=== PATIENT | female | born 1970 | race Caucasian/White ===

== ENCOUNTER 2016-09-14 13:38 | Inpatient (IN) | payer OTHER ==
[~2016-09-14] VITALS: Ht 162.6 cm; Wt 170.5 kg
[~2016-09-14 13:38] MED LIST: ALBUAER19 INH; BUPR-79 PO; FLUT220A INH; FURO-85 PO; HYDR-389 PO; LORA-741 PO; PRED10TA PO; PRLSR20 PO; PROP10TA7 PO
[2016-09-14] MEDS ORDERED: RANITIDINE HCL 50 MG/100 ML D5W IV STA (13:49)
[2016-09-14] MEDS ORDERED: DiphenhydrAMINE HCL 50 MG/ML VIAL IV STA ×2 (13:49→17:00)
[2016-09-14] MEDS ORDERED: SODIUM CHLORIDE 0.9% 1000ML 1,000 ML IV STA (13:49)
[2016-09-14] MEDS ORDERED: DEXAMETHASONE SOD INJ 10 MG/ML VIAL IV ONE (14:00)
--- NOTE | 2016-09-14 14:06 | EMERGENCY ROOM VISIT NOTE ---
History Report prepared by Indira: Gilda Caballero Under the Supervision of: Dr. Derik Coronel M.D. First contact with patient: 13:47 Chief Complaint: ALLERGIC REACTION Stated Complaint: WHOLE FACE IS SWOLLEN Nursing Triage Summary: Pt presents with swelling to face. Pt states she woke up at 1100 with swelling that has progressively worsened. Reports she is having a hard time swallowing. Pt unsure what she is having a rxn to. History of Present Illness The patient is a 45 year old female who presents to the Emergency Room with complaints of an allergic reaction beginning yesterday. The patient states that she noticed yesterday that her eyes were swelling. She notes that she has a history of this and is not sure why it happens. Today when she woke up she notes that the swelling worsened and 3 hours ago her lip began to swell. She complains of lip swelling, a rash on her arms beginning yesterday, leg swelling , and difficulty swallowing. She denies any difficulty breathing. The patient states that she is not sure what she is having a reaction to. She reports no known family history of angioedema. The patient notes that she is being treated for Lupus and thinks that she may be taking Plaquenil. Source of History: patient Onset: yesterday Position: other (global) Quality: other (allergic reaction) Timing: constant, worsening Associated Symptoms: + rash Note: She complains of lip swelling, leg swelling, and difficulty swallowing. She denies any difficulty breathing. Review of Systems See HPI for pertinent positives & negatives. A total of 10 systems reviewed and were otherwise negative. Past Medical & Surgical Medical Problems: (1) Anxiety (2) Asthma, mild persistent (3) Bipolar disorder (4) Depression (5) GERD (gastroesophageal reflux disease) (6) Obesity (7) Sleep apnea Surgical Problems: (1) History of appendectomy (2) History of section (3) History of tubal ligation Family History Cancer Diabetes mellitus Hypertension Social History Smoking Status: Never Smoker Alcohol Use: occasionally Drug Use: none Marital Status: in relationship Housing Status: lives with family Current/Historical Medications Scheduled Albuterol Hfa (Ventolin Hfa), 2 PUFFS INH Q4H Bupropion Hcl (Bupropion Hcl Xl), 150 MG PO QAM Fluticasone Propionate (Flovent Hfa), 2 PUFFS INH BID Furosemide (Lasix), 20 MG PO QAM Hydroxychloroquine Sulfate (Plaquenil), 200 MG PO QPM Omeprazole (Prilosec), 20 MG PO BID Prednisone (Prednisone), 10 MG PO QAM Propranolol (Inderal), 10 MG PO QAM Scheduled PRN Acetaminophen (Tylenol), 500 MG PO UD PRN for Pain Hydroxyzine Hcl (Atarax), 10 MG PO DIRECTED PRN for ITCHING Lorazepam (Ativan), 0.5 MG PO DAILY PRN for Anxiety Allergies Coded Allergies: No Known Allergies (Unverified , 03/15/16) Physical Exam Vital Signs Date Time Temp Pulse Resp B/P Pulse Ox O2 Delivery O2 Flow Rate FiO2 09/14/16 17:36 81 22 107/69 94 Room Air 09/14/16 17:24 82 09/14/16 16:15 83 20 129/83 96 Room Air 09/14/16 13:54 88 09/14/16 13:47 36.5 93 20 144/83 95 Room Air Physical Exam GENERAL: Patient is a healthy-appearing well-nourished HEAD: Swelling present to the upper lip. EYES: Ocular movements intact pupils equal and react to light OROPHARYNX mucous membranes are moist no exudate. There is no evidence of swelling to the throat or tongue. NECK: Supple no nuchal rigidity CHEST: Good equal expansion LUNGS: Clear and equal to auscultation CARDIAC: Normal S1 and S2 ABDOMEN: Soft nontender no guarding BACK: No CVA tenderness EXTREMITIES: No pain upon palpation normal muscle strength in all groups no clubbing cyanosis or edema NEURO: Patient is following commands is answering questions appropriately. Alert and oriented x3 Cranial Nerves 2-12 grossly intact Medical Decision & Procedures Laboratory Results 09/14/16 13:53 Red Blood Count 4.45, Mean Corpuscular Volume 85.8, Mean Corpuscular Hemoglobin 29.0, Mean Corpuscular Hemoglobin Concent 33.8, Mean Platelet Volume 9.1, Neutrophils (%) (Auto) 46.2, Lymphocytes (%) (Auto) 17.4, Monocytes (%) (Auto) 2.0, Eosinophils (%) (Auto) 31.3, Basophils (%) (Auto) 0.3, Neutrophils # (Auto ) 3.61, Lymphocytes # (Auto) 1.36, Monocytes # (Auto) 0.16, Eosinophils # (Auto ) 2.45, Basophils # (Auto) 0.02 09/14/16 13:53 Test 09/14/16 13:53 White Blood Count 7.82 K/uL (4.8-10.8) Red Blood Count 4.45 M/uL (4.2-5.4) Hemoglobin 12.9 g/dL (12.0-16.0) Hematocrit 38.2 % (37-47) Mean Corpuscular Volume 85.8 fL (80-100) Mean Corpuscular Hemoglobin 29.0 pg (25-34) Mean Corpuscular Hemoglobin Concent 33.8 g/dl (32-36) Platelet Count 205 K/uL (130-400) Mean Platelet Volume 9.1 fL (7.4-10.4) Neutrophils (%) (Auto) 46.2 % Lymphocytes (%) (Auto) 17.4 % Monocytes (%) (Auto) 2.0 % Eosinophils (%) (Auto) 31.3 % Basophils (%) (Auto) 0.3 % Neutrophils # (Auto) 3.61 K/uL (1.4-6.5) Lymphocytes # (Auto) 1.36 K/uL (1.2-3.4) Monocytes # (Auto) 0.16 K/uL (0.11-0.59) Eosinophils # (Auto) 2.45 K/uL (0-0.5) Basophils # (Auto) 0.02 K/uL (0-0.2) RDW Standard Deviation 44.5 fL (36.4-46.3) RDW Coefficient of Variation 14.3 % (11.5-14.5) Immature Granulocyte % (Auto) 2.8 % Immature Granulocyte # (Auto) 0.22 K/uL (0.00-0.02) Anion Gap 7.0 mmol/L (3-11) Est Creatinine Clear Calc Drug Dose 112.0 ml/min Estimated GFR () 80.9 Estimated GFR (Non- 69.8 BUN/Creatinine Ratio 11.1 (10-20) Calcium Level 8.3 mg/dl (8.5-10.1) Total Bilirubin 0.6 mg/dl (0.2-1) Direct Bilirubin 0.3 mg/dl (0-0.2) Aspartate Amino Transf (AST/SGOT) 35 U/L (15-37) Alanine Aminotransferase (ALT/SGPT) 21 U/L (12-78) Alkaline Phosphatase 92 U/L (45-117) Total Protein 6.5 gm/dl (6.4-8.2) Albumin 2.5 gm/dl (3.4-5.0) Lipase 44 U/L (73-393) Labs reviewed by ED physician. Medications Administered Medications (Trade) Dose Ordered Sig/Erika Route Start Time Stop Time Status Last Admin Dose Admin Sodium Chloride (Nss 1000ml) 1,000 ml @ 999 mls/hr Q1H1M STAT IV 09/14/16 13:49 09/14/16 14:49 DC 09/14/16 14:03 999 MLS/HR Dexamethasone Sodium Phosphate (Decadron Inj) 10 mg NOW ONCE IV 09/14/16 14:00 09/14/16 14:01 DC 09/14/16 14:03 10 MG Diphenhydramine HCl (Benadryl Inj) 50 mg NOW STAT IV 09/14/16 13:49 09/14/16 13:51 DC 09/14/16 14:03 50 MG Ranitidine HCl (zANTac IV) 50 mg NOW STAT IV 09/14/16 13:49 09/14/16 13:51 DC 09/14/16 14:10 50 MG Methylprednisolone Sodium Succinate (Solu-Medrol IV) 60 mg NOW STAT IV 09/14/16 17:00 09/14/16 17:01 DC 09/14/16 17:32 60 MG Diphenhydramine HCl (Benadryl Inj) 25 mg NOW STAT IV 09/14/16 17:00 09/14/16 17:01 DC 09/14/16 17:32 25 MG ED Course 1347: Past medical records reviewed. The patient was evaluated in room B1. A complete history and physical examination was performed. 1349: Zantac IV 50mg IV, Benadryl Inj 50mg IV, Sodium Chloride 1000 ml @ 999 mls /hr IV. 1400: Decadron Inj 10mg IV. 1514: I spoke to Dr. Waller. He would like the patient to stop taking Plaquenil and start taking 10mg of Prednisone. He notes that she is not compliant with her medications. 1700: Benadryl Inj 25mg IV, Solu-Medrol IV 60mg IV. 1703: I discussed the patient's case with Dr. Rosa, he has agreed to evaluate the patient for further management and care. 1709: Upon reexamination the patient is doing well. I discussed results and treatment plan with the patient. She verbalizes agreement and understanding. [facility] The patient will be evaluated for further management. Medical Decision Differential diagnosis: Etiologies such as allergic reaction, anaphylaxis, urticaria, Perales-Zan syndrome, toxic epidermal necrolysis, erythema multiforme, cellulitis, as well as others were entertained. This is a 45 old female who presents emergency department complaining of swelling to her upper lip. The patient reports this started after he she took Plaquenil last night. The patient is a poor historian due to her own medications and I do not believe is very compliant. I also discussed the patient's case with her assistant manager/embalmer who also made this point. Her exam is consistent with angioedema however a no stridor or wheezing on examination and there is no evidence of tongue or uvula swelling. An IV was established, the patient was given Decadron, Benadryl, Zantac. Repeat examination revealed revealed no improvement in the patient's swelling however it is not getting worse. I discussed this case with the patient who was not comfortable in going home. For this reason I did discuss with both case management as well as the hospitalist. The patient was typed and screened in case FFP is needed Consults Time Called: 1510 Consulting Physician: Dr. Waller Returned Call: [phone] Waller. He would like the patient to stop taking Plaquenil and start taking 10mg of Prednisone. He notes that she is not compliant with her medications. Additional Consults: Time Called: 1650 Consulted Physician: Dr. Rosa - [facility] Returned Call: [phone] Additional Comments: I discussed the patient's case with Dr. Rosa, he has agreed to evaluate the patient for further management and care. Impression Primary Impression: Angioedema Scribe Attestation The scribe's documentation has been prepared under my direction and personally reviewed by me in its entirety. I confirm that the note above accurately reflects all work, treatment, procedures, and medical decision making performed by me. Departure Information Dispostion Being Evaluated By Hospitalist Referrals Ary Bravo DO (PCP) Patient Instructions My [facility] Problem Qualifiers Primary Impression: Angioedema Encounter type: initial encounter Qualified Codes: T78.3XXA - Angioneurotic edema, initial encounter
[2016-09-14 14:09] LABS: BASO % 0.3 %; BASO ABS # 0.02 K/uL (0-0.2); COMPLETE YES; EOS % 31.3 %; HEMATOCRIT 38.2 % (37-47); IG% 2.8 %; LYMPH % 17.4 %; LYMPH ABS # 1.36 K/uL (1.2-3.4); MEAN CELL VOLUME 85.8 fL (80-100); MEAN CORPUSCULAR HGB CONC 33.8 g/dl (32-36); MEAN PLATELET VOLUME 9.1 fL (7.4-10.4); NEUT % 46.2 %; PLATELET COUNT 205 K/uL (130-400); RED BLOOD COUNT 4.45 M/uL (4.2-5.4); WHITE BLOOD COUNT 7.82 K/uL (4.8-10.8)
[2016-09-14] MEDS ORDERED: BUPR150T5 PO (14:45)
[2016-09-14] MEDS ORDERED: VNTHFA/IN INH (14:45)
[2016-09-14] MEDS ORDERED: HYDR200T5 PO (14:45)
[2016-09-14] MEDS ORDERED: FLVHFA44 INH (14:45)
[2016-09-14] MEDS ORDERED: ACET-1256 PO (14:46)
[2016-09-14 14:50] LABS: BUN/CREATININE RATIO 11.1 (10-20); CALCIUM 8.3 mg/dl (8.5-10.1); CREATININE 0.99 mg/dl (0.60-1.20); POTASSIUM 3.9 mmol/L (3.5-5.1)
[2016-09-14] MEDS ORDERED: METHYLPREDNISOLONE 125 MG VIAL IV STA (17:00)
[2016-09-14] MEDS ORDERED: ACETAMINOPHEN 325 MG TAB PO PRN (18:45)
[2016-09-14] MEDS ORDERED: ONDANSETRON INJ 2 MG/ML 2 ML VIAL IV PRN (18:45)
[2016-09-14] MEDS ORDERED: DiphenhydrAMINE INJ 25 MG in SYRINGE 0 ML IV SCH (19:00)
[2016-09-14] MEDS ORDERED: MELO15TA4 PO (19:01)
[2016-09-14] MEDS ORDERED: HYDR25CA PO (19:01)
[2016-09-14 19:15] VITALS: BP 134/84; PULSE 83; TEMP 36.5; O2SAT 93; Ht 162.6 cm; Wt 170.5 kg
[2016-09-14] MEDS ORDERED: DiphenhydrAMINE INJ 50 MG in SYRINGE 0 ML IV SCH (19:15)
[2016-09-14 20:00] VITALS: O2SAT 93
--- NOTE | 2016-09-14 20:28 | History and Physical ---
History & Physical Date & Time of Service: September 14, 2016 at 19:53 Chief Complaint: Face Swelling Primary Care Physician: Ary Bravo DO History of Present Illness 45 year old female who presents to the ER with facial swelling. Patient reports last night she developed some swelling around her eyes. She reports she gets this from time to time and uses eye drops. She used the eye drops last night and then went to bed. She reports that when she woke up the swelling was much worse around her eyes and also her top lip was swollen which progressively got worse. She reports some mild difficulty swallowing and feeling like the back of her throat was swollen. She denies associated shortness of breath. She reports she will occasionally break out in hives on both her arms. Reports that hasn't happened in a couple of weeks. She denies the use of any new medications. She has been on Plaquenil since April for SLE and has been taking it regularly. No NSAID use in the past 24 hours. She denies any new medications or new foods. She has seen allergy in the past and was told she did not have any allergies. She denies chest pain. She has chronic exertional shortness of breath which is unchanged. No fever or chills. She denies lightheadedness, dizziness, diaphoresis, or syncopal events. No abdominal pain, nausea, vomiting, or diarrhea. She has chronic lower extremity edema which she reports comes and goes. No urinary symptoms. In the ER, patient was found to have significant swelling of the eyes, cheeks, and upper lip. She was given IV solumedrol, IV decadron, IV Zantac, and IV Benadryl. Vitals are stable. Past Medical/Surgical History Medical Problems: (1) Anxiety Status: Chronic (2) Asthma, mild persistent Status: Chronic (3) Bipolar disorder Status: Chronic (4) Depression Status: Chronic (5) GERD (gastroesophageal reflux disease) Status: Chronic (6) Lupus Status: Chronic (7) Obesity Status: Chronic (8) Sleep apnea Status: Chronic Surgical Problems: (1) History of appendectomy Status: Resolved (2) History of section Status: Resolved (3) History of tubal ligation Status: Resolved Family History Diabetes mellitus FATHER Hypertension MOTHER Stroke BROTHER Social History Smoking Status: Never Smoker Alcohol Use: none Immunizations History of Tetanus Vaccine?: Yes Tetanus Immunization Date: Oct 16, 2014 History of Pneumococcal: Yes Pneumococcal Date: Feb 29, 2016 Multi-Drug Resistant Organisms History of MDRO: No Allergies Coded Allergies: No Known Allergies (Unverified , 03/15/16) Home Medications Scheduled Bupropion Hcl (Bupropion Hcl Xl), 150 MG PO QAM Fluticasone Propionate (Flovent Hfa), 2 PUFFS INH BID Furosemide (Lasix), 20 MG PO QAM Hydroxychloroquine Sulfate (Plaquenil), 400 MG PO QPM Propranolol (Inderal), 10 MG PO QAM Scheduled PRN Acetaminophen (Tylenol), 500 MG PO UD PRN for Pain Albuterol Hfa (Ventolin Hfa), 2 PUFFS INH Q4H PRN for SOB/Wheezing Hydroxyzine Pamoate (Vistaril), 1 CAP PO TID PRN for Itching Lorazepam (Ativan), 0.5 MG PO DAILY PRN for Anxiety Meloxicam (Mobic), 1 TAB PO DAILY PRN for Pain Review of Systems ROS per HPI, all other systems reviewed and negative Physical Exam Vital Signs Date Time Temp Pulse Resp B/P Pulse Ox O2 Delivery O2 Flow Rate FiO2 09/14/16 19:10 87 20 129/82 94 09/14/16 17:36 81 22 107/69 94 Room Air 09/14/16 17:24 82 09/14/16 16:15 83 20 129/83 96 Room Air 09/14/16 13:54 88 09/14/16 13:47 36.5 93 20 144/83 95 Room Air General Appearance: no apparent distress Head: + pertinent finding (angioedema - edema noted to eyes, cheeks, and upper lip) Eyes: + pertinent finding (periorbital edema noted to both eyes, L > R ) ENT: hearing grossly normal, + pertinent finding (mild uvula edema, airway patent ) Neck: supple, no JVD Respiratory/Chest: lungs clear, normal breath sounds, no respiratory distress Cardiovascular: regular rate, rhythm, + pertinent finding (+1-2 edema BLLE) Abdomen/GI: normal bowel sounds, non tender, soft Extremities/Musculoskelatal: normal inspection, no calf tenderness Neurologic/Psych: no motor/sensory deficits, alert, normal mood/affect, oriented x 3 Skin: normal color, warm/dry Diagnostics Laboratory Results Results Past 24 Hours Test 09/14/16 13:53 Range/Units White Blood Count 7.82 4.8-10.8 K/uL Red Blood Count 4.45 4.2-5.4 M/uL Hemoglobin 12.9 12.0-16.0 g/dL Hematocrit 38.2 37-47 % Mean Corpuscular Volume 85.8 80-100 fL Mean Corpuscular Hemoglobin 29.0 25-34 pg Mean Corpuscular Hemoglobin Concent 33.8 32-36 g/dl Platelet Count 205 130-400 K/uL Mean Platelet Volume 9.1 7.4-10.4 fL Neutrophils (%) (Auto) 46.2 % Lymphocytes (%) (Auto) 17.4 % Monocytes (%) (Auto) 2.0 % Eosinophils (%) (Auto) 31.3 % Basophils (%) (Auto) 0.3 % Neutrophils # (Auto) 3.61 1.4-6.5 K/uL Lymphocytes # (Auto) 1.36 1.2-3.4 K/uL Monocytes # (Auto) 0.16 0.11-0.59 K/uL Eosinophils # (Auto) 2.45 0-0.5 K/uL Basophils # (Auto) 0.02 0-0.2 K/uL RDW Standard Deviation 44.5 36.4-46.3 fL RDW Coefficient of Variation 14.3 11.5-14.5 % Immature Granulocyte % (Auto) 2.8 % Immature Granulocyte # (Auto) 0.22 0.00-0.02 K/uL Sodium Level 141 136-145 mmol/L Potassium Level 3.9 3.5-5.1 mmol/L Chloride Level 106 98-107 mmol/L Carbon Dioxide Level 28 21-32 mmol/L Anion Gap 7.0 3-11 mmol/L Blood Urea Nitrogen 11 7-18 mg/dl Creatinine 0.99 0.60-1.20 mg/dl Est Creatinine Clear Calc Drug Dose 112.0 ml/min Estimated GFR () 80.9 Estimated GFR (Non- 69.8 BUN/Creatinine Ratio 11.1 10-20 Random Glucose 88 70-99 mg/dl Calcium Level 8.3 8.5-10.1 mg/dl Total Bilirubin 0.6 0.2-1 mg/dl Direct Bilirubin 0.3 0-0.2 mg/dl Aspartate Amino Transf (AST/SGOT) 35 15-37 U/L Alanine Aminotransferase (ALT/SGPT) 21 12-78 U/L Alkaline Phosphatase 92 45-117 U/L Total Protein 6.5 6.4-8.2 gm/dl Albumin 2.5 3.4-5.0 gm/dl Lipase 44 73-393 U/L Impression Assessment and Plan ANGIOEDEMA - admit to tele - patient presenting with swelling of the eyes, cheeks, and upper lip; airway patent, vitals and oxygen saturations stable - precipitating factor unclear - on Plaquenil for SLE however has been on it for the past few months; no NSAID use in the past 24 hours; no other new medications or exposures - s/p IV solumedrol, Decadron, Benadryl, and Zantac in ED - will continue with Zantac 50mg IV q12h, Solumedrol 40mg IV q8h, Benadryl 50mg IV q6h - case discussed with Dr. Waller - will discontinue Plaquenil and taper steroids down to 10mg daily - noted patient has an appointment on 09/20 with rheumatology - also will check patient for c1 esterase deficiency SLE - as above ASTHMA - no signs of acute exacerbation - continue home inhalers DVT PROPHYLAXIS - SCDs DISPO - The patient will be placed as observation status for now until further work up is complete. VTE Prophylaxis VTE Risk Assessment Done? Y/N: Yes Risk Level: Moderate Note ATTENDING ADDENDUM Record reviewed. Patient interviewed and examined. Care coordinated with SHARYN Arnett. Please refer to her documentation for patient's history. Briefly, 45 YO female with SLE and other problems as noted. Takes hydroxychloroquine and intermittent NSAID's (meloxicam and ibuprofen). Presented to ED with swelling of her lips and face. Last use of ibuprofen was a few days ago. No new meds. No stridor, SOB, difficulty swallowing. EXAM: General- no acute distress VS- as noted HEENT- edema of face and lips; no swelling of tongue; no stridor Neck- supple, no adenopathy Lungs- clear Heart- RRR Abdomen- + BS, soft, nontender Extremities- chronic lymphedema Neuro- alert DATA: Lab studies as noted. ASSESSMENT AND PLAN: Angioedema, possibly due to Plaquenil. Hold hydroxychloroquine and NSAID's. Rx with IV methylprednisolone and diphenhydramine. Monitor for upper airway concerns. Please refer to MEL Peace's documentation for discussion of other issues. Tim Rosa MD .
[2016-09-14] MEDS ORDERED: PNEUMOCOCCAL ADMINISTRATION CHARGE ONE (20:30)
[2016-09-14] MEDS ORDERED: IV FLUIDS COMPLETED PRN (20:30)
[2016-09-14] MEDS ORDERED: PNEUMOCOCCAL POLYSACCHARIDES 25 MCG/0.5 ML VIAL/SYR IM. ONE (20:30)
[2016-09-14 20:57] LABS: URINE APPEARANCE CLOUDY (CLEAR); URINE BILIRUBIN NEG (NEG); URINE COLOR YELLOW; URINE NITRITE NEG (NEG); URINE SPECIFIC GRAVITY 1.015 (1.000-1.030); UROBILINOGEN NEG (NEG)
[2016-09-14 20:59] LABS: MANUAL MICROSCOPIC REQUIRED? NO; REVIEW REQ? NO
[2016-09-14] MEDS: FLUTICASONE PROP HFA INH 44 MCG INHALER INH SCH (21:00)
[2016-09-14] MEDS: DiphenhydrAMINE HCL 50 MG/ML VIAL IV. SCH (21:01)
[2016-09-14] MEDS: RANITIDINE IV 50 MG in DEXTROSE 5% 100ML 100 ML IV SCH (21:01)
[2016-09-14 23:10] VITALS: BP 119/70; PULSE 80; TEMP 36.6; O2SAT 92
[2016-09-14] MEDS: METHYLPREDNISOLONE IV 40 MG in SYRINGE 0 ML IV SCH (23:31)
[2016-09-15] VITALS (8 sets, daily range): BP systolic 108–147; BP diastolic 74–89; PULSE 56–68; TEMP 36.4–36.8; O2SAT 92–98
[2016-09-15] MEDS: DiphenhydrAMINE HCL 50 MG/ML VIAL IV. SCH ×4 (03:22→22:03)
[2016-09-15] MEDS: METHYLPREDNISOLONE IV 40 MG in SYRINGE 0 ML IV SCH ×4 (06:01→23:25)
[2016-09-15 07:11] LABS: BASO % 0.3 %; BASO ABS # 0.02 K/uL (0-0.2); COMPLETE YES; EOS % 25.6 %; HEMATOCRIT 34.5 % (37-47); IG% 1.5 %; LYMPH % 16.8 %; LYMPH ABS # 1.33 K/uL (1.2-3.4); MEAN CELL VOLUME 86.7 fL (80-100); MEAN CORPUSCULAR HEMOGLOBIN 28.6 pg (25-34); MEAN PLATELET VOLUME 9.3 fL (7.4-10.4); MONO % 0.9 %; NEUT % 54.9 %; PLATELET COUNT 186 K/uL (130-400); RED BLOOD COUNT 3.98 M/uL (4.2-5.4); WHITE BLOOD COUNT 7.94 K/uL (4.8-10.8)
[2016-09-15 07:43] LABS: CALCIUM 8.9 mg/dl (8.5-10.1); CREATININE 0.97 mg/dl (0.60-1.20)
[2016-09-15] MEDS: FLUTICASONE PROP HFA INH 44 MCG INHALER INH SCH ×2 (08:21→20:27)
[2016-09-15] MEDS: RANITIDINE IV 50 MG in DEXTROSE 5% 100ML 100 ML IV SCH ×2 (08:22→20:43)
[2016-09-15] MEDS ORDERED: ROPINIROLE HCL 0.25 MG TAB PO ONE (10:30)
--- NOTE | 2016-09-15 10:38 | Progress Note ---
Subjective Date of Service: September 15, 2016. Subjective Pt evaluation today including: conversation w/ patient, physical exam, lab review, review of studies, review of inpatient medication list Saw/examined the patient in room 241-2 She came in due to significant swelling of the face, lips, eyes Today, she feels fine; swelling seems to have subsided, persists around L eye She tolerated her breakfast, no throat issues No fevers/chills Problem List Medical Problems: (1) Cellulitis of both lower extremities Status: Acute (2) Cellulitis of left lower leg Status: Acute (3) Splenomegaly Status: Acute Review of Systems Constitutional: No chills, No fever Eyes: + problem reported (swelling around eyes) ENT: + problem reported (swelling of the lips, face), + see HPI Respiratory: No cough, No dyspnea at rest, No dyspnea on exertion, No shortness of breath, No sputum, No wheezing Cardiac: No chest pain Abdomen: No diarrhea, No nausea, No pain, No vomiting Medications Current Inpatient Medications Medications (Trade) Dose Ordered Sig/Erika Route Start Time Stop Time Status Last Admin Dose Admin Acetaminophen (Tylenol Tab) 650 mg Q4H PRN PO 09/14/16 18:45 10/14/16 18:44 09/15/16 06:34 650 MG Ondansetron HCl 4 mg 4 mg Q6H PRN IV 09/14/16 18:45 10/14/16 18:44 Ranitidine HCl/ Dextrose (zANTac IV/D5 100ml) 102 ml @ 200 mls/hr Q12 IV 09/14/16 21:00 10/14/16 20:59 09/15/16 08:22 200 MLS/HR Fluticasone Propionate (Flovent Hfa 44MCG Inhaler) 2 puffs BID INH 09/14/16 21:00 10/14/16 20:59 09/15/16 08:21 2 PUFFS Lorazepam 0.5 mg 0.5 mg DAILY PRN PO 09/14/16 19:15 10/14/16 19:14 Methylprednisolone Sodium Succinate/ Syringe (Solu-Medrol IV/ Syringe) 0.64 ml @ 1.5 mls/min Q6H IV 09/15/16 00:00 10/15/16 00:00 09/15/16 06:01 1.5 MLS/MIN Diphenhydramine HCl (Benadryl Inj) 50 mg Q6H IV. 09/14/16 22:00 10/14/16 21:59 09/15/16 09:09 50 MG Miscellaneous (Iv Fluids Completed) 1 ea PRN PRN N/A 09/14/16 20:30 09/14/17 20:29 Objective Vital Signs Date Time Temp Pulse Resp B/P Pulse Ox O2 Delivery O2 Flow Rate FiO2 09/15/16 08:10 36.4 20 117/74 92 Room Air 09/15/16 08:00 Room Air 09/15/16 04:00 98 BiPAP 09/15/16 03:21 36.7 56 19 147/89 98 BiPAP 09/15/16 00:00 93 Room Air 09/14/16 23:10 36.6 80 19 119/70 92 Room Air 09/14/16 20:00 93 Room Air 09/14/16 19:15 36.5 83 17 134/84 93 Room Air 09/14/16 19:10 87 20 129/82 94 09/14/16 17:36 81 22 107/69 94 Room Air 09/14/16 17:24 82 09/14/16 16:15 83 20 129/83 96 Room Air 09/14/16 13:54 88 09/14/16 13:47 36.5 93 20 144/83 95 Room Air Physical Exam General Appearance: no apparent distress, + obese Eyes: + pertinent finding (periorbital swelling, L>R) ENT: + pertinent finding (upper lip swelling) Respiratory/Chest: lungs clear, normal breath sounds, no respiratory distress, no accessory muscle use Cardiovascular: regular rate, rhythm, no edema, no murmur Extremities: + swelling (+1 pitting edema; lymphedema; WYATT hose on b/l LE), + pertinent finding Neurologic/Psychiatric: no motor/sensory deficits, alert, normal mood/affect Laboratory Results Last 24 Hours Test 09/14/16 13:53 09/14/16 19:05 09/15/16 06:55 White Blood Count 7.82 K/uL 7.94 K/uL Red Blood Count 4.45 M/uL 3.98 M/uL Hemoglobin 12.9 g/dL 11.4 g/dL Hematocrit 38.2 % 34.5 % Mean Corpuscular Volume 85.8 fL 86.7 fL Mean Corpuscular Hemoglobin 29.0 pg 28.6 pg Mean Corpuscular Hemoglobin Concent 33.8 g/dl 33.0 g/dl Platelet Count 205 K/uL 186 K/uL Mean Platelet Volume 9.1 fL 9.3 fL Neutrophils (%) (Auto) 46.2 % 54.9 % Lymphocytes (%) (Auto) 17.4 % 16.8 % Monocytes (%) (Auto) 2.0 % 0.9 % Eosinophils (%) (Auto) 31.3 % 25.6 % Basophils (%) (Auto) 0.3 % 0.3 % Neutrophils # (Auto) 3.61 K/uL 4.37 K/uL Lymphocytes # (Auto) 1.36 K/uL 1.33 K/uL Monocytes # (Auto) 0.16 K/uL 0.07 K/uL Eosinophils # (Auto) 2.45 K/uL 2.03 K/uL Basophils # (Auto) 0.02 K/uL 0.02 K/uL RDW Standard Deviation 44.5 fL 45.1 fL RDW Coefficient of Variation 14.3 % 14.3 % Immature Granulocyte % (Auto) 2.8 % 1.5 % Immature Granulocyte # (Auto) 0.22 K/uL 0.12 K/uL Sodium Level 141 mmol/L 141 mmol/L Potassium Level 3.9 mmol/L 4.0 mmol/L Chloride Level 106 mmol/L 106 mmol/L Carbon Dioxide Level 28 mmol/L 30 mmol/L Anion Gap 7.0 mmol/L 5.0 mmol/L Blood Urea Nitrogen 11 mg/dl 14 mg/dl Creatinine 0.99 mg/dl 0.97 mg/dl Est Creatinine Clear Calc Drug Dose 112.0 ml/min 118.6 ml/min Estimated GFR () 80.9 82.9 Estimated GFR (Non- 69.8 71.5 BUN/Creatinine Ratio 11.1 14.0 Random Glucose 88 mg/dl 151 mg/dl Calcium Level 8.3 mg/dl 8.9 mg/dl Total Bilirubin 0.6 mg/dl Direct Bilirubin 0.3 mg/dl Aspartate Amino Transf (AST/SGOT) 35 U/L Alanine Aminotransferase (ALT/SGPT) 21 U/L Alkaline Phosphatase 92 U/L Total Protein 6.5 gm/dl Albumin 2.5 gm/dl Lipase 44 U/L Urine Color YELLOW Urine Appearance CLOUDY Urine pH 5.0 Urine Specific [place] 1.015 Urine Protein NEG Urine Glucose (UA) NEG Urine Ketones NEG Urine Occult Blood NEG Urine Nitrite NEG Urine Bilirubin NEG Urine Urobilinogen NEG Urine Leukocyte Esterase NEG Urine WBC (Auto) 1-5 /hpf Urine RBC (Auto) 0-4 /hpf Urine Hyaline Casts (Auto) 1-5 /lpf Urine Epithelial Cells (Auto) 10-20 /lpf Urine Bacteria (Auto) NEG Assessment and Plan This is a 45 year old female with a PMH of morbid obesity, OBI on bipap nocturnally, SLE on Plaquenil, depression/anxiety, asthma, presents with swelling of the face, eyes, lips Angioedema periorbital and labial edema patient was also c/o of some throat closure yesterday was given IV steroids, Benadryl, ranitidine with some improvement Plaquenil held appreciate rheumatology input will observe one more night, continue IV steroids, IV H1-H2 blockers prednisone taper on discharge, f/u with rheumatology on 09/20 Asthma continue home inhalers Depression/Anxiety meds held for now, restart on discharge Restless Leg possibly restless leg syndrome, may be a side effect to the steroids will give one dose of Requip tonight DVT ppx TEDs + SCDs FULL CODE
[2016-09-15] MEDS: ROPINIROLE HCL 0.25 MG TAB PO SCH (20:27)
[2016-09-15] MEDS: LORAZEPAM 0.5 MG TAB PO PRN (23:29)
[2016-09-16 03:02] VITALS: BP 120/68; PULSE 56; TEMP 36.6; O2SAT 96
[2016-09-16] MEDS: DiphenhydrAMINE HCL 50 MG/ML VIAL IV. SCH ×4 (03:07→21:47)
[2016-09-16] MEDS: METHYLPREDNISOLONE IV 40 MG in SYRINGE 0 ML IV SCH ×4 (06:47→23:47)
[2016-09-16 07:40] VITALS: BP 157/68; PULSE 50; TEMP 36.4; O2SAT 95
[2016-09-16] MEDS: LORAZEPAM 0.5 MG TAB PO PRN (07:55)
[2016-09-16] MEDS: FLUTICASONE PROP HFA INH 44 MCG INHALER INH SCH ×2 (07:55→21:07)
[2016-09-16] MEDS: RANITIDINE IV 50 MG in DEXTROSE 5% 100ML 100 ML IV SCH ×2 (07:57→21:07)
--- NOTE | 2016-09-16 10:39 | Progress Note ---
Subjective Date of Service: September 16, 2016. Subjective Pt evaluation today including: conversation w/ patient, physical exam, lab review, review of studies, review of inpatient medication list Saw/examined the patient in room 241 Her edema has gone down considerably, she is tolerating PO intake, lip swelling decreased She had some chest discomfort, which she thought was anxiety related; EKG obtained, showing bradycardia with dropped beats. Patient's chest discomfort decreased with Ativan Problem List Medical Problems: (1) Cellulitis of both lower extremities Status: Acute (2) Cellulitis of left lower leg Status: Acute (3) Splenomegaly Status: Acute Review of Systems Constitutional: No chills, No fever Eyes: No eye pain, No problem reported, No worsening of vision Respiratory: No dyspnea at rest, No dyspnea on exertion, No shortness of breath Cardiac: + chest pain, + see HPI, No edema, No palpitations Abdomen: No diarrhea, No nausea, No pain, No vomiting Medications Current Inpatient Medications Medications (Trade) Dose Ordered Sig/Erika Route Start Time Stop Time Status Last Admin Dose Admin Acetaminophen (Tylenol Tab) 650 mg Q4H PRN PO 09/14/16 18:45 10/14/16 18:44 09/15/16 06:34 650 MG Ondansetron HCl 4 mg 4 mg Q6H PRN IV 09/14/16 18:45 10/14/16 18:44 Ranitidine HCl/ Dextrose (zANTac IV/D5 100ml) 102 ml @ 200 mls/hr Q12 IV 09/14/16 21:00 10/14/16 20:59 09/16/16 07:57 200 MLS/HR Fluticasone Propionate (Flovent Hfa 44MCG Inhaler) 2 puffs BID INH 09/14/16 21:00 10/14/16 20:59 09/16/16 07:55 2 PUFFS Lorazepam 0.5 mg 0.5 mg DAILY PRN PO 09/14/16 19:15 10/14/16 19:14 09/16/16 07:55 0.5 MG Methylprednisolone Sodium Succinate/ Syringe (Solu-Medrol IV/ Syringe) 0.64 ml @ 1.5 mls/min Q6H IV 09/15/16 00:00 10/15/16 00:00 09/16/16 06:47 1.5 MLS/MIN Diphenhydramine HCl (Benadryl Inj) 50 mg Q6H IV. 09/14/16 22:00 10/14/16 21:59 09/16/16 03:07 50 MG Miscellaneous (Iv Fluids Completed) 1 ea PRN PRN N/A 09/14/16 20:30 09/14/17 20:29 Ropinirole HCl (Requip Tab) 0.25 mg HS PO 09/15/16 21:00 10/15/16 20:59 09/15/16 20:27 0.25 MG Objective Vital Signs Date Time Temp Pulse Resp B/P Pulse Ox O2 Delivery O2 Flow Rate FiO2 09/16/16 07:40 36.4 50 16 157/68 95 Room Air 09/16/16 04:00 Room Air 09/16/16 03:02 36.6 56 22 120/68 96 Room Air 09/15/16 23:59 Room Air 09/15/16 23:08 36.8 57 19 146/84 94 Room Air 09/15/16 20:00 Room Air 09/15/16 19:18 36.7 68 20 108/74 93 Room Air 09/15/16 16:00 Room Air 09/15/16 15:23 36.6 60 19 120/75 92 Room Air 09/15/16 12:00 Room Air 09/15/16 11:50 36.7 63 20 121/78 92 Room Air Physical Exam General Appearance: no apparent distress, + obese ENT: + pertinent finding (decreased swelling of the L eye, swelling of upper lip decreased as well) Respiratory/Chest: lungs clear, normal breath sounds, no respiratory distress, no accessory muscle use Cardiovascular: no edema, no murmur, + bradycardia Extremities: + swelling (+1 pitting edema b/l LE), + pertinent finding Laboratory Results Last 24 Hours Test 09/16/16 08:05 Total Creatine Kinase 325 U/L Creatine Kinase MB 6.4 ng/ml Creatine Kinase MB Ratio 2.0 Troponin I 0.016 ng/ml Assessment and Plan This is a 45 year old female with a PMH of morbid obesity, OBI on bipap nocturnally, SLE on Plaquenil, depression/anxiety, asthma, presents with swelling of the face, eyes, lips Bradycardia patient had some chest discomfort earlier this morning EKG shows bradycardia with possibly blocked PACs with her hx. of SLE, there is concern for incomplete vs. complete heart blocks consulted cardiology for further input echo pending Angioedema 09/16 edema has gone down can d/c with prednisone taper currently holding Plaquenil outpatient rheumatology follow-up on 09/20 09/15 periorbital and labial edema patient was also c/o of some throat closure yesterday was given IV steroids, Benadryl, ranitidine with some improvement Plaquenil held appreciate rheumatology input will observe one more night, continue IV steroids, IV H1-H2 blockers prednisone taper on discharge, f/u with rheumatology on 09/20 Asthma continue home inhalers Depression/Anxiety meds held for now, restart on discharge Restless Leg possibly restless leg syndrome, may be a side effect to the steroids will give one dose of Requip tonight DVT ppx TEDs + SCDs FULL CODE
[2016-09-16 11:47] VITALS: BP 172/76; PULSE 55; TEMP 36.4; O2SAT 93
[2016-09-16 15:37] VITALS: BP 165/95; PULSE 81; TEMP 37; O2SAT 93
--- NOTE | 2016-09-16 15:58 | CARDIOLOGY CONSULTATION ---
DATE OF CONSULTATION: 09/16/2016 CONSULTATION REQUESTED BY: Dr. Beckwtih. REASON FOR CONSULTATION: Irregular heartbeat. HISTORY OF PRESENT ILLNESS: Ms. Valentine is a very pleasant 45-year-old woman who presented to [facility] Emergency Department on 09/14/2016 with a complaint of facial swelling and difficulty breathing secondary to throat closure. At that time, she was treated with IV Solu-Medrol, Decadron, Zantac and Benadryl. It was believed that she was having a reaction to her Plaquenil and it was discontinued. She was admitted to telemetry for monitoring. However, EKG was performed which did show an irregular heartbeat and there was a concern for possible AV block and cardiology was consulted. Currently, the patient states that she is feeling better. She has had absolutely no complaints from a cardiac standpoint whatsoever. She denies any chest pain, shortness of breath, palpitations, lightheadedness, dizziness, or syncope. She states the swelling in her face is going down. She is feeling almost back to normal now. PAST SURGICAL HISTORY: 1. . 2. Colonoscopy. 3. Upper endoscopy. 4. Tubal ligation. 5. Appendectomy. MEDICAL ILLNESSES: 1. Bipolar disorder. 2. SLE. 3. Psoriasis. 4. Obesity. 5. Obstructive sleep apnea. 6. Asthma. FAMILY HISTORY: Denies any premature coronary artery disease or sudden cardiac . SOCIAL HISTORY: Denies any alcohol, tobacco or recreational drug use. REVIEW OF SYSTEMS: As per HPI, all other systems reviewed and negative at this time. ALLERGIES: No known drug allergies. MEDICATIONS AN OUTPATIENT: 1. Bupropion XL daily. 2. Flovent b.i.d. 3. Lasix 20 mg daily. 4. Inderal 10 mg daily. 5. Plaquenil daily. PHYSICAL EXAMINATION: VITALS: Temperature 36.4, pulse 50, respiratory rate 12, blood pressure 157/68. GENERAL: Awake, alert, oriented x3 in no acute distress. HEENT: Normocephalic, atraumatic. Slight periorbital edema. Extraocular muscles intact. Anicteric sclerae. Moist mucous membranes. NECK: No JVD, no bruit. CARDIOVASCULAR: Regular. Positive S4. Normal S1 and S2. No S3. 3/6 holosystolic ejection murmur greatest at the left sternal border midclavicular line, fifth intercostal space without radiation, no rubs. PULMONARY: Clear to auscultation bilaterally. No rales, rhonchi, or wheezing. ABDOMEN: Bowel sounds x4, soft. No rebound, guarding, tenderness. No organomegaly. EXTREMITIES: No clubbing, cyanosis or edema. +2 pedal pulses bilaterally. SKIN: Warm and dry. TEST RESULTS: 2-D echocardiogram performed 06/20/2016 at [facility] was read as normal LV chamber size with mild concentric LVH, normal LV systolic function, EF 60%-64% without wall motion abnormality. Right ventricular free wall thickness is increased mild mitral regurgitation, moderate tricuspid regurgitation. Mild pulmonary hypertension is present. A 12-lead EKG independently reviewed at this time shows normal sinus rhythm with frequent premature supraventricular complexes. Review of telemetry monitoring shows occasional premature supraventricular complexes. IMPRESSION: 1. Premature supraventricular complexes in the setting of angioedema and significant steroid use. 2. Morbid obesity. 3. Pulmonary hypertension. RECOMMENDATIONS: It was my pleasure to see Ms. Valentine in consultation today. Given the clinical setting, I believe it is perfectly reasonable for her to be having significant supraventricular ectopy. So at this time given the fact we already have an echocardiogram from only a few months ago I do not believe one needs to be repeated at this time. She is to be monitored overnight and we can consider outpatient 24-hour Holter monitor; however, suspect no other cardiac testing will be necessary. Of note, I am not quite sure why the patient was on Inderal, but holding it most likely exacerbated this ectopy.
[2016-09-16] MEDS: ALBUTEROL HFA 8 GM INHALER INH PRN (19:10)
[2016-09-16 19:31] VITALS: BP 135/76; PULSE 56; TEMP 36.6; O2SAT 95
[2016-09-16] MEDS: ROPINIROLE HCL 0.25 MG TAB PO SCH (21:07)
[2016-09-16 23:18] VITALS: BP 167/82; PULSE 55; TEMP 36.9; O2SAT 94
[2016-09-17] MEDS: LORAZEPAM 0.5 MG TAB PO PRN
[2016-09-17 03:18] VITALS: BP 163/101; PULSE 52; TEMP 36.9; O2SAT 96
[2016-09-17 04:53] VITALS: BP 158/94
[2016-09-17] MEDS: METHYLPREDNISOLONE IV 40 MG in SYRINGE 0 ML IV SCH ×2 (04:55→12:08)
[2016-09-17] MEDS: ALBUTEROL HFA 8 GM INHALER INH PRN (04:56)
[2016-09-17] MEDS: DiphenhydrAMINE HCL 50 MG/ML VIAL IV. SCH ×2 (04:57→10:26)
[2016-09-17 07:10] VITALS: BP 152/104; PULSE 56; TEMP 36.5; O2SAT 90
[2016-09-17] MEDS: RANITIDINE IV 50 MG in DEXTROSE 5% 100ML 100 ML IV SCH (08:04)
[2016-09-17] MEDS: FLUTICASONE PROP HFA INH 44 MCG INHALER INH SCH (08:04)
[2016-09-17 12:00] VITALS: BP 139/84; PULSE 58; TEMP 36.5; O2SAT 92
--- NOTE | 2016-09-17 14:14 | Progress Note ---
Subjective Date of Service: September 17, 2016. Subjective Pt evaluation today including: conversation w/ patient, physical exam, lab review, review of studies, review of inpatient medication list Saw/examined the patient in room 241-2 She's doing well, no problems/issues to note today Denies chest pain some dyspnea with exertion, which is chronic Problem List Medical Problems: (1) Cellulitis of both lower extremities Status: Acute (2) Cellulitis of left lower leg Status: Acute (3) Splenomegaly Status: Acute Review of Systems Constitutional: No chills, No fever Respiratory: No shortness of breath Cardiac: No chest pain Abdomen: No diarrhea, No nausea, No pain, No vomiting Medications Current Inpatient Medications Medications (Trade) Dose Ordered Sig/Erika Route Start Time Stop Time Status Last Admin Dose Admin Acetaminophen (Tylenol Tab) 650 mg Q4H PRN PO 09/14/16 18:45 10/14/16 18:44 09/15/16 06:34 650 MG Ondansetron HCl 4 mg 4 mg Q6H PRN IV 09/14/16 18:45 10/14/16 18:44 Ranitidine HCl/ Dextrose (zANTac IV/D5 100ml) 102 ml @ 200 mls/hr Q12 IV 09/14/16 21:00 10/14/16 20:59 09/17/16 08:04 200 MLS/HR Fluticasone Propionate (Flovent Hfa 44MCG Inhaler) 2 puffs BID INH 09/14/16 21:00 10/14/16 20:59 09/17/16 08:04 2 PUFFS Lorazepam 0.5 mg 0.5 mg DAILY PRN PO 09/14/16 19:15 10/14/16 19:14 09/17/16 00:00 0.5 MG Methylprednisolone Sodium Succinate/ Syringe (Solu-Medrol IV/ Syringe) 0.64 ml @ 1.5 mls/min Q6H IV 09/15/16 00:00 10/15/16 00:00 09/17/16 12:08 1.5 MLS/MIN Diphenhydramine HCl (Benadryl Inj) 50 mg Q6H IV. 09/14/16 22:00 10/14/16 21:59 09/17/16 10:26 50 MG Miscellaneous (Iv Fluids Completed) 1 ea PRN PRN N/A 09/14/16 20:30 09/14/17 20:29 Ropinirole HCl (Requip Tab) 0.25 mg HS PO 09/15/16 21:00 10/15/16 20:59 09/16/16 21:07 0.25 MG Albuterol (Ventolin Hfa Inhaler) 2 puffs Q4 PRN INH 09/16/16 12:30 10/16/16 12:29 09/17/16 04:56 2 PUFFS Objective Vital Signs Date Time Temp Pulse Resp B/P Pulse Ox O2 Delivery O2 Flow Rate FiO2 09/17/16 12:00 Room Air 09/17/16 12:00 36.5 58 19 139/84 92 Room Air 09/17/16 08:05 Room Air 09/17/16 07:10 36.5 56 19 152/104 90 Room Air 09/17/16 04:53 158/94 09/17/16 04:00 Room Air 09/17/16 03:18 36.9 52 20 163/101 96 CPAP 3.0 09/16/16 23:59 Room Air 09/16/16 23:18 36.9 55 167/82 94 Room Air 09/16/16 20:00 Room Air 09/16/16 19:31 36.6 56 21 135/76 95 Room Air 09/16/16 16:00 Room Air 09/16/16 15:37 37.0 81 20 165/95 93 Room Air Physical Exam General Appearance: no apparent distress, + obese Respiratory/Chest: lungs clear, normal breath sounds, no respiratory distress, no accessory muscle use Cardiovascular: + bradycardia, + systolic murmur Extremities: + swelling (+2 pitting edema b/l LE) Neurologic/Psychiatric: no motor/sensory deficits, alert, normal mood/affect Assessment and Plan This is a 45 year old female with a PMH of morbid obesity, OBI on bipap nocturnally, SLE on Plaquenil, depression/anxiety, asthma, presents with swelling of the face, eyes, lips Bradycardia 09/17 appreciate cardio input no further inpatient cardiac testing needed outpatient Holter monitoring 09/16 patient had some chest discomfort earlier this morning EKG shows bradycardia with possibly blocked PACs with her hx. of SLE, there is concern for incomplete vs. complete heart blocks consulted cardiology for further input echo pending Angioedema 09/17 d/c with prednisone taper 09/16 edema has gone down can d/c with prednisone taper currently holding Plaquenil outpatient rheumatology follow-up on 09/20 09/15 periorbital and labial edema patient was also c/o of some throat closure yesterday was given IV steroids, Benadryl, ranitidine with some improvement Plaquenil held appreciate rheumatology input will observe one more night, continue IV steroids, IV H1-H2 blockers prednisone taper on discharge, f/u with rheumatology on 09/20 Asthma continue home inhalers Depression/Anxiety meds held for now, restart on discharge Restless Leg possibly restless leg syndrome, may be a side effect to the steroids will give one dose of Requip tonight DVT ppx TEDs + SCDs FULL CODE
[2016-09-17] MEDS ORDERED: PRED10TA PO (14:23)
[2016-09-17] MEDS ORDERED: FURO-85 PO (14:23)
[2016-09-17] MEDS ORDERED: RQP25 PO (14:23)
--- NOTE | 2016-09-17 14:28 | Discharge Instructions ---
Discharge Instructions Date of Service September 17, 2016. Admission Reason for Admission: Angioedema Discharge Discharge Diagnosis / Problem: Angioedema, Bradycardia Discharge Goals Goal(s): Decrease discomfort, Improve function, Diagnostic testing, Therapeutic intervention Activity Recommendations Activity Limitations: resume your previous activity . Instructions / Follow-Up Instructions / Follow-Up Please follow-up with Dr. Bravo on September 23 at 12:45PM You will be discharged with a prednisone taper - take 4 tablets for the next two days (09/18 and 09/19); take 3 tablets on 09/20 and 09/21; take 2 tablets on 09/22 and 09/23; and 1 tablet continuously Follow-up with rheumatology, Dr. Waller, on 09/20 and follow instructions as he may adjust steroid dosing Current Hospital Diet Patient's current hospital diet: Low Sodium Diet (2gm Na) Discharge Diet Recommended Diet: Low Sodium Diet (2gm Na) Pending Studies Studies pending at discharge: no Medical Emergencies . Who to Call and When: Medical Emergencies: If at any time you feel your situation is an emergency, please call 911 immediately. . Non-Emergent Contact Non-Emergency issues call your: Primary Care Provider, Specialist (rheumatology ) . . "Provider Documentation" section prepared by Cristopher Beckwith. . VTE Core Measure Inpt VTE Proph given/why not?: Aldo Virgen, SCD's
--- NOTE | 2016-09-17 14:30 | Discharge Summary ---
Discharge Summary Date of Service September 17, 2016. Discharge Summary Admission Date: September 16, 2016 at 17:15 Discharge Date: September 17, 2016 Discharge Disposition: Home Principal Diagnosis: Angioedema SLE Bradycardia Medication Reconciliation New Medications: Prednisone Tab (Prednisone) 10 Mg Tab 10 MG PO DAILY for 30 Days, #30 TAB Ropinirole HCl (Ropinirole HCl) 0.25 Mg Tab 0.25 MG PO HS for 15 Days, #15 TAB Changed Medications: Furosemide (Lasix) 20 Mg Tab 20 MG PO QAM for 30 Days, #30 TAB (Changed from: Removed Instructions) Continued Medications: Acetaminophen (Tylenol) 500 Mg Tab 500 MG PO UD PRN for Pain, TAB Albuterol Hfa (Ventolin Hfa) 200 Puffs/15000 Mcg Aers 2 PUFFS INH Q4H PRN for SOB/Wheezing, #1 INHALER Bupropion Hcl (Bupropion Hcl Xl) 150 Mg Tab 150 MG PO QAM, #30 has not taken for 2 weeks Fluticasone Propionate (Flovent Hfa) 120 Puffs/5280 Mcg Aero 2 PUFFS INH BID for 30 Days, #10.6 GM 2 Refills Hydroxyzine Pamoate (Vistaril) 25 Mg Cap 1 CAP PO TID PRN for Itching for 30 Days, #90 CAP 1 Refill Lorazepam (Ativan) 0.5 Mg Tab 0.5 MG PO DAILY PRN for Anxiety, TAB Meloxicam (Mobic) 15 Mg Tab 1 TAB PO DAILY PRN for Pain for 30 Days, #30 TAB 2 Refills Discontinued Medications: Hydroxychloroquine Sulfate (Plaquenil) 200 Mg Tab 400 MG PO QPM Propranolol (Inderal) 10 Mg Tab 10 MG PO QAM, TAB has not taken for one month Admission Information HPI (per Admitting provider): 45 year old female who presents to the ER with facial swelling. Patient reports last night she developed some swelling around her eyes. She reports she gets this from time to time and uses eye drops. She used the eye drops last night and then went to bed. She reports that when she woke up the swelling was much worse around her eyes and also her top lip was swollen which progressively got worse. She reports some mild difficulty swallowing and feeling like the back of her throat was swollen. She denies associated shortness of breath. She reports she will occasionally break out in hives on both her arms. Reports that hasn't happened in a couple of weeks. She denies the use of any new medications. She has been on Plaquenil since April for SLE and has been taking it regularly. No NSAID use in the past 24 hours. She denies any new medications or new foods. She has seen allergy in the past and was told she did not have any allergies. She denies chest pain. She has chronic exertional shortness of breath which is unchanged. No fever or chills. She denies lightheadedness, dizziness, diaphoresis, or syncopal events. No abdominal pain, nausea, vomiting, or diarrhea. She has chronic lower extremity edema which she reports comes and goes. No urinary symptoms. In the ER, patient was found to have significant swelling of the eyes, cheeks, and upper lip. She was given IV solumedrol, IV decadron, IV Zantac, and IV Benadryl. Vitals are stable. Physical Exam (per Admitting): General Appearance: no apparent distress Head: + pertinent finding (angioedema - edema noted to eyes, cheeks, and upper lip) Eyes: + pertinent finding (periorbital edema noted to both eyes, L > R ) ENT: hearing grossly normal, + pertinent finding (mild uvula edema, airway patent ) Neck: supple, no JVD Respiratory/Chest: lungs clear, normal breath sounds, no respiratory distress Cardiovascular: regular rate, rhythm, + pertinent finding (+1-2 edema BLLE) Abdomen/GI: normal bowel sounds, non tender, soft Extremities/Musculoskelatal: normal inspection, no calf tenderness Neurologic/Psych: no motor/sensory deficits, alert, normal mood/affect, oriented x 3 Skin: normal color, warm/dry Hospital Course This is a 45 year old female with a PMH of morbid obesity, OBI on bipap nocturnally, SLE on Plaquenil, depression/anxiety, asthma, presents with swelling of the face, eyes, lips Bradycardia 09/17 appreciate cardio input no further inpatient cardiac testing needed outpatient Holter monitoring 09/16 patient had some chest discomfort earlier this morning EKG shows bradycardia with possibly blocked PACs with her hx. of SLE, there is concern for incomplete vs. complete heart blocks consulted cardiology for further input echo pending Angioedema 09/17 d/c with prednisone taper 09/16 edema has gone down can d/c with prednisone taper currently holding Plaquenil outpatient rheumatology follow-up on 09/20 09/15 periorbital and labial edema patient was also c/o of some throat closure yesterday was given IV steroids, Benadryl, ranitidine with some improvement Plaquenil held appreciate rheumatology input will observe one more night, continue IV steroids, IV H1-H2 blockers prednisone taper on discharge, f/u with rheumatology on 09/20 Asthma continue home inhalers Depression/Anxiety meds held for now, restart on discharge Restless Leg possibly restless leg syndrome, may be a side effect to the steroids will give one dose of Requip tonight DVT ppx TEDs + SCDs FULL CODE Total time spent on discharge = 35 minutes This includes examination of the patient, discharge planning, medication reconciliation, and communication with other providers. Discharge Instructions Please follow-up with Dr. Bravo on September 23 at 12:45PM You will be discharged with a prednisone taper - take 4 tablets for the next two days (09/18 and 09/19); take 3 tablets on 09/20 and 09/21; take 2 tablets on 09/22 and 09/23; and 1 tablet continuously Follow-up with rheumatology, Dr. Waller, on 09/20 and follow instructions as he may adjust steroid dosing
[2016-09-17 22:32] LABS: C1 ESTERASE INHIB FUNC 94 % (>=68); C1 ESTERASE INHIB TC298 39 mg/dL (21-39)
[2017-03-31] MEDS ORDERED: OMEP20CA9 (14:19)
[2017-03-31] MEDS ORDERED: HYDR200T5 PO (14:19)
== END 2016-09-17 15:50 | disposition home or self-care (01) | DRG 916 ==
LOC: ENRESERVTM → ENRESERVDT → C.EDB 13:40 → C.2T 18:44 → OBSVTOIN 09-16 17:15
PROVIDERS: ADMIT Hospitalist; ATTEND Family Medicine
DX: T78.3XXA Angioneurotic edema, initial encounter (principal); K21.9 Gastro-esophageal reflux disease without esophagitis; G25.81 Restless legs syndrome; R00.1 Bradycardia, unspecified; E66.01 Morbid (severe) obesity due to excess calories; I27.2 Other secondary pulmonary hypertension; G47.33 Obstructive sleep apnea (adult) (pediatric); J45.30 Mild persistent asthma, uncomplicated; Z79.52 Long term (current) use of systemic steroids; Z79.899 Other long term (current) drug therapy; X58.XXXA Exposure to other specified factors, initial encounter

== ENCOUNTER 2017-05-15 12:24 | Emergency (ER) | payer OTHER ==
[~2017-05-15] VITALS: Ht 162.6 cm; Wt 145.5 kg
[~2017-05-15 12:24] MED LIST changes: +ACET-1256 PO; -ALBUAER19 INH; -BUPR-79 PO; +BUPR150T5 PO; +CEPH500C PO; -FLUT220A INH; +FLVHFA44 INH; -HYDR-389 PO; +HYDR25CA PO; +MELO15TA4 PO; +OMEP20CA9; -PRED10TA PO; -PRLSR20 PO; -PROP10TA7 PO; +RQP25 PO; +VNTHFA/IN INH
[2017-05-15 12:28] VITALS: Ht 162.6 cm; Wt 145.5 kg
[2017-05-15] MEDS ORDERED: VANCOMYCIN 1GM/270ML NSS IV STA (12:40)
[2017-05-15] MEDS ORDERED: CEFTRIAXONE SOD INJ 1 GM ADDVIAL IV STA (12:40)
--- NOTE | 2017-05-15 12:46 | EMERGENCY ROOM VISIT NOTE ---
History Report prepared by Indira: Eugenio Cook Under the Supervision of: Dr. Derik Coronel M.D. First contact with patient: 12:36 Chief Complaint: ANKLE PAIN Stated Complaint: RED AND HOT ANKLE History of Present Illness The patient is a 46 year old female who presents to the Emergency Room with complaints of worsening pain and swelling in the right lower extremity that she began to experience one day prior to arrival. The patient has a history of cellulitis and follows with the wound clinic commonly. She is currently on Keflex. She denies being on any anticoagulation therapy. Source of History: patient Onset: One day [employer] Position: leg (right) Quality: other (Swelling "cellulitis") Timing: worsening Review of Systems See HPI for pertinent positives & negatives. A total of 10 systems reviewed and were otherwise negative. Past Medical & Surgical Medical Problems: (1) Angioedema (2) Anxiety (3) Asthma, mild persistent (4) Bipolar disorder (5) Depression (6) GERD (gastroesophageal reflux disease) (7) Lupus (8) Obesity (9) Sleep apnea Surgical Problems: (1) History of appendectomy (2) History of section (3) History of tubal ligation Family History Diabetes mellitus FATHER Hypertension MOTHER Stroke BROTHER Social History Smoking Status: Never Smoker Alcohol Use: occasionally Drug Use: none Marital Status: in relationship Housing Status: lives with family Occupation Status: disabled Current/Historical Medications Scheduled Bupropion Hcl (Bupropion Hcl Xl), 150 MG PO QAM Cephalexin Monohydrate (Keflex), 1 CAP PO TID Fluticasone Propionate (Flovent Hfa), 2 PUFFS INH BID Furosemide (Lasix), 20 MG PO QAM Levothyroxine Sodium (Levothyroxine Sodium), 1 TAB PO QAM Ropinirole HCl (Ropinirole HCl), 0.25 MG PO HS Sulfa/Trimethoprim (Bactrim Ds 800MG/160MG), 1 TAB PO BID Scheduled PRN Acetaminophen (Tylenol), 500 MG PO UD PRN for Pain Albuterol Hfa (Ventolin Hfa), 2 PUFFS INH Q4H PRN for SOB/Wheezing Hydroxyzine Pamoate (Vistaril), 1 CAP PO TID PRN for Itching Lorazepam (Ativan), 0.5 MG PO DAILY PRN for Anxiety Meloxicam (Mobic), 1 TAB PO DAILY PRN for Pain Polyethylene (Polyethylene Glycol 3350), 1 DOSE PO DAILY PRN for Constipation Miscellaneous Medications Omeprazole (Prilosec) Allergies Coded Allergies: No Known Allergies (Unverified , 05/15/17) Physical Exam Vital Signs Date Time Temp Pulse Resp B/P (MAP) Pulse Ox O2 Delivery O2 Flow Rate FiO2 05/15/17 17:23 36.9 83 18 121/81 98 05/15/17 16:03 83 18 121/81 98 Room Air 05/15/17 14:25 83 18 128/58 95 Room Air 05/15/17 13:19 83 05/15/17 13:13 97 Room Air 05/15/17 12:28 36.9 84 20 142/82 97 Room Air Physical Exam GENERAL: Patient is a morbidly obese female. HEAD: Normocephalic atraumatic EYES: Ocular movements intact pupils equal and react to light OROPHARYNX mucous membranes are moist no exudates present no erythema or edema present NECK: Supple no nuchal rigidity CHEST: Good equal expansion LUNGS: Clear and equal to auscultation CARDIAC: There is a 2/6 systolic murmur. Normal S1 and S2 ABDOMEN: Soft nontender no guarding BACK: No CVA tenderness EXTREMITIES: No pain upon palpation normal muscle strength in all groups no clubbing cyanosis. There is 2+ pitting edema all the way up to the level of the knee. NEURO: Patient is following commands and answering questions appropriately. Alert and oriented x3 Cranial Nerves 2-12 grossly intact Medical Decision & Procedures ER Provider Diagnostic Interpretation: Radiology results as stated below per my review and radiologist interpretation: SINGLE VIEW CHEST CLINICAL HISTORY: Atypical chest pain. FINDINGS: An AP, portable, upright chest radiograph is compared to chest x-ray and chest CT dated 07/31/2015. The examination is degraded by portable technique and patient rotation. The heart is enlarged. The pulmonary vasculature is noncongested. The lungs and pleural spaces are clear. No pneumothorax is seen. The skeletal structures are osteopenic. The bony thorax is grossly intact. Calcific tendinopathy is seen in the right shoulder. IMPRESSION: Cardiomegaly with no acute cardiopulmonary abnormality. Electronically signed by: Heber Kumar M.D. 05/15/2017 1:02 PM Dictated Date/Time: 05/15/2017 12:57 PM RIGHT LOWER EXTREMITY VENOUS DOPPLER CLINICAL HISTORY: Right lower extremity swelling. COMPARISON STUDY: Bilateral lower extremity venous Doppler August 10, 2015. TECHNIQUE: Sonography of the deep venous system of the right lower extremity was performed. Compression and augmentation were evaluated. FINDINGS: The common femoral, superficial femoral and popliteal veins were compressible. Augmentation was normal. Flow was shown within the deep calf vessels. Note is made of a mildly enlarged 2.8 x 1.2 x 1.9 cm right inguinal lymph node. The cortex is thickened. A possible fatty hilum is present. IMPRESSION: 1. No evidence of deep venous thrombus within the right lower extremity. 2. Mildly enlarged right inguinal lymph node. This lymph node is indeterminate and may be reactive. A neoplastic process is considered less likely although a follow-up right groin ultrasound in 3 months is recommended. Electronically signed by: Michel Siu M.D. 05/15/2017 2:25 PM Dictated Date/Time: 05/15/2017 2:19 PM Laboratory Results 05/15/17 13:15 Red Blood Count 3.63, Mean Corpuscular Volume 89.5, Mean Corpuscular Hemoglobin 28.9, Mean Corpuscular Hemoglobin Concent 32.3, Mean Platelet Volume 8.6, Neutrophils (%) (Auto) 77.6, Lymphocytes (%) (Auto) 8.4, Monocytes (%) (Auto) 3.7, Eosinophils (%) (Auto) 9.9, Basophils (%) (Auto) 0.3, Neutrophils # (Auto) 5.64, Lymphocytes # (Auto) 0.61, Monocytes # (Auto) 0.27, Eosinophils # (Auto) 0.72, Basophils # (Auto) 0.02 05/15/17 13:15 Test 05/15/17 13:15 White Blood Count 7.27 K/uL (4.8-10.8) Red Blood Count 3.63 M/uL (4.2-5.4) Hemoglobin 10.5 g/dL (12.0-16.0) Hematocrit 32.5 % (37-47) Mean Corpuscular Volume 89.5 fL (80-100) Mean Corpuscular Hemoglobin 28.9 pg (25-34) Mean Corpuscular Hemoglobin Concent 32.3 g/dl (32-36) Platelet Count 261 K/uL (130-400) Mean Platelet Volume 8.6 fL (7.4-10.4) Neutrophils (%) (Auto) 77.6 % Lymphocytes (%) (Auto) 8.4 % Monocytes (%) (Auto) 3.7 % Eosinophils (%) (Auto) 9.9 % Basophils (%) (Auto) 0.3 % Neutrophils # (Auto) 5.64 K/uL (1.4-6.5) Lymphocytes # (Auto) 0.61 K/uL (1.2-3.4) Monocytes # (Auto) 0.27 K/uL (0.11-0.59) Eosinophils # (Auto) 0.72 K/uL (0-0.5) Basophils # (Auto) 0.02 K/uL (0-0.2) RDW Standard Deviation 47.7 fL (36.4-46.3) RDW Coefficient of Variation 14.5 % (11.5-14.5) Immature Granulocyte % (Auto) 0.1 % Immature Granulocyte # (Auto) 0.01 K/uL (0.00-0.02) Anion Gap 6.0 mmol/L (3-11) Est Creatinine Clear Calc Drug Dose 147.4 ml/min Estimated GFR () 122.1 Estimated GFR (Non- 105.4 BUN/Creatinine Ratio 24.0 (10-20) Calcium Level 8.8 mg/dl (8.5-10.1) Total Bilirubin 0.9 mg/dl (0.2-1) Direct Bilirubin 0.4 mg/dl (0-0.2) Aspartate Amino Transf (AST/SGOT) 21 U/L (15-37) Alanine Aminotransferase (ALT/SGPT) 14 U/L (12-78) Alkaline Phosphatase 81 U/L (45-117) Total Creatine Kinase 59 U/L (26-192) Creatine Kinase MB 1.0 ng/ml (0.5-3.6) Creatine Kinase MB Ratio 1.7 (0-3.0) Troponin I < 0.015 ng/ml (0-0.045) Pro-B-Type Natriuretic Peptide 42 pg/ml (0-450) Total Protein 8.0 gm/dl (6.4-8.2) Albumin 2.6 gm/dl (3.4-5.0) Lipase 50 U/L (73-393) Labs reviewed by ED physician. Medications Administered Medications (Trade) Dose Ordered Sig/Erika Route Start Time Stop Time Status Last Admin Dose Admin Ceftriaxone Sodium (Rocephin Inj) 1 gm NOW STAT IV 05/15/17 12:40 05/15/17 12:46 DC 05/15/17 13:24 1 GM Vancomycin HCl (Vancomycin 1gm/ 270ml Nss) 1 gm NOW STAT IV 05/15/17 12:40 05/15/17 12:46 DC 05/15/17 13:43 1 GM Trimethoprim/ Sulfamethoxazole (Septra Ds 800/ 160MG Tab) 1 tab NOW STAT PO 05/15/17 14:44 05/15/17 14:45 DC 05/15/17 14:58 1 TAB ECG Indication: other (Edema) Rate (beats per minute): 78 Rhythm: normal sinus Findings: no acute ischemic change, no ectopy ED Course 1238: Past medical records reviewed. The patient was evaluated in room C12. A complete history and physical examination was performed. 1240: Ordered Vancomycin 1 gm IV, Rocephin 1 gm IV. 1444: Ordered Trimethoprim/Sulfamethoxazole 1 tablet PO. 1450:: Upon reexamination the patient is resting in bed and ready to go home. I discussed results and treatment plan with the patient. She verbalizes agreement and understanding. The patient is ready for discharge. Medical Decision Differential diagnosis: Etiologies such as cellulitis, abscess, MRSA infection, DVT, necrotizing fasciitis, dermatitis, drug eruption, as well as others were entertained. This is a 46-year-old female who presents emergency department complaining of right ankle pain. The patient has a history of cellulitis and is already on Keflex. Laboratory work was obtained, the patient does not have an elevation in her white blood count cell count. She was given Rocephin as well as Bactrim here in the emergency department. Patient and fact the patient is early on antibiotics and this has worsened were offered her admission however she wishes to go home. As the area cellulitis is very small I do believe we can try antibiotics at home. Patient will follow-up with wound care and was in agreement with treatment plan. Blood Pressure Screening Patient's blood pressure: Normal blood pressure Impression Primary Impression: Cellulitis Additional Impression: Right ankle pain Scribe Attestation The scribe's documentation has been prepared under my direction and personally reviewed by me in its entirety. I confirm that the note above accurately reflects all work, treatment, procedures, and medical decision making performed by me. Departure Information Dispostion Home / Self-Care Prescriptions Sulfa/Trimethoprim (Bactrim Ds 800MG/160MG) Tab 1 TAB PO BID for 10 Days, #20 TAB Prov: Derik Coronel MD 05/15/17 Referrals No Doctor, Assigned (PCP) Forms HOME CARE DOCUMENTATION FORM, IMPORTANT VISIT INFORMATION Patient Instructions My [facility] Additional Instructions Follow up with wound clinic You have been examined and treated today on an emergency basis only. This is not a substitute for, or an effort to provide, complete comprehensive medical care. It is impossible to recognize and treat all injuries or illnesses in a single emergency department visit. It is therefore important that you follow up closely with Dr Bravo. Call as soon as possible for an appointment. Thank you for your time and consideration. I look forward to speaking with you again soon. Please don't hesitate to call us if you have any questions. Problem Qualifiers Primary Impression: Cellulitis Site of cellulitis: extremity Site of cellulitis of extremity: lower extremity Laterality: right Qualified Codes: L03.115 - Cellulitis of right lower limb Additional Impression: Right ankle pain Chronicity: acute Qualified Codes: M25.571 - Pain in right ankle and joints of right foot
--- NOTE | 2017-05-15 13:03 | DIAGNOSTIC IMAGING REPORT ---
SINGLE VIEW CHEST CLINICAL HISTORY: Atypical chest pain. FINDINGS: An AP, portable, upright chest radiograph is compared to chest x-ray and chest CT dated 07/31/2015. The examination is degraded by portable technique and patient rotation. The heart is enlarged. The pulmonary vasculature is noncongested. The lungs and pleural spaces are clear. No pneumothorax is seen. The skeletal structures are osteopenic. The bony thorax is grossly intact. Calcific tendinopathy is seen in the right shoulder. IMPRESSION: Cardiomegaly with no acute cardiopulmonary abnormality. Electronically signed by: Heber Kumar M.D. 05/15/2017 1:02 PM Dictated Date/Time: 05/15/2017 12:57 PM
[2017-05-15] MEDS ORDERED: MRLP527 PO (13:08)
[2017-05-15] MEDS ORDERED: LEVO25TA5 PO (13:08)
[2017-05-15 13:13] VITALS: O2SAT 97
[2017-05-15 13:42] LABS: BASO % 0.3 %; BASO ABS # 0.02 K/uL (0-0.2); EOS % 9.9 %; EOS ABS # 0.72 K/uL (0-0.5); HEMATOCRIT 32.5 % (37-47); HEMOGLOBIN 10.5 g/dL (12.0-16.0); IG# 0.01 K/uL (0.00-0.02); LYMPH % 8.4 %; LYMPH ABS # 0.61 K/uL (1.2-3.4); MEAN CELL VOLUME 89.5 fL (80-100); MEAN CORPUSCULAR HEMOGLOBIN 28.9 pg (25-34); MEAN CORPUSCULAR HGB CONC 32.3 g/dl (32-36); MEAN PLATELET VOLUME 8.6 fL (7.4-10.4); MONO % 3.7 %; MONO ABS # 0.27 K/uL (0.11-0.59); NEUT % 77.6 %; NEUT ABS # 5.64 K/uL (1.4-6.5); PLATELET COUNT 261 K/uL (130-400); RED CELL DISTRIBUTION WIDTH CV 14.5 % (11.5-14.5); RED CELL DISTRIBUTION WIDTH SD 47.7 fL (36.4-46.3); WHITE BLOOD COUNT 7.27 K/uL (4.8-10.8)
[2017-05-15 14:01] LABS: ALBUMIN 2.6 gm/dl (3.4-5.0); ALT/SGPT 14 U/L (12-78); BLOOD UREA NITROGEN 17 mg/dl (7-18); CALCIUM 8.8 mg/dl (8.5-10.1); CARBON DIOXIDE 30 mmol/L (21-32); GLUCOSE 90 mg/dl (70-99); LIPASE 50 U/L (73-393); POTASSIUM 4.5 mmol/L (3.5-5.1); SODIUM 135 mmol/L (136-145)
[2017-05-15 14:07] LABS: ALKALINE PHOSPHATASE 81 U/L (45-117); AST/SGOT 21 U/L (15-37)
--- NOTE | 2017-05-15 14:26 | DIAGNOSTIC IMAGING REPORT ---
RIGHT LOWER EXTREMITY VENOUS DOPPLER CLINICAL HISTORY: Right lower extremity swelling. COMPARISON STUDY: Bilateral lower extremity venous Doppler August 10, 2015. TECHNIQUE: Sonography of the deep venous system of the right lower extremity was performed. Compression and augmentation were evaluated. FINDINGS: The common femoral, superficial femoral and popliteal veins were compressible. Augmentation was normal. Flow was shown within the deep calf vessels. Note is made of a mildly enlarged 2.8 x 1.2 x 1.9 cm right inguinal lymph node. The cortex is thickened. A possible fatty hilum is present. IMPRESSION: 1. No evidence of deep venous thrombus within the right lower extremity. 2. Mildly enlarged right inguinal lymph node. This lymph node is indeterminate and may be reactive. A neoplastic process is considered less likely although a follow-up right groin ultrasound in 3 months is recommended. Electronically signed by: Michel Siu M.D. 05/15/2017 2:25 PM Dictated Date/Time: 05/15/2017 2:19 PM
[2017-05-15] MEDS ORDERED: SULFAMETHOXAZOLE/TRIMETHOPRIM DS 800/160MG TAB PO STA (14:44)
[2017-05-15] MEDS ORDERED: SULF800T23 PO (14:46)
[2017-05-15 17:23] VITALS: BP 121/81; PULSE 83; TEMP 36.9; O2SAT 98
== END 2017-05-15 17:24 | disposition home or self-care (01) ==
LOC: C.EDB 12:27 → C.EDC 17:24
DX: L03.115 Cellulitis of right lower limb (principal); M25.571 Pain in right ankle and joints of right foot; F41.9 Anxiety disorder, unspecified; F32.9 Major depressive disorder, single episode, unspecified; F31.9 Bipolar disorder, unspecified; J45.909 Unspecified asthma, uncomplicated; K21.9 Gastro-esophageal reflux disease without esophagitis; E66.01 Morbid (severe) obesity due to excess calories; M32.9 Systemic lupus erythematosus, unspecified; G47.30 Sleep apnea, unspecified; Z98.51 Tubal ligation status; Z83.3 Family history of diabetes mellitus; Z82.49 Family history of ischemic heart disease and other diseases of the circulatory system; Z82.3 Family history of stroke

== ENCOUNTER 2018-04-27 16:05 | Inpatient (IN) ==
[2018-04-27 17:02] LABS: Basophils # (auto) 0.02 K/uL (0-0.2); Basophils % (auto) 0.5 %; Eosinophils # (auto) 0.48 K/uL (0-0.5); Eosinophils % (auto) 12.6 %; Hematocrit (blood only) 33.7 % (37-47); Hemoglobin 11.1 g/dL (12.0-16.0); Immature Granulocytes # (auto) 0.02 K/uL (0.00-0.02); Immature Granulocytes % (auto) 0.5 %; Lymphocytes # (auto) 0.53 K/uL (1.2-3.4); Lymphocytes % (auto) 13.9 %; Mean Corpuscular Hgb Conc 32.9 g/dL (32-36); Monocytes # (auto) 0.27 K/uL (0.11-0.59); Monocytes % (auto) 7.1 %; Neutrophils % (auto) 65.4 %; Platelet Count 143 K/uL (130-400); RDW Coefficient of Variation 14.2 % (11.5-14.5); RDW Standard Deviation 44.2 fL (36.4-46.3); Red Blood Count 3.92 M/uL (4.2-5.4); White Blood Count 3.82 K/uL (4.8-10.8)
--- NOTE | 2018-04-27 17:04 | XRay Report ---
XR chest 1V portable CLINICAL HISTORY: shortness of breath dyspnea COMPARISON STUDY: 05/15/2017 FINDINGS: The bones soft tissues and hemidiaphragms are normal. The cardiomediastinal silhouette is n ormal. The lungs are clear. The pulmonary vasculature is normal. IMPRESSION: Negative chest. The above report was generated using voice recognition software. It may contain grammatical, syntax or spelling errors. Electronically signed by: Bubba Montez M.D. 04/27/2018 5:03 PM
[2018-04-27] MEDS ORDERED: methylPREDNISolone 125 MG/2 ML VIAL IV STA (17:16)
[2018-04-27 17:19] LABS: Alanine Aminotransferase 27 U/L (12-78); Albumin Level 3.1 gm/dl (3.4-5.0); Aspartate Aminotransferase 37 U/L (15-37); BUN Creatinine Ratio 11.5 (10-20); Blood Urea Nitrogen 9 mg/dl (7-18); Calcium 8.5 mg/dl (8.5-10.1); Carbon Dioxide 27 mmol/L (21-32); Chloride 105 mmol/L (98-107); Creatinine Clr Calc Pharmacy 131.4 ml/min; Est GFR (African American) 108.1; Est GFR (Non-African American) 93.2; Glucose 89 mg/dl (70-99); Potassium 3.3 mmol/L (3.5-5.1); Sodium 137 mmol/L (136-145)
[2018-04-27 17:20] LABS: INR 1.1 (0.9-1.1); Partial Thromboplastin Ratio 0.9; Partial Thromboplastin Time 22.9 Seconds (21.0-31.0); Prothrombin Time 10.7 Seconds (9.0-12.0)
[2018-04-27 17:24] LABS: Albumin Globulin Ratio 0.5 (0.9-2); Alkaline Phosphatase 106 U/L (45-117); Bilirubin,Total 0.7 mg/dl (0.2-1); Globulin 5.7 gm/dl (2.5-4.0); Total Protein 8.8 gm/dl (6.4-8.2); Troponin I < 0.015 ng/ml (0-0.045)
[2018-04-27] MEDS ORDERED: IOVERSOL 100ml IV PRN (17:45)
--- NOTE | 2018-04-27 18:17 | CT Scan Report ---
CT ANGIOGRAM OF THE CHEST CLINICAL HISTORY: Dyspnea. COMPARISON STUDY: Chest x-ray dated 04/27/2018. Chest CT dated 07/31/2015. TECHNIQUE: Following the IV administration of 93 cc of Optiray 320, CT angiogram of the chest was per formed from the upper abdomen to the thoracic inlet utilizing the pulmonary embolus protocol. Images are reviewed in the axial, sagittal, and coronal planes. 3-D MIPS images are created and assessed. IV contrast was administered without complication. A dose lowering technique was utilized adhering to the principles of ALARA. CT DOSE: 779.96 mGy.cm FINDINGS: Thyroid: Imaged portions of the thyroid gland are normal in size and attenuation. Thoracic aorta: The thoracic aorta is normal in caliber and demonstrates bovine variant arch anatomy. No dissection is seen. Pulmonary vasculature: The pulmonary trunk is markedly dilated, measuring 4.8 cm in diameter. This in dicates pulmonary artery hypertension. There are no filling defects identified in main, lobar, or seg mental pulmonary branches to suggest pulmonary embolus. Heart: The heart is mildly enlarged and without pericardial effusion. Lungs and pleural spaces: Evaluation of lung parenchyma is modestly degraded by motion artifact. Patc hy nodular airspace consolidation is seen throughout both lungs, most confluent in the left lower lob e. Foci of atelectasis versus scarring are seen in the right middle lobe and lingula. Trace pleural e ffusions are identified. The trachea and central airways are clear. Mediastinum: Mildly enlarged prevascular nodes measure up to 13 mm in short axis. A subcarinal node m easures 19 mm in short axis. Anabel: Prominent hilar nodes measure up to 10 mm short axis. Axillae: There is no axillary lymphadenopathy. Upper abdomen: The liver and spleen are enlarged. Prominent lymph nodes at and below the esophageal h iatus measure up to 15 mm short axis. Skeletal structures: The skeletal structures are osteopenic. No lytic or blastic bony lesions are see n. IMPRESSION: 1. There is no evidence of pulmonary embolus in the main, lobar, or segmental pulmonary arteries. 2. Cardiomegaly with evidence of pulmonary artery hypertension. 3. Patchy nodular airspace consolidation is seen throughout both lungs. The appearance is typical for multifocal pneumonia. A follow-up chest CT in 3-6 months time is recommended to document complete re solution. 4. There are trace pleural effusions. 5. Hepatosplenomegaly. 6. Mildly enlarged mediastinal and hilar nodes are likely on a reactive basis. 7. Additional findings as above. Electronically signed by: Heber Kumar M.D. 04/27/2018 6:14 PM
[2018-04-27 18:19] LABS: Base Excess VBG 0.7 mEq/L; Oxygen Saturation VBG 75.5 %; pH VBG 7.38 (7.36-7.41)
[2018-04-27] MEDS ORDERED: VANCOMYCIN HCL 1,000 MG/270 ML BAG IV STA (18:24)
[2018-04-27] MEDS ORDERED: VANCOMYCIN CONSULT ACTIVE PRN ×2 (18:24→22:09)
[2018-04-27] MEDS ORDERED: CEFEPIME 1,000 MG in SYRINGE 0 ML IV STA (18:24)
[2018-04-27 18:54] LABS: Influenza A virus by PCR Neg for Influ A (Neg); Influenza B virus by PCR Neg for Influ B (Neg)
--- NOTE | 2018-04-27 19:21 | History & Physical Report ---
Date of Service April 27, 2018 Assessment & Plan (1) Acute respiratory failure with hypoxia: (2) Multifocal pneumonia: (3) Asthma exacerbation: -Admit to [facility] with telemetry -Patient sent by referral PCP for evaluation of shortness of breath, cough, exertional hypoxia -In the ED, patient was found to be 89% on room air, this improved with oxygen 4 L a minute via nasal cannula -CTA chest negative for pulmonary embolism however demonstrates multifocal pneumonia -Mild leukopenia noted with WBC 3.8K, other labs unremarkable; afebrile, BP stable -Noted negative influenza swab -S/P Vanco and cefepime in the ED -Given patient's immunocompromised state while on CellCept, will continue with cefepime and check MRSA nasal swab and if positive will add vancomycin -Wean O2 as able -S/P Solu-Medrol 125 mg IV in the ED; given history of asthma and wheezing on exam, will continue with prednisone 40 mg daily times 5 days -[id number] nebs, flutter valve, chest PT by respiratory (4) Lupus: -Managed on CellCept -Case was 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 Waller who recommends holding CellCept until off antibiotics and a follow-up in the office within 1 week of hospital discharge (5) GERD (gastroesophageal reflux disease): -Continue H2 imani (6) Bipolar disorder: (7) Anxiety: (8) Depression: -Continue bupropion and as needed lorazepam (9) Sleep apnea: -CPAP as per home settings (10) Anemia, chronic disease: -Baseline hemoglobin ~11.0 -Hgb noted to be 11.1 today -Continue to monitor (11) DVT prophylaxis: -SQ Lovenox History of Present Illness Chief Complaint: Shortness of breath Primary Care Provider: Ary Bravo 47-year-old female who presents the ED with shortness of breath. Patient reports her symptoms began about 5 days ago. She reports she initially developed rhinorrhea and nasal congestion. She then developed a productive cough for yellow sputum. She has had progressive worsening shortness of breath. She reports shortness of breath with minimal exertion, no shortness of breath at rest. She reports some chest pain with coughing however no other chest pain or pressure. She denies fevers, chills, body aches. She does report some episodes of diaphoresis. No lightheadedness, dizziness, diaphoresis , syncopal events. She denies abdominal pain, nausea, vomiting, diarrhea. She denies any urinary symptoms. Patient was evaluated in her PCPs office today where she was found to be hypoxic on exertion, she was then sent to the ED for further evaluation. In the ED, patient was found to be 89% on room air. This improved with oxygen 4 L via nasal cannula. Other vital signs were stable. CT chest was negative for pulmonary embolism but demonstrate multifocal pneumonia. Patient has history of lupus and is on CellCept. She was also given IV Solu- Medrol 125 mg, IV cefepime, IV vancomycin. Allergies Allergy/AdvReac Type Severity Reaction Status Date / Time nickel Allergy Mild Rash Verified 04/27/18 18:13 Home Medications Home Medications Medication Instructions Recorded Confirmed Type lorazepam 0.5 mg PO BID PRN #0 03/11/16 04/27/18 History meloxicam 15 mg PO DAILY PRN #0 09/14/16 04/27/18 History polyethylene glycol 3350 17 g PO DAILY PRN #0 05/15/17 04/27/18 History mycophenolate mofetil [CellCept] 1,000 mg PO BID 90 Days #360 tab 07/07/1704/27 History epinephrine [EpiPen 2-David] 0.3 mg IM DIRECTED PRN #0 09/22/17 04/27/18 History fluticasone [Flonase Allergy 2 spray INTRANASAL DAILY #0 09/22/17 04/27/18 History Relief] levothyroxine 50 mcg PO QAM #0 09/22/17 04/27/18 History loratadine 10 mg PO DAILY PRN #0 tab 09/22/17 04/27/18 History ranitidine HCl 150 mg PO BID #0 tab 09/22/17 04/27/18 History bupropion HCl 150 mg PO QAM 12/11/17 04/27/18 History albuterol sulfate [Ventolin HFA] 2 puff INHALATION Q4H PRN 04/27/18 04/27/18 History furosemide 40 mg PO DAILY PRN 04/27/18 04/27/18 History hydroxyzine HCl 50 mg PO Q6H PRN 04/27/18 04/27/18 History mometasone-formoterol [Dulera] 2 puff INHALATION BID 04/27/18 04/27/18 History valacyclovir 1,000 mg PO Q12H PRN 04/27/18 04/27/18 History Past Med/Surg History Medical History Urticarial vasculitis (Chronic) Anemia, chronic disease (Chronic) Sleep apnea (Chronic) Anxiety (Chronic) Depression (Chronic) Asthma, mild persistent (Chronic) Obesity (Chronic) Lupus (Chronic) GERD (gastroesophageal reflux disease) (Chronic) Lymphedema (Chronic) Bipolar disorder (Chronic) Venous insufficiency of both lower extremities (Chronic) Anxiety (Inactive) Asthma (Inactive) Depression (Inactive) GERD (gastroesophageal reflux disease) (Inactive) Hypothyroidism (Inactive) Sleep apnea (Inactive) Surgical History History of cataract surgery (Chronic) History of appendectomy (Chronic) History of appendectomy (Inactive) History of bilateral tubal ligation (Inactive) History of section (Inactive) Family History Father Diabetes Social History Current Living Situation: Family and Significant Other Feels Safe at Home: Yes Smoking Status: Never smoker Second Hand Exposure: No Hx Alcohol Use: No Hx Substance Use: No Beliefs That Will Affect Care: None Preferred Language: Niuean Communication Ability: Effective Review of Systems ROS per HPI, all other systems reviewed and negative Physical Exam 2 Vital Signs (Past 24 Hours): Last Vital Signs Temp 36.9 C 04/27/18 16:21 Pulse 78 04/27/18 17:53 Resp 15 04/27/18 17:53 BP 153/74 H 04/27/18 17:53 Pulse Ox 99 04/27/18 17:53 Constitutional: WD/WN, vitals as above + obese Eyes: PERRL, conjunctivae normal, anicteric sclerae ENMT: external ear and nose normal, oropharynx normal Respiratory: normal respiratory effort; no respiratory distress Auscultation: + wheezes (Scattered, expiratory) Cardiovascular: Rate/Rhythm: regular rate and regular rhythm Vessels: normal peripheral pulses Extremities: + edema Gastrointestinal (Abdomen): normal bowel sounds, soft, nontender, no hepatosplenomegaly Musculoskeletal: no cyanosis or clubbing, extremities motor strength 5/5 Skin: no rashes, warm and dry Neurologic: PERRL, EOMI, accommodation nl, no face palsy, no dysarthria Psychiatric: A+Ox3, euthymic affect Results & Data Laboratory Results Laboratory Last Values WBC 3.82 K/uL (4.8-10.8) L 04/27/18 16:38 RBC 3.92 M/uL (4.2-5.4) L 04/27/18 16:38 Hgb 11.1 g/dL (12.0-16.0) L 04/27/18 16:38 Hct 33.7 % (37-47) L 04/27/18 16:38 MCV 86.0 fL (80-100) 04/27/18 16:38 MCH 28.3 pg (25-34) 04/27/18 16:38 MCHC 32.9 g/dL (32-36) 04/27/18 16:38 RDW Std Deviation 44.2 fL (36.4-46.3) 04/27/18 16:38 RDW Coeff of Anastacia 14.2 % (11.5-14.5) 04/27/18 16:38 Plt Count 143 K/uL (130-400) 04/27/18 16:38 MPV 9.0 fL (7.4-10.4) 04/27/18 16:38 Immature Gran % (Auto) 0.5 % 04/27/18 16:38 Neut % (Auto) 65.4 % 04/27/18 16:38 Lymph % (Auto) 13.9 % 04/27/18 16:38 Mcdonald % (Auto) 7.1 % 04/27/18 16:38 Eos % (Auto) 12.6 % 04/27/18 16:38 Baso % (Auto) 0.5 % 04/27/18 16:38 Immature Gran # (Auto) 0.02 K/uL (0.00-0.02) 04/27/18 16:38 Neut # (Auto) 2.50 K/uL (1.4-6.5) 04/27/18 16:38 Lymph # (Auto) 0.53 K/uL (1.2-3.4) L 04/27/18 16:38 Mcdonald # (Auto) 0.27 K/uL (0.11-0.59) 04/27/18 16:38 Eos # (Auto) 0.48 K/uL (0-0.5) 04/27/18 16:38 Baso # (Auto) 0.02 K/uL (0-0.2) 04/27/18 16:38 PT 10.7 Seconds (9.0-12.0) 04/27/18 16:38 INR 1.1 (0.9-1.1) 04/27/18 16:38 APTT 22.9 Seconds (21.0-31.0) 04/27/18 16:38 PTT Ratio 0.9 04/27/18 16:38 VBG pH 7.38 (7.36-7.41) 04/27/18 18:03 VBG pCO2 46 mmHg (38-50) 04/27/18 18:03 VBG pO2 42 mmHg 04/27/18 18:03 VBG HCO3 26 mmol/L 04/27/18 18:03 VBG O2 Saturation 75.5 % 04/27/18 18:03 VBG Base Excess 0.7 mEq/L 04/27/18 18:03 Barometric Pressure 725.9 mm/Hg 04/27/18 18:03 Sodium 137 mmol/L (136-145) 04/27/18 16:38 Potassium 3.3 mmol/L (3.5-5.1) L 04/27/18 16:38 Chloride 105 mmol/L (98-107) 04/27/18 16:38 Carbon Dioxide 27 mmol/L (21-32) 04/27/18 16:38 Anion Gap 5.0 (3-11) 04/27/18 16:38 BUN 9 mg/dl (7-18) 04/27/18 16:38 Creatinine 0.77 mg/dl (0.6-1.2) 04/27/18 16:38 Est Cr Clr Drug Dosing 131.4 ml/min 04/27/18 16:38 Est GFR ( Amer) 108.1 04/27/18 16:38 Est GFR (Non-Af Amer) 93.2 04/27/18 16:38 BUN/Creatinine Ratio 11.5 (10-20) 04/27/18 16:38 Glucose 89 mg/dl (70-99) 04/27/18 16:38 Calcium 8.5 mg/dl (8.5-10.1) 04/27/18 16:38 Total Bilirubin 0.7 mg/dl (0.2-1) 04/27/18 16:38 AST 37 U/L (15-37) 04/27/18 16:38 ALT 27 U/L (12-78) 04/27/18 16:38 Alkaline Phosphatase 106 U/L (45-117) 04/27/18 16:38 Troponin I < 0.015 ng/ml (0-0.045) 04/27/18 16:38 NT-Pro-B Natriuret Pep 927 pg/ml (0-450) H 04/27/18 16:38 Total Protein 8.8 gm/dl (6.4-8.2) H 04/27/18 16:38 Albumin 3.1 gm/dl (3.4-5.0) L 04/27/18 16:38 Globulin 5.7 gm/dl (2.5-4.0) H 04/27/18 16:38 Albumin/Globulin Ratio 0.5 (0.9-2) L 04/27/18 16:38 Influenza Type A (PCR) Neg for Influ A (Neg) 04/27/18 17:59 Influenza Type B (PCR) Neg for Influ B (Neg) 04/27/18 17:59 Diagnostic Findings CXR IMPRESSION: Negative chest. CHEST CTA IMPRESSION: 1. There is no evidence of pulmonary embolus in the main, lobar, or segmental pulmonary arteries. 2. Cardiomegaly with evidence of pulmonary artery hypertension. 3. Patchy nodular airspace consolidation is seen throughout both lungs. The appearance is typical for multifocal pneumonia. A follow-up chest CT in 3-6 months time is recommended to document complete resolution. 4. There are trace pleural effusions. 5. Hepatosplenomegaly. 6. Mildly enlarged mediastinal and hilar nodes are likely on a reactive basis. 7. Additional findings as above. Code Status & VTE Plan VTE Prophylaxis Plan VTE Prophylaxis will be ordered: Yes Supervising Physician Co-Signing Physician Notes I saw this patient with the HEAT TREAT FURNACE OPERATOR, I participated in the history, physical, review of systems, and physical exam. I reviewed the medications with the patient and the HEAT TREAT FURNACE OPERATOR and helped reconcile the medications. I helped take a detailed family and social history as well. I formulated the assessment and plan personally with the HEAT TREAT FURNACE OPERATOR went over it with the patient.
[2018-04-27] MEDS ORDERED: CEFEPIME CONSULT ACTIVE ONE (20:33)
[2018-04-27] MEDS ORDERED: POTASSIUM CHLORIDE 20 MEQ TABCR PO STA (20:33)
[2018-04-27] MEDS ORDERED: POLYETHYLENE (MIRALAX) 17 GM PACK PO PRN (20:33)
[2018-04-27] MEDS ORDERED: ACETAMINOPHEN 325 MG TAB PO PRN (20:33)
[2018-04-27] MEDS ORDERED: CEFEPIME CONSULT ACTIVE PRN (20:50)
[2018-04-27] MEDS: ENOXAPARIN INJ 40 MG/0.4 ML SYR SQ SCH (22:06)
--- NOTE | 2018-04-27 22:07 | Emergency Department Note ---
Entered by Haleigh Magdaleno acting as a scribe for Hussain Martin History of Present Illness General Chief complaint: Respiratory Problems Stated complaint: CAN'T BREATHE RIGHT Time Seen by Provider: 04/27/18 17:06 Source: patient History of Present Illness Onset (ago): day(s) 5 Location: left (Lung) and right (Lung) Severity: similar to prior episodes Pain Consistency: + other (Persistent) Maximum Pain Intensity: 2 Quality: + other (Shortness of breath) Relieved By: + rest Exacerbated By: + movement Associated symptoms: + chest pain, + cough and + fever/chills The patient is a 47 year old female who presents to the Emergency Room with complaints of persistent shortness of breath starting 5 days ago. The patient reports that she has had a cough and fever. She states that she has been coughing up mucous. She adds that her chest hurts from coughing so much. She reports that resting improves her symptoms and movement worsens her symptoms. She notes that she was sent to the ED from Dr. Shelly Hagan PCP because her oxygen saturation was lower than normal. She notes that she has not received any breathing treatments [employer]. Home Medications Home Medications Medication Instructions Recorded Confirmed Type lorazepam 0.5 mg PO BID PRN #0 03/11/16 04/27/18 History meloxicam 15 mg PO DAILY PRN #0 09/14/16 04/27/18 History polyethylene glycol 3350 17 g PO DAILY PRN #0 05/15/17 04/27/18 History mycophenolate mofetil [CellCept] 1,000 mg PO BID 90 Days #360 tab 07/07/1704/27 History epinephrine [EpiPen 2-David] 0.3 mg IM DIRECTED PRN #0 09/22/17 04/27/18 History fluticasone [Flonase Allergy 2 spray INTRANASAL DAILY #0 09/22/17 04/27/18 History Relief] levothyroxine 50 mcg PO QAM #0 09/22/17 04/27/18 History loratadine 10 mg PO DAILY PRN #0 tab 09/22/17 04/27/18 History ranitidine HCl 150 mg PO BID #0 tab 09/22/17 04/27/18 History bupropion HCl 150 mg PO QAM 12/11/17 04/27/18 History albuterol sulfate [Ventolin HFA] 2 puff INHALATION Q4H PRN 04/27/18 04/27/18 History furosemide 40 mg PO DAILY PRN 04/27/18 04/27/18 History hydroxyzine HCl 50 mg PO Q6H PRN 04/27/18 04/27/18 History mometasone-formoterol [Dulera] 2 puff INHALATION BID 04/27/18 04/27/18 History valacyclovir 1,000 mg PO Q12H PRN 04/27/18 04/27/18 History Allergies Allergy/AdvReac Type Severity Reaction Status Date / Time nickel Allergy Mild Rash Verified 04/27/18 18:13 Past Med/Surg History Medical History Urticarial vasculitis (Chronic) Anemia, chronic disease (Chronic) Sleep apnea (Chronic) Anxiety (Chronic) Depression (Chronic) Asthma, mild persistent (Chronic) Obesity (Chronic) Lupus (Chronic) GERD (gastroesophageal reflux disease) (Chronic) Lymphedema (Chronic) Bipolar disorder (Chronic) Venous insufficiency of both lower extremities (Chronic) Anxiety (Inactive) Asthma (Inactive) Depression (Inactive) GERD (gastroesophageal reflux disease) (Inactive) Hypothyroidism (Inactive) Sleep apnea (Inactive) Surgical History History of cataract surgery (Chronic) History of appendectomy (Chronic) History of appendectomy (Inactive) History of bilateral tubal ligation (Inactive) History of section (Inactive) Family History Father Diabetes Social History Current Living Situation: Family and Significant Other Feels Safe at Home: Yes Smoking Status: Never smoker Second Hand Exposure: No Hx Alcohol Use: No Hx Substance Use: No Beliefs That Will Affect Care: None Preferred Language: Syriac Communication Ability: Effective Review of Systems See HPI for pertinent positives & negatives. and A total of 10 systems reviewed and were otherwise negative Physical Exam Vital Signs Vital Signs - 24 hr 04/27/18 16:21 04/27/18 16:33 04/27/18 17:53 Temperature 36.9 C Temperature Source Oral Sepsis Recent Fever Within 48 Hours No Sepsis New/Unexplained Change in Mental Status No Sepsis Action Taken by Nursing No Action Required Pulse Rate 85 Pulse Rate [Apical] 79 78 Pulse Rhythm [Apical] Respiratory Rate 20 12 15 Respiratory Effort / Characteristics Respiratory Depth Normal Blood Pressure 159/97 H Blood Pressure [Right Arm] 152/93 H 153/74 H Blood Pressure Mean 117 Blood Pressure Mean [Right Arm] 112 100 Pulse Oximetry 89 L 95 99 Oxygen Delivery Method Room Air Nasal Cannula Nasal Cannula Oxygen Flow Rate 4 4 04/27/18 19:33 04/27/18 20:20 04/27/18 21:02 Temperature Temperature Source Sepsis Recent Fever Within 48 Hours Sepsis New/Unexplained Change in Mental Status Sepsis Action Taken by Nursing Pulse Rate 88 Pulse Rate [Apical] 73 74 Pulse Rhythm [Apical] Regular Respiratory Rate 13 18 Respiratory Effort / Characteristics Non-Labored Spontaneous Respiratory Depth Blood Pressure 139/80 Blood Pressure [Right Arm] 142/86 H Blood Pressure Mean Blood Pressure Mean [Right Arm] 104 Pulse Oximetry 95 94 96 Oxygen Delivery Method Nasal Cannula Nasal Cannula Nasal Cannula Oxygen Flow Rate 2 3 2 GENERAL: She is oriented to person, place, and time. She appears well- developed and well-nourished. She does not appear distressed. HENT: Exam performed. Head: Normocephalic and atraumatic. Right Ear: External ear normal. No mastoid tenderness. Left Ear: External ear normal. No mastoid tenderness. Mouth/Throat: The oropharynx is clear and moist. No trismus in the jaw. No dental abscesses or uvula swelling. No oropharyngeal exudate or tonsillar abscesses. EYES: Conjunctivae and EOM are normal. Pupils are equal, round, and reactive to light. Right eye exhibits no discharge. Left eye exhibits no discharge. No scleral icterus. NECK: Normal range of motion. Neck supple. No JVD present. No spinous process tenderness present. No carotid bruit present. No rigidity. No tracheal deviation and normal range of motion present. No Brudzinski's sign and no Kernig 's sign noted. CV: Normal rate, regular rhythm, normal heart sounds and intact distal pulses. There is lymphedema bilaterally. Palpable radial pulses bue. PULM/CHEST: Effort normal and breath sounds normal. No respiratory distress. No stridor. She has expiratory wheeze bilaterally. She has no rales. Chest Wall: She exhibits no tenderness. ABD: The abdomen is soft. Bowel sounds are normal. She has no distension. No mass is present. There is no tenderness. There is no rebound, no guarding, no Reardon's sign and no tenderness at McBurney's point. Rovsig negative. Morbidly obese. [facility] [place]: Normal range of motion. There is no peripheral tenderness or deformity. Lymphedema bilaterally. LYMPH: No cervical adenopathy. NEURO: She is alert and oriented to person, place, and time. She has normal strength. No cranial nerve deficit or sensory deficit. Coordination and gait normal. GCS eye subscore is 4. GCS verbal subscore is 5. GCS motor subscore is 6. cerbellar tests wnl. SKIN: Skin is warm and dry. She is not diaphoretic. PSYCH: She has a normal mood and affect. Her behavior is normal. Judgment and thought content normal. Course 171: Past medical records reviewed. The patient was evaluated in room A2, and a complete history and physical examination were performed. 1824: Vital signs stable on nasal cannula. Labs within normal limits with BNP elevated. CTA of chest found negative, but does shown multifocal pneumonia. Given patient history of being on Cellcept she will treated with broad spectrum antibiotics and admitted to [facility]. I spoke with Amelia Peace [facility] SHARYN who said to admit to Dr. Hill [facility]. Administered Medications Discontinued Medications Vancomycin HCl (Vancomycin Hcl) 1,000 mg in 270 mls @ 125 mls/hr IV NOW STA Stop: 04/27/18 20:33 Last Admin: 04/27/18 19:04 Dose: 125 mls/hr Cefepime HCl 1,000 mg/ Syringe 11.3 mls @ 5.5 mls/min IV NOW STA Stop: 04/27/18 18:26 Last Admin: 04/27/18 18:58 Dose: 5.5 mls/min Ioversol (Optiray 320 100ml) 93 ml IV ONCE PRN PRN Reason: Interaction Checking Stop: 05/01/18 17:44 Last Admin: 04/27/18 17:46 Dose: 93 ml Methylprednisolone (Solumedrol) 125 mg IV NOW STA Stop: 04/27/18 17:17 Last Admin: 04/27/18 18:08 Dose: 125 mg Medical Decision Making Medical Records Attestation: I reviewed the patient's medical records. Home Medications Current Medication List: was personally reviewed by me Laboratory Data Attestation: I reviewed the patient's lab results. Result diagrams: 04/27/18 16:38 04/27/18 16:38 Lab Results 04/27/18 04/27/18 04/27/18 Range/Units 16:38 16:38 16:38 WBC 3.82 L (4.8-10.8) K/uL RBC 3.92 L (4.2-5.4) M/uL Hgb 11.1 L (12.0-16.0) g/dL Hct 33.7 L (37-47) % MCV 86.0 (80-100) fL MCH 28.3 (25-34) pg MCHC 32.9 (32-36) g/dL RDW Std Deviation 44.2 (36.4-46.3) fL RDW Coeff of Anastacia 14.2 (11.5-14.5) % Plt Count 143 (130-400) K/uL MPV 9.0 (7.4-10.4) fL Immature Gran % (Auto) 0.5 % Neut % (Auto) 65.4 % Lymph % (Auto) 13.9 % [place] % (Auto) 7.1 % Eos % (Auto) 12.6 % Baso % (Auto) 0.5 % Immature Gran # (Auto) 0.02 (0.00-0.02) K/uL Neut # (Auto) 2.50 (1.4-6.5) K/uL Lymph # (Auto) 0.53 L (1.2-3.4) K/uL [place] # (Auto) 0.27 (0.11-0.59) K/uL Eos # (Auto) 0.48 (0-0.5) K/uL Baso # (Auto) 0.02 (0-0.2) K/uL PT 10.7 (9.0-12.0) Seconds INR 1.1 (0.9-1.1) APTT 22.9 (21.0-31.0) Seconds PTT Ratio 0.9 VBG pH (7.36-7.41) VBG pCO2 (38-50) mmHg VBG pO2 mmHg VBG HCO3 mmol/L VBG O2 Saturation % VBG Base Excess mEq/L Barometric Pressure mm/Hg Sodium 137 (136-145) mmol/L Potassium 3.3 L (3.5-5.1) mmol/L Chloride 105 (98-107) mmol/L Carbon Dioxide 27 (21-32) mmol/L Anion Gap 5.0 (3-11) BUN 9 (7-18) mg/dl Creatinine 0.77 (0.6-1.2) mg/dl Est Cr Clr Drug Dosing 131.4 ml/min Est GFR ( Amer) 108.1 Est GFR (Non-Af Amer) 93.2 BUN/Creatinine Ratio 11.5 (10-20) Glucose 89 (70-99) mg/dl Calcium 8.5 (8.5-10.1) mg/dl Magnesium (1.8-2.4) mg/dl Total Bilirubin 0.7 (0.2-1) mg/dl AST 37 (15-37) U/L ALT 27 (12-78) U/L Alkaline Phosphatase 106 (45-117) U/L Troponin I < 0.015 (0-0.045) ng/ml NT-Pro-B Natriuret Pep (0-450) pg/ml Total Protein 8.8 H (6.4-8.2) gm/dl Albumin 3.1 L (3.4-5.0) gm/dl Globulin 5.7 H (2.5-4.0) gm/dl Albumin/Globulin Ratio 0.5 L (0.9-2) Influenza Type A (PCR) (Neg) Influenza Type B (PCR) (Neg) 04/27/18 04/27/18 04/27/18 Range/Units 16:38 17:59 18:03 WBC (4.8-10.8) K/uL RBC (4.2-5.4) M/uL Hgb (12.0-16.0) g/dL Hct (37-47) % MCV (80-100) fL MCH (25-34) pg MCHC (32-36) g/dL RDW Std Deviation (36.4-46.3) fL RDW Coeff of Anastacia (11.5-14.5) % Plt Count (130-400) K/uL MPV (7.4-10.4) fL Immature Gran % (Auto) % Neut % (Auto) % Lymph % (Auto) % [place] % (Auto) % Eos % (Auto) % Baso % (Auto) % Immature Gran # (Auto) (0.00-0.02) K/uL Neut # (Auto) (1.4-6.5) K/uL Lymph # (Auto) (1.2-3.4) K/uL [place] # (Auto) (0.11-0.59) K/uL Eos # (Auto) (0-0.5) K/uL Baso # (Auto) (0-0.2) K/uL PT (9.0-12.0) Seconds INR (0.9-1.1) APTT (21.0-31.0) Seconds PTT Ratio VBG pH 7.38 (7.36-7.41) VBG pCO2 46 (38-50) mmHg VBG pO2 42 mmHg VBG HCO3 26 mmol/L VBG O2 Saturation 75.5 % VBG Base Excess 0.7 mEq/L Barometric Pressure 725.9 mm/Hg Sodium (136-145) mmol/L Potassium (3.5-5.1) mmol/L Chloride (98-107) mmol/L Carbon Dioxide (21-32) mmol/L Anion Gap (3-11) BUN (7-18) mg/dl Creatinine (0.6-1.2) mg/dl Est Cr Clr Drug Dosing ml/min Est GFR ( Amer) Est GFR (Non-Af Amer) BUN/Creatinine Ratio (10-20) Glucose (70-99) mg/dl Calcium (8.5-10.1) mg/dl Magnesium (1.8-2.4) mg/dl Total Bilirubin (0.2-1) mg/dl AST (15-37) U/L ALT (12-78) U/L Alkaline Phosphatase (45-117) U/L Troponin I (0-0.045) ng/ml NT-Pro-B Natriuret Pep 927 H (0-450) pg/ml Total Protein (6.4-8.2) gm/dl Albumin (3.4-5.0) gm/dl Globulin (2.5-4.0) gm/dl Albumin/Globulin Ratio (0.9-2) Influenza Type A (PCR) Neg for Influ A (Neg) Influenza Type B (PCR) Neg for Influ B (Neg) 04/27/18 Range/Units 20:49 WBC (4.8-10.8) K/uL RBC (4.2-5.4) M/uL Hgb (12.0-16.0) g/dL Hct (37-47) % MCV (80-100) fL MCH (25-34) pg MCHC (32-36) g/dL RDW Std Deviation (36.4-46.3) fL RDW Coeff of Anastacia (11.5-14.5) % Plt Count (130-400) K/uL MPV (7.4-10.4) fL Immature Gran % (Auto) % Neut % (Auto) % Lymph % (Auto) % [place] % (Auto) % Eos % (Auto) % Baso % (Auto) % Immature Gran # (Auto) (0.00-0.02) K/uL Neut # (Auto) (1.4-6.5) K/uL Lymph # (Auto) (1.2-3.4) K/uL [place] # (Auto) (0.11-0.59) K/uL Eos # (Auto) (0-0.5) K/uL Baso # (Auto) (0-0.2) K/uL PT (9.0-12.0) Seconds INR (0.9-1.1) APTT (21.0-31.0) Seconds PTT Ratio VBG pH (7.36-7.41) VBG pCO2 (38-50) mmHg VBG pO2 mmHg VBG HCO3 mmol/L VBG O2 Saturation % VBG Base Excess mEq/L Barometric Pressure mm/Hg Sodium (136-145) mmol/L Potassium (3.5-5.1) mmol/L Chloride (98-107) mmol/L Carbon Dioxide (21-32) mmol/L Anion Gap (3-11) BUN (7-18) mg/dl Creatinine (0.6-1.2) mg/dl Est Cr Clr Drug Dosing ml/min Est GFR ( Amer) Est GFR (Non-Af Amer) BUN/Creatinine Ratio (10-20) Glucose (70-99) mg/dl Calcium (8.5-10.1) mg/dl Magnesium 2.1 (1.8-2.4) mg/dl Total Bilirubin (0.2-1) mg/dl AST (15-37) U/L ALT (12-78) U/L Alkaline Phosphatase (45-117) U/L Troponin I (0-0.045) ng/ml NT-Pro-B Natriuret Pep (0-450) pg/ml Total Protein (6.4-8.2) gm/dl Albumin (3.4-5.0) gm/dl Globulin (2.5-4.0) gm/dl Albumin/Globulin Ratio (0.9-2) Influenza Type A (PCR) (Neg) Influenza Type B (PCR) (Neg) Imaging Data Radiologist's Impression: Radiology results as stated below per my review and the radiologist's interpretation: CT ANGIOGRAM OF THE CHEST CLINICAL HISTORY: Dyspnea. COMPARISON STUDY: Chest x-ray dated 04/27/2018. Chest CT dated 07/31/2015. TECHNIQUE: Following the IV administration of 93 cc of Optiray 320, CT angiogram of the chest was performed from the upper abdomen to the thoracic inlet utilizing the pulmonary embolus protocol. Images are reviewed in the axial , sagittal, and coronal planes. 3-D MIPS images are created and assessed. IV contrast was administered without complication. A dose lowering technique was utilized adhering to the principles of ALARA. CT DOSE: 779.96 mGy.cm FINDINGS: Thyroid: Imaged portions of the thyroid gland are normal in size and attenuation. Thoracic aorta: The thoracic aorta is normal in caliber and demonstrates bovine variant arch anatomy. No dissection is seen. Pulmonary vasculature: The pulmonary trunk is markedly dilated, measuring 4.8 cm in diameter. This indicates pulmonary artery hypertension. There are no filling defects identified in main, lobar, or segmental pulmonary branches to suggest pulmonary embolus. Heart: The heart is mildly enlarged and without pericardial effusion. Lungs and pleural spaces: Evaluation of lung parenchyma is modestly degraded by motion artifact. Patchy nodular airspace consolidation is seen throughout both lungs, most confluent in the left lower lobe. Foci of atelectasis versus scarring are seen in the right middle lobe and lingula. Trace pleural effusions are identified. The trachea and central airways are clear. Mediastinum: Mildly enlarged prevascular nodes measure up to 13 mm in short axis. A subcarinal node measures 19 mm in short axis. Anabel: Prominent hilar nodes measure up to 10 mm short axis. Axillae: There is no axillary lymphadenopathy. Upper abdomen: The liver and spleen are enlarged. Prominent lymph nodes at and below the esophageal hiatus measure up to 15 mm short axis. Skeletal structures: The skeletal structures are osteopenic. No lytic or blastic bony lesions are seen. IMPRESSION: 1. There is no evidence of pulmonary embolus in the main, lobar, or segmental pulmonary arteries. 2. Cardiomegaly with evidence of pulmonary artery hypertension. 3. Patchy nodular airspace consolidation is seen throughout both lungs. The appearance is typical for multifocal pneumonia. A follow-up chest CT in 3-6 months time is recommended to document complete resolution. 4. There are trace pleural effusions. 5. Hepatosplenomegaly. 6. Mildly enlarged mediastinal and hilar nodes are likely on a reactive basis. 7. Additional findings as above. Electronically signed by: Heber Kumar M.D. 04/27/2018 6:14 PM XR chest 1V portable CLINICAL HISTORY: shortness of breath dyspnea COMPARISON STUDY: 05/15/2017 FINDINGS: The bones soft tissues and hemidiaphragms are normal. The cardiomediastinal silhouette is normal. The lungs are clear. The pulmonary vasculature is normal. IMPRESSION: Negative chest. The above report was generated using voice recognition software. It may contain grammatical, syntax or spelling errors. Electronically signed by: Bubba Montez M.D. 04/27/2018 5:03 PM ECG Data Attestation: I personally reviewed and interpreted this ECG as follows: Indication: SOB/dyspnea Rate (beats per minute): 84 Rhythm: sinus rhythm Findings: + other ([place] QRS QTC segments within normal limits ); no ST depression and no ST elevation Blood Pressure Blood Pressure Findings: Elevated blood pressure Blood Pressure Disposition: further management by hospitalist [facility] Narrative Vital signs stable on nasal cannula. Labs within normal limits with BNP elevated. CTA of chest found negative, but does shown multifocal pneumonia. Given patient history of being on Cellcept she will treated with broad spectrum antibiotics and admitted to [facility]. I spoke with Amelia Peace [facility] hospitalist SHARYN who said to admit to [facility]. Impression & Plan Hypoxia, Pneumonia Discharge Plan Visit Data *Final* Discharge Date/Time: 04/27/18 20:20 Chief Complaint: Respiratory Problems Stated Complaint: CAN'T BREATHE RIGHT ED Provider: Hussain Martin Discharge Problem: Hypoxia, Pneumonia Patient Disposition: Admitted As Inpatient Discharge Instructions Interventions: ED Discharge Assessment Last Done: 04/27/18 20:20 The scribe's documentation has been prepared under my direction and personally reviewed by me in its entirety. I confirm that the note above accurately reflects all work, treatment, procedures, and medical decision making performed by me.
--- NOTE | 2018-04-27 22:29 | Pharmacy Report ---
Pharmacy Abx Initial Consult - Date of Service April 27, 2018 - Pharmacy Dosing Scope Date of Consult: 04/27/18 Consultation requested by: Amelia COLES Pharmacy is consulted to initiate Vancomycin + Cefepime IV dosing therapy, order appropriate labs and adjust drug dose/frequency. - Subjective The patient is a 47 year old F admitted on 04/27/18 19:03. - Objective Height: 5 ft 4 in Weight: 143.5 kg Vital Signs (Past 12hrs): Vital Signs Temp Pulse Pulse Resp BP BP Pulse Ox 04/27/18 21:02 74 96 04/27/18 20:20 88 18 139/80 94 04/27/18 19:33 73 13 142/86 H 95 04/27/18 17:53 78 15 153/74 H 99 04/27/18 16:33 79 12 152/93 H 95 04/27/18 16:21 36.9 C 85 20 159/97 H 89 L Lab Results (24hrs): Laboratory Tests (24 Hours) 04/27/18 04/27/18 16:38 16:38 WBC 3.82 L Neut # (Auto) 2.50 Creatinine 0.77 Est Cr Clr Drug Dosing 131.4 Micro Results: 04/27/18 18:03 Blood Culture - Pending Blood 04/27/18 16:38 Blood Culture - Pending Blood - Risk Factors for Resistance * Immunocompromised (chronic steroid therapy, chemotherapy, immunomodulators) - Assessment & Plan Assessment 47 year old F initiated on IV Vancomycin + cefepime for pulmonary indication Plan Vancomycin IV * Estimated PK Parameters: Vd 0.22 L/kg, [place] 0.071 hr-1, t1/2 9.76 hr * Loading dose: 1,000mg given in ED + 2,500 mg given on admission (24 mg/kg) * Maintenance dose: 1,750 mg IV ( 12 mg/kg) every 10 hours * Goal trough level for pulmonary : 15 to 20 mcg/mL * Trough level ordered for 04/29/17 @ 1330 * A less than traditional dose and/or extended dosing interval has/have been selected due to likelihood of drug accumulation in obese patient Cefepime * 2gm IV Q12hr. No dose adjustment needed. Pharmacy will continue to follow and will adjust dose/frequency as necessary. Thank you.
[2018-04-27] MEDS ORDERED: VANCOMYCIN HCL 2,500 MG in SODIUM CHLORIDE 0.9% 500 ML IV ONE (22:30)
[2018-04-28] MEDS ORDERED: SODIUM CHLORIDE 0.65% NA SOLN 45 ML (OCEAN) PRN (01:35)
[2018-04-28] MEDS: LEVOTHYROXINE SODIUM 50 MCG TABLET PO SCH (05:44)
[2018-04-28] MEDS: CEFEPIME 2,000 MG in SYRINGE 7.5 ML IV SCH ×2 (05:44→17:50)
[2018-04-28] MEDS: ALBUT/IPRATROP 3MG/0.5MG NEB 3 ML VIAL NEB SCH ×4 (07:00→20:40)
[2018-04-28 07:32] LABS: Hematocrit (blood only) 34.7 % (37-47); Hemoglobin 11.1 g/dL (12.0-16.0); Mean Corpuscular Volume 86.5 fL (80-100); Mean Platelet Volume 9.5 fL (7.4-10.4); Platelet Count 151 K/uL (130-400); RDW Coefficient of Variation 14.1 % (11.5-14.5); RDW Standard Deviation 44.9 fL (36.4-46.3); Red Blood Count 4.01 M/uL (4.2-5.4); White Blood Count 3.47 K/uL (4.8-10.8)
[2018-04-28] MEDS: FLUTICASONE PROPIONATE NA SPR 16 GM BTL NAE SCH (07:32)
[2018-04-28] MEDS: BuPROPion SR 150 MG TABCR PO SCH (07:33)
[2018-04-28] MEDS: predniSONE 20 MG TAB PO SCH (07:33)
[2018-04-28 08:02] LABS: BUN Creatinine Ratio 18.9 (10-20); Calcium 8.5 mg/dl (8.5-10.1); Creatinine Clr Calc Pharmacy 132.6 ml/min; Est GFR (African American) 106.4; Est GFR (Non-African American) 91.8; Potassium 3.7 mmol/L (3.5-5.1)
[2018-04-28] MEDS: VANCOMYCIN HCL 1,750 MG in SODIUM CHLORIDE 0.9% 500 ML IV SCH ×2 (08:09→17:56)
[2018-04-28] MEDS: MICONAZOLE NITRATE POWDER 43 GM EXT PRN ×2 (17:58→20:55)
--- NOTE | 2018-04-28 19:42 | Hospitalist Progress Note ---
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 team who recommended to hold CellCept until off antibiotics Follow-up with Rheumatology in the office within 1 week of hospital discharge (5) GERD (gastroesophageal reflux disease): Continue H2 imani (6) Bipolar disorder: (7) Anxiety: (8) Depression: On bupropion and as needed lorazepam stable (9) Sleep apnea: CPAP as per home settings (10) Anemia, chronic disease: Hemoglobin stable Continue monitor CBC (11) DVT prophylaxis: SQ Lovenox CODE STATUS FULL CODE Subjective Pt was seen and examined Sitting in chair with no distress Pt said that her breathing slightly improves Denies any chest pain, palpitation and fever Physical Exam 2 Vital Signs (Past 24 Hours): Last Vital Signs Temp 36.5 C 04/28/18 19:08 Pulse 56 L 04/28/18 19:08 Resp 23 04/28/18 19:08 BP 145/86 H 04/28/18 19:21 Pulse Ox 97 04/28/18 19:08 Physical Exam: General- No acute distress Head- atraumatic Eyes- PERRL, EOMI, ENT- oropharynx clear Neck- supple, no JVD Lungs- +wheezing Heart- regular rhythm; no murmur Abdomen- normal bowel sounds, soft, nontender Extremities- no calf tenderness Neuro- alert, oriented x 3; PERRL, EOMI; no facial palsy; no dysarthria Skin- warm & dry
[2018-04-28] MEDS: ENOXAPARIN INJ 40 MG/0.4 ML SYR SQ SCH (20:54)
[2018-04-29] MEDS: ALBUT/IPRATROP 3MG/0.5MG NEB 3 ML VIAL NEB SCH ×5 (02:20→20:55)
[2018-04-29] MEDS: VANCOMYCIN HCL 1,750 MG in SODIUM CHLORIDE 0.9% 500 ML IV SCH (04:21)
[2018-04-29] MEDS: LORazepam 0.5 MG TAB PO PRN (04:59)
[2018-04-29] MEDS: CEFEPIME 2,000 MG in SYRINGE 7.5 ML IV SCH ×2 (06:09→18:02)
[2018-04-29] MEDS: LEVOTHYROXINE SODIUM 50 MCG TABLET PO SCH (06:09)
[2018-04-29] MEDS: predniSONE 20 MG TAB PO SCH (07:38)
[2018-04-29] MEDS: BuPROPion SR 150 MG TABCR PO SCH (07:38)
[2018-04-29] MEDS: FLUTICASONE PROPIONATE NA SPR 16 GM BTL NAE SCH (07:39)
--- NOTE | 2018-04-29 12:38 | Hospitalist Progress Note ---
Date of Service April 29, 2018 Assessment & Plan (1) Acute respiratory failure with hypoxia: (2) Multifocal pneumonia: (3) Asthma exacerbation: Present on admission with worsening SOB associated with cough Oxygen saturation in the ER was 89% on RA Received Solumedrol 125mg IV in the ER CTA chest negative for pulmonary embolism however demonstrates multifocal pneumonia Negative influenza swab Was starting on Vanco and cefepime in the ED MRSA screen negative, Vanco d/c today Continue cefepime for now Continue to hold CellCept Continue prednisone 40mg daily for now Continue nebs, flutter valve, chest PT by respiratory Sputum cx and blood cx pending Will add mucomyst (4) Lupus: Cellcept on hold 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 team who recommended to hold CellCept until off antibiotics Follow-up with Rheumatology in the office within 1 week of hospital discharge (5) GERD (gastroesophageal reflux disease): Continue H2 imani (6) Bipolar disorder: (7) Anxiety: (8) Depression: On bupropion and as needed lorazepam stable (9) Sleep apnea: CPAP as per home settings (10) Anemia, chronic disease: Hemoglobin stable Continue monitor CBC (11) DVT prophylaxis: SQ Lovenox CODE STATUS FULL CODE Subjective Pt was seen and examined Lying in bed with no distress Pt said that she continue to have SOB She said that she continues to have a dry cough Denies any chest pain, palpitation and SOB Physical Exam 2 Vital Signs (Past 24 Hours): Last Vital Signs Temp 36.9 C 04/29/18 11:29 Pulse 70 04/29/18 11:29 Resp 20 04/29/18 11:29 BP 125/84 04/29/18 11:29 Pulse Ox 99 04/29/18 11:29 Physical Exam: General- No acute distress Head- atraumatic Eyes- PERRL, EOMI, ENT- oropharynx clear Neck- supple, no JVD Lungs- +wheezing Heart- regular rhythm; no murmur Abdomen- normal bowel sounds, soft, nontender Extremities- no calf tenderness Neuro- alert, oriented x 3; PERRL, EOMI; no facial palsy; no dysarthria Skin- warm & dry
[2018-04-29] MEDS ORDERED: VANCOMYCIN TROUGH ONE (13:30)
[2018-04-29] MEDS: ACETYLCYSTEINE 10% INHAL SOLN **DISPENSED FROM RESP. INH SCH ×2 (15:40→20:55)
[2018-04-29] MEDS: ENOXAPARIN INJ 40 MG/0.4 ML SYR SQ SCH (21:04)
[2018-04-29] MEDS: MICONAZOLE NITRATE POWDER 43 GM EXT PRN (21:05)
[2018-04-30] MEDS: ALBUT/IPRATROP 3MG/0.5MG NEB 3 ML VIAL NEB SCH ×4 (02:25→15:35)
[2018-04-30] MEDS: LORazepam 0.5 MG TAB PO PRN (03:11)
[2018-04-30] MEDS: LEVOTHYROXINE SODIUM 50 MCG TABLET PO SCH (06:04)
[2018-04-30] MEDS: CEFEPIME 2,000 MG in SYRINGE 7.5 ML IV SCH ×2 (06:04→17:14)
[2018-04-30] MEDS: ACETYLCYSTEINE 10% INHAL SOLN **DISPENSED FROM RESP. INH SCH (07:24)
[2018-04-30] MEDS: BuPROPion SR 150 MG TABCR PO SCH (08:17)
[2018-04-30] MEDS: predniSONE 20 MG TAB PO SCH (08:17)
[2018-04-30] MEDS: FLUTICASONE PROPIONATE NA SPR 16 GM BTL NAE SCH (08:17)
--- NOTE | 2018-04-30 16:42 | Hospitalist Progress Note ---
Date of Service April 30, 2018 Assessment & Plan (1) Acute respiratory failure with hypoxia: (2) Multifocal pneumonia: (3) Asthma exacerbation: Present on admission with worsening SOB associated with cough Oxygen saturation in the ER was 89% on RA Received Solumedrol 125mg IV in the ER CTA chest negative for pulmonary embolism however demonstrates multifocal pneumonia Negative influenza swab Was starting on Vanco and cefepime in the ED MRSA screen negative, Vanco d/c today Continue cefepime for now Continue to hold CellCept Continue prednisone 40mg daily for now Continue nebs, flutter valve, chest PT by respiratory Sputum cx and blood cx pending Will add mucomyst 04/30/18 Clinically improves Oxygen Saturation above 92% on RA Will change cefepime to Augmentin BID Continue Neb treatment Continue prednisone oral Follow up with PCP Dr. 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 team who recommended to hold CellCept until off antibiotics Follow-up with Rheumatology in the office within 1 week of hospital discharge (5) GERD (gastroesophageal reflux disease): Continue H2 imani (6) Bipolar disorder: (7) Anxiety: (8) Depression: On bupropion and as needed lorazepam stable (9) Sleep apnea: CPAP as per home settings (10) Anemia, chronic disease: Hemoglobin stable Continue monitor CBC (11) DVT prophylaxis: SQ Lovenox CODE STATUS FULL CODE Disposition Discharge home today Subjective Pt was seen and examined Sitting in chair with no distress Pt said that his breathing is improved Pt walked in the hallway today without oxygen She is on RA now and tolerates well Cough improves Denies any chest pain, palpitation, dizziness and fever Physical Exam 2 Vital Signs (Past 24 Hours): Last Vital Signs Temp 36.9 C 04/30/18 16:27 Pulse 61 04/30/18 16:27 Resp 20 04/30/18 16:27 BP 159/121 H 04/30/18 16:27 Pulse Ox 95 04/30/18 16:27 Physical Exam: General- No acute distress Head- atraumatic Eyes- PERRL, EOMI, ENT- oropharynx clear Neck- supple, no JVD Lungs- No wheezing, decrease BS Heart- regular rhythm; no murmur Abdomen- normal bowel sounds, soft, nontender Extremities- no calf tenderness Neuro- alert, oriented x 3; PERRL, EOMI; no facial palsy; no dysarthria Skin- warm & dry
[2018-04-30] MEDS ORDERED: AMOXICILLIN/CLAVULANATE 875 MG TAB PO SCH (18:00)
--- NOTE | 2018-05-02 13:00 | Discharge Summary ---
Date of Service May 02, 2018 Admission HPI Per Admitting Provider 47-year-old female who presents the ED with shortness of breath. Patient reports her symptoms began about 5 days ago. She reports she initially developed rhinorrhea and nasal congestion. She then developed a productive cough for yellow sputum. She has had progressive worsening shortness of breath. She reports shortness of breath with minimal exertion, no shortness of breath at rest. She reports some chest pain with coughing however no other chest pain or pressure. She denies fevers, chills, body aches. She does report some episodes of diaphoresis. No lightheadedness, dizziness, diaphoresis , syncopal events. She denies abdominal pain, nausea, vomiting, diarrhea. She denies any urinary symptoms. Patient was evaluated in her PCPs office today where she was found to be hypoxic on exertion, she was then sent to the ED for further evaluation. In the ED, patient was found to be 89% on room air. This improved with oxygen 4 L via nasal cannula. Other vital signs were stable. CT chest was negative for pulmonary embolism but demonstrate multifocal pneumonia. Patient has history of lupus and is on CellCept. She was also given IV Solu- Medrol 125 mg, IV cefepime, IV vancomycin. Admission Exam Per Admitting Provider Constitutional: WD/WN, vitals as above + obese Eyes: PERRL, conjunctivae normal, anicteric sclerae ENMT: external ear and nose normal, oropharynx normal Respiratory: normal respiratory effort; no respiratory distress Auscultation: + wheezes (Scattered, expiratory) Cardiovascular: Rate/Rhythm: regular rate and regular rhythm Vessels: normal peripheral pulses Extremities: + edema Gastrointestinal normal bowel sounds, soft, nontender, no hepatosplenomegaly Musculoskeletal: no cyanosis or clubbing, extremities motor strength 5/5 Skin: no rashes, warm and dry Neurologic: PERRL, EOMI, accommodation nl, no face palsy, no dysarthria Psychiatric: A+Ox3, euthymic affect Principal Diagnosis Acute respiratory failure with hypoxia Multifocal pneumonia Asthma exacerbation Discharge Exam General- No acute distress Head- atraumatic Eyes- PERRL, EOMI, ENT- oropharynx clear Neck- supple, no JVD Lungs- No wheezing, decrease BS Heart- regular rhythm; no murmur Abdomen- normal bowel sounds, soft, nontender Extremities- no calf tenderness Neuro- alert, oriented x 3; PERRL, EOMI; no facial palsy; no dysarthria Skin- warm & dry Discharge Data Allergies Allergy/AdvReac Type Severity Reaction Status Date / Time nickel Allergy Mild Rash Verified 04/27/18 18:13 Consultations 04/27/18 18:34 ED Decision to Admit Stat Ordered Studies 04/27/18 17:17 CT angio chest PE protocol Stat CT ANGIOGRAM OF THE CHEST CLINICAL HISTORY: Dyspnea. COMPARISON STUDY: Chest x-ray dated 04/27/2018. Chest CT dated 07/31/2015. TECHNIQUE: Following the IV administration of 93 cc of Optiray 320, CT angiogram of the chest was performed from the upper abdomen to the thoracic inlet utilizing the pulmonary embolus protocol. Images are reviewed in the axial , sagittal, and coronal planes. 3-D MIPS images are created and assessed. IV contrast was administered without complication. A dose lowering technique was utilized adhering to the principles of ALARA. CT DOSE: 779.96 mGy.cm FINDINGS: Thyroid: Imaged portions of the thyroid gland are normal in size and attenuation. Thoracic aorta: The thoracic aorta is normal in caliber and demonstrates bovine variant arch anatomy. No dissection is seen. Pulmonary vasculature: The pulmonary trunk is markedly dilated, measuring 4.8 cm in diameter. This indicates pulmonary artery hypertension. There are no filling defects identified in main, lobar, or segmental pulmonary branches to suggest pulmonary embolus. Heart: The heart is mildly enlarged and without pericardial effusion. Lungs and pleural spaces: Evaluation of lung parenchyma is modestly degraded by motion artifact. Patchy nodular airspace consolidation is seen throughout both lungs, most confluent in the left lower lobe. Foci of atelectasis versus scarring are seen in the right middle lobe and lingula. Trace pleural effusions are identified. The trachea and central airways are clear. Mediastinum: Mildly enlarged prevascular nodes measure up to 13 mm in short axis. A subcarinal node measures 19 mm in short axis. Anabel: Prominent hilar nodes measure up to 10 mm short axis. Axillae: There is no axillary lymphadenopathy. Upper abdomen: The liver and spleen are enlarged. Prominent lymph nodes at and below the esophageal hiatus measure up to 15 mm short axis. Skeletal structures: The skeletal structures are osteopenic. No lytic or blastic bony lesions are seen. IMPRESSION: 1. There is no evidence of pulmonary embolus in the main, lobar, or segmental pulmonary arteries. 2. Cardiomegaly with evidence of pulmonary artery hypertension. 3. Patchy nodular airspace consolidation is seen throughout both lungs. The appearance is typical for multifocal pneumonia. A follow-up chest CT in 3-6 months time is recommended to document complete resolution. 4. There are trace pleural effusions. 5. Hepatosplenomegaly. 6. Mildly enlarged mediastinal and hilar nodes are likely on a reactive basis. 7. Additional findings as above. Electronically signed by: Heber Kumar M.D. 04/27/2018 6:14 PM Dictated: 04/27/18 180 Transcribed: 04/27/18 180 XR chest 1V portable CLINICAL HISTORY: shortness of breath dyspnea COMPARISON STUDY: 05/15/2017 FINDINGS: The bones soft tissues and hemidiaphragms are normal. The cardiomediastinal silhouette is normal. The lungs are clear. The pulmonary vasculature is normal. IMPRESSION: Negative chest. The above report was generated using voice recognition software. It may contain grammatical, syntax or spelling errors. Electronically signed by: Bubba Montez M.D. 04/27/2018 5:03 PM Dictated: 04/27/18 1703 Transcribed: 04/27/18 170 Hospital Course (1) Acute respiratory failure with hypoxia: (2) Multifocal pneumonia: (3) Asthma exacerbation: Present on admission with worsening SOB associated with cough Oxygen saturation in the ER was 89% on RA Received Solumedrol 125mg IV in the ER CTA chest negative for pulmonary embolism however demonstrates multifocal pneumonia Negative influenza swab Was starting on Vanco and cefepime in the ED MRSA screen negative, Vanco d/c today Continue cefepime for now Continue to hold CellCept Continue prednisone 40mg daily for now Continue nebs, flutter valve, chest PT by respiratory Sputum cx and blood cx pending Will add mucomyst 04/30/18 Clinically improves Oxygen Saturation above 92% on RA Will change cefepime to Augmentin BID Continue Neb treatment Continue prednisone oral Follow up with PCP Dr. 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 who recommended to hold CellCept until off antibiotics Follow-up with Rheumatology in the office within 1 week of hospital discharge (5) GERD (gastroesophageal reflux disease): Continue H2 imani (6) Bipolar disorder: (7) Anxiety: (8) Depression: On bupropion and as needed lorazepam stable (9) Sleep apnea: CPAP as per home settings (10) Anemia, chronic disease: Hemoglobin stable Continue monitor CBC (11) DVT prophylaxis: SQ Lovenox CODE STATUS FULL CODE Disposition Discharge home today Total Time Total Time Spent Total Time Spent (In Minutes): 35 minutes Total Time Includes: Examination of the Patient, Discharge Planning, Medication Reconciliation, Communication With Other Providers and Other Discharge Plan Discharge Items Patient Disposition: Home - Self-Care Reason For Visit: HYPOXIA, PNEUMONIA Discharge Diagnosis: Acute respiratory failure with hypoxia, Multifocal pneumonia, Asthma exacerbation Discharge Goals: Decrease discomfort, Improve disease control, Increase independence and Improve nutritional status Activity: Resume your previous activity Activity Comment: As tolerated Non-emergency contact: Primary Care Provider Call non-emergency contact if: you have any medication questions and your temperature is above 101 Diet: Regular Addtl Provider Instructions: Follow up with your primary care provider Dr. Bravo on 05/03 @ 12:45 PM Follow with with Rheumatology in 1 week ( Please call to schedule for the appointment ) Hold Cellcept for now while getting oral Augmentin Continue nebulizer breathing treatment( script given for nebulizer machine) Continue to use your CPAP at night Complete course of antibiotic Complete course of prednisone taper Prescriptions: New ipratropium-albuterol 0.5 mg-3 mg(2.5 mg base)/3 mL Solution For Nebulization 3 ml NEB QIDR PRN (Reason: SOB/ Wheezing) 30 Days Qty: 90 RF: 0 amoxicillin-pot clavulanate [Augmentin] 875-125 mg tablet 1 tab PO BID Qty: 7 RF: 0 prednisone 10 mg tablet 10 mg PO UD 7 Days Qty: 20 RF: 0 guaifenesin 200 mg tablet 200 mg PO Q8H PRN (Reason: cold symptoms/cough) 5 Days Qty: 15 RF: 0 Continue lorazepam 0.5 mg Tablet 0.5 mg PO BID PRN (Reason: Anxiety/Insomnia) Qty: 0 RF: 0 meloxicam 15 mg Tablet 15 mg PO DAILY PRN (Reason: Pain) Qty: 0 RF: 0 polyethylene glycol 3350 17 gram Powder In Packet 17 g PO DAILY PRN (Reason: Constipation) Qty: 0 RF: 0 mycophenolate mofetil [CellCept] 500 mg Tablet 1,000 mg PO BID 90 Days Qty: 360 RF: 3 levothyroxine 50 mcg Tablet 50 mcg PO QAM Qty: 0 RF: 0 ranitidine HCl 150 mg Capsule 150 mg PO BID Qty: 0 RF: 0 loratadine 10 mg Tablet 10 mg PO DAILY PRN (Reason: Allergy Symptoms) Qty: 0 RF: 0 epinephrine [EpiPen 2-David] 0.3 mg/0.3 mL Auto-Injector 0.3 mg IM DIRECTED PRN (Reason: Allergic Reaction) Qty: 0 RF: 0 fluticasone [Flonase Allergy Relief] 50 mcg/actuation Arnett,Suspension 2 spray INTRANASAL DAILY Qty: 0 RF: 0 bupropion HCl 150 mg Tablet Extended Release 12 Hr 150 mg PO QAM RF: 0 hydroxyzine HCl 50 mg tablet 50 mg PO Q6H PRN (Reason: Anxiety) RF: 0 albuterol sulfate 90 mcg/actuation HFA aerosol inhaler 2 puff Inhalation Q4H PRN (Reason: Cough/Wheezing) RF: 0 mometasone-formoterol 200-5 mcg/actuation HFA aerosol inhaler 2 puff Inhalation BID RF: 0 furosemide 40 mg Tablet 40 mg PO DAILY PRN (Reason: Edema) RF: 0 valacyclovir 1 gram Tablet 1,000 mg PO Q12H PRN (Reason: Cold Sores) RF: 0 Visit Report Forms: [facility] Portal Stand-Alone Forms: [facility] Discharge Orders: Discharge Order (Routine); Ordered 04/30/18 Ordered By: Sabina Ruth Admission Data Admit Date/Time: 04/27/18 19:03 Attending Provider: Sabina Ruth Admit Provider: Mello Robertson Primary Care Provider: Ary Bravo Other Providers: Mello Robertson Service: Telemetry Other Interventions: Discharge Summary Assessment (RN) Last Done: 04/30/18 17:22 DC Date/Time DO NOT enter until pt leaves facility: 04/30/18 18:30
== END 2018-04-30 18:30 | disposition home or self-care (01) | DRG 193 ==
LOC: ED 16:05 → 2W 19:03

== ENCOUNTER 2021-03-18 15:16 | Inpatient (IN) ==
[2021-03-18 15:43] LABS: Eosinophils # (auto) 0.15 K/uL (0-0.5); Eosinophils % (auto) 1.9 %; Hematocrit (blood only) 36.8 % (37-47); Hemoglobin 11.9 g/dL (12.0-16.0); Immature Granulocytes # (auto) 0.05 K/uL (0.00-0.02); Immature Granulocytes % (auto) 0.6 %; Lymphocytes # (auto) 0.55 K/uL (1.2-3.4); Lymphocytes % (auto) 7.1 %; Mean Corpuscular Hgb Conc 32.3 g/dL (32-36); Mean Corpuscular Volume 83.4 fL (80-100); Mean Platelet Volume 9.1 fL (7.4-10.4); Monocytes # (auto) 0.38 K/uL (0.11-0.59); Monocytes % (auto) 4.9 %; Neutrophils # (auto) 6.63 K/uL (1.4-6.5); Neutrophils % (auto) 85.5 %; Platelet Count 184 K/uL (130-400); RDW Coefficient of Variation 16.5 % (11.5-14.5); RDW Standard Deviation 50.7 fL (36.4-46.3); Red Blood Count 4.41 M/uL (4.2-5.4); White Blood Count 7.76 K/uL (4.8-10.8)
[2021-03-18 16:12] LABS: Alanine Aminotransferase 29 U/L (12-78); Albumin Globulin Ratio 0.5 (0.9-2); Albumin Level 2.7 gm/dl (3.4-5.0); Alkaline Phosphatase 90 U/L (45-117); BUN Creatinine Ratio 11.2 (10-20); Bilirubin,Total 2.1 mg/dl (0.2-1); Blood Urea Nitrogen 11 mg/dl (7-18); Calcium 8.4 mg/dl (8.5-10.1); Carbon Dioxide 23 mmol/L (21-32); Chloride 98 mmol/L (98-107); Est GFR (Non-African American) 69.1 ml/min; Globulin 5.7 gm/dl (2.5-4.0); Glucose 114 mg/dl (70-99); Total Protein 8.4 gm/dl (6.4-8.2)
[2021-03-18 16:14] LABS: Potassium 3.4 mmol/L (3.5-5.1); Sodium 131 mmol/L (136-145)
[2021-03-18 16:19] LABS: Aspartate Aminotransferase 43 U/L (15-37)
[2021-03-18] MEDS ORDERED: ACETAMINOPHEN 500 MG TAB PO STA (17:08)
[2021-03-18] MEDS ORDERED: DAPTOmycin 500 MG in SYRINGE 0 ML IV ONE (17:08)
[2021-03-18] MEDS ORDERED: AMPICILLIN/SULBACTAM SOD 3,000 MG in 0.9 % SODIUM CHLORIDE 100 ML IV STA (17:08)
[2021-03-18] MEDS ORDERED: KETOROLAC TROMETHAMINE 15 MG/ML VIAL IV STA (17:08)
[2021-03-18] MEDS ORDERED: SODIUM CHLORIDE 0.9% 1000ML 1,000 ML IV ONE (17:08)
--- NOTE | 2021-03-18 17:16 | Emergency Department Note ---
Impression & Plan Pain of right leg, Cellulitis, Tachycardia, Immunocompromised ED Provider Note NAME: FLEX CARR AGE: 50 SEX: F : 1970 ARRIVES VIA: Walk-In INFORMANT: [Patient] ED PROVIDER(S): [Heber Claudio MD] CHIEF COMPLAINT: Leg pain HISTORY OF PRESENT ILLNESS: The patient is a 50-year-old female who states that 3 days ago, she was scratched along the right lateral ankle by her own cat. The next day, the area was somewhat reddened and sore but, in the last 48 hours, her whole leg is red and the redness has spread to the thigh. She feels tired. She feels chilled a nd thinks she has been running a fever. There is some moderate pain in the leg. There has been no recent shortness of breath or abdominal pain. She has not had stuffy nose or congestion. She did recover from COVID-19 a few months ago. Of note, the patient has chronic lymphedema in both lower extremities. She also has lupus and is on immunocompromising medication. REVIEW OF SYSTEMS: See HPI for pertinent positives and negatives. A total of ten systems were rev iewed and were otherwise negative. PMHx/PSHx: See Below SOCIAL HISTORY: See Below. PHYSICAL EXAM: GENERAL: Patient is in no acute distress. HEENT: No acute trauma, normocephalic atraumatic, mucous membranes moist, no nasal congestion, no scleral icterus. NECK: No stridor, no adenopathy, no meningismus, trachea is midline. LUNGS: Clear to auscultation bilaterally when listening anterior no wheeze, no rhonchi, breath sounds equal. Increased respiratory rate. HEART: No murmur, mildly tachycardic, regular rhythm. ABDOMEN: Soft, nontender, bowel sounds positive, no hernias, no peritonitis. EXTREMITIES: No cyanosis. Marked bilateral pedal edema. The right lower extremity is erythematous from the ankle to the knee. There is erythema spreading up the thigh especially medially. The entire area is warm to the touch, no drainage. NEUROLOGIC: Oriented x 3, no acute motor or sensory deficits, no focal weakness. SKIN: No jaundice, no diaphoresis. DIFFERENTIAL DIAGNOSIS: Sepsis, UTI, pneumonia, metabolic abnormality, COVID-19, electrolyte abnormalities, cardiac sources, cellulitis, bacteremia, intracerebral event, toxicologic etiology, neurologic event, as well as other pathologies. EMERGENCY DEPARTMENT COURSE/PROCEDURES: ECG: Indication was tachycardia. The ECG shows sinus tachycardia with a rate of 103. There is no ST elevation, no PVCs. There is some nonspecific ST change. The QTc is 468. Continuous Cardiac Monitoring: An order was placed for continuous cardiac monitoring. The monitor shows a rate of 101 with sinus tachycardia. MEDICAL DECISION MAKING: There is no leukocytosis. A mild anemia was noted. There was a normal platelet count. Sodium and potassium both slightly low but not in need of emergent correction. No kidney failure. There was some elevation to the bilirubin and AST. The alk phos was normal. Procalcitonin level was normal. Lactic acid level was not elevated making severe sepsis less likely. testing was negative. Chest film showed some chronic change, no infiltrate. ECG showed a sinus tachycardia, no acute ischemia. Covid testing was negative. The patient presents with a red right leg. She was tachycardic. She complained of some right leg pain. The redness has been increasing over the last few days. She appeared to have an extensive right lower extremity cellulitis. With her immunocompromise, she was in need of a hospital stay. The patient received IV saline, IV Toradol, oral Tylenol and IV Unasyn. She was given IV daptomycin. I spoke to the patient about her findings, I did speak with the counter caser. The on-call hospitalist has been consulted. Past Med/Surg History Medical History Anemia, chronic disease Anxiety Asthma stable, using rescue inhaler with exertion Bronchiolitis JUNE 2019> RESOLVED Depression GERD (gastroesophageal reflux disease) controlled Hypothyroidism Lupus stable on Cellcept; follows w/[facility] Lymphedema Lower extremities Morbid obesity with BMI of 60.0-69.9, adult On home oxygen therapy ON O2 AT 2L WITH CPAP DEVICE AT HS Osteoarthritis Pneumonia ~ 2 weeks ago, seen by PCP, tx with ABX and prednisone Psoriasis Shingles RESOLVED Sleep apnea CPAP Urticarial vasculitis Venous insufficiency of both lower extremities Surgical History History of appendectomy History of bilateral tubal ligation History of cataract surgery R & L History of section History of colonoscopy History of D&C X2 History of esophagogastroduodenoscopy (EGD) History of wisdom tooth extraction Family History Father Diabetes Mother Asthma Hypertension Brother Stroke Grandfather (Paternal) Diabetes Sister Hay fever Denies family history of Ovarian cancer Breast cancer Colorectal cancer Social History Smoking Status: Never smoker Second Hand Exposure: No; Hx Alcohol Use: No Hx Substance Use: No Preferred Language: [place] Communication Ability: Effective Organ Fixer Required: No Beliefs That Will Affect Care: None Current Living Situation: Family and Significant Other Feels Safe at Home: Yes Assistive Devices: CPAP, Glasses and Oxygen - at Night Allergies Allergies Allergy/AdvReac Type Severity Reaction Status Date / Time hydroxychloroquine Allergy Severe Swelling Verified 03/18/21 18:07 [From Plaquenil] of Lip/Tongue/Throat nickel Allergy Mild Rash Verified 03/18/21 18:07 Home Meds Home Medications Medication Instructions Recorded Confirmed meloxicam 15 mg tablet 15 mg PO DAILY PRN #0 09/14/16 03/18/21 epinephrine 0.3 mg/0.3 mL 0.3 mg IM DIRECTED PRN #0 09/22/17 03/18/21 injection, auto-injector (EpiPen 2-David) fluticasone propionate 50 2 spray INTRANASAL DAILY PRN #0 09/22/17 03/18/21 mcg/actuation nasal spray,suspension (Flonase Allergy Relief) loratadine 10 mg tablet 10 mg PO DAILY PRN #0 tab 09/22/17 03/18/21 albuterol sulfate 90 mcg/actuation 2 puff INHALATION Q4H PRN 04/27/18 03/18/21 aerosol inhaler hydroxyzine HCl 50 mg tablet 50 mg PO Q6H PRN 04/27/18 03/18/21 mometasone-formoterol HFA 200 2 puff INHALATION BID 04/27/18 03/18/21 mcg-5 mcg/actuation aerosol inhaler valacyclovir 1 gram tablet 1,000 mg PO Q12H PRN 04/27/18 03/18/21 ipratropium 0.5 mg-albuterol 3 mg 3 ml INHALATION Q8H PRN 03/05/19 03/18/21 (2.5 mg base)/3 mL nebulization soln omeprazole 20 mg tablet,delayed 20 mg PO QAM 03/05/19 03/18/21 release CPAP Machine #1 ea 03/12/19 09/03/20 Oxygen Home #1 ea 03/12/19 09/03/20 gabapentin 300 mg capsule 300 mg PO TID 07/05/19 03/18/21 furosemide 40 mg tablet 40 mg PO DAILY PRN 08/29/19 03/18/21 mycophenolate mofetil 500 mg 1,500 mg PO BID 90 Days #540 tab 05/07/20 03/18/21 tablet (CellCept) duloxetine 30 mg capsule,delayed 30 mg PO DAILY 09/03/20 03/18/21 release (Cymbalta) cholecalciferol (vitamin D3) 1,250 1,250 mcg PO WE 01/25/21 03/18/21 mcg (50,000 unit) capsule levothyroxine 75 mcg tablet 75 mcg PO QAM 01/25/21 03/18/21 trazodone 50 mg tablet 50 - 100 mg PO HS 01/25/21 03/18/21 Previous Rx's Medication Instructions Recorded nystatin 100,000 unit/gram topical 1 applic TOPICAL BID #30 g 09/03/20 powder Results & Data (ED) Vital Signs Vital Signs - 24 hr 03/18/21 15:20 03/18/21 17:17 03/18/21 17:30 Temperature 36.4 C L Temperature Source Temporal Artery Scan Pulse Rate 113 H 106 H 103 H Pulse Rate from SpO2 Sensor 105 H Respiratory Rate 16 19 23 Blood Pressure 120/73 Blood Pressure Mean 88 Pulse Oximetry 94 96 Oxygen Delivery Method Room Air Sepsis Recent Fever Within 48 Hours No Sepsis New/Unexplained Change in Mental Status No Sepsis Action Taken by Nursing No Action Required 03/18/21 17:45 Temperature Temperature Source Pulse Rate 101 H Pulse Rate from SpO2 Sensor 101 H Respiratory Rate 30 H Blood Pressure 124/83 Blood Pressure Mean 96 Pulse Oximetry 93 Oxygen Delivery Method Sepsis Recent Fever Within 48 Hours Sepsis New/Unexplained Change in Mental Status Sepsis Action Taken by Detention Medications Current Medication List: was personally reviewed by me Laboratory Data Attestation: I reviewed the patient's lab results. Result diagrams: 03/18/21 15:30 03/18/21 15:30 Lab Results 03/18/21 03/18/21 03/18/21 Range/Units 15:30 15:30 15:30 WBC 7.76 (4.8-10.8) K/uL RBC 4.41 (4.2-5.4) M/uL Hgb 11.9 L (12.0-16.0) g/dL Hct 36.8 L (37-47) % MCV 83.4 (80-100) fL MCH 27.0 (25-34) pg MCHC 32.3 (32-36) g/dL RDW Std Deviation 50.7 H (36.4-46.3) fL RDW Coeff of Anastacia 16.5 H (11.5-14.5) % Plt Count 184 (130-400) K/uL MPV 9.1 (7.4-10.4) fL Immature Gran % (Auto) 0.6 % Neut % (Auto) 85.5 % Lymph % (Auto) 7.1 % Kleberg % (Auto) 4.9 % Eos % (Auto) 1.9 % Baso % (Auto) 0.0 % Neut # (Auto) 6.63 H (1.4-6.5) K/uL Lymph # (Auto) 0.55 L (1.2-3.4) K/uL [place] # (Auto) 0.38 (0.11-0.59) K/uL Eos # (Auto) 0.15 (0-0.5) K/uL Baso # (Auto) 0.00 (0-0.2) K/uL Immature Gran # (Auto) 0.05 H (0.00-0.02) K/uL Sodium 131 L (136-145) mmol/L Potassium 3.4 L (3.5-5.1) mmol/L Chloride 98 (98-107) mmol/L Carbon Dioxide 23 (21-32) mmol/L Anion Gap 10.0 (3-11) BUN 11 (7-18) mg/dl Creatinine 0.97 (0.6-1.2) mg/dl Est Cr Clr Drug Dosing Not Reportable Est GFR ( Amer) 80.0 ml/min Est GFR (Non-Af Amer) 69.1 ml/min BUN/Creatinine Ratio 11.2 (10-20) Glucose 114 H (70-99) mg/dl Lactate (0.4-2.0) mmol/L Calcium 8.4 L (8.5-10.1) mg/dl Total Bilirubin 2.1 H (0.2-1) mg/dl AST 43 H (15-37) U/L ALT 29 (12-78) U/L Alkaline Phosphatase 90 (45-117) U/L Total Protein 8.4 H (6.4-8.2) gm/dl Albumin 2.7 L (3.4-5.0) gm/dl Globulin 5.7 H (2.5-4.0) gm/dl Albumin/Globulin Ratio 0.5 L (0.9-2) Procalcitonin 0.47 (0-0.5) ng/ml HCG, Qual Negative (Negative) SARS-CoV-2, RNA, NAAT (NEGATIVE) 03/18/21 03/18/21 Range/Units 17:22 17:30 WBC (4.8-10.8) K/uL RBC (4.2-5.4) M/uL Hgb (12.0-16.0) g/dL Hct (37-47) % MCV (80-100) fL MCH (25-34) pg MCHC (32-36) g/dL RDW Std Deviation (36.4-46.3) fL RDW Coeff of Anastacia (11.5-14.5) % Plt Count (130-400) K/uL MPV (7.4-10.4) fL Immature Gran % (Auto) % Neut % (Auto) % Lymph % (Auto) % Kleberg % (Auto) % Eos % (Auto) % Baso % (Auto) % Neut # (Auto) (1.4-6.5) K/uL Lymph # (Auto) (1.2-3.4) K/uL [place] # (Auto) (0.11-0.59) K/uL Eos # (Auto) (0-0.5) K/uL Baso # (Auto) (0-0.2) K/uL Immature Gran # (Auto) (0.00-0.02) K/uL Sodium (136-145) mmol/L Potassium (3.5-5.1) mmol/L Chloride (98-107) mmol/L Carbon Dioxide (21-32) mmol/L Anion Gap (3-11) BUN (7-18) mg/dl Creatinine (0.6-1.2) mg/dl Est Cr Clr Drug Dosing Est GFR ( Amer) ml/min Est GFR (Non-Af Amer) ml/min BUN/Creatinine Ratio (10-20) Glucose (70-99) mg/dl Lactate 1.3 (0.4-2.0) mmol/L Calcium (8.5-10.1) mg/dl Total Bilirubin (0.2-1) mg/dl AST (15-37) U/L ALT (12-78) U/L Alkaline Phosphatase (45-117) U/L Total Protein (6.4-8.2) gm/dl Albumin (3.4-5.0) gm/dl Globulin (2.5-4.0) gm/dl Albumin/Globulin Ratio (0.9-2) Procalcitonin (0-0.5) ng/ml HCG, Qual (Negative) SARS-CoV-2, RNA, NAAT NEGATIVE (NEGATIVE) Administered Medications Discontinued Medications Acetaminophen (Acetaminophen 500 Mg Tab) 1,000 mg PO NOW STA Stop: 03/18/21 17:09 Last Admin: 03/18/21 17:26 Dose: 1,000 mg Documented by: [id number] Sodium Chloride (Nss 1000ml) 1,000 mls @ 999 mls/hr IV .Q1H1M ONE Stop: 03/18/21 18:08 Last Infusion: 03/18/21 18:19 Dose: 0 mls/hr Documented by: [id number] Admin: 03/18/21 17:17 Dose: 999 mls/hr Documented by: [id number] Ampicillin Sodium/Sulbactam Sodium 3,000 mg/ Sodium Chloride 108 mls @ 200 mls/hr IV NOW STA; Protocol Stop: 03/18/21 17:40 Last Admin: 03/18/21 18:18 Dose: 200 mls/hr Documented by: [id number] Daptomycin 500 mg/ Syringe 10 mls @ 5 mls/min IV NOW ONE; Protocol Stop: 03/18/21 17:09 Last Admin: 03/18/21 18:19 Dose: 5 mls/min Documented by: [id number] Ketorolac Tromethamine (Ketorolac Tromethamine 15 Mg/Ml Vial) 15 mg IV NOW STA Stop: 03/18/21 17:09 Last Admin: 03/18/21 17:26 Dose: 15 mg Documented by: [id number] Imaging Data Radiologist's Impression: Chest X-Ray 03/18/21 17:16 XR chest 1V portable CLINICAL HISTORY: Shortness of breath. COMPARISON STUDY: Chest CT June 30, 2019. Chest radiograph January 25, 2021. FINDINGS: Lung volumes are normal. Lungs are clear. There is no pneumothorax or pleural effusion. Cardiac size is normal. Mediastinal contours are normal. There is no evidence for pulmonary edema. There is subtle interstitial thickening. This is probably chronic. IMPRESSION: No acute cardiopulmonary findings. Subtle interstitial thickening, likely chronic. ACT 112: Negative or not required by law. Electronically signed by: Michel Siu M.D. 03/18/2021 5:51 PM Discharge Plan Visit Data Chief Complaint: Leg Injury/Pain Stated Complaint: PAIN AT 10 IN R LEG ED Provider: Heber Claudio Discharge Problem: Pain of right leg, Cellulitis, Tachycardia, Immunocompromised Patient Disposition: Admitted As Inpatient Condition: Fair Forms Stand Alone Forms: [facility] Prescriptions Prescriptions: No Action meloxicam 15 mg Tablet 15 mg PO DAILY PRN (Reason: Pain) Qty: 0 RF: 0 loratadine 10 mg Tablet 10 mg PO DAILY PRN (Reason: Allergy Symptoms) Qty: 0 RF: 0 epinephrine [EpiPen 2-David] 0.3 mg/0.3 mL Auto-Injector 0.3 mg IM DIRECTED PRN (Reason: Allergic Reaction) Qty: 0 RF: 0 fluticasone propionate [Flonase Allergy Relief] 50 mcg/actuation [place],Suspension 2 spray INTRANASAL DAILY PRN (Reason: Allergy Symptoms) Qty: 0 RF: 0 mycophenolate mofetil [CellCept] 500 mg tablet 1,500 mg PO BID 90 Days Qty: 540 RF: 3 (DME) CPAP Machine Misc See Rx Instructions .ROUTE .MEDSUPPLY Qty: 1 RF: 0 (DME) Oxygen Home Liters Per Minute See Rx Instructions .ROUTE .MEDSUPPLY Qty: 1 RF: 0 duloxetine [Cymbalta] 30 mg capsule,delayed release(DR/EC) 30 mg PO DAILY RF: 0 nystatin 100,000 unit/gram powder 1 applic topical BID Qty: 30 RF: 3 hydroxyzine HCl 50 mg tablet 50 mg PO Q6H PRN (Reason: Anxiety) RF: 0 albuterol sulfate 90 mcg/actuation HFA aerosol inhaler 2 puff Inhalation Q4H PRN (Reason: Cough/Wheezing) RF: 0 mometasone-formoterol 200-5 mcg/actuation HFA aerosol inhaler 2 puff Inhalation BID RF: 0 valacyclovir 1 gram Tablet 1,000 mg PO Q12H PRN (Reason: Cold Sores) RF: 0 furosemide 40 mg tablet 40 mg PO DAILY PRN (Reason: Edema) RF: 0 ipratropium-albuterol 0.5 mg-3 mg(2.5 mg base)/3 mL Solution For Nebulization 3 ml INHALATION Q8H PRN (Reason: SOB) RF: 0 omeprazole 20 mg Tablet,Delayed Release (Dr/Ec) 20 mg PO QAM RF: 0 gabapentin 300 mg Capsule 300 mg PO TID RF: 0 trazodone 50 mg tablet 50 - 100 mg PO HS RF: 0 levothyroxine 75 mcg tablet 75 mcg PO QAM RF: 0 cholecalciferol (vitamin D3) 1,250 mcg (50,000 unit) capsule 1,250 mcg PO WE RF: 0 Referrals Referrals: Ary Bravo DO [Primary Care Provider] - Discharge Problem: Cellulitis Qualifiers: Site of cellulitis: extremity Site of cellulitis of extremity: lower extremity Laterality: right Qualified Code(s): L03.115 - Cellulitis of right lower limb
[2021-03-18 17:29] LABS: Pregnancy Test, Serum Negative (Negative)
[2021-03-18 17:47] LABS: Procalcitonin 0.47 ng/ml (0-0.5)
--- NOTE | 2021-03-18 17:52 | XRay Report ---
XR chest 1V portable CLINICAL HISTORY: Shortness of breath. COMPARISON STUDY: Chest CT June 30, 2019. Chest radiograph January 25, 2021. FINDINGS: Lung volumes are normal. Lungs are clear. There is no pneumothorax or pleural effusion. Car diac size is normal. Mediastinal contours are normal. There is no evidence for pulmonary edema. There is subtle interstitial thickening. This is probably chronic. IMPRESSION: No acute cardiopulmonary findings. Subtle interstitial thickening, likely chronic. ACT 112: Negative or not required by law. Electronically signed by: Michel Siu M.D. 03/18/2021 5:51 PM
--- NOTE | 2021-03-18 18:22 | History & Physical Report ---
Date of Service March 18, 2021 Assessment & Plan (1) Cellulitis: Plan: Has had cat scratch on the right leg and following that has Spreading cellulitis involving the right lower extremity Noted to be tachycardic but no other signs of sepsis Blood cultures have been taken and she has been on Intravenous daptomycin and Unasyn We will continue those antibiotics for now (2) Pain of right leg: Plan: Secondary to spreading cellulitis (3) Immunocompromised: Plan: She has history of SLE and is on CellCept Immunocompromised and will continue CellCept for now (4) Asthma, mild persistent: Plan: Seems to be stable (5) Sleep apnea: Plan: Uses CPAP at night We will continue with that (6) GERD (gastroesophageal reflux disease): Plan: Continue PPI (7) Lymphedema: Plan: Has bilateral lymphedema Complicating the cellulitis (8) Venous insufficiency of both lower extremities: Plan: Complicating the infection History of Present Illness Chief Complaint: Spreading redness and tenderness involving the right lower extremity for the last 2 to 3 days Primary Care Provider: Ary Bravo DO She is a 50-year-old morbidly obese female with significant past medical history including SLE on immunosuppressant, chronic ulcer involving the left low er extremity, OBI on CPAP, mild persistent asthma, anemia of chronic disease, bilateral lymphedema with venous stasis, bipolar disorder, 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 Her right lower extremity has been red and tender which is going up to the right groin and she has been feeling generally weak and lethargic with it. Denies any fever and/or chills but feels feverish and complains to have more weakness with cough but no significant shortness of breath. Apparently she has had COVID-19 vaccination and Covid 19 infection in December and remained home for the last few days she has been having shortness of breath with exertion associated with cough. In the emergency room she was noted to be afebrile but was tachycardic without an increase in white cell count and a right lower extremity showed evidence of a spreading cellulitis without any break in the skin noted. Cultures were taken and she was a started with intravenous Unasyn and daptomycin and was admitted to medical floor for continuation of care. Allergies Allergy/AdvReac Type Severity Reaction Status Date / Time hydroxychloroquine Allergy Severe Swelling Verified 03/18/21 18:07 [From Plaquenil] of Lip/Tongue/Throat nickel Allergy Mild Rash Verified 03/18/21 18:07 Home Medications Medication Instructions Recorded Confirmed Type meloxicam 15 mg tablet 15 mg PO DAILY PRN #0 09/14/16 03/18/21 History epinephrine 0.3 mg/0.3 mL 0.3 mg IM DIRECTED PRN #0 09/22/17 03/18/21 History injection, auto-injector (EpiPen 2-David) fluticasone propionate 50 2 spray INTRANASAL DAILY PRN #0 09/22/17 03/18/21 History mcg/actuation nasal spray,suspension (Flonase Allergy Relief) loratadine 10 mg tablet 10 mg PO DAILY PRN #0 tab 09/22/17 03/18/21 History albuterol sulfate 90 mcg/actuation 2 puff INHALATION Q4H PRN 04/27/18 03/18/21 History aerosol inhaler hydroxyzine HCl 50 mg tablet 50 mg PO Q6H PRN 04/27/18 03/18/21 History mometasone-formoterol HFA 200 2 puff INHALATION BID 04/27/18 03/18/21 History mcg-5 mcg/actuation aerosol inhaler valacyclovir 1 gram tablet 1,000 mg PO Q12H PRN 04/27/18 03/18/21 History ipratropium 0.5 mg-albuterol 3 mg 3 ml INHALATION Q8H PRN 03/05/19 03/18/21 History (2.5 mg base)/3 mL nebulization soln omeprazole 20 mg tablet,delayed 20 mg PO QAM 03/05/19 03/18/21 History release CPAP Machine #1 ea 03/12/19 09/03/20 History Oxygen Home #1 ea 03/12/19 09/03/20 History gabapentin 300 mg capsule 300 mg PO TID 07/05/19 03/18/21 History furosemide 40 mg tablet 40 mg PO DAILY PRN 08/29/19 03/18/21 History mycophenolate mofetil 500 mg 1,500 mg PO BID 90 Days #540 tab 05/07/20 03/18/21 History tablet (CellCept) duloxetine 30 mg capsule,delayed 30 mg PO DAILY 09/03/20 03/18/21 History release (Cymbalta) nystatin 100,000 unit/gram topical 1 applic TOPICAL BID #30 g 09/03/20 03/18/21 Rx powder cholecalciferol (vitamin D3) 1,250 1,250 mcg PO WE 01/25/21 03/18/21 History mcg (50,000 unit) capsule levothyroxine 75 mcg tablet 75 mcg PO QAM 01/25/21 03/18/21 History trazodone 50 mg tablet 50 - 100 mg PO HS 01/25/21 03/18/21 History Past Med/Surg History Medical History Anemia, chronic disease Anxiety Asthma stable, using rescue inhaler with exertion Bronchiolitis JUNE 2019> RESOLVED Depression GERD (gastroesophageal reflux disease) controlled Hypothyroidism Lupus stable on Cellcept; follows w/[facility] Lymphedema Lower extremities Morbid obesity with BMI of 60.0-69.9, adult On home oxygen therapy ON O2 AT 2L WITH CPAP DEVICE AT HS Osteoarthritis Pneumonia ~ 2 weeks ago, seen by PCP, tx with ABX and prednisone Psoriasis Shingles RESOLVED Sleep apnea CPAP Urticarial vasculitis Venous insufficiency of both lower extremities Surgical History History of appendectomy History of bilateral tubal ligation History of cataract surgery R & L History of section History of colonoscopy History of D&C X2 History of esophagogastroduodenoscopy (EGD) History of wisdom tooth extraction Family History Father Diabetes Mother Asthma Hypertension Brother Stroke Grandfather (Paternal) Diabetes Sister Hay fever Denies family history of Ovarian cancer Breast cancer Colorectal cancer Social History Smoking Status: Never smoker Second Hand Exposure: No; Hx Alcohol Use: Yes Alcohol type: wine Hx Substance Use: No Preferred Language: Tam[place] Communication Ability: Effective Manager Shell Required: No Beliefs That Will Affect Care: None Current Living Situation: Family and Significant Other Other Information That Helps Us Care for You: No Feels Safe at Home: Yes Safety Concerns: Feels Safe At This Time Assistive Devices: CPAP Review of Systems Review of Systems: All systems reviewed & are unremarkable except as noted in HPI & below Physical Exam Physical Exam: Lying in bed comfortably Constitutional: well developed, well nourished, + ill appearing and + morbidly obese Eyes: PERRL, conjunctivae normal, anicteric sclerae ENMT: external ear and nose normal, oropharynx normal Neck: trachea midline, no thyromegaly Respiratory: + cough; no respiratory distress Auscultation: lungs clear to auscultation bilaterally Cardiovascular: Rate/Rhythm: regular rate, regular rhythm and + tachycardic Heart Sounds: normal S1 and normal S2; no murmur Extremities: + edema (Bilateral lymphedema worse on the right than the left with erythema of RLE) Gastrointestinal (Abdomen): Inspection/Auscultation: + abdomen distended and normal bowel sounds Percussion/Palpation: abdomen soft; abdomen nontender Musculoskeletal: No acute arthritis in any joint Neurologic: Alert, awake and oriented x3. Generally weak Results & Data Results & Data ([facility]) Vital Signs (Past 12 Hours) Vital Signs Temp Pulse Resp BP Pulse Ox 03/18/21 17:45 101 H 30 H 124/83 93 03/18/21 17:30 103 H 23 03/18/21 17:17 106 H 19 96 03/18/21 15:20 36.4 C L 113 H 16 120/73 94 Laboratory Results Short CBC 03/18/21 Range/Units 15:30 WBC 7.76 (4.8-10.8) K/uL Hgb 11.9 L (12.0-16.0) g/dL Hct 36.8 L (37-47) % Plt Count 184 (130-400) K/uL BMP 03/18/21 15:30 Sodium 131 L Potassium 3.4 L Chloride 98 Carbon Dioxide 23 BUN 11 Creatinine 0.97 Glucose 114 H Calcium 8.4 L Liver Function 03/18/21 Range/Units 15:30 Total Bilirubin 2.1 H (0.2-1) mg/dl AST 43 H (15-37) U/L ALT 29 (12-78) U/L Alkaline Phosphatase 90 (45-117) U/L Albumin 2.7 L (3.4-5.0) gm/dl Medications Administered Current Inpatient Medications Miscellaneous Information (Daptomycin Consult Active) 1 ea N/A UD PRN PRN Reason: Consult Stop: 04/17/21 17:07 (1) Cellulitis Laterality: right Site of cellulitis: extremity Site of cellulitis of extremity: lower extremity Qualified Code(s): L03.115 - Cellulitis of right lower limb
[2021-03-18] MEDS: ENOXAPARIN INJ 40 MG/0.4 ML SYR SQ SCH (19:27)
[2021-03-18] MEDS ORDERED: hydrOXYzine HCl 25 MG TAB PO PRN (21:46)
[2021-03-18] MEDS ORDERED: ALBUT/IPRATROP 3MG/0.5MG NEB 3 ML VIAL INH PRN (21:46)
[2021-03-18] MEDS ORDERED: NON-FORMULARY MEDICATION (Cpap Machine misc) SCH (21:46)
[2021-03-18] MEDS ORDERED: LORATADINE 10 MG TAB PO PRN (21:46)
[2021-03-18] MEDS ORDERED: ALBUTEROL HFA 8 GM INHALER INH PRN (21:46)
[2021-03-18] MEDS ORDERED: FLUTICASONE PROPIONATE NA SPR 16 GM BTL NAE PRN (21:46)
[2021-03-18] MEDS: NYSTATIN POWDER 15GM BTL EXT SCH (22:45)
[2021-03-18] MEDS: GABAPENTIN 300 MG CAP PO SCH (22:45)
[2021-03-18] MEDS: MYCOPHENOLATE MOFETIL 250 MG CAP PO SCH (22:45)
[2021-03-18] MEDS: traZODone HCL 50 MG TAB PO SCH (22:45)
[2021-03-18] MEDS: AMPICILLIN/SULBACTAM SOD 3,000 MG in 0.9 % SODIUM CHLORIDE 100 ML IV SCH (23:58)
[2021-03-19] MEDS: oxyCODONE HCL IR 5 MG TAB (IMMEDIATE RELEASE) PO PRN ×4 (00:22→21:32)
[2021-03-19] MEDS: BENZONATATE 100 MG CAPSULE PO PRN ×3 (00:54→21:32)
[2021-03-19] MEDS: AMPICILLIN/SULBACTAM SOD 3,000 MG in 0.9 % SODIUM CHLORIDE 100 ML IV SCH ×4 (05:30→23:53)
[2021-03-19] MEDS: LEVOTHYROXINE SODIUM 75 MCG TABLET PO SCH (06:11)
[2021-03-19] MEDS: ENOXAPARIN INJ 40 MG/0.4 ML SYR SQ SCH ×2 (06:16→16:54)
[2021-03-19 06:29] LABS: Basophils # (auto) 0.01 K/uL (0-0.2); Basophils % (auto) 0.1 %; Eosinophils # (auto) 0.26 K/uL (0-0.5); Eosinophils % (auto) 3.9 %; Hematocrit (blood only) 33.1 % (37-47); Hemoglobin 10.7 g/dL (12.0-16.0); Immature Granulocytes # (auto) 0.03 K/uL (0.00-0.02); Immature Granulocytes % (auto) 0.4 %; Lymphocytes # (auto) 0.66 K/uL (1.2-3.4); Lymphocytes % (auto) 9.9 %; Mean Corpuscular Hemoglobin 27.1 pg (25-34); Mean Corpuscular Hgb Conc 32.3 g/dL (32-36); Mean Corpuscular Volume 83.8 fL (80-100); Mean Platelet Volume 9.1 fL (7.4-10.4); Monocytes # (auto) 0.36 K/uL (0.11-0.59); Monocytes % (auto) 5.4 %; Neutrophils # (auto) 5.37 K/uL (1.4-6.5); Neutrophils % (auto) 80.3 %; Platelet Count 142 K/uL (130-400); RDW Coefficient of Variation 16.5 % (11.5-14.5); RDW Standard Deviation 51.2 fL (36.4-46.3); Red Blood Count 3.95 M/uL (4.2-5.4); White Blood Count 6.69 K/uL (4.8-10.8)
[2021-03-19 07:07] LABS: Albumin Globulin Ratio 0.4 (0.9-2); Albumin Level 2.2 gm/dl (3.4-5.0); BUN Creatinine Ratio 14.6 (10-20); Bilirubin,Total 1.5 mg/dl (0.2-1); Calcium 8.2 mg/dl (8.5-10.1); Creatinine Clr Calc Pharmacy 134.7 ml/min; Est GFR (African American) 95.3 ml/min; Est GFR (Non-African American) 82.2 ml/min; Globulin 4.9 gm/dl (2.5-4.0); Potassium 2.8 mmol/L (3.5-5.1); Total Protein 7.1 gm/dl (6.4-8.2)
[2021-03-19] MEDS: FLUTICASONE/VILANTEROL 200/25MCG 14 PUFFS/INHALER INH SCH (07:26)
[2021-03-19] MEDS: GABAPENTIN 300 MG CAP PO SCH ×3 (07:26→19:52)
[2021-03-19] MEDS: DULoxetine HCL 30 MG CAP PO SCH (07:26)
[2021-03-19] MEDS: MYCOPHENOLATE MOFETIL 250 MG CAP PO SCH ×2 (07:27→19:51)
[2021-03-19] MEDS: PANTOprazole 40 MG TAB PO SCH (07:28)
[2021-03-19] MEDS: NYSTATIN POWDER 15GM BTL EXT SCH ×2 (07:31→19:52)
--- NOTE | 2021-03-19 07:39 | Electrocardiogram Report ---
Test Reason : Blood Pressure : / mmHG Vent. Rate : 103 BPM Atrial Rate : 103 BPM P-R Int : 158 ms QRS Dur : 106 ms QT Int : 358 ms P-R-T Axes : 068 082 078 degrees QTc Int : 468 ms Sinus tachycardia Otherwise normal ECG When compared with ECG of 25-JAN-2021 07:32, No significant change was found Confirmed by Rogelio Alex ([id number]) on 03/19/2021 7:39:32 AM Referred By: REFERRED SELF Confirmed By:Ren Alex
[2021-03-19] MEDS ORDERED: POTASSIUM CHLORIDE CRTAB 20 MEQ TABCR PO STA (08:03)
[2021-03-19] MEDS: POTASSIUM CHLORIDE / WTR 10 MEQ/100 ML PLCT IV SCH ×3 (09:42→14:26)
--- NOTE | 2021-03-19 15:31 | Hospitalist Progress Note ---
Date of Service March 19, 2021 Assessment & Plan (1) Cellulitis: Plan: Has had cat scratch on the right leg and following that has Spreading cellulitis involving the right lower extremity Noted to be tachycardic but no other signs of sepsis Blood cultures have been taken and she has been on Intravenous daptomycin and Unasyn We will continue those antibiotics for now Blood cultures are pending Clinically better today and will continue current antibiotics (2) Pain of right leg: Plan: Secondary to spreading cellulitis Pain is a little better (3) Immunocompromised: Plan: She has history of SLE and is on CellCept Immunocompromised and will continue CellCept for now (4) Asthma, mild persistent: Plan: Seems to be stable No wheezing and no shortness of breath at rest (5) Sleep apnea: Plan: Uses CPAP at night We will continue with that (6) GERD (gastroesophageal reflux disease): Plan: Continue PPI (7) Lymphedema: Plan: Has bilateral lymphedema Complicating the cellulitis (8) Venous insufficiency of both lower extremities: Plan: Complicating the infection Plan: Likely discharge tomorrow Admission and Anticipated Discharge Date Admission Date: March 18, 2021 Subjective 03/19/2021 The patient was seen and examined in medical telemetry unit Her right lower extremity is minimally improved with decreasing the redness and tenderness Denies any fever and/or chills Review of Systems Review of Systems: All systems reviewed and are unremarkable except as noted below Musculoskeletal: Has lymphedema involving the lower extremities right worse than the left Physical Exam Physical Exam: Lying in bed comfortably Constitutional: well developed, well nourished and + morbidly obese Eyes: PERRL, conjunctivae normal, anicteric sclerae ENMT: external ear and nose normal, oropharynx normal Neck: trachea midline, no thyromegaly Respiratory: no respiratory distress and no cough Auscultation: lungs clear to auscultation bilaterally and + diminished lung sounds Cardiovascular: Rate/Rhythm: regular rate, regular rhythm and + tachycardic Heart Sounds: normal S1 and normal S2; no murmur Extremities: + edema (Severe bilateral lymphedema,right worse than left) Gastrointestinal (Abdomen): Inspection/Auscultation: + abdomen distended and normal bowel sounds Percussion/Palpation: abdomen soft; abdomen nontender Musculoskeletal: No acute arthritis in any of the joints Skin: Right lower extremity remains red and mildly tender to touch with increasing local temperature Neurologic: Alert, awake and oriented x3 Results & Data Results & Data ([facility]) Vital Signs (Past 12 Hours) Vital Signs Temp Pulse Pulse Resp BP Pulse Ox 03/19/21 15:17 102 H 03/19/21 12:00 36.7 C 97 H 18 96/52 L 90 03/19/21 07:10 101 H 03/19/21 06:53 37.2 C 102 H 20 141/74 H 96 03/19/21 03:53 37.6 C H 112 H 20 128/72 94 Laboratory Results Short CBC 03/18/21 03/19/21 Range/Units 15:30 06:07 WBC 7.76 6.69 (4.8-10.8) K/uL Hgb 11.9 L 10.7 L (12.0-16.0) g/dL Hct 36.8 L 33.1 L (37-47) % Plt Count 184 142 (130-400) K/uL BMP 03/18/21 03/19/21 15:30 06:07 Sodium 131 L 133 L Potassium 3.4 L 2.8 L D Chloride 98 99 Carbon Dioxide 23 28 BUN 11 12 Creatinine 0.97 0.84 Glucose 114 H 100 H Calcium 8.4 L 8.2 L Liver Function 03/18/21 03/19/21 Range/Units 15:30 06:07 Total Bilirubin 2.1 H 1.5 H (0.2-1) mg/dl AST 43 H 43 H (15-37) U/L ALT 29 27 (12-78) U/L Alkaline Phosphatase 90 80 (45-117) U/L Albumin 2.7 L 2.2 L (3.4-5.0) gm/dl Medications Administered Current Inpatient Medications Acetaminophen (Acetaminophen 500 Mg Tab) 1,000 mg PO Q6H PRN PRN Reason: Fever Stop: 04/17/21 18:44 Albuterol (Albuterol Hfa 8 Gm Inhaler) 2 puffs INH Q4H PRN PRN Reason: Cough/Wheezing Stop: 04/17/21 21:45 Albuterol (Albut/Ipratrop 3mg/0.5mg Neb 3 Ml Vial) 3 ml INH Q8H PRN PRN Reason: Shortness Of Breath Stop: 04/17/21 21:45 Benzonatate (Benzonatate 100 Mg Capsule) 100 mg PO TID PRN PRN Reason: Cough Stop: 04/18/21 00:19 Last Admin: 03/19/21 06:11 Dose: 100 mg Documented by: Duloxetine HCl (Duloxetine Hcl 30 Mg Cap) 30 mg PO DAILY [facility] Stop: 04/18/21 08:59 Last Admin: 03/19/21 07:26 Dose: 30 mg Documented by: Enoxaparin Sodium (Enoxaparin Inj 40 Mg/0.4 Ml Syr) 40 mg SQ Q12H [facility] Stop: 04/17/21 18:29 Last Admin: 03/19/21 06:16 Dose: 40 mg Documented by: Ergocalciferol (Ergocalciferol 50,000 Units 1250 Mcg Cap) 50,000 units PO We@0900 [facility] Stop: 04/23/21 08:59 Fluticasone Propionate (Fluticasone Propionate Na Spr 16 Gm Btl) 2 sprays MARK DAILY PRN PRN Reason: Allergy Symptoms Stop: 04/17/21 21:45 Fluticasone/Vilanterol (Fluticasone/Vilanterol 200/25mcg 14 Puffs/Inhaler) 1 puffs INH DAILY [facility] Stop: 04/18/21 08:59 Last Admin: 03/19/21 07:26 Dose: 1 puffs Documented by: Gabapentin (Gabapentin 300 Mg Cap) 300 mg PO TID [facility] Stop: 04/17/21 21:45 Last Admin: 03/19/21 11:15 Dose: 300 mg Documented by: Hydroxyzine HCl (Hydroxyzine Hcl 25 Mg Tab) 50 mg PO Q6H PRN PRN Reason: Anxiety Stop: 04/17/21 21:45 Ampicillin Sodium/Sulbactam Sodium 3,000 mg/ Sodium Chloride 108 mls @ 200 mls/hr IV Q6H [facility]; Protocol Stop: 03/26/21 00:00 Last Infusion: 03/19/21 11:45 Dose: Infused Documented by: Daptomycin 425 mg/ Syringe 8.5 mls @ 4.25 mls/min IV Q24H [facility]; Protocol Stop: 03/26/21 17:59 Levothyroxine Sodium (Levothyroxine Sodium 75 Mcg Tablet) 75 mcg PO DAILYBB [facility] Stop: 04/18/21 06:29 Last Admin: 03/19/21 06:11 Dose: 75 mcg Documented by: Loratadine (Loratadine 10 Mg Tab) 10 mg PO DAILY PRN PRN Reason: Allergy Symptoms Stop: 04/17/21 21:45 Miscellaneous Information (Daptomycin Consult Active) 1 ea N/A UD PRN PRN Reason: Consult Stop: 04/17/21 17:07 Mycophenolate Mofetil (Mycophenolate Mofetil 250 Mg Cap) 1,500 mg PO BID [facility] Stop: 04/17/21 21:45 Last Admin: 03/19/21 07:27 Dose: 1,500 mg Documented by: Nystatin (Nystatin Powder 15gm Btl) 1 appln EXT BID [facility] Stop: 04/17/21 21:45 Last Admin: 03/19/21 07:31 Dose: 1 appln Documented by: Oxycodone HCl (Oxycodone Hcl Ir 5 Mg Tab (Immediate Release)) 5 mg PO Q4H PRN PRN Reason: Pain Stop: 04/01/21 23:16 Last Admin: 03/19/21 06:10 Dose: 5 mg Documented by: Pantoprazole Sodium (Pantoprazole 40 Mg Tab) 40 mg PO QAM [facility] Stop: 04/18/21 08:59 Last Admin: 03/19/21 07:28 Dose: 40 mg Documented by: Trazodone HCl (Trazodone Hcl 50 Mg Tab) 50 mg PO HS [facility] Stop: 04/17/21 21:45 Last Admin: 03/18/21 22:45 Dose: 50 mg Documented by: (1) Cellulitis Laterality: right Site of cellulitis: extremity Site of cellulitis of extremity: lower extremity Qualified Code(s): L03.115 - Cellulitis of right lower limb
[2021-03-19] MEDS: DAPTOmycin 425 MG in SYRINGE 0 ML IV SCH (19:50)
[2021-03-19] MEDS: traZODone HCL 50 MG TAB PO SCH (21:32)
[2021-03-20] MEDS: AMPICILLIN/SULBACTAM SOD 3,000 MG in 0.9 % SODIUM CHLORIDE 100 ML IV SCH ×4 (06:22→23:26)
[2021-03-20] MEDS: ENOXAPARIN INJ 40 MG/0.4 ML SYR SQ SCH ×2 (06:22→16:19)
[2021-03-20] MEDS: LEVOTHYROXINE SODIUM 75 MCG TABLET PO SCH (06:22)
[2021-03-20] MEDS: oxyCODONE HCL IR 5 MG TAB (IMMEDIATE RELEASE) PO PRN ×2 (06:32→20:04)
[2021-03-20] MEDS: PANTOprazole 40 MG TAB PO SCH (07:27)
[2021-03-20] MEDS: MYCOPHENOLATE MOFETIL 250 MG CAP PO SCH ×2 (07:27→20:05)
[2021-03-20] MEDS: GABAPENTIN 300 MG CAP PO SCH ×3 (07:27→20:08)
[2021-03-20] MEDS: DULoxetine HCL 30 MG CAP PO SCH (07:28)
[2021-03-20] MEDS: FLUTICASONE/VILANTEROL 200/25MCG 14 PUFFS/INHALER INH SCH (07:29)
[2021-03-20] MEDS: NYSTATIN POWDER 15GM BTL EXT SCH ×2 (07:33→20:07)
[2021-03-20 08:44] LABS: Basophils # (auto) 0.01 K/uL (0-0.2); Basophils % (auto) 0.1 %; Eosinophils # (auto) 0.53 K/uL (0-0.5); Eosinophils % (auto) 6.9 %; Hematocrit (blood only) 36.8 % (37-47); Hemoglobin 11.9 g/dL (12.0-16.0); Immature Granulocytes # (auto) 0.03 K/uL (0.00-0.02); Immature Granulocytes % (auto) 0.4 %; Lymphocytes # (auto) 0.89 K/uL (1.2-3.4); Lymphocytes % (auto) 11.6 %; Mean Corpuscular Hemoglobin 27.2 pg (25-34); Mean Corpuscular Hgb Conc 32.3 g/dL (32-36); Mean Corpuscular Volume 84.2 fL (80-100); Mean Platelet Volume 9.3 fL (7.4-10.4); Monocytes # (auto) 0.66 K/uL (0.11-0.59); Monocytes % (auto) 8.6 %; Neutrophils # (auto) 5.53 K/uL (1.4-6.5); Neutrophils % (auto) 72.4 %; Platelet Count 179 K/uL (130-400); RDW Coefficient of Variation 16.6 % (11.5-14.5); RDW Standard Deviation 51.6 fL (36.4-46.3); Red Blood Count 4.37 M/uL (4.2-5.4); White Blood Count 7.65 K/uL (4.8-10.8)
[2021-03-20 09:02] LABS: BUN Creatinine Ratio 10.1 (10-20); Calcium 8.2 mg/dl (8.5-10.1); Creatinine Clr Calc Pharmacy 114.8 ml/min; Est GFR (African American) 78.1 ml/min; Est GFR (Non-African American) 67.4 ml/min; Potassium 3.1 mmol/L (3.5-5.1)
--- NOTE | 2021-03-20 14:40 | Hospitalist Progress Note ---
Date of Service March 20, 2021 Assessment & Plan (1) Cellulitis: Plan: Has had cat scratch on the right leg and following that has Spreading cellulitis involving the right lower extremity Noted to be tachycardic but no other signs of sepsis Blood cultures have been taken and she has been on Intravenous daptomycin and Unasyn We will continue those antibiotics for now Blood cultures are pending-remain negative so far Clinically better today and will continue current antibiotics Redness and swelling persisting as of today Continue current antibiotic for now and de-escalating from tomorrow We will try intravenous Lasix and the patient is catheterized (2) Pain of right leg: Plan: Secondary to spreading cellulitis Pain is not any better (3) Immunocompromised: Plan: She has history of SLE and is on CellCept Immunocompromised and will continue CellCept for now (4) Asthma, mild persistent: Plan: Seems to be stable No wheezing and no shortness of breath at rest (5) Sleep apnea: Plan: Uses CPAP at night We will continue with that (6) GERD (gastroesophageal reflux disease): Plan: Continue PPI (7) Lymphedema: Plan: Has bilateral lymphedema Complicating the cellulitis (8) Venous insufficiency of both lower extremities: Plan: Complicating the infection Plan: Likely discharge tomorrow Admission and Anticipated Discharge Date Admission Date: March 18, 2021 Subjective 03/19/2021 The patient was seen and examined in medical telemetry unit Her right lower extremity is minimally improved with decreasing the redness and tenderness Denies any fever and/or chills 03/20/2021 The patient was seen and examined in medical telemetry unit She complains to pain in the right hip and right lower extremity Denies any fever and/or chills Review of Systems Review of Systems: All systems reviewed and are unremarkable except as noted below Musculoskeletal: Has lymphedema involving the lower extremities right worse than the left Physical Exam Physical Exam: Sitting on a chair with some discomfort in the right lower extremity Constitutional: well developed, well nourished, + ill appearing and + morbidly obese Eyes: PERRL, conjunctivae normal, anicteric sclerae ENMT: external ear and nose normal, oropharynx normal Neck: trachea midline, no thyromegaly Respiratory: no respiratory distress and no cough Auscultation: lungs clear to auscultation bilaterally and + diminished lung sounds Cardiovascular: Rate/Rhythm: regular rate, regular rhythm and + tachycardic Heart Sounds: normal S1 and normal S2; no murmur Extremities: + edema (Severe bilateral lymphedema,right worse than left) Gastrointestinal (Abdomen): Inspection/Auscultation: + abdomen distended and normal bowel sounds Percussion/Palpation: abdomen soft; abdomen nontender Musculoskeletal: Very difficult to examine for any arthritis Neurologic: Alert, awake and oriented x3 Results & Data Results & Data ([facility]) Vital Signs (Past 12 Hours) Vital Signs Temp Pulse Pulse Pulse Resp BP BP 03/20/21 12:40 37.0 C 100 H 23 133/66 03/20/21 07:57 37.0 C 103 H 21 117/74 03/20/21 07:01 101 H 03/20/21 03:28 36.7 C 102 H 22 173/72 H Pulse Ox 03/20/21 12:40 91 03/20/21 07:57 91 03/20/21 07:01 03/20/21 03:28 93 Laboratory Results Short CBC 03/20/21 Range/Units 08:09 WBC 7.65 (4.8-10.8) K/uL Hgb 11.9 L (12.0-16.0) g/dL Hct 36.8 L (37-47) % Plt Count 179 (130-400) K/uL BMP 03/20/21 08:09 Sodium 134 L Potassium 3.1 L Chloride 98 Carbon Dioxide 25 BUN 10 Creatinine 0.99 Glucose 118 H Calcium 8.2 L Cardiac Enzymes 03/20/21 Range/Units 08:09 Total Creatine Kinase 453 H (26-192) U/L Medications Administered Current Inpatient Medications Acetaminophen (Acetaminophen 500 Mg Tab) 1,000 mg PO Q6H PRN PRN Reason: Fever Stop: 04/17/21 18:44 Albuterol (Albuterol Hfa 8 Gm Inhaler) 2 puffs INH Q4H PRN PRN Reason: Cough/Wheezing Stop: 04/17/21 21:45 Albuterol (Albut/Ipratrop 3mg/0.5mg Neb 3 Ml Vial) 3 ml INH Q8H PRN PRN Reason: Shortness Of Breath Stop: 04/17/21 21:45 Benzonatate (Benzonatate 100 Mg Capsule) 100 mg PO TID PRN PRN Reason: Cough Stop: 04/18/21 00:19 Last Admin: 03/19/21 21:32 Dose: 100 mg Documented by: Duloxetine HCl (Duloxetine Hcl 30 Mg Cap) 30 mg PO DAILY [facility] Stop: 04/18/21 08:59 Last Admin: 03/20/21 07:28 Dose: 30 mg Documented by: Enoxaparin Sodium (Enoxaparin Inj 40 Mg/0.4 Ml Syr) 40 mg SQ Q12H [facility] Stop: 04/17/21 18:29 Last Admin: 03/20/21 06:22 Dose: 40 mg Documented by: Ergocalciferol (Ergocalciferol 50,000 Units 1250 Mcg Cap) 50,000 units PO We@0900 [facility] Stop: 04/23/21 08:59 Fluticasone Propionate (Fluticasone Propionate Na Spr 16 Gm Btl) 2 sprays MARK DAILY PRN PRN Reason: Allergy Symptoms Stop: 04/17/21 21:45 Fluticasone/Vilanterol (Fluticasone/Vilanterol 200/25mcg 14 Puffs/Inhaler) 1 puffs INH DAILY [facility] Stop: 04/18/21 08:59 Last Admin: 03/20/21 07:29 Dose: 1 puffs Documented by: Furosemide (Furosemide 40 Mg/4 Ml Vial) 60 mg IV DAILY [facility] Stop: 04/19/21 14:44 Gabapentin (Gabapentin 300 Mg Cap) 300 mg PO TID [facility] Stop: 04/17/21 21:45 Last Admin: 03/20/21 11:28 Dose: 300 mg Documented by: Hydroxyzine HCl (Hydroxyzine Hcl 25 Mg Tab) 50 mg PO Q6H PRN PRN Reason: Anxiety Stop: 04/17/21 21:45 Ampicillin Sodium/Sulbactam Sodium 3,000 mg/ Sodium Chloride 108 mls @ 200 mls/hr IV Q6H [facility]; Protocol Stop: 03/26/21 00:00 Last Infusion: 03/20/21 12:05 Dose: Infused Documented by: Daptomycin 425 mg/ Syringe 8.5 mls @ 4.25 mls/min IV Q24H [facility]; Protocol Stop: 03/26/21 17:59 Last Admin: 03/19/21 19:50 Dose: 4.25 mls/min Documented by: Levothyroxine Sodium (Levothyroxine Sodium 75 Mcg Tablet) 75 mcg PO DAILYBB [facility] Stop: 04/18/21 06:29 Last Admin: 03/20/21 06:22 Dose: 75 mcg Documented by: Loratadine (Loratadine 10 Mg Tab) 10 mg PO DAILY PRN PRN Reason: Allergy Symptoms Stop: 04/17/21 21:45 Miscellaneous Information (Daptomycin Consult Active) 1 ea N/A UD PRN PRN Reason: Consult Stop: 04/17/21 17:07 Mycophenolate Mofetil (Mycophenolate Mofetil 250 Mg Cap) 1,500 mg PO BID [facility] Stop: 04/17/21 21:45 Last Admin: 03/20/21 07:27 Dose: 1,500 mg Documented by: Nystatin (Nystatin Powder 15gm Btl) 1 appln EXT BID [facility] Stop: 04/17/21 21:45 Last Admin: 03/20/21 07:33 Dose: 1 appln Documented by: Oxycodone HCl (Oxycodone Hcl Ir 5 Mg Tab (Immediate Release)) 5 mg PO Q4H PRN PRN Reason: Pain Stop: 04/01/21 23:16 Last Admin: 03/20/21 06:32 Dose: 5 mg Documented by: Pantoprazole Sodium (Pantoprazole 40 Mg Tab) 40 mg PO QAM [facility] Stop: 04/18/21 08:59 Last Admin: 03/20/21 07:27 Dose: 40 mg Documented by: Trazodone HCl (Trazodone Hcl 50 Mg Tab) 50 mg PO HS [facility] Stop: 04/17/21 21:45 Last Admin: 03/19/21 21:32 Dose: 50 mg Documented by: (1) Cellulitis Laterality: right Site of cellulitis: extremity Site of cellulitis of extremity: lower extremity Qualified Code(s): L03.115 - Cellulitis of right lower limb
[2021-03-20] MEDS: DAPTOmycin 425 MG in SYRINGE 0 ML IV SCH (16:19)
[2021-03-20] MEDS: FUROSEMIDE 40 MG/4 ML VIAL IV SCH (17:52)
[2021-03-20] MEDS: ACETAMINOPHEN 500 MG TAB PO PRN (20:04)
[2021-03-20] MEDS: traZODone HCL 50 MG TAB PO SCH (22:49)
[2021-03-20] MEDS: BENZONATATE 100 MG CAPSULE PO PRN (23:25)
[2021-03-21] MEDS: AMPICILLIN/SULBACTAM SOD 3,000 MG in 0.9 % SODIUM CHLORIDE 100 ML IV SCH ×3 (06:24→16:14)
[2021-03-21] MEDS: LEVOTHYROXINE SODIUM 75 MCG TABLET PO SCH (06:25)
[2021-03-21] MEDS: ENOXAPARIN INJ 40 MG/0.4 ML SYR SQ SCH ×2 (06:25→16:16)
[2021-03-21] MEDS: MYCOPHENOLATE MOFETIL 250 MG CAP PO SCH ×2 (07:43→20:31)
[2021-03-21] MEDS: FUROSEMIDE 40 MG/4 ML VIAL IV SCH (07:43)
[2021-03-21] MEDS: DULoxetine HCL 30 MG CAP PO SCH (07:44)
[2021-03-21] MEDS: GABAPENTIN 300 MG CAP PO SCH ×3 (07:44→20:32)
[2021-03-21] MEDS: PANTOprazole 40 MG TAB PO SCH (07:44)
[2021-03-21] MEDS: FLUTICASONE/VILANTEROL 200/25MCG 14 PUFFS/INHALER INH SCH (07:45)
[2021-03-21] MEDS: NYSTATIN POWDER 15GM BTL EXT SCH ×2 (07:50→20:30)
[2021-03-21 08:43] LABS: BUN Creatinine Ratio 9.6 (10-20); Calcium 7.9 mg/dl (8.5-10.1); Creatinine Clr Calc Pharmacy 131.7 ml/min; Est GFR (African American) 92.6 ml/min; Est GFR (Non-African American) 79.9 ml/min; Magnesium 1.9 mg/dl (1.8-2.4)
[2021-03-21] MEDS ORDERED: POTASSIUM CHLORIDE CRTAB 20 MEQ TABCR PO STA (08:54)
[2021-03-21] MEDS: DOXYCYCLINE HYCLATE 100 MG in DEXTROSE 5% 100 ML IV SCH ×2 (11:00→22:21)
--- NOTE | 2021-03-21 14:50 | Hospitalist Progress Note ---
Date of Service March 21, 2021 Assessment & Plan (1) Cellulitis: Plan: Has had cat scratch on the right leg and following that has Spreading cellulitis involving the right lower extremity Noted to be tachycardic but no other signs of sepsis Blood cultures have been taken and she has been on Intravenous daptomycin and Unasyn We will continue those antibiotics for now Blood cultures are pending-remain negative so far Clinically better today and will continue current antibiotics Redness and swelling persisting as of today Continue current antibiotic for now and de-escalating from tomorrow We will try intravenous Lasix and the patient is catheterized Her right lower extremity is less swelled and less red with decreasing tenderness We will continue intravenous Lasix and antibiotics have been changed to IV Unasyn and doxycycline with discontinuation of daptomycin We will get PT and OT evaluation and possible discharge tomorrow (2) Pain of right leg: Plan: Secondary to spreading cellulitis Pain is not any better (3) Immunocompromised: Plan: She has history of SLE and is on CellCept Immunocompromised and will continue CellCept for now (4) Asthma, mild persistent: Plan: Seems to be stable No wheezing and no shortness of breath at rest (5) Sleep apnea: Plan: Uses CPAP at night We will continue with that (6) GERD (gastroesophageal reflux disease): Plan: Continue PPI (7) Lymphedema: Plan: Has bilateral lymphedema Complicating the cellulitis (8) Venous insufficiency of both lower extremities: Plan: Complicating the infection Plan: Likely discharge tomorrow Admission and Anticipated Discharge Date Admission Date: March 18, 2021 Subjective 03/19/2021 The patient was seen and examined in medical telemetry unit Her right lower extremity is minimally improved with decreasing the redness and tenderness Denies any fever and/or chills 03/20/2021 The patient was seen and examined in medical telemetry unit She complains to pain in the right hip and right lower extremity Denies any fever and/or chills 03/21/2021 The patient was seen and examined in medical telemetry unit She has been feeling a little better and has less pain in the leg Swelling of the leg is diminished to Review of Systems Review of Systems: All systems reviewed and are unremarkable except as noted below Musculoskeletal: Has lymphedema involving the lower extremities right worse than the left Physical Exam Physical Exam: Sitting on a chair with some discomfort in the right lower extremity Constitutional: well developed, well nourished, + ill appearing and + morbidly obese Eyes: PERRL, conjunctivae normal, anicteric sclerae ENMT: external ear and nose normal, oropharynx normal Neck: trachea midline, no thyromegaly Respiratory: no respiratory distress and no cough Auscultation: lungs clear to auscultation bilaterally and + diminished lung sounds Cardiovascular: Rate/Rhythm: regular rate, regular rhythm and + tachycardic Heart Sounds: normal S1 and normal S2; no murmur Extremities: + edema (Severe bilateral lymphedema,right worse than left) Gastrointestinal (Abdomen): Inspection/Auscultation: + abdomen distended and normal bowel sounds Percussion/Palpation: abdomen soft; abdomen nontender Musculoskeletal: No acute arthritis and is very difficult to examine the joints due to heaviness Neurologic: Alert, awake and oriented x3 Results & Data Results & Data ([facility]) Vital Signs (Past 12 Hours) Vital Signs Temp Pulse Pulse Pulse Resp BP Pulse Ox 03/21/21 12:19 37.2 C 88 16 118/73 92 03/21/21 08:13 37 C 88 18 131/79 100 03/21/21 07:27 86 03/21/21 03:48 37 C 87 16 119/74 97 Laboratory Results [facility] 03/21/21 07:26 Sodium 136 Potassium 3.0 L Chloride 96 L Carbon Dioxide 31 BUN 8 Creatinine 0.86 Glucose 114 H Calcium 7.9 L Medications Administered Current Inpatient Medications Acetaminophen (Acetaminophen 500 Mg Tab) 1,000 mg PO Q6H PRN PRN Reason: Fever Stop: 04/17/21 18:44 Last Admin: 03/20/21 20:04 Dose: 1,000 mg Documented by: Albuterol (Albuterol Hfa 8 Gm Inhaler) 2 puffs INH Q4H PRN PRN Reason: Cough/Wheezing Stop: 04/17/21 21:45 Albuterol (Albut/Ipratrop 3mg/0.5mg Neb 3 Ml Vial) 3 ml INH Q8H PRN PRN Reason: Shortness Of Breath Stop: 04/17/21 21:45 Benzonatate (Benzonatate 100 Mg Capsule) 100 mg PO TID PRN PRN Reason: Cough Stop: 04/18/21 00:19 Last Admin: 03/20/21 23:25 Dose: 100 mg Documented by: Duloxetine HCl (Duloxetine Hcl 30 Mg Cap) 30 mg PO DAILY [facility] Stop: 04/18/21 08:59 Last Admin: 03/21/21 07:44 Dose: 30 mg Documented by: Enoxaparin Sodium (Enoxaparin Inj 40 Mg/0.4 Ml Syr) 40 mg SQ Q12H [facility] Stop: 04/17/21 18:29 Last Admin: 03/21/21 06:25 Dose: 40 mg Documented by: Ergocalciferol (Ergocalciferol 50,000 Units 1250 Mcg Cap) 50,000 units PO We@0900 [facility] Stop: 04/23/21 08:59 Fluticasone Propionate (Fluticasone Propionate Na Spr 16 Gm Btl) 2 sprays MARK DAILY PRN PRN Reason: Allergy Symptoms Stop: 04/17/21 21:45 Fluticasone/Vilanterol (Fluticasone/Vilanterol 200/25mcg 14 Puffs/Inhaler) 1 puffs INH DAILY [facility] Stop: 04/18/21 08:59 Last Admin: 03/21/21 07:45 Dose: 1 puffs Documented by: Furosemide (Furosemide 40 Mg/4 Ml Vial) 60 mg IV DAILY [facility] Stop: 04/19/21 14:59 Last Admin: 03/21/21 07:43 Dose: 60 mg Documented by: Gabapentin (Gabapentin 300 Mg Cap) 300 mg PO TID [facility] Stop: 04/17/21 21:45 Last Admin: 03/21/21 11:01 Dose: 300 mg Documented by: Hydroxyzine HCl (Hydroxyzine Hcl 25 Mg Tab) 50 mg PO Q6H PRN PRN Reason: Anxiety Stop: 04/17/21 21:45 Ampicillin Sodium/Sulbactam Sodium 3,000 mg/ Sodium Chloride 108 mls @ 200 mls/hr IV Q6H [facility]; Protocol Stop: 03/26/21 00:00 Last Infusion: 03/21/21 11:20 Dose: Infused Documented by: Doxycycline Hyclate 100 mg/ (Dextrose) 110 mls @ 55 mls/hr IV Q12H [facility] Stop: 03/28/21 10:59 Last Admin: 03/21/21 11:00 Dose: 55 mls/hr Documented by: Levothyroxine Sodium (Levothyroxine Sodium 75 Mcg Tablet) 75 mcg PO DAILYBB [facility] Stop: 04/18/21 06:29 Last Admin: 03/21/21 06:25 Dose: 75 mcg Documented by: Loratadine (Loratadine 10 Mg Tab) 10 mg PO DAILY PRN PRN Reason: Allergy Symptoms Stop: 04/17/21 21:45 Mycophenolate Mofetil (Mycophenolate Mofetil 250 Mg Cap) 1,500 mg PO BID [facility] Stop: 04/17/21 21:45 Last Admin: 03/21/21 07:43 Dose: 1,500 mg Documented by: Nystatin (Nystatin Powder 15gm Btl) 1 appln EXT BID [facility] Stop: 04/17/21 21:45 Last Admin: 03/21/21 07:50 Dose: 1 appln Documented by: Oxycodone HCl (Oxycodone Hcl Ir 5 Mg Tab (Immediate Release)) 5 mg PO Q4H PRN PRN Reason: Pain Stop: 04/01/21 23:16 Last Admin: 03/20/21 20:04 Dose: 5 mg Documented by: Pantoprazole Sodium (Pantoprazole 40 Mg Tab) 40 mg PO QAM [facility] Stop: 04/18/21 08:59 Last Admin: 03/21/21 07:44 Dose: 40 mg Documented by: Trazodone HCl (Trazodone Hcl 50 Mg Tab) 50 mg PO HS [facility] Stop: 04/17/21 21:45 Last Admin: 03/20/21 22:49 Dose: 50 mg Documented by: (1) Cellulitis Laterality: right Site of cellulitis: extremity Site of cellulitis of extremity: lower extremity Qualified Code(s): L03.115 - Cellulitis of right lower limb
[2021-03-21] MEDS: oxyCODONE HCL IR 5 MG TAB (IMMEDIATE RELEASE) PO PRN (17:22)
[2021-03-21] MEDS: traZODone HCL 50 MG TAB PO SCH (20:55)
[2021-03-22] MEDS: AMPICILLIN/SULBACTAM SOD 3,000 MG in 0.9 % SODIUM CHLORIDE 100 ML IV SCH ×4 (00:33→17:56)
[2021-03-22] MEDS: BENZONATATE 100 MG CAPSULE PO PRN ×2 (03:48→22:25)
[2021-03-22] MEDS: LEVOTHYROXINE SODIUM 75 MCG TABLET PO SCH (06:07)
[2021-03-22] MEDS: ENOXAPARIN INJ 40 MG/0.4 ML SYR SQ SCH ×2 (06:08→17:57)
[2021-03-22] MEDS: FUROSEMIDE 40 MG/4 ML VIAL IV SCH (07:48)
[2021-03-22] MEDS: PANTOprazole 40 MG TAB PO SCH (07:49)
[2021-03-22] MEDS: FLUTICASONE/VILANTEROL 200/25MCG 14 PUFFS/INHALER INH SCH (07:49)
[2021-03-22] MEDS: GABAPENTIN 300 MG CAP PO SCH ×3 (07:49→22:26)
[2021-03-22] MEDS: DULoxetine HCL 30 MG CAP PO SCH (07:49)
[2021-03-22] MEDS: MYCOPHENOLATE MOFETIL 250 MG CAP PO SCH ×2 (07:49→22:28)
[2021-03-22] MEDS: NYSTATIN POWDER 15GM BTL EXT SCH ×2 (07:50→22:28)
[2021-03-22 11:04] LABS: BUN Creatinine Ratio 11.9 (10-20); Calcium 8.8 mg/dl (8.5-10.1); Creatinine Clr Calc Pharmacy 156.9 ml/min; Est GFR (African American) 114.8 ml/min; Magnesium 1.9 mg/dl (1.8-2.4); Potassium 2.7 mmol/L (3.5-5.1)
[2021-03-22] MEDS ORDERED: POTASSIUM CHLORIDE CRTAB 20 MEQ TABCR PO STA ×2 (11:05→15:57)
[2021-03-22] MEDS: DOXYCYCLINE HYCLATE 100 MG in DEXTROSE 5% 100 ML IV SCH ×2 (13:04→22:45)
[2021-03-22] MEDS: oxyCODONE HCL IR 5 MG TAB (IMMEDIATE RELEASE) PO PRN ×2 (14:00→22:25)
[2021-03-22] MEDS: POTASSIUM ACETATE/NSS 10 MEQ/105 ML BAG IV SCH ×2 (15:22→17:38)
--- NOTE | 2021-03-22 15:43 | Hospitalist Progress Note ---
Date of Service March 22, 2021 Assessment & Plan (1) Cellulitis: Plan: Has had cat scratch on the right leg and following that has Spreading cellulitis involving the right lower extremity Noted to be tachycardic but no other signs of sepsis Blood cultures have been taken and she has been on Intravenous daptomycin and Unasyn We will continue those antibiotics for now Blood cultures are pending-remain negative so far Clinically better today and will continue current antibiotics Redness and swelling persisting as of today Continue current antibiotic for now and de-escalating from tomorrow We will try intravenous Lasix and the patient is catheterized Her right lower extremity is less swelled and less red with decreasing tenderness We will continue intravenous Lasix and antibiotics have been changed to IV Unasyn and doxycycline with discontinuation of daptomycin Clinically better with decreasing swelling of the right leg and decreasing redness Still has the pain and awaiting PT evaluation Hypokalemia Likely secondary to use of diuretics We will supplement and monitor while in the hospital (2) Pain of right leg: Plan: Secondary to spreading cellulitis Pain is not any better Awaiting PT evaluation (3) Immunocompromised: Plan: She has history of SLE and is on CellCept Immunocompromised and will continue CellCept for now (4) Asthma, mild persistent: Plan: Seems to be stable No wheezing and no shortness of breath at rest Has some cough but no wheezing (5) Sleep apnea: Plan: Uses CPAP at night We will continue with that (6) GERD (gastroesophageal reflux disease): Plan: Continue PPI (7) Lymphedema: Plan: Has bilateral lymphedema Complicating the cellulitis (8) Venous insufficiency of both lower extremities: Plan: Complicating the infection Plan: Likely discharge tomorrow Admission and Anticipated Discharge Date Admission Date: March 18, 2021 Subjective 03/19/2021 The patient was seen and examined in medical telemetry unit Her right lower extremity is minimally improved with decreasing the redness and tenderness Denies any fever and/or chills 03/20/2021 The patient was seen and examined in medical telemetry unit She complains to pain in the right hip and right lower extremity Denies any fever and/or chills 03/21/2021 The patient was seen and examined in medical telemetry unit She has been feeling a little better and has less pain in the leg Swelling of the leg is diminished too 03/22/2021 The patient was seen and examined in medical telemetry unit She has been feeling a little better but has not moved out of bed yet and she cannot do that She still has the cough without any phlegm Review of Systems Review of Systems: All systems reviewed and are unremarkable except as noted below Musculoskeletal: Has lymphedema involving the lower extremities right worse than the left Physical Exam Physical Exam: Sitting on a chair with some discomfort in the right lower extremity Constitutional: well developed, well nourished, + ill appearing and + morbidly obese Eyes: PERRL, conjunctivae normal, anicteric sclerae ENMT: external ear and nose normal, oropharynx normal Neck: trachea midline, no thyromegaly Respiratory: no respiratory distress and no cough Auscultation: lungs clear to auscultation bilaterally and + diminished lung sounds Cardiovascular: Rate/Rhythm: regular rate, regular rhythm and + tachycardic Heart Sounds: normal S1 and normal S2; no murmur Extremities: + edema (Severe bilateral lymphedema,right worse than left) Gastrointestinal (Abdomen): Inspection/Auscultation: + abdomen distended and normal bowel sounds Percussion/Palpation: abdomen soft; abdomen nontender Musculoskeletal: No acute arthritis in any joint Skin: Right lower extremity swollen with increasing redness and tenderness Neurologic: Alert, awake and oriented x3 Results & Data Results & Data ([facility]) Vital Signs (Past 12 Hours) Vital Signs Temp Pulse Resp BP BP Pulse Ox 03/22/21 15:12 37.6 C H 91 H 20 156/68 H 90 03/22/21 11:18 37.0 C 84 20 124/70 92 03/22/21 07:16 36.9 C 87 20 100/64 92 03/22/21 03:50 36.9 C 93 H 18 114/73 93 Laboratory Results [facility] 03/22/21 10:17 Sodium 135 L Potassium 2.7 L Chloride 95 L Carbon Dioxide 37 H BUN 9 Creatinine 0.72 Glucose 121 H Calcium 8.8 Cardiac Enzymes 03/22/21 Range/Units 08:05 Total Creatine Kinase 251 H (26-192) U/L Medications Administered Current Inpatient Medications Acetaminophen (Acetaminophen 500 Mg Tab) 1,000 mg PO Q6H PRN PRN Reason: Fever Stop: 04/17/21 18:44 Last Admin: 03/20/21 20:04 Dose: 1,000 mg Documented by: Albuterol (Albuterol Hfa 8 Gm Inhaler) 2 puffs INH Q4H PRN PRN Reason: Cough/Wheezing Stop: 04/17/21 21:45 Albuterol (Albut/Ipratrop 3mg/0.5mg Neb 3 Ml Vial) 3 ml INH Q8H PRN PRN Reason: Shortness Of Breath Stop: 04/17/21 21:45 Benzonatate (Benzonatate 100 Mg Capsule) 100 mg PO TID PRN PRN Reason: Cough Stop: 04/18/21 00:19 Last Admin: 03/22/21 03:48 Dose: 100 mg Documented by: Duloxetine HCl (Duloxetine Hcl 30 Mg Cap) 30 mg PO DAILY SAVANNAH Stop: 04/18/21 08:59 Last Admin: 03/22/21 07:49 Dose: 30 mg Documented by: Enoxaparin Sodium (Enoxaparin Inj 40 Mg/0.4 Ml Syr) 40 mg SQ Q12H [facility]NA[facility] Stop: 04/17/21 18:29 Last Admin: 03/22/21 06:08 Dose: 40 mg Documented by: Ergocalciferol (Ergocalciferol 50,000 Units 1250 Mcg Cap) 50,000 units PO We@0900 [facility] Stop: 04/23/21 08:59 Fluticasone Propionate (Fluticasone Propionate Na Spr 16 Gm Btl) 2 sprays MARK DAILY PRN PRN Reason: Allergy Symptoms Stop: 04/17/21 21:45 Fluticasone/Vilanterol (Fluticasone/Vilanterol 200/25mcg 14 Puffs/Inhaler) 1 puffs INH DAILY SAVANNAH Stop: 04/18/21 08:59 Last Admin: 03/22/21 07:49 Dose: 1 puffs Documented by: Furosemide (Furosemide 40 Mg/4 Ml Vial) 60 mg IV DAILY SAVANNAH Stop: 04/19/21 14:59 Last Admin: 03/22/21 07:48 Dose: 60 mg Documented by: Gabapentin (Gabapentin 300 Mg Cap) 300 mg PO TID S[facility]ANNAH Stop: 04/17/21 21:45 Last Admin: 03/22/21 14:00 Dose: 300 mg Documented by: Hydroxyzine HCl (Hydroxyzine Hcl 25 Mg Tab) 50 mg PO Q6H PRN PRN Reason: Anxiety Stop: 04/17/21 21:45 Ampicillin Sodium/Sulbactam Sodium 3,000 mg/ Sodium Chloride 108 mls @ 200 mls/hr IV Q6H [facility]; Protocol Stop: 03/26/21 00:00 Last Admin: 03/22/21 15:22 Dose: 200 mls/hr Documented by: Doxycycline Hyclate 100 mg/ (Dextrose) 110 mls @ 55 mls/hr IV Q12H [facility] Stop: 03/28/21 10:59 Last Infusion: 03/22/21 15:25 Dose: Infused Documented by: Levothyroxine Sodium (Levothyroxine Sodium 75 Mcg Tablet) 75 mcg PO DAILYBB [facility] Stop: 04/18/21 06:29 Last Admin: 03/22/21 06:07 Dose: 75 mcg Documented by: Loratadine (Loratadine 10 Mg Tab) 10 mg PO DAILY PRN PRN Reason: Allergy Symptoms Stop: 04/17/21 21:45 Mycophenolate Mofetil (Mycophenolate Mofetil 250 Mg Cap) 1,500 mg PO BID [facility] Stop: 04/17/21 21:45 Last Admin: 03/22/21 07:49 Dose: 1,500 mg Documented by: Nystatin (Nystatin Powder 15gm Btl) 1 appln EXT BID [facility] Stop: 04/17/21 21:45 Last Admin: 03/22/21 07:50 Dose: 1 appln Documented by: Oxycodone HCl (Oxycodone Hcl Ir 5 Mg Tab (Immediate Release)) 5 mg PO Q4H PRN PRN Reason: Pain Stop: 04/01/21 23:16 Last Admin: 03/22/21 14:00 Dose: 5 mg Documented by: Pantoprazole Sodium (Pantoprazole 40 Mg Tab) 40 mg PO QAM [facility] Stop: 04/18/21 08:59 Last Admin: 03/22/21 07:49 Dose: 40 mg Documented by: Trazodone HCl (Trazodone Hcl 50 Mg Tab) 50 mg PO HS [facility] Stop: 04/17/21 21:45 Last Admin: 03/21/21 20:55 Dose: 50 mg Documented by: (1) Cellulitis Laterality: right Site of cellulitis: extremity Site of cellulitis of extremity: lower extremity Qualified Code(s): L03.115 - Cellulitis of right lower limb
[2021-03-22] MEDS: traZODone HCL 50 MG TAB PO SCH (22:28)
[2021-03-22] MEDS: ACETAMINOPHEN 500 MG TAB PO PRN (22:38)
[2021-03-23] MEDS: AMPICILLIN/SULBACTAM SOD 3,000 MG in 0.9 % SODIUM CHLORIDE 100 ML IV SCH ×4 (00:44→17:12)
[2021-03-23] MEDS: ENOXAPARIN INJ 40 MG/0.4 ML SYR SQ SCH ×2 (05:44→17:17)
[2021-03-23] MEDS: LEVOTHYROXINE SODIUM 75 MCG TABLET PO SCH (05:45)
[2021-03-23] MEDS: NYSTATIN POWDER 15GM BTL EXT SCH ×2 (07:47→20:02)
[2021-03-23] MEDS: FLUTICASONE/VILANTEROL 200/25MCG 14 PUFFS/INHALER INH SCH (07:48)
[2021-03-23] MEDS: GABAPENTIN 300 MG CAP PO SCH ×3 (07:48→20:00)
[2021-03-23] MEDS: FUROSEMIDE 40 MG/4 ML VIAL IV SCH ×2 (07:48→11:49)
[2021-03-23] MEDS: MYCOPHENOLATE MOFETIL 250 MG CAP PO SCH ×2 (07:48→20:01)
[2021-03-23] MEDS: DULoxetine HCL 30 MG CAP PO SCH (07:48)
[2021-03-23] MEDS: PANTOprazole 40 MG TAB PO SCH (07:48)
[2021-03-23] MEDS ORDERED: POTASSIUM CHLORIDE CRTAB 20 MEQ TABCR PO STA (09:54)
[2021-03-23] MEDS: ACETAMINOPHEN 500 MG TAB PO PRN (10:46)
[2021-03-23] MEDS: oxyCODONE HCL IR 5 MG TAB (IMMEDIATE RELEASE) PO PRN ×2 (10:47→20:00)
[2021-03-23 10:54] LABS: BUN Creatinine Ratio 13.4 (10-20); Calcium 8.6 mg/dl (8.5-10.1); Creatinine Clr Calc Pharmacy 155.3 ml/min; Est GFR (African American) 112.9 ml/min; Est GFR (Non-African American) 97.4 ml/min; Potassium 3.3 mmol/L (3.5-5.1)
[2021-03-23] MEDS: POTASSIUM CHLORIDE / WTR 10 MEQ/100 ML PLCT IV SCH (11:46)
[2021-03-23] MEDS: DOXYCYCLINE HYCLATE 100 MG in DEXTROSE 5% 100 ML IV SCH ×2 (11:54→22:04)
[2021-03-23] MEDS: CLOTRIMAZOLE 10 MG TROCHE BUCCAL SCH ×2 (18:29→22:04)
[2021-03-23] MEDS: traZODone HCL 50 MG TAB PO SCH (22:04)
--- NOTE | 2021-03-23 23:38 | Hospitalist Progress Note ---
Date of Service March 23, 2021 Assessment & Plan (1) Cellulitis: Plan: Has had cat scratch on the right leg and following that has Spreading cellulitis involving the right lower extremity Noted to be tachycardic but no other signs of sepsis Blood cultures have been taken and she has been on Intravenous daptomycin and Unasyn We will continue those antibiotics for now Blood cultures are pending-remain negative so far Clinically better today and will continue current antibiotics Redness and swelling persisting as of today Continue current antibiotic for now and de-escalating We will try intravenous Lasix and the patient is catheterized Her right lower extremity is less swelled and less red with decreasing tenderness We will continue intravenous Lasix and antibiotics have been changed to IV Unasyn and doxycycline with discontinuation of daptomycin Clinically better with decreasing swelling of the right leg and decreasing redness PT/OT eval Waiting for placement Hypokalemia Likely secondary to use of diuretics K replaced Continue monitor BMP (2) Pain of right leg: Plan: Secondary to spreading cellulitis Pain is not any better Continue antibiotic and IV Lasix continue pain control as needed (3) Immunocompromised: Plan: She has history of SLE and is on CellCept Immunocompromised and will continue CellCept for now (4) Asthma, mild persistent: Plan: Seems to be stable No wheezing and no shortness of breath at rest Has some cough but no wheezing (5) Sleep apnea: Plan: Uses CPAP at night (6) GERD (gastroesophageal reflux disease): Plan: Continue PPI (7) Lymphedema: Plan: Has bilateral lymphedema Complicating the cellulitis (8) Venous insufficiency of both lower extremities: Plan: Complicating the infection Plan: We will need outpatient follow-up Admission and Anticipated Discharge Date Admission Date: March 18, 2021 Subjective Patient was seen and evaluated for follow-up of right lower extremity pain and swelling Lying in bed with no acute distress Patient said that right lower extremity tenderness and swelling She said the pain When putting pressure in all right lower extremity and walking Denies any chest pain, palpitation, dizziness, shortness of breath. Review of Systems Review of Systems: All systems reviewed & are unremarkable except as noted in Subjective Physical Exam Physical Exam: General- No acute distress Head- atraumatic Eyes- PERRL, EOMI, ENT- oropharynx clear Neck- supple, no JVD Lungs-diminished breath sounds Heart- regular rhythm; no murmur Abdomen- normal bowel sounds, soft, nontender Extremities- no calf tenderness, right lower extremity edema and swelling Neuro- alert, oriented x 3; PERRL, EOMI; no facial palsy; no dysarthria Skin- warm & dry Results & Data Results & Data ([facility]) Vital Signs (Past 12 Hours) Vital Signs Temp Pulse Pulse Resp BP Pulse Ox 03/23/21 23:30 100 H 03/23/21 19:57 37.2 C 87 20 114/71 92 03/23/21 15:34 85 03/23/21 15:07 36.9 C 85 18 102/60 95 (1) Cellulitis Laterality: right Site of cellulitis: extremity Site of cellulitis of extremity: lower extremity Qualified Code(s): L03.115 - Cellulitis of right lower limb
[2021-03-24] MEDS: AMPICILLIN/SULBACTAM SOD 3,000 MG in 0.9 % SODIUM CHLORIDE 100 ML IV SCH ×5 (00:16→23:07)
[2021-03-24] MEDS: oxyCODONE HCL IR 5 MG TAB (IMMEDIATE RELEASE) PO PRN ×2 (03:20→20:52)
[2021-03-24] MEDS: ENOXAPARIN INJ 40 MG/0.4 ML SYR SQ SCH ×2 (05:25→16:48)
[2021-03-24] MEDS: LEVOTHYROXINE SODIUM 75 MCG TABLET PO SCH (05:25)
[2021-03-24] MEDS: CLOTRIMAZOLE 10 MG TROCHE BUCCAL SCH ×5 (06:26→23:05)
[2021-03-24] MEDS: GABAPENTIN 300 MG CAP PO SCH ×3 (07:29→20:42)
[2021-03-24] MEDS: PANTOprazole 40 MG TAB PO SCH (07:29)
[2021-03-24] MEDS: MYCOPHENOLATE MOFETIL 250 MG CAP PO SCH ×2 (07:29→20:42)
[2021-03-24] MEDS: FUROSEMIDE 40 MG/4 ML VIAL IV SCH (07:30)
[2021-03-24] MEDS: ERGOCALCIFEROL 50,000 UNITS 1250 MCG CAP PO SCH (07:30)
[2021-03-24] MEDS: FLUTICASONE/VILANTEROL 200/25MCG 14 PUFFS/INHALER INH SCH (07:30)
[2021-03-24] MEDS: DULoxetine HCL 30 MG CAP PO SCH (07:32)
[2021-03-24] MEDS: NYSTATIN POWDER 15GM BTL EXT SCH ×2 (07:38→20:45)
[2021-03-24] MEDS ORDERED: POTASSIUM CHLORIDE CRTAB 20 MEQ TABCR PO STA (09:49)
[2021-03-24] MEDS: DOXYCYCLINE HYCLATE 100 MG in DEXTROSE 5% 100 ML IV SCH ×2 (11:59→23:04)
[2021-03-24] MEDS: traZODone HCL 50 MG TAB PO SCH (20:42)
--- NOTE | 2021-03-24 23:48 | Hospitalist Progress Note ---
Date of Service March 24, 2021 Assessment & Plan (1) Cellulitis: Plan: Has had cat scratch on the right leg and following that has Spreading cellulitis involving the right lower extremity Noted to be tachycardic but no other signs of sepsis Blood cultures have been taken and she has been on Intravenous daptomycin and Unasyn We will continue those antibiotics for now Blood cultures are pending-remain negative so far Clinically better today and will continue current antibiotics Redness and swelling persisting as of today Continue current antibiotic for now and de-escalating We will try intravenous Lasix and the patient is catheterized Her right lower extremity is less swelled and less red with decreasing tenderness We will continue intravenous Lasix and antibiotics have been changed to IV Unasyn and doxycycline with discontinuation of daptomycin Clinically better with decreasing swelling of the right leg and decreasing redness We will change Lasix to 40 mg twice daily Plan to transition to p.o. antibiotic with doxy and Augmentin on discharge but will continue with IV for now Waiting for placement Continue PT OT Hypokalemia Likely secondary to use of diuretics K replaced Continue monitor BMP (2) Pain of right leg: Plan: Secondary to spreading cellulitis Pain is not any better Continue antibiotic and IV Lasix continue pain control as needed (3) Immunocompromised: Plan: She has history of SLE and is on CellCept Immunocompromised and will continue CellCept for now (4) Asthma, mild persistent: Plan: Seems to be stable No wheezing and no shortness of breath at rest Has some cough but no wheezing (5) Sleep apnea: Plan: Uses CPAP at night (6) GERD (gastroesophageal reflux disease): Plan: Continue PPI (7) Lymphedema: Plan: Has bilateral lymphedema Complicating the cellulitis (8) Venous insufficiency of both lower extremities: Plan: Complicating the infection Plan: We will need outpatient follow-up Admission and Anticipated Discharge Date Admission Date: March 18, 2021 Subjective Patient was seen and evaluated for follow-up of right lower extremity pain and swelling Lying in bed with no acute distress Continue to have pain and swelling right lower extremity Denies any chest pain, palpitation, dizziness, shortness of breath. Review of Systems Review of Systems: All systems reviewed & are unremarkable except as noted in Subjective Physical Exam Physical Exam: General- No acute distress Head- atraumatic Eyes- PERRL, EOMI, ENT- oropharynx clear Neck- supple, no JVD Lungs-diminished breath sounds Heart- regular rhythm; no murmur Abdomen- normal bowel sounds, soft, nontender Extremities- no calf tenderness, right lower extremity edema and swelling Neuro- alert, oriented x 3; PERRL, EOMI; no facial palsy; no dysarthria Skin- warm & dry Results & Data Results & Data ([facility]) Vital Signs (Past 12 Hours) Vital Signs Temp Pulse Pulse Pulse Resp BP Pulse Ox 03/24/21 19:00 38.1 C H 91 H 20 161/65 H 95 03/24/21 15:21 91 H 03/24/21 15:15 37.4 C 90 17 121/61 91 (1) Cellulitis Laterality: right Site of cellulitis: extremity Site of cellulitis of extremity: lower extremity Qualified Code(s): L03.115 - Cellulitis of right lower limb
[2021-03-24] MEDS ORDERED: FUROSEMIDE 40 MG/4 ML VIAL IV ONE (23:50)
[2021-03-25] MEDS: LEVOTHYROXINE SODIUM 75 MCG TABLET PO SCH (05:53)
[2021-03-25] MEDS: ENOXAPARIN INJ 40 MG/0.4 ML SYR SQ SCH ×2 (05:54→16:30)
[2021-03-25] MEDS: CLOTRIMAZOLE 10 MG TROCHE BUCCAL SCH ×5 (05:54→22:36)
[2021-03-25] MEDS: AMPICILLIN/SULBACTAM SOD 3,000 MG in 0.9 % SODIUM CHLORIDE 100 ML IV SCH ×3 (05:57→17:59)
[2021-03-25] MEDS: FLUTICASONE/VILANTEROL 200/25MCG 14 PUFFS/INHALER INH SCH (07:44)
[2021-03-25] MEDS: MYCOPHENOLATE MOFETIL 250 MG CAP PO SCH ×2 (07:46→20:33)
[2021-03-25] MEDS: FUROSEMIDE 40 MG/4 ML VIAL IV SCH ×2 (07:46→20:33)
[2021-03-25] MEDS: DULoxetine HCL 30 MG CAP PO SCH (07:47)
[2021-03-25] MEDS: GABAPENTIN 300 MG CAP PO SCH ×3 (07:47→20:36)
[2021-03-25] MEDS: PANTOprazole 40 MG TAB PO SCH (07:48)
[2021-03-25] MEDS: NYSTATIN POWDER 15GM BTL EXT SCH ×2 (07:48→20:33)
[2021-03-25 08:14] LABS: Hematocrit (blood only) 31.4 % (37-47); Mean Corpuscular Hemoglobin 27.1 pg (25-34); Mean Corpuscular Hgb Conc 31.8 g/dL (32-36); Mean Corpuscular Volume 85.1 fL (80-100); Mean Platelet Volume 9.5 fL (7.4-10.4); Platelet Count 337 K/uL (130-400); RDW Coefficient of Variation 16.5 % (11.5-14.5); RDW Standard Deviation 51.3 fL (36.4-46.3); Red Blood Count 3.69 M/uL (4.2-5.4); White Blood Count 8.16 K/uL (4.8-10.8)
[2021-03-25 08:42] LABS: Albumin Level 1.5 gm/dl (3.4-5.0); BUN Creatinine Ratio 15.4 (10-20); Calcium 8.5 mg/dl (8.5-10.1); Creatinine Clr Calc Pharmacy 174.8 ml/min; Est GFR (African American) 122.3 ml/min; Est GFR (Non-African American) 105.5 ml/min; Potassium 3.4 mmol/L (3.5-5.1)
[2021-03-25 08:45] LABS: Albumin Globulin Ratio 0.3 (0.9-2); Bilirubin,Total 0.9 mg/dl (0.2-1); Globulin 5.7 gm/dl (2.5-4.0); Total Protein 7.2 gm/dl (6.4-8.2)
[2021-03-25] MEDS ORDERED: POTASSIUM CHLORIDE CRTAB 20 MEQ TABCR PO STA (09:54)
[2021-03-25] MEDS: oxyCODONE HCL IR 5 MG TAB (IMMEDIATE RELEASE) PO PRN (10:12)
[2021-03-25] MEDS: ACETAMINOPHEN 500 MG TAB PO PRN ×2 (11:09→23:30)
[2021-03-25] MEDS: DOXYCYCLINE HYCLATE 100 MG in DEXTROSE 5% 100 ML IV SCH ×2 (15:21→22:36)
--- NOTE | 2021-03-25 17:01 | Hospitalist Progress Note ---
Date of Service March 25, 2021 Assessment & Plan (1) Cellulitis: Plan: Has had cat scratch on the right leg and following that has Spreading cellulitis involving the right lower extremity Noted to be tachycardic but no other signs of sepsis Blood cultures have been taken and she has been on Intravenous daptomycin and Unasyn We will continue those antibiotics for now Blood cultures are pending-remain negative so far Clinically better today and will continue current antibiotics Redness and swelling persisting as of today Continue current antibiotic for now and de-escalating We will try intravenous Lasix and the patient is catheterized Her right lower extremity is less swelled and less red with decreasing tenderness We will continue intravenous Lasix and antibiotics have been changed to IV Unasyn and doxycycline with discontinuation of daptomycin Clinically better with decreasing swelling of the right leg and decreasing redness Continue Lasix 40 mg twice daily Plan to transition to p.o. antibiotic with doxy and Augmentin on discharge but will continue with IV for now Waiting for placement to rehab Continue PT OT Hypokalemia Likely secondary to use of diuretics K 3.4 today K replaced Continue monitor BMP (2) Pain of right leg: Plan: Secondary to spreading cellulitis Pain is not any better Continue antibiotic and IV Lasix continue pain control as needed Waiting for placement to rehab (3) Immunocompromised: Plan: She has history of SLE and is on CellCept Immunocompromised and will continue CellCept for now (4) Asthma, mild persistent: Plan: Seems to be stable No wheezing and no shortness of breath at rest Has some cough but no wheezing (5) Sleep apnea: Plan: Uses CPAP at night (6) GERD (gastroesophageal reflux disease): Plan: Continue PPI (7) Lymphedema: Plan: Has bilateral lymphedema Complicating the cellulitis (8) Venous insufficiency of both lower extremities: Plan: Complicating the infection Plan: We will need outpatient follow-up Admission and Anticipated Discharge Date Admission Date: March 18, 2021 Subjective Patient was seen and evaluated for follow-up of right lower extremity pain and swelling Lying in bed with no acute distress She said that the pain and swelling slightly improve in RLE Denies any chest pain, palpitation, dizziness, shortness of breath. Review of Systems Review of Systems: All systems reviewed & are unremarkable except as noted in Subjective Physical Exam Physical Exam: General- No acute distress Head- atraumatic Eyes- PERRL, EOMI, ENT- oropharynx clear Neck- supple, no JVD Lungs-diminished breath sounds Heart- regular rhythm; no murmur Abdomen- normal bowel sounds, soft, nontender Extremities- no calf tenderness, right lower extremity edema and swelling Neuro- alert, oriented x 3; PERRL, EOMI; no facial palsy; no dysarthria Skin- warm & dry Results & Data Results & Data ([facility]) Vital Signs (Past 12 Hours) Vital Signs Temp Pulse Pulse Resp BP BP Pulse Ox 03/25/21 15:41 36.9 C 71 18 122/78 93 03/25/21 15:37 90 03/25/21 12:14 37.6 C H 89 17 96/64 L 87 L 03/25/21 07:56 37.4 C 86 18 114/70 90 03/25/21 07:30 83 (1) Cellulitis Laterality: right Site of cellulitis: extremity Site of cellulitis of extremity: lower extremity Qualified Code(s): L03.115 - Cellulitis of right lower limb
[2021-03-25] MEDS: traZODone HCL 50 MG TAB PO SCH (20:33)
[2021-03-25] MEDS: NYSTATIN SUSP 500,000 U/5 ML UDC PO SCH (23:43)
[2021-03-26] MEDS: AMPICILLIN/SULBACTAM SOD 3,000 MG in 0.9 % SODIUM CHLORIDE 100 ML IV SCH (00:27)
[2021-03-26] MEDS ORDERED: ALBUMIN 25% 12.5 GM/50 ML VIAL IV ONE (00:46)
[2021-03-26] MEDS ORDERED: CONSULT PHARMACY STA (00:48)
--- NOTE | 2021-03-26 00:49 | Communication Note ---
Date of Service: March 26, 2021 Notified by RN of intermittent fever spikes over the last 72 hours. Patient immunocompromised with CellCept Rx. Add Cefepime to current doxycycline Rx for cellulitis.
[2021-03-26] MEDS ORDERED: CEFEPIME 2,000 MG/20 ML VIAL IV ONE (01:00)
[2021-03-26 01:50] LABS: Appearance Urine Clear (Clear); Bilirubin Urine Negative (Negative); Blood Urine Negative (Negative); Color Urine Dark Yellow; Epithelial Cell Urine Auto 20-30 /lpf (0-5); Glucose Urine UA Negative (Negative); Ketones Urine Trace (Negative); Leukocyte Esterase Urine Trace (Negative); Nitrite Urine Negative (Negative); Protein Urine Trace (Negative); Specific Gravity Urine 1.019 (1.000-1.030); Urobilinogen Urine Negative (Negative)
[2021-03-26 02:08] LABS: Cast Urine Automated 0 /lpf (0-5); Mucus Urine Present (None Prsent); RBC Urine Automated 0-4 /hpf (0-4)
[2021-03-26 02:10] LABS: Bacteria Urine Automated 1+ (Negative)
[2021-03-26] MEDS: ENOXAPARIN INJ 40 MG/0.4 ML SYR SQ SCH ×2 (06:37→18:21)
[2021-03-26] MEDS: LEVOTHYROXINE SODIUM 75 MCG TABLET PO SCH (06:37)
[2021-03-26 09:03] LABS: Hematocrit (blood only) 31.2 % (37-47); Hemoglobin 9.8 g/dL (12.0-16.0); Mean Corpuscular Hemoglobin 26.8 pg (25-34); Mean Corpuscular Hgb Conc 31.4 g/dL (32-36); Mean Corpuscular Volume 85.2 fL (80-100); Mean Platelet Volume 9.3 fL (7.4-10.4); Platelet Count 368 K/uL (130-400); RDW Coefficient of Variation 16.4 % (11.5-14.5); Red Blood Count 3.66 M/uL (4.2-5.4); White Blood Count 11.25 K/uL (4.8-10.8)
[2021-03-26 09:45] LABS: BUN Creatinine Ratio 15.5 (10-20); Calcium 8.8 mg/dl (8.5-10.1); Creatinine Clr Calc Pharmacy 146.6 ml/min; Est GFR (African American) 107.5 ml/min; Est GFR (Non-African American) 92.8 ml/min; Magnesium 2.1 mg/dl (1.8-2.4); Potassium 3.5 mmol/L (3.5-5.1)
[2021-03-26] MEDS: NYSTATIN SUSP 500,000 U/5 ML UDC PO SCH ×4 (10:28→21:05)
[2021-03-26] MEDS: GABAPENTIN 300 MG CAP PO SCH ×3 (10:29→21:04)
[2021-03-26] MEDS: DULoxetine HCL 30 MG CAP PO SCH (10:29)
[2021-03-26] MEDS: MYCOPHENOLATE MOFETIL 250 MG CAP PO SCH (10:29)
[2021-03-26] MEDS: PANTOprazole 40 MG TAB PO SCH (10:29)
[2021-03-26] MEDS: FUROSEMIDE 40 MG/4 ML VIAL IV SCH ×3 (10:30→21:03)
[2021-03-26] MEDS: FLUTICASONE/VILANTEROL 200/25MCG 14 PUFFS/INHALER INH SCH (10:32)
[2021-03-26] MEDS: NYSTATIN POWDER 15GM BTL EXT SCH ×2 (10:32→21:04)
[2021-03-26] MEDS: CEFEPIME 2,000 MG in SYRINGE 0 ML IV SCH ×3 (10:32→17:10)
[2021-03-26] MEDS: oxyCODONE HCL IR 5 MG TAB (IMMEDIATE RELEASE) PO PRN ×2 (11:05→22:08)
[2021-03-26] MEDS: DOXYCYCLINE HYCLATE 100 MG in DEXTROSE 5% 100 ML IV SCH ×2 (11:34→22:07)
[2021-03-26] MEDS: POLYETHYLENE (MIRALAX) 17 GM PACK PO PRN (17:06)
[2021-03-26] MEDS: traZODone HCL 50 MG TAB PO SCH (21:03)
[2021-03-26] MEDS: buPROPion XL 150 MG TABCR PO SCH (21:03)
--- NOTE | 2021-03-26 21:43 | Hospitalist Progress Note ---
Date of Service March 26, 2021 Assessment & Plan (1) Cellulitis: Plan: Has had cat scratch on the right leg and following that has Spreading cellulitis involving the right lower extremity Noted to be tachycardic but no other signs of sepsis Blood cultures have been taken and she has been on Intravenous daptomycin and Unasyn We will continue those antibiotics for now Blood cultures are pending-remain negative so far Clinically better today and will continue current antibiotics Redness and swelling persisting as of today Continue current antibiotic for now and de-escalating We will try intravenous Lasix and the patient is catheterized Her right lower extremity is less swelled and less red with decreasing tenderness We will continue intravenous Lasix and antibiotics have been changed to IV Unasyn and doxycycline with discontinuation of daptomycin Clinically better with decreasing swelling of the right leg and decreasing redness On Lasix 40 mg twice daily, will consider to increase to 60mg BID Hermann a fever last night, IV Unasyn was changed to cefepime Plan to transition to p.o. antibiotic with doxy and Augmentin or Cefdinir on discharge but will continue with IV for now Waiting for placement to rehab Continue PT OT Hypokalemia Likely secondary to use of diuretics K 3.5 today K replaced Continue monitor BMP (2) Pain of right leg: Plan: Secondary to spreading cellulitis Pain is not any better Continue antibiotic and IV Lasix continue pain control as needed Waiting for placement to rehab (3) Immunocompromised: Plan: She has history of SLE and is on CellCept Immunocompromised and will continue CellCept for now (4) Asthma, mild persistent: Plan: Seems to be stable No wheezing and no shortness of breath at rest Has some cough but no wheezing (5) Sleep apnea: Plan: Uses CPAP at night (6) Lupus: Plan: Spoke to rheumatology Dr. Hilda garcia Agreed to hold the cellcept while on abx (7) GERD (gastroesophageal reflux disease): Plan: Continue PPI (8) Lymphedema: Plan: Has bilateral lymphedema Complicating the cellulitis (9) Venous insufficiency of both lower extremities: Plan: Complicating the infection Plan: We will need outpatient follow-up Admission and Anticipated Discharge Date Admission Date: March 18, 2021 Subjective Patient was seen and evaluated for follow-up of right lower extremity pain and swelling Lying in bed with no acute distress She said that pain improves, but redness seems to worsening today She spiked a fever last night. she said with her lupus she sometimes has fever Denies any chest pain, palpitation, dizziness, shortness of breath. Review of Systems Review of Systems: All systems reviewed & are unremarkable except as noted in Subjective Physical Exam Physical Exam: General- No acute distress Head- atraumatic Eyes- PERRL, EOMI, ENT- oropharynx clear Neck- supple, no JVD Lungs-diminished breath sounds Heart- regular rhythm; no murmur Abdomen- normal bowel sounds, soft, nontender Extremities- no calf tenderness, right lower extremity edema and swelling Neuro- alert, oriented x 3; PERRL, EOMI; no facial palsy; no dysarthria Skin- warm & dry Results & Data Results & Data ([facility]) Vital Signs (Past 12 Hours) Vital Signs Temp Pulse Pulse Resp BP BP Pulse Ox 03/26/21 18:50 37.3 C 89 18 126/57 L 91 03/26/21 16:00 92 H 03/26/21 15:25 38.0 C H 92 H 20 95/61 L 91 03/26/21 11:08 37.4 C 90 20 122/79 93 (1) Cellulitis Laterality: right Site of cellulitis: extremity Site of cellulitis of extremity: lower extremity Qualified Code(s): L03.115 - Cellulitis of right lower limb
[2021-03-27] MEDS: CEFEPIME 2,000 MG in SYRINGE 0 ML IV SCH ×3 (01:37→17:08)
[2021-03-27] MEDS: LEVOTHYROXINE SODIUM 75 MCG TABLET PO SCH (06:07)
[2021-03-27] MEDS: ENOXAPARIN INJ 40 MG/0.4 ML SYR SQ SCH ×2 (06:07→17:08)
[2021-03-27 07:31] LABS: Hematocrit (blood only) 28.8 % (37-47); Mean Corpuscular Hemoglobin 26.5 pg (25-34); Mean Corpuscular Hgb Conc 31.3 g/dL (32-36); Mean Corpuscular Volume 84.7 fL (80-100); Mean Platelet Volume 9.2 fL (7.4-10.4); Platelet Count 408 K/uL (130-400); RDW Coefficient of Variation 16.4 % (11.5-14.5); RDW Standard Deviation 50.5 fL (36.4-46.3); White Blood Count 11.39 K/uL (4.8-10.8)
[2021-03-27 08:05] LABS: BUN Creatinine Ratio 14.2 (10-20); Calcium 8.5 mg/dl (8.5-10.1); Creatinine Clr Calc Pharmacy 166.4 ml/min; Est GFR (African American) 120.5 ml/min; Est GFR (Non-African American) 103.9 ml/min; Potassium 3.1 mmol/L (3.5-5.1)
[2021-03-27] MEDS: FLUTICASONE/VILANTEROL 200/25MCG 14 PUFFS/INHALER INH SCH (08:18)
[2021-03-27] MEDS: DULoxetine HCL 30 MG CAP PO SCH (08:18)
[2021-03-27] MEDS: FUROSEMIDE 40 MG/4 ML VIAL IV SCH ×2 (08:19→17:08)
[2021-03-27] MEDS: GABAPENTIN 300 MG CAP PO SCH ×3 (08:23→21:17)
[2021-03-27] MEDS: PANTOprazole 40 MG TAB PO SCH (08:23)
[2021-03-27] MEDS: NYSTATIN SUSP 500,000 U/5 ML UDC PO SCH ×4 (08:24→21:17)
[2021-03-27] MEDS: NYSTATIN POWDER 15GM BTL EXT SCH ×2 (08:24→21:18)
[2021-03-27] MEDS ORDERED: POTASSIUM CHLORIDE CRTAB 20 MEQ TABCR PO STA ×2 (08:25)
[2021-03-27] MEDS: POLYETHYLENE (MIRALAX) 17 GM PACK PO PRN (09:43)
[2021-03-27] MEDS: oxyCODONE HCL IR 5 MG TAB (IMMEDIATE RELEASE) PO PRN (11:23)
[2021-03-27] MEDS: DOXYCYCLINE HYCLATE 100 MG in DEXTROSE 5% 100 ML IV SCH ×2 (11:23→22:38)
--- NOTE | 2021-03-27 19:19 | Hospitalist Progress Note ---
Date of Service March 27, 2021 Assessment & Plan (1) Cellulitis: Plan: Has had cat scratch on the right leg and following that has Spreading cellulitis involving the right lower extremity Noted to be tachycardic but no other signs of sepsis Blood cultures have been taken and she has been on Intravenous daptomycin and Unasyn We will continue those antibiotics for now Blood cultures are pending-remain negative so far Clinically better today and will continue current antibiotics Redness and swelling persisting as of today Continue current antibiotic for now and de-escalating We will try intravenous Lasix and the patient is catheterized Her right lower extremity is less swelled and less red with decreasing tenderness We will continue intravenous Lasix and antibiotics have been changed to IV Unasyn and doxycycline with discontinuation of daptomycin Clinically better with decreasing swelling of the right leg and decreasing redness On Lasix 40 mg twice daily, will consider to increase to 60mg BID Continue cefepime and doxy Plan to transition to p.o. antibiotic with doxy and Augmentin or Cefdinir on discharge but will continue with IV for now Not interested to go to rehab, she said she will go home Continue PT OT Hypokalemia Likely secondary to use of diuretics K 3.1 today K replaced Continue monitor BMP (2) Pain of right leg: Plan: Secondary to spreading cellulitis Pain is not any better Continue antibiotic and IV Lasix continue pain control as needed (3) Immunocompromised: Plan: She has history of SLE and is on CellCept Immunocompromised and will continue CellCept for now (4) Asthma, mild persistent: Plan: Seems to be stable No wheezing and no shortness of breath at rest Has some cough but no wheezing (5) Sleep apnea: Plan: Uses CPAP at night (6) Lupus: Plan: Spoke to rheumatology Dr. Hilda garcia Agreed to hold the cellcept while on abx (7) GERD (gastroesophageal reflux disease): Plan: Continue PPI (8) Lymphedema: Plan: Has bilateral lymphedema Complicating the cellulitis (9) Venous insufficiency of both lower extremities: Plan: Complicating the infection Plan: We will need outpatient follow-up Admission and Anticipated Discharge Date Admission Date: March 18, 2021 Subjective Patient was seen and evaluated for follow-up of right lower extremity pain and swelling Lying in bed with no acute distress She said that she she is feeling much better She said that she is able to move her leg, extend and flex the right leg with no tenderness She is not interested to go to rehab since her son is coming home Denies any chest pain, palpitation, dizziness, shortness of breath. Review of Systems Review of Systems: All systems reviewed & are unremarkable except as noted in Subjective Physical Exam Physical Exam: General- No acute distress Head- atraumatic Eyes- PERRL, EOMI, ENT- oropharynx clear Neck- supple, no JVD Lungs-diminished breath sounds Heart- regular rhythm; no murmur Abdomen- normal bowel sounds, soft, nontender Extremities- no calf tenderness, right lower extremity edema and swelling Neuro- alert, oriented x 3; PERRL, EOMI; no facial palsy; no dysarthria Skin- warm & dry Results & Data Results & Data ([facility]) Vital Signs (Past 12 Hours) Vital Signs Temp Pulse Pulse Resp BP BP Pulse Ox 03/27/21 15:40 36.5 C 89 18 125/71 95 03/27/21 15:39 37.9 C H 75 18 113/72 95 03/27/21 15:27 84 03/27/21 12:55 90 03/27/21 12:09 37.2 C 83 20 105/70 93 (1) Cellulitis Laterality: right Site of cellulitis: extremity Site of cellulitis of extremity: lower extremity Qualified Code(s): L03.115 - Cellulitis of right lo wer limb
[2021-03-27] MEDS: ACETAMINOPHEN 500 MG TAB PO PRN (19:39)
[2021-03-27] MEDS: traZODone HCL 50 MG TAB PO SCH (21:16)
[2021-03-27] MEDS: buPROPion XL 150 MG TABCR PO SCH (21:17)
[2021-03-28] MEDS: CEFEPIME 2,000 MG in SYRINGE 0 ML IV SCH ×3 (00:42→17:25)
[2021-03-28] MEDS: LEVOTHYROXINE SODIUM 75 MCG TABLET PO SCH (06:10)
[2021-03-28] MEDS: ENOXAPARIN INJ 40 MG/0.4 ML SYR SQ SCH ×2 (06:10→17:26)
[2021-03-28 06:14] LABS: Hematocrit (blood only) 29.7 % (37-47); Hemoglobin 9.4 g/dL (12.0-16.0); Mean Corpuscular Hgb Conc 31.6 g/dL (32-36); Mean Corpuscular Volume 85.3 fL (80-100); Platelet Count 402 K/uL (130-400); RDW Coefficient of Variation 16.2 % (11.5-14.5); Red Blood Count 3.48 M/uL (4.2-5.4)
[2021-03-28 06:51] LABS: BUN Creatinine Ratio 16.2 (10-20); Calcium 8.6 mg/dl (8.5-10.1); Creatinine Clr Calc Pharmacy 161.3 ml/min; Est GFR (African American) 119.3 ml/min; Est GFR (Non-African American) 102.9 ml/min; Potassium 3.5 mmol/L (3.5-5.1)
[2021-03-28] MEDS: FUROSEMIDE 40 MG/4 ML VIAL IV SCH ×2 (08:15→17:25)
[2021-03-28] MEDS: POLYETHYLENE (MIRALAX) 17 GM PACK PO PRN (08:15)
[2021-03-28] MEDS: FLUTICASONE/VILANTEROL 200/25MCG 14 PUFFS/INHALER INH SCH (08:16)
[2021-03-28] MEDS: NYSTATIN SUSP 500,000 U/5 ML UDC PO SCH ×4 (08:17→21:38)
[2021-03-28] MEDS: DULoxetine HCL 30 MG CAP PO SCH (08:17)
[2021-03-28] MEDS: GABAPENTIN 300 MG CAP PO SCH ×3 (08:17→21:38)
[2021-03-28] MEDS: NYSTATIN POWDER 15GM BTL EXT SCH ×2 (08:18→21:40)
[2021-03-28] MEDS: PANTOprazole 40 MG TAB PO SCH (08:18)
[2021-03-28] MEDS: oxyCODONE HCL IR 5 MG TAB (IMMEDIATE RELEASE) PO PRN ×2 (08:26→19:39)
[2021-03-28] MEDS ORDERED: POTASSIUM CHLORIDE CRTAB 20 MEQ TABCR PO STA ×2 (10:25→23:41)
[2021-03-28] MEDS ORDERED: POTASSIUM CHLORIDE CRTAB 20 MEQ TABCR PO ONE (21:00)
[2021-03-28] MEDS: buPROPion XL 150 MG TABCR PO SCH (21:38)
[2021-03-28] MEDS: traZODone HCL 50 MG TAB PO SCH (21:38)
--- NOTE | 2021-03-28 23:39 | Hospitalist Progress Note ---
Date of Service March 28, 2021 Assessment & Plan (1) Cellulitis: Plan: Has had cat scratch on the right leg and following that has Spreading cellulitis involving the right lower extremity Noted to be tachycardic but no other signs of sepsis Blood cultures have been taken and she has been on Intravenous daptomycin and Unasyn We will continue those antibiotics for now Blood cultures are pending-remain negative so far Clinically better today and will continue current antibiotics Redness and swelling persisting as of today Continue current antibiotic for now and de-escalating We will try intravenous Lasix and the patient is catheterized Her right lower extremity is less swelled and less red with decreasing tenderness We will continue intravenous Lasix and antibiotics have been changed to IV Unasyn and doxycycline with discontinuation of daptomycin Clinically better with decreasing swelling of the right leg and decreasing redness On Lasix 60 mg twice daily, will consider to increase to 80mg BID Continue cefepime and doxy Plan to transition to p.o. antibiotic with doxy and Augmentin or Cefdinir on discharge but will continue with IV for now Not interested to go to rehab, she said she will go home Continue PT OT Hypokalemia Likely secondary to use of diuretics K 3.5 today K replaced Continue monitor BMP (2) Pain of right leg: Plan: Secondary to spreading cellulitis Pain is not any better Continue antibiotic and IV Lasix continue pain control as needed (3) Immunocompromised: Plan: She has history of SLE and is on CellCept Immunocompromised and will continue CellCept for now (4) Asthma, mild persistent: Plan: Seems to be stable No wheezing and no shortness of breath at rest Has some cough but no wheezing (5) Sleep apnea: Plan: Uses CPAP at night (6) Lupus: Plan: Spoke to rheumatology Dr. Hilda garcia Agreed to hold the cellcept while on abx (7) GERD (gastroesophageal reflux disease): Plan: Continue PPI (8) Lymphedema: Plan: Has bilateral lymphedema Complicating the cellulitis (9) Venous insufficiency of both lower extremities: Plan: Complicating the infection Plan: We will need outpatient follow-up Admission and Anticipated Discharge Date Admission Date: March 18, 2021 Subjective Patient was seen and evaluated for follow-up of right lower extremity pain and swelling Lying in bed with no acute distress She said that she she is feeling much better She is not interested to go to rehab since her son is coming home Denies any chest pain, palpitation, dizziness, shortness of breath. Review of Systems Review of Systems: All systems reviewed & are unremarkable except as noted in Subjective Physical Exam Physical Exam: General- No acute distress Head- atraumatic Eyes- PERRL, EOMI, ENT- oropharynx clear Neck- supple, no JVD Lungs-diminished breath sounds Heart- regular rhythm; no murmur Abdomen- normal bowel sounds, soft, nontender Extremities- no calf tenderness, right lower extremity edema and swelling Neuro- alert, oriented x 3; PERRL, EOMI; no facial palsy; no dysarthria Skin- warm & dry Results & Data Results & Data ([facility]) Vital Signs (Past 12 Hours) Vital Signs Temp Pulse Pulse Resp BP Pulse Ox 03/28/21 19:16 37.1 C 80 20 149/75 H 92 03/28/21 15:40 81 03/28/21 15:20 36.9 C 80 18 114/70 98 (1) Cellulitis Laterality: right Site of cellulitis: extremity Site of cellulitis of extremity: lower extremity Qualified Code(s): L03.115 - Cellulitis of right lower limb
[2021-03-28] MEDS: ACETAMINOPHEN 500 MG TAB PO PRN (23:41)
[2021-03-29] MEDS: oxyCODONE HCL IR 5 MG TAB (IMMEDIATE RELEASE) PO PRN ×3 (01:36→16:54)
[2021-03-29] MEDS: CEFEPIME 2,000 MG in SYRINGE 0 ML IV SCH ×3 (01:38→16:54)
[2021-03-29] MEDS: LEVOTHYROXINE SODIUM 75 MCG TABLET PO SCH (05:55)
[2021-03-29] MEDS: ENOXAPARIN INJ 40 MG/0.4 ML SYR SQ SCH ×2 (05:56→17:42)
[2021-03-29] MEDS: FUROSEMIDE 40 MG/4 ML VIAL IV SCH ×2 (08:24→17:28)
[2021-03-29] MEDS: GABAPENTIN 300 MG CAP PO SCH ×3 (08:25→20:54)
[2021-03-29] MEDS: PANTOprazole 40 MG TAB PO SCH (08:25)
[2021-03-29] MEDS: DULoxetine HCL 30 MG CAP PO SCH (08:25)
[2021-03-29] MEDS: FLUTICASONE/VILANTEROL 200/25MCG 14 PUFFS/INHALER INH SCH (08:25)
[2021-03-29] MEDS: NYSTATIN SUSP 500,000 U/5 ML UDC PO SCH ×4 (08:26→20:54)
[2021-03-29] MEDS: NYSTATIN POWDER 15GM BTL EXT SCH ×2 (08:35→20:55)
[2021-03-29 12:38] LABS: Hematocrit (blood only) 34.9 % (37-47); Hemoglobin 10.9 g/dL (12.0-16.0); Mean Corpuscular Hgb Conc 31.2 g/dL (32-36); Mean Corpuscular Volume 86.4 fL (80-100); Mean Platelet Volume 9.4 fL (7.4-10.4); Platelet Count 520 K/uL (130-400); RDW Coefficient of Variation 16.3 % (11.5-14.5); RDW Standard Deviation 51.9 fL (36.4-46.3); Red Blood Count 4.04 M/uL (4.2-5.4); White Blood Count 14.91 K/uL (4.8-10.8)
[2021-03-29 13:05] LABS: BUN Creatinine Ratio 17.7 (10-20); Calcium 9.4 mg/dl (8.5-10.1); Est GFR (African American) 92.6 ml/min; Est GFR (Non-African American) 79.9 ml/min; Potassium 3.7 mmol/L (3.5-5.1)
--- NOTE | 2021-03-29 14:59 | Ultrasound Report ---
RIGHT THIGH ULTRASOUND CLINICAL HISTORY: Right thigh pain/swelling. COMPARISON STUDY: Right thigh ultrasound May 11, 2020. TECHNIQUE: Sonography of the medial right thigh at site of pain and erythema was performed. FINDINGS: There is extensive subcutaneous fluid of the medial right thigh. No fluid collection is rell ntified on this exam to suggest an abscess. No mass is identified. IMPRESSION: 1. Extensive subcutaneous fluid of the medial right thigh. This may reflect cellulitis or edema. 2. No fluid collection by sonography to suggest an abscess within the medial right thigh. ACT 112: Negative or not required by law. Electronically signed by: Michel Siu M.D. 03/29/2021 2:57 PM
[2021-03-29] MEDS ORDERED: ONDANSETRON INJ 2 MG/ML 2 ML VIAL IV ONE (16:28)
[2021-03-29] MEDS ORDERED: ONDANSETRON INJ 2 MG/ML 2 ML VIAL ONE (16:45)
[2021-03-29] MEDS ORDERED: CASPOFUNGIN 70 MG in SODIUM CHLORIDE 0.9% 250 ML IV ONE (17:15)
--- NOTE | 2021-03-29 20:29 | Hospitalist Progress Note ---
Date of Service March 29, 2021 Assessment & Plan (1) Cellulitis: Plan: Has had cat scratch on the right leg and following that has Spreading cellulitis involving the right lower extremity Noted to be tachycardic but no other signs of sepsis Blood cultures have been taken and she has been on Intravenous daptomycin and Unasyn We will continue those antibiotics for now Blood cultures are pending-remain negative so far Clinically better today and will continue current antibiotics Redness and swelling persisting as of today Continue current antibiotic for now and de-escalating We will try intravenous Lasix and the patient is catheterized Her right lower extremity is less swelled and less red with decreasing tenderness We will continue intravenous Lasix and antibiotics have been changed to IV Unasyn and doxycycline with discontinuation of daptomycin Clinically better with decreasing swelling of the right leg and decreasing redness U/S showed extensive subcutaneous fluid of the medial right thigh, it could be cellulitis or edema.No fluid collection by sonography to suggest an abscess within the medial right thigh. On Lasix 80 mg IV twice daily We will hold Lasix tonight dose due to sodium 130 Continue cefepime and doxy Plan to transition to p.o. antibiotic with doxy and Augmentin or Cefdinir on discharge but will continue with IV for now Not interested to go to rehab, she said she will go home Continue PT OT Abnormal UA Elevated WBC and febrile last night Urine culture grew Sabrina glabrata Denies any urinary symptoms but since patient was afebrile last night and white count elevated she was started on caspofungin Continue monitor WBC Hypokalemia Likely secondary to use of diuretics K 3.7 today Continue monitor BMP Hyponatremia Most likely due to diuretic Sodium 130 We will hold Lasix tonight dose for now Consider nephrology consult (2) Pain of right leg: Plan: Secondary to spreading cellulitis Pain is not any better Continue antibiotic Will hold Lasix for now continue pain control as needed Clinically improved (3) Immunocompromised: Plan: She has history of SLE and is on CellCept Immunocompromised and will continue CellCept for now (4) Asthma, mild persistent: Plan: Seems to be stable No wheezing and no shortness of breath at rest Has some cough but no wheezing (5) Sleep apnea: Plan: Uses CPAP at night (6) Lupus: Plan: Spoke to rheumatology Dr. Hilda garcai Agreed to hold the cellcept while on abx (7) GERD (gastroesophageal reflux disease): Plan: Continue PPI (8) Lymphedema: Plan: Has bilateral lymphedema Complicating the cellulitis (9) Venous insufficiency of both lower extremities: Plan: Complicating the infection Plan: We will need outpatient follow-up Admission and Anticipated Discharge Date Admission Date: March 18, 2021 Subjective Patient was seen and evaluated for follow-up of right lower extremity pain and swelling Sitting at the edge of the bed with no acute distress She said that she she is feeling much better She has been able to walk to the bathroom She said pain is improving the right lower extremity She is not interested to go to rehab since her son is coming home Denies any chest pain, palpitation, dizziness, shortness of breath. Review of Systems Review of Systems: All systems reviewed & are unremarkable except as noted in Subjective Physical Exam Physical Exam: General- No acute distress Head- atraumatic Eyes- PERRL, EOMI, ENT- oropharynx clear Neck- supple, no JVD Lungs-diminished breath sounds Heart- regular rhythm; no murmur Abdomen- normal bowel sounds, soft, nontender Extremities- no calf tenderness, right lower extremity edema and tenderness Neuro- alert, oriented x 3; PERRL, EOMI; no facial palsy; no dysarthria Skin- warm & dry Results & Data Results & Data ([facility]) Vital Signs (Past 12 Hours) Vital Signs Temp Pulse Resp BP Pulse Ox 03/29/21 17:45 37.1 C 03/29/21 16:44 37.1 C 03/29/21 15:07 37.7 C H 59 L 17 103/68 96 03/29/21 10:52 36.7 C 83 17 99/68 L 93 (1) Cellulitis Laterality: right Site of cellulitis: extremity Site of cellulitis of extremity: lower extremity Qualified Code(s): L03.115 - Cellulitis of right lower limb
[2021-03-29] MEDS: traZODone HCL 50 MG TAB PO SCH (20:55)
[2021-03-29] MEDS: buPROPion XL 150 MG TABCR PO SCH (20:55)
[2021-03-30] MEDS: CEFEPIME 2,000 MG in SYRINGE 0 ML IV SCH ×3 (01:50→17:23)
[2021-03-30] MEDS: ENOXAPARIN INJ 40 MG/0.4 ML SYR SQ SCH ×2 (05:10→17:23)
[2021-03-30] MEDS: LEVOTHYROXINE SODIUM 75 MCG TABLET PO SCH (05:10)
[2021-03-30] MEDS: oxyCODONE HCL IR 5 MG TAB (IMMEDIATE RELEASE) PO PRN ×3 (05:10→22:40)
[2021-03-30 06:01] LABS: Hematocrit (blood only) 30.4 % (37-47); Hemoglobin 9.7 g/dL (12.0-16.0); Mean Corpuscular Hemoglobin 27.6 pg (25-34); Mean Corpuscular Hgb Conc 31.9 g/dL (32-36); Mean Corpuscular Volume 86.4 fL (80-100); Platelet Count 507 K/uL (130-400); RDW Coefficient of Variation 16.4 % (11.5-14.5); RDW Standard Deviation 52.4 fL (36.4-46.3); Red Blood Count 3.52 M/uL (4.2-5.4); White Blood Count 13.33 K/uL (4.8-10.8)
[2021-03-30 06:39] LABS: Creatinine Clr Calc Pharmacy 127.9 ml/min; Est GFR (African American) 92.6 ml/min; Est GFR (Non-African American) 79.9 ml/min; Potassium 3.6 mmol/L (3.5-5.1)
[2021-03-30] MEDS: FLUTICASONE/VILANTEROL 200/25MCG 14 PUFFS/INHALER INH SCH (08:29)
[2021-03-30] MEDS: PANTOprazole 40 MG TAB PO SCH (08:30)
[2021-03-30] MEDS: NYSTATIN SUSP 500,000 U/5 ML UDC PO SCH ×4 (08:30→20:40)
[2021-03-30] MEDS: GABAPENTIN 300 MG CAP PO SCH ×3 (08:30→20:40)
[2021-03-30] MEDS: DULoxetine HCL 30 MG CAP PO SCH (08:30)
[2021-03-30] MEDS: NYSTATIN POWDER 15GM BTL EXT SCH ×2 (08:31→20:41)
--- NOTE | 2021-03-30 09:02 | Nephrology Consultation ---
Date of Consultation March 30, 2021 Assessment & Plan (1) Chronic hyponatremia: This patient has chronic hyponatremia, i.e. present greater than 48 hours, likely from hypovolemia. while I/o incomplete, she is 10L negative on the admission. She does not have any record prior to admission of consistent hyponatremia as an outpatient. Labs are pending and physical exam in a morbidly obese patient can be misleading; believe she is euvolemic or even slightly dry. Also with progressive hypoalbuminemia which may make lasix less effective -ordered serum osmolality, urine osmolality, rd urine sodium, TFTs, repeat bmp for 1300 >> repeat bmp is 130 w/ K 3.5; rd urine Na is 8; TFTs wnl; al labs pending >>>suspect mild hypovolemia; continue to hold lasix for now; would not give NS or albumin IV; would just observe -dietary steps as below -strict I/O and daily standing weights ordered -If Lasix is to be given, recommend giving with IV albumin and in lower doses (2) Lymphedema: This chronic issue has been worsened by worsening albumin in the setting of severe infection and inflammation; challenging to manage lymphedema conservatively with her chronic and acute wounds/cellulitis -Elevate legs as much as possible - may need special furniture other steps to do this in her room -> for now Low-sodium diet ordered as well as for now fluid limit less than 1.5 L > to lower overload from hypoalbuminemia -Dietitian consultation and aggressive protein intake ordered Recommend eval for/treatment of malnutrition History of Present Illness Reason for Consultation: hyponatremia Requesting Physician: Dr uRth Attending Physician: Sabina Ruth MD History of Present Illness 50 y/o F with systemic lupus whom I'm asked to see for hyponatremia was admitted March 18 for right lower extremity cellulitis after a cat scratch. Her presenting sodium was 131, peaked at 136 on March 21, plateau'd at 133-135 03/22-03/28; then the past 2 days more in the 130 range; 129 today. 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 Also with history of Covid infection December 2020. She is currently on cefepime and caspofungin after March 26 urine grew Sabrina glabrata. she had temp to 39 on 03/28, 03/25; has had other temp elevations to 38 or high 37s intermittently. bld cxs negative. had 1 dose Lasix 80 mg IV yesterday. has had daily lasix since 03/20 unitl yesterday progressively intesified to bid dosing from 40 mg bid up to 80 mg bid. As an outpatient she takes as needed Lasix 40 mg daily and as needed meloxicam daily. Her albumin on March 25 was 1.5. She feels her LLE edema is well controlled/ resolved. however her RLE remains a bit swollen she states. has sores in her mouth and so eats less b/c of pain from this. also endorses rigors, and intermitten tF. some N yesterday; else no n/v/d/abd pain. no sob, no confusion, no voiding concerns. no excessive thirst Allergies Allergy/AdvReac Type Severity Reaction Status Date / Time hydroxychloroquine Allergy Severe Swelling Verified 03/18/21 18:07 [From Plaquenil] of Lip/Tongue/Throat nickel Allergy Mild Rash Verified 03/18/21 18:07 Home Medications Medication Instructions Recorded Confirmed Type meloxicam 15 mg tablet 15 mg PO DAILY PRN #0 09/14/16 03/18/21 History epinephrine 0.3 mg/0.3 mL 0.3 mg IM DIRECTED PRN #0 09/22/17 03/18/21 History injection, auto-injector (EpiPen 2-David) fluticasone propionate 50 2 spray INTRANASAL DAILY PRN #0 09/22/17 03/18/21 History mcg/actuation nasal spray,suspension (Flonase Allergy Relief) loratadine 10 mg tablet 10 mg PO DAILY PRN #0 tab 09/22/17 03/18/21 History albuterol sulfate 90 mcg/actuation 2 puff INHALATION Q4H PRN 04/27/18 03/18/21 History aerosol inhaler hydroxyzine HCl 50 mg tablet 50 mg PO Q6H PRN 04/27/18 03/18/21 History mometasone-formoterol HFA 200 2 puff INHALATION BID 04/27/18 03/18/21 History mcg-5 mcg/actuation aerosol inhaler valacyclovir 1 gram tablet 1,000 mg PO Q12H PRN 04/27/18 03/18/21 History ipratropium 0.5 mg-albuterol 3 mg 3 ml INHALATION Q8H PRN 03/05/19 03/18/21 History (2.5 mg base)/3 mL nebulization soln omeprazole 20 mg tablet,delayed 20 mg PO QAM 03/05/19 03/18/21 History release CPAP Machine #1 ea 03/12/19 09/03/20 History Oxygen Home #1 ea 03/12/19 09/03/20 History gabapentin 300 mg capsule 300 mg PO TID 07/05/19 03/18/21 History furosemide 40 mg tablet 40 mg PO DAILY PRN 08/29/19 03/18/21 History mycophenolate mofetil 500 mg 1,500 mg PO BID 90 Days #540 tab 05/07/20 03/18/21 History tablet (CellCept) duloxetine 30 mg capsule,delayed 30 mg PO DAILY 09/03/20 03/18/21 History release (Cymbalta) nystatin 100,000 unit/gram topical 1 applic TOPICAL BID #30 g 09/03/20 03/18/21 Rx powder cholecalciferol (vitamin D3) 1,250 1,250 mcg PO WE 01/25/21 03/18/21 History mcg (50,000 unit) capsule levothyroxine 75 mcg tablet 75 mcg PO QAM 01/25/21 03/18/21 History trazodone 50 mg tablet 50 - 100 mg PO HS 01/25/21 03/18/21 History Patient History Medical History Anemia, chronic disease Anxiety Asthma stable, using rescue inhaler with exertion Bronchiolitis JUNE 2019> RESOLVED Depression GERD (gastroesophageal reflux disease) controlled Hypothyroidism Lupus stable on Cellcept; follows w/[facility] Lymphedema Lower extremities Morbid obesity with BMI of 60.0-69.9, adult On home oxygen therapy ON O2 AT 2L WITH CPAP DEVICE AT HS Osteoarthritis Pneumonia ~ 2 weeks ago, seen by PCP, tx with ABX and prednisone Psoriasis Shingles RESOLVED Sleep apnea CPAP Urticarial vasculitis Venous insufficiency of both lower extremities Surgical History History of appendectomy History of bilateral tubal ligation History of cataract surgery R & L History of section History of colonoscopy History of D&C X2 History of esophagogastroduodenoscopy (EGD) History of wisdom tooth extraction Family History Father Diabetes Mother Asthma Hypertension Brother Stroke Grandfather (Paternal) Diabetes Sister Hay fever Denies family history of Ovarian cancer Breast cancer Colorectal cancer Social History Smoking Status: Never smoker Second Hand Exposure: No; Hx Alcohol Use: Yes Alcohol type: wine Hx Substance Use: No Preferred Language: Cymraes Communication Ability: Effective [employer] Required: No Beliefs That Will Affect Care: None Current Living Situation: Family and Significant Other Other Information That Helps Us Care for You: No Feels Safe at Home: Yes Safety Concerns: Feels Safe At This Time Assistive Devices: Glasses and Walker Review of Systems Review of Systems: All systems reviewed & are unremarkable except as noted in HPI & below Physical Exam Constitutional: well developed, well nourished, + morbidly obese and + lethargic (have to redirect her a few times in exam); no acute distress Eyes: EOM intact bilaterally ENMT: Ears: no external ear abnormality Nose: no external nose abnormality Mouth: + dry oral mucous membranes Neck: no nuchal rigidity Respiratory: normal respiratory effort Auscultation: + diminished lung sounds Cardiovascular: Rate/Rhythm: regular rate and regular rhythm Heart Sounds: normal S1 and normal S2 Extremities: no edema (LLE; RLE with some swel ling/nonpitting) Gastrointestinal (Abdomen): Inspection/Auscultation: normal bowel sounds Percussion/Palpation: abdomen soft; abdomen nontender Musculoskeletal: Extremities: strength 5/5 throughout Skin: no rashes, warm and dry RLE medial thigh and medial calf red, indurated, poorly demarcated, warm to touch, NT; Thigh w/ open area/drainage Neurologic: key, fluent speech, no tremor Psychiatric: Orientation: oriented x 3 and cooperative; + not alert (sleepy, have to waken her x 2) Affect: + anxious affect (anxious for d/c home) Genitourinary: no perkins Results & Data ([place]) Vital Signs (Past 12 Hours) Vital Signs Temp Pulse Pulse Resp BP Pulse Ox 03/30/21 08:21 36.7 C 85 20 104/69 92 03/30/21 07:26 80 03/30/21 03:25 37.2 C 88 18 106/71 93 03/29/21 23:37 86 03/29/21 22:35 37 C 82 16 115/75 97 Laboratory Results 03/30/21 05:49 03/30/21 05:49 Diagnostic Findings cxr 03/18 IMPRESSION: No acute cardiopulmonary findings. Subtle interstitial thickening, likely chronic.
[2021-03-30 09:20] LABS: Estimated Average Glucose 126 mg/dl
[2021-03-30 13:47] LABS: BUN Creatinine Ratio 18.9 (10-20); Est GFR (African American) 95.3 ml/min; Est GFR (Non-African American) 82.2 ml/min; Potassium 3.4 mmol/L (3.5-5.1)
[2021-03-30 14:00] LABS: Thyroid Stimulating Hormone 1.22 uIu/ml (0.300-4.500)
[2021-03-30] MEDS ORDERED: POTASSIUM CHLORIDE CRTAB 20 MEQ TABCR PO STA (14:14)
[2021-03-30 16:50] LABS: Appearance Urine Clear (Clear); Bacteria Urine Automated Negative (Negative); Bilirubin Urine Negative (Negative); Blood Urine Trace (Negative); Color Urine Yellow; Epithelial Cell Urine Auto >30 /lpf (0-5); Glucose Urine UA Negative (Negative); Ketones Urine Trace (Negative); Leukocyte Esterase Urine Negative (Negative); Nitrite Urine Negative (Negative); Protein Urine 1+ (Negative); RBC Urine Automated 0-4 /hpf (0-4); Specific Gravity Urine 1.016 (1.000-1.030); Urobilinogen Urine Negative (Negative)
[2021-03-30] MEDS ORDERED: CASPOFUNGIN 50 MG in SODIUM CHLORIDE 0.9% 250 ML IV SCH (17:00)
--- NOTE | 2021-03-30 19:03 | Hospitalist Progress Note ---
Date of Service March 30, 2021 Assessment & Plan (1) Cellulitis: Plan: Has had cat scratch on the right leg and following that has Spreading cellulitis involving the right lower extremity Noted to be tachycardic but no other signs of sepsis Blood cultures have been taken and she has been on Intravenous daptomycin and Unasyn We will continue those antibiotics for now Blood cultures are pending-remain negative so far Clinically better today and will continue current antibiotics Redness and swelling persisting as of today Continue current antibiotic for now and de-escalating We will try intravenous Lasix and the patient is catheterized Her right lower extremity is less swelled and less red with decreasing tenderness We will continue intravenous Lasix and antibiotics have been changed to IV Unasyn and doxycycline with discontinuation of daptomycin Clinically better with decreasing swelling of the right leg and decreasing redness U/S showed extensive subcutaneous fluid of the medial right thigh, it could be cellulitis or edema.No fluid collection by sonography to suggest an abscess within the medial right thigh. On Lasix 80 mg IV twice daily- hold If Lasix is to be given, Nephro recommended giving with IV albumin and in lower doses Continue cefepime and doxy Plan to transition to p.o. antibiotic with doxy and Augmentin or Cefdinir on discharge but will continue with IV for now Not interested to go to rehab, she said she will go home Continue PT OT Abnormal UA Elevated WBC and febrile last night Urine culture grew Sabrina glabrata Denies any urinary symptoms but since patient was afebrile last night and white count elevated she was started on caspofungin Pt febrile resolved before getting Caspofungin Spoke to pharmacy that said caspofungin does not cover for Sabrina glabrata, will d/c it Will repeat urine cx since prior UA was collected while pt had perkins cath on Will repeat blood cx as well Continue monitor WBC Hypokalemia Likely secondary to use of diuretics K 3.4 today K replaced Continue monitor BMP Hyponatremia Most likely due to diuretic Sodium 129 this morning and repeat Na 130 Nephrology on board Will hold any additional lasix for now Continue monitor BMP (2) Pain of right leg: Plan: Secondary to spreading cellulitis Pain is not any better Continue antibiotic Will hold Lasix for now continue pain control as needed Clinically improved (3) Immunocompromised: Plan: She has history of SLE and is on CellCept Immunocompromised and will continue to hold CellCept while on abx Case discussed with Dr. Stevens (4) Asthma, mild persistent: Plan: Seems to be stable No wheezing and no shortness of breath at rest Has some cough but no wheezing (5) Sleep apnea: Plan: Uses CPAP at night (6) Lupus: Plan: Spoke to rheumatology Dr. Hilda garcia Agreed to hold the cellcept while on abx (7) GERD (gastroesophageal reflux disease): Plan: Continue PPI (8) Lymphedema: Plan: Has bilateral lymphedema Complicating the cellulitis (9) Venous insufficiency of both lower extremities: Plan: Complicating the infection Plan: We will need outpatient follow-up Admission and Anticipated Discharge Date Admission Date: March 18, 2021 Subjective Patient was seen and evaluated for follow-up of right lower extremity pain and swelling Lying in bed with no acute distress Patient said pain and swelling continue to improve She is very anxious to go home She is not interested to go to rehab 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 Review of Systems Review of Systems: All systems reviewed & are unremarkable except as noted in Subjective Physical Exam Physical Exam: General- No acute distress Head- atraumatic Eyes- PERRL, EOMI, ENT- oropharynx clear Neck- supple, no JVD Lungs-diminished breath sounds Heart- regular rhythm; no murmur Abdomen- normal bowel sounds, soft, nontender Extremities- no calf tenderness, right lower extremity edema and tenderness Neuro- alert, oriented x 3; PERRL, EOMI; no facial palsy; no dysarthria Skin- warm & dry Results & Data Results & Data ([facility]) Vital Signs (Past 12 Hours) Vital Signs Temp Pulse Pulse Resp BP BP Pulse Ox 03/30/21 15:50 36.9 C 87 20 102/60 90 03/30/21 15:25 89 03/30/21 11:41 36.9 C 82 20 109/74 91 03/30/21 08:21 36.7 C 85 20 104/69 92 03/30/21 07:26 80 (1) Cellulitis Laterality: right Site of cellulitis: extremity Site of cellulitis of extremity: lower extremity Qualified Code(s): L03.115 - Cellulitis of right lower limb
[2021-03-30] MEDS: traZODone HCL 50 MG TAB PO SCH (20:40)
[2021-03-30] MEDS: buPROPion XL 150 MG TABCR PO SCH (20:40)
[2021-03-31] MEDS: CEFEPIME 2,000 MG in SYRINGE 0 ML IV SCH ×3 (00:46→17:54)
[2021-03-31] MEDS: LEVOTHYROXINE SODIUM 75 MCG TABLET PO SCH (06:08)
[2021-03-31] MEDS: ENOXAPARIN INJ 40 MG/0.4 ML SYR SQ SCH ×2 (06:08→17:54)
[2021-03-31 06:26] LABS: Hematocrit (blood only) 27.9 % (37-47); Hemoglobin 8.4 g/dL (12.0-16.0); Mean Corpuscular Hemoglobin 26.5 pg (25-34); Mean Corpuscular Hgb Conc 30.1 g/dL (32-36); Mean Platelet Volume 8.9 fL (7.4-10.4); Platelet Count 480 K/uL (130-400); RDW Coefficient of Variation 16.2 % (11.5-14.5); RDW Standard Deviation 52.5 fL (36.4-46.3); Red Blood Count 3.17 M/uL (4.2-5.4); White Blood Count 11.29 K/uL (4.8-10.8)
[2021-03-31 06:55] LABS: Albumin Level 1.5 gm/dl (3.4-5.0); BUN Creatinine Ratio 22.2 (10-20); Calcium 8.5 mg/dl (8.5-10.1); Creatinine Clr Calc Pharmacy 159.5 ml/min; Est GFR (African American) 119.3 ml/min; Est GFR (Non-African American) 102.9 ml/min; Potassium 3.7 mmol/L (3.5-5.1)
[2021-03-31 06:58] LABS: Albumin Globulin Ratio 0.3 (0.9-2); Bilirubin,Total 0.8 mg/dl (0.2-1); Globulin 5.9 gm/dl (2.5-4.0); Total Protein 7.4 gm/dl (6.4-8.2)
[2021-03-31] MEDS: NYSTATIN SUSP 500,000 U/5 ML UDC PO SCH ×4 (08:30→21:15)
[2021-03-31] MEDS: FLUTICASONE/VILANTEROL 200/25MCG 14 PUFFS/INHALER INH SCH (08:30)
[2021-03-31] MEDS: NYSTATIN POWDER 15GM BTL EXT SCH ×2 (08:30→21:15)
[2021-03-31] MEDS: GABAPENTIN 300 MG CAP PO SCH ×3 (08:31→21:14)
[2021-03-31] MEDS: DULoxetine HCL 30 MG CAP PO SCH (08:31)
[2021-03-31] MEDS: ERGOCALCIFEROL 50,000 UNITS 1250 MCG CAP PO SCH (08:31)
[2021-03-31] MEDS: PANTOprazole 40 MG TAB PO SCH (08:31)
[2021-03-31] MEDS: oxyCODONE HCL IR 5 MG TAB (IMMEDIATE RELEASE) PO PRN ×3 (08:34→22:41)
[2021-03-31 09:25] LABS: Albumin Level 1.6 gm/dl (3.4-5.0); Bilirubin Direct 0.4 mg/dl (0-0.2); Bilirubin,Total 1.5 mg/dl (0.2-1); Total Protein 7.5 gm/dl (6.4-8.2)
--- NOTE | 2021-03-31 13:22 | Nephrology Progress Note ---
Date of Service March 31, 2021 Assessment & Plan (1) Chronic hyponatremia: Plan: This patient has chronic hyponatremia, i.e. present greater than 48 hours, likely from hypovolemia. while I/o incomplete, she is 10L negative on the admission as of 03/30. She does not have any record prior to admission of consistent hyponatremia as an outpatient. 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 Also with progressive hypoalbuminemia which may make lasix less effective -liberalized FR though this may worsen sNa again >> to 2.2 L -dietary steps as below -strict I/O and daily standing weights ordered -If Lasix is to be given, recommend giving with IV albumin and in lower doses (2) Lymphedema: Plan: This chronic issue has been worsened by worsening albumin in the setting of severe infection and inflammation; challenging to manage lymphedema conservatively with her chronic and acute wounds/cellulitis -Elevate legs as much as possible - may need special furniture other steps to do this in her room -> for now Low-sodium diet ordered as well as for now fluid limit less than 2.2 L > to lower overload from hypoalbuminemia ->>>>Dietitian consultation and aggressive protein intake ordered Recommend eval for/treatment of malnutrition Admission and Anticipated Discharge Date Admission Date: March 18, 2021 Subjective extremely distressed by fluid limit; c/o thirst, threatens ama if not loosened. RLE edematous; LLE not changed/ not. no sob, no n/v Review of Systems Review of Systems: All systems reviewed & are unremarkable except as noted in Subjective Physical Exam Constitutional: well developed, well nourished and + morbidly obese; no acute distress Eyes: EOM intact bilaterally ENMT: Ears: no external ear abnormality Nose: no external nose abnormality Mouth: + dry oral mucous membranes Neck: no nuchal rigidity Respiratory: normal respiratory effort Auscultation: + diminished lung sounds Cardiovascular: Rate/Rhythm: regular rate and regular rhythm Heart Sounds: normal S1 and normal S2 Extremities: no edema (LLE; RLE with some swelling/nonpitting) Gastrointestinal (Abdomen): Inspection/Auscultation: normal bowel sounds Percussion/Palpation: abdomen soft; abdomen nontender Musculoskeletal: Extremities: strength 5/5 throughout Skin: no rashes, warm and dry diffuse/poorly demarcated redness medial R thigh w/ bandage and medial calf Psychiatric: Orientation: alert (sleepy, have to waken her x 2), oriented x 3 and cooperative Affect: + anxious affect (anxious about FR) Results & Data ([facility]) Vital Signs (Past 12 Hours) Vital Signs Temp Pulse Pulse Resp BP Pulse Ox 03/31/21 11:27 36.6 C 89 20 113/68 91 03/31/21 07:06 84 03/31/21 07:00 36.9 C 79 18 112/70 94 03/31/21 03:50 36.3 C L 81 16 115/74 94 Laboratory Results 03/31/21 05:55 03/31/21 05:55 albu 1.6 serum osms 280 (wnl) TSH wnl urine osms 190, rd urine Na 8; serum osms UA w/ ketones, blood, protein
--- NOTE | 2021-03-31 20:16 | Hospitalist Progress Note ---
Date of Service March 31, 2021 delayed entry date of service noted above Assessment & Plan (1) Cellulitis: Plan: per Dr. Ruth's notes with addendum: Has had cat scratch on the right leg and following that has Spreading cellulitis involving the right lower extremity Noted to be tachycardic but no other signs of sepsis Blood cultures have been taken and she has been on Intravenous daptomycin and Unasyn We will continue those antibiotics for now Blood cultures are pending-remain negative so far Clinically better today and will continue current antibiotics Redness and swelling persisting as of today Continue current antibiotic for now and de-escalating We will try intravenous Lasix and the patient is catheterized Her right lower extremity is less swelled and less red with decreasing tenderness We will continue intravenous Lasix and antibiotics have been changed to IV Unasyn and doxycycline with discontinuation of daptomycin Clinically better with decreasing swelling of the right leg and decreasing redness U/S showed extensive subcutaneous fluid of the medial right thigh, it could be cellulitis or edema.No fluid collection by sonography to suggest an abscess within the medial right thigh. On Lasix 80 mg IV twice daily- hold If Lasix is to be given, Nephro recommended giving with IV albumin and in lower doses Continue cefepime and doxy Plan to transition to p.o. antibiotic with doxy and Augmentin or Cefdinir on discharge but will continue with IV for now Not interested to go to rehab, she said she will go home Continue PT OT 12/ continue Cefepime will consult ID Sabrina UTI Elevated WBC and febrile last night Urine culture grew Sabrina glabrata Denies any urinary symptoms but since patient was afebrile last night and white count elevated she was started on caspofungin Pt febrile resolved before getting Caspofungin Spoke to pharmacy that said caspofungin does not cover for Sabrina glabrata, will d/c it Will repeat urine cx since prior UA was collected while pt had perkins cath on Will repeat blood cx as well Continue monitor WBC 12/8 asymptomatic hold off antifungal Hypokalemia Likely secondary to use of diuretics resolved Hyponatremia Most likely due to diuretic Sodium 129 this morning and repeat Na 130 Nephro consulted likely Hypovolemic placed on fluid restriction 2 L /day Na 134 monitor (2) Pain of right leg: Plan: improving (3) Immunocompromised: Plan: She has history of SLE and is on CellCept Immunocompromised and will continue to hold CellCept while on abx Case discussed with Dr. Stevens (4) Asthma, mild persistent: Plan: Seems to be stable No wheezing and no shortness of breath at rest Has some cough but no wheezing (5) Sleep apnea: Plan: Uses CPAP at night (6) Lupus: Plan: Spoke to rheumatology Dr. Stevens, agree to hold the cellcept while on abx (7) GERD (gastroesophageal reflux disease): Plan: Continue PPI (8) Lymphedema: Plan: Has bilateral lymphedema Complicating the cellulitis (9) Venous insufficiency of both lower extremities: Plan: Complicating the infection Plan: per above Admission and Anticipated Discharge Date Admission Date: March 18, 2021 Subjective ff up for cellulitis, etc seen resting in bed, comfortable not in distress reports R leg pain, swelling about the same no fever/chills no chest pain, dyspnea, palpitations, dizziness no other symptoms Review of Systems Review of Systems: all noted and negative except for above Physical Exam Physical Exam: General- oriented x 3, not in distress, speaks in sentences with no effort or accessory muscle use Eyes- anicteric Neck- no JVD Lungs- clear breath sounds bilaterally, no rales/wheezes Heart- normal rate, regular rhythm; no murmurs Abdomen- normal bowel sounds, nondistended, soft, nontender Extremities- RLE: thigh- moderate erythema, tenderness on the medial aspect lower leg- mild erythema, warmth no pretibial edema, no calf tenderness Neuro- alert, oriented x 3; no gross focal neurologic deficits Skin- warm & dry Results & Data Results & Data ([facility]) Vital Signs (Past 12 Hours) Vital Signs Temp Pulse Pulse Resp BP Pulse Ox 03/31/21 19:51 36.8 C 86 18 104/69 96 03/31/21 15:07 94 H 03/31/21 14:39 36.9 C 59 L 20 115/72 94 03/31/21 11:27 36.6 C 89 20 113/68 91 all noted and reviewed including below (1) Cellulitis Laterality: right Site of cellulitis: extremity Site of cellulitis of extremity: lower extremity Qualified Code(s): L03.115 - Cellulitis of right lower limb
[2021-03-31] MEDS: buPROPion XL 150 MG TABCR PO SCH (21:13)
[2021-03-31] MEDS: traZODone HCL 50 MG TAB PO SCH (21:16)
[2021-04-01] MEDS: ENOXAPARIN INJ 40 MG/0.4 ML SYR SQ SCH (05:30)
[2021-04-01] MEDS: LEVOTHYROXINE SODIUM 75 MCG TABLET PO SCH (05:30)
[2021-04-01] MEDS: GABAPENTIN 300 MG CAP PO SCH ×2 (07:58→13:57)
[2021-04-01] MEDS: DULoxetine HCL 30 MG CAP PO SCH (07:58)
[2021-04-01] MEDS: NYSTATIN SUSP 500,000 U/5 ML UDC PO SCH ×2 (07:58→12:19)
[2021-04-01] MEDS: PANTOprazole 40 MG TAB PO SCH (07:58)
[2021-04-01] MEDS: CEFEPIME 2,000 MG in SYRINGE 0 ML IV SCH ×2 (07:59)
[2021-04-01] MEDS: FLUTICASONE/VILANTEROL 200/25MCG 14 PUFFS/INHALER INH SCH (07:59)
[2021-04-01] MEDS: NYSTATIN POWDER 15GM BTL EXT SCH (07:59)
[2021-04-01] MEDS: oxyCODONE HCL IR 5 MG TAB (IMMEDIATE RELEASE) PO PRN ×2 (08:02→12:22)
--- NOTE | 2021-04-01 10:11 | Nephrology Progress Note ---
Date of Service April 01, 2021 Assessment & Plan (1) Chronic hyponatremia: Plan: This patient has chronic hyponatremia, i.e. present greater than 48 hours, likely from hypovolemia. while I/o incomplete, she is 10L negative on the admission as of 03/30. She does not have any record prior to admission of consistent hyponatremia as an outpatient. 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 Also with progressive hypoalbuminemia which may make lasix less effective -liberalized FR 03/31 though this may worsen sNa again >> to 2.2 L -dietary steps as below -strict I/O and daily standing weights ordered -If Lasix is to be given, recommend giving with IV albumin and in lower doses but would hold for now >>f/u pending labs (2) Lymphedema: Plan: This chronic issue is currently well controlled; mgt complicated by worsening albumin in the setting of severe infection and inflammation; challenging to manage lymphedema conservatively with her chronic and acute wounds/cellulitis -Elevate legs as much as possible - may need special furniture other steps to do this in her room -> for now Low-sodium diet ordered as well as for now fluid limit less than 2.2 L > to lower overload from hypoalbuminemia ->contine aggressive protein intake in whatever form most pallatable Recommend eval for/treatment of malnutrition Admission and Anticipated Discharge Date Admission Date: March 18, 2021 Subjective feels leg edema on LLE controlled; no sob, no N; tolerates protein shakes but not protein/jello supplements; satisfied w/ 2LFR; labs pending; no n/v Review of Systems Review of Systems: All systems reviewed & are unremarkable except as noted in Subjective Physical Exam Constitutional: well developed, well nourished and + morbidly obese; no acute distress Eyes: EOM intact bilaterally ENMT: Ears: no external ear abnormality Nose: no external nose abnormality Mouth: + dry oral mucous membranes Neck: no nuchal rigidity Respiratory: normal respiratory effort Auscultation: + diminished lung sounds Cardiovascular: Rate/Rhythm: regular rate and regular rhythm Heart Sounds: normal S1 and normal S2 Extremities: no edema (LLE; RLE with some swelling/nonpitting) Gastrointestinal (Abdomen): Inspection/Auscultation: normal bowel sounds Percussion/Palpation: abdomen soft; abdomen nontender Musculoskeletal: Extremities: strength 5/5 throughout Skin: no rashes, warm and dry draining R prox medial thigh wound; ? if RLE wounds a bit less red Psychiatric: Orientation: alert, oriented x 3 and cooperative Affect: euthymic affect Results & Data ([facility]) Vital Signs (Past 12 Hours) Vital Signs Temp Pulse Pulse Resp BP BP Pulse Ox 04/01/21 07:25 36.8 C 84 17 117/75 90 04/01/21 03:00 36.6 C 81 18 121/75 94 03/31/21 23:00 37.3 C 88 18 100/59 L 94 03/31/21 22:43 93 H Laboratory Results pending
[2021-04-01 11:39] LABS: Basophils # (auto) 0.02 K/uL (0-0.2); Basophils % (auto) 0.2 %; Eosinophils # (auto) 0.27 K/uL (0-0.5); Hematocrit (blood only) 27.8 % (37-47); Hemoglobin 8.7 g/dL (12.0-16.0); Immature Granulocytes # (auto) 0.23 K/uL (0.00-0.02); Immature Granulocytes % (auto) 2.6 %; Lymphocytes # (auto) 0.83 K/uL (1.2-3.4); Lymphocytes % (auto) 9.2 %; Mean Corpuscular Hemoglobin 27.8 pg (25-34); Mean Corpuscular Hgb Conc 31.3 g/dL (32-36); Mean Corpuscular Volume 88.8 fL (80-100); Mean Platelet Volume 8.8 fL (7.4-10.4); Monocytes # (auto) 1.05 K/uL (0.11-0.59); Monocytes % (auto) 11.7 %; Neutrophils # (auto) 6.58 K/uL (1.4-6.5); Neutrophils % (auto) 73.3 %; Platelet Count 460 K/uL (130-400); RDW Coefficient of Variation 16.5 % (11.5-14.5); RDW Standard Deviation 53.5 fL (36.4-46.3); Red Blood Count 3.13 M/uL (4.2-5.4); White Blood Count 8.98 K/uL (4.8-10.8)
[2021-04-01 11:58] LABS: BUN Creatinine Ratio 21.4 (10-20); Creatinine Clr Calc Pharmacy 146.1 ml/min; Est GFR (African American) 109.2 ml/min; Est GFR (Non-African American) 94.3 ml/min; Potassium 3.9 mmol/L (3.5-5.1)
[2021-04-01] MEDS ORDERED: bisacodyL 5 MG TABEC PO ONE (13:41)
[2021-04-01] MEDS ORDERED: DOCUSATE SODIUM/SENNA 50/8.6MG TAB PO SCH (13:45)
--- NOTE | 2021-04-01 16:02 | Hospitalist Progress Note ---
Date of Service April 01, 2021 Assessment & Plan (1) Cellulitis: Plan: per Dr. Ruth's notes with addendum: Right lower extremity cellulitis Has had cat scratch on the right leg and following that has Spreading cellulitis involving the right lower extremity blood cultures negative given daptomycin and Unasyn, then Cefepime, Doxy (during 2 week stay in the hospital) given IV lasix for persistent leg edema with improvement U/S showed extensive subcutaneous fluid of the medial right thigh, it could be cellulitis or edema.No fluid collection by sonography to suggest an abscess within the medial right thigh. 04/01 ID consulted recommend Doxcycline 100mg BID x 2 weeks close outpatient ff up Patient also requested for as needed analgesics-has been receiving oxycodone as needed as an inpatient, prescribed oxycodone Sabrina in the urine Asymptomatic denies any urinary complaints Discussed with ID service Does not recommend treatment as patient is asymptomatic Monitor closely Hypokalemia Likely secondary to use of diuretics resolved Hyponatremia Most likely due to diuretic Sodium 129 this morning and repeat Na 130 Nephro consulted likely Hypovolemic placed on fluid restriction 2 L /day Na 134 Continue fluid restriction Repeat sodium 1 follow-up with PCP within 1 week monitor (2) Pain of right leg: Plan: improving (3) Immunocompromised: Plan: She has history of SLE and is on CellCept Immunocompromised and will continue to hold CellCept while on abx Case discussed with Dr. Stevens (4) Asthma, mild persistent: Plan: Seems to be stable No wheezing and no shortness of breath at rest Has some cough but no wheezing (5) Sleep apnea: Plan: Uses CPAP at night (6) Lupus: Plan: Spoke to rheumatology Dr. Stevens, agree to hold the cellcept while on abx (7) GERD (gastroesophageal reflux disease): Plan: Continue PPI (8) Lymphedema: Plan: Has bilateral lymphedema Complicating the cellulitis (9) Venous insufficiency of both lower extremities: Plan: Complicating the infection Plan: plan of care discussed with patient in detail and at length all questions answered she is understanding, agreeable, comfortable with the plan of care Admission and Anticipated Discharge Date Admission Date: March 18, 2021 Subjective ff up for RLE cellulitis, etc seen resting in bed, comfortable states she feels fine overall somewhat tired RLE pain is better no fever/chlls No urinary symptoms, abdominal pain, nausea vomiting, fevers or chills States that she is ready and very adamant to leave today no other symptoms Review of Systems Review of Systems: all noted and negative except for above Physical Exam Physical Exam: General- oriented x 3, not in distress, speaks in sentences with no effort or accessory muscle use Eyes- anicteric Neck- no JVD Lungs- clear breath sounds bilaterally, no rales/wheezes Heart- normal rate, regular rhythm; no murmurs Abdomen- normal bowel sounds, nondistended, soft, nontender Extremities- RLE: thigh- mild erythema, tenderness on the medial aspect lower leg-very mild erythema, warmth Neuro- alert, oriented x 3; no gross focal neurologic deficits Skin- warm & dry Results & Data Results & Data ([facility]) Vital Signs (Past 12 Hours) Vital Signs Temp Pulse Pulse Pulse Pulse Resp Resp 04/01/21 15:12 37 C 87 18 04/01/21 15:04 37 C 87 18 04/01/21 14:26 113 H 89 79 16 04/01/21 10:58 36.8 C 79 18 04/01/21 07:25 36.8 C 84 17 Resp Resp BP BP Pulse Ox Pulse Ox Pulse Ox 04/01/21 15:12 117/75 110/65 97 04/01/21 15:04 110/65 97 04/01/21 14:26 18 20 92 90 04/01/21 10:58 118/66 90 04/01/21 07:25 117/75 90 Pulse Ox 04/01/21 15:12 04/01/21 15:04 04/01/21 14:26 93 04/01/21 10:58 04/01/21 07:25 all noted and reviewed including below (1) Cellulitis Laterality: right Site of cellulitis: extremity Site of cellulitis of extremity: lower extremity Qualified Code(s): L03.115 - Cellulitis of right lower limb
--- NOTE | 2021-04-18 18:17 | Discharge Summary ---
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 Her right lower extremity has been red and tender which is going up to the right groin and she has been feeling generally weak and lethargic with it. Denies any fever and/or chills but feels feverish and complains to have more weakness with cough but no significant shortness of breath. Apparently she has had COVID-19 vaccination and Covid 19 infection in December and remained home for the last few days she has been having shortness of breath with exertion associated with cough. In the emergency room she was noted to be afebrile but was tachycardic without an increase in white cell count and a right lower extremity showed evidence of a spreading cellulitis without any break in the skin noted. Cultures were taken and she was a started with intravenous Unasyn and daptomycin and was admitted to medical floor for continuation of care Admission Exam (Per Admitting) Constitutional Physical Exam: Lying in bed comfortably Constitutional: well developed, well nourished, + ill appearing and + morbidly obese Eyes: PERRL, conjunctivae normal, anicteric sclerae ENMT: external ear and nose normal, oropharynx normal Neck: trachea midline, no thyromegaly Respiratory: + cough; no respiratory distress Auscul tation: lungs clear to auscultation bilaterally Cardiovascular: Rate/Rhythm: regular rate, regular rhythm and + tachycardic Heart Sounds: normal S1 and normal S2; no murmur Extremities: + edema (Bilateral lymphedema worse on the right than the left with erythema of RLE) Gastrointestinal (Abdomen): Inspection/Auscultation: + abdomen distended and normal bowel sounds Percussion/Palpation: abdomen soft; abdomen nontender Musculoskeletal: No acute arthritis in any joint Neurologic: Alert, awake and oriented x3. Generally weak Discharge Data Consultations 03/18/21 17:20 ED Decision to Admit Stat 03/30/21 07:49 Consult Nephrology Routine 03/31/21 08:23 Consult Infectious Diseases Routine Procedures Performed RIGHT THIGH ULTRASOUND CLINICAL HISTORY: Right thigh pain/swelling. COMPARISON STUDY: Right thigh ultrasound May 11, 2020. TECHNIQUE: Sonography of the medial right thigh at site of pain and erythema was performed. FINDINGS: There is extensive subcutaneous fluid of the medial right thigh. No fluid collection is identified on this exam to suggest an abscess. No mass is identified. IMPRESSION: 1. Extensive subcutaneous fluid of the medial right thigh. This may reflect cellulitis or edema. 2. No fluid collection by sonography to suggest an abscess within the medial right thigh. ACT 112: Negative or not required by law. Electronically signed by: Michel Siu M.D. 03/29/2021 2:57 PM Hospital Course (1) Cellulitis: per Dr. Ruth's notes with addendum: Right lower extremity cellulitis Has had cat scratch on the right leg and following that has Spreading cellulitis involving the right lower extremity blood cultures negative given daptomycin and Unasyn, then Cefepime, Doxy (during 2 week stay in the hospital) given IV lasix for persistent leg edema with improvement U/S showed extensive subcutaneous fluid of the medial right thigh, it could be cellulitis or edema.No fluid collection by sonography to suggest an abscess within the medial right thigh. 04/01 ID consulted recommend Doxcycline 100mg BID x 2 weeks close outpatient ff up Patient also requested for as needed analgesics-has been receiving oxycodone as needed as an inpatient, prescribed oxycodone Sabrina in the urine Asymptomatic denies any urinary complaints Discussed with ID service Does not recommend treatment as patient is asymptomatic Monitor closely Hypokalemia Likely secondary to use of diuretics resolved Hyponatremia Most likely due to diuretic Sodium 129 this morning and repeat Na 130 Nephro consulted likely Hypovolemic placed on fluid restriction 2 L /day Na 134 Continue fluid restriction Repeat sodium 1 follow-up with PCP within 1 week monitor (2) Pain of right leg: improving (3) Immunocompromised: She has history of SLE and is on CellCept Immunocompromised and will continue to hold CellCept while on abx Case discussed with Dr. Stevens (4) Asthma, mild persistent: Seems to be stable No wheezing and no shortness of breath at rest Has some cough but no wheezing (5) Sleep apnea: Uses CPAP at night (6) Lupus: Spoke to rheumatology Dr. Stevens, agree to hold the cellcept while on abx (7) GERD (gastroesophageal reflux disease): Continue PPI (8) Lymphedema: Has bilateral lymphedema Complicating the cellulitis (9) Venous insufficiency of both lower extremities: Complicating the infection plan of care discussed with patient in detail and at length all questions answered she is understanding, agreeable, comfortable with the plan of care
== END 2021-04-01 16:52 | disposition home health service (06) | DRG 603 ==
LOC: ED 15:16 → EDINP 18:30 → SUATTDRO 18:30 → 2N 22:27
DX: T50.2X5A Adverse effect of carbonic-anhydrase inhibitors, benzothiadiazides and other diuretics, initial encounter; J45.30 Mild persistent asthma, uncomplicated; M32.9 Systemic lupus erythematosus, unspecified; E87.1 Hypo-osmolality and hyponatremia; I89.0 Lymphedema, not elsewhere classified; B37.49 Other urogenital candidiasis; E66.01 Morbid (severe) obesity due to excess calories; G47.33 Obstructive sleep apnea (adult) (pediatric); E87.6 Hypokalemia; L03.115 Cellulitis of right lower limb; Z68.44 Body mass index [BMI] 60.0-69.9, adult; D84.9 Immunodeficiency, unspecified; Z83.3 Family history of diabetes mellitus; R00.0 Tachycardia, unspecified; Z88.8 Allergy status to other drugs, medicaments and biological substances; D63.8 Anemia in other chronic diseases classified elsewhere; K21.9 Gastro-esophageal reflux disease without esophagitis; W55.03XA Scratched by cat, initial encounter; I87.2 Venous insufficiency (chronic) (peripheral); Y92.009 Unspecified place in unspecified non-institutional (private) residence as the place of occurrence of the external cause

== ENCOUNTER 2021-06-20 00:38 | Inpatient (IN) ==
[2021-06-20] MEDS ORDERED: ALBUT/IPRATROP 3MG/0.5MG NEB 3 ML VIAL INH STA (00:56)
[2021-06-20 01:14] LABS: Basophils # (auto) 0.01 K/uL (0-0.2); Basophils % (auto) 0.1 %; Eosinophils # (auto) 0.13 K/uL (0-0.5); Eosinophils % (auto) 1.9 %; Hematocrit (blood only) 30.3 % (37-47); Hemoglobin 9.3 g/dL (12.0-16.0); Immature Granulocytes # (auto) 0.13 K/uL (0.00-0.02); Immature Granulocytes % (auto) 1.9 %; Lymphocytes # (auto) 0.56 K/uL (1.2-3.4); Lymphocytes % (auto) 8.3 %; Mean Corpuscular Hemoglobin 26.5 pg (25-34); Mean Corpuscular Hgb Conc 30.7 g/dL (32-36); Mean Corpuscular Volume 86.3 fL (80-100); Mean Platelet Volume 8.3 fL (7.4-10.4); Monocytes # (auto) 0.13 K/uL (0.11-0.59); Monocytes % (auto) 1.9 %; Neutrophils # (auto) 5.77 K/uL (1.4-6.5); Neutrophils % (auto) 85.9 %; Platelet Count 320 K/uL (130-400); RDW Coefficient of Variation 16.7 % (11.5-14.5); RDW Standard Deviation 52.7 fL (36.4-46.3); Red Blood Count 3.51 M/uL (4.2-5.4); White Blood Count 6.73 K/uL (4.8-10.8)
[2021-06-20 01:30] LABS: Appearance Urine Clear (Clear); Bilirubin Urine Negative (Negative); Blood Urine Negative (Negative); Color Urine Yellow; Glucose Urine UA Negative (Negative); Ketones Urine Negative (Negative); Leukocyte Esterase Urine Negative (Negative); Nitrite Urine Negative (Negative); Protein Urine Negative (Negative); Specific Gravity Urine 1.009 (1.000-1.030); Urobilinogen Urine Negative (Negative); pH Urine 6.5 (4.5-7.5)
[2021-06-20 01:40] LABS: Alanine Aminotransferase 10 U/L (7-52); Albumin Globulin Ratio 0.5 (0.9-2); Alkaline Phosphatase 64 U/L (34-104); Anion Gap 9 (3-11); Aspartate Aminotransferase 29 U/L (13-39); BUN Creatinine Ratio 19.4 (10-20); Bilirubin,Total 0.7 mg/dl (0.2-1.0); Blood Urea Nitrogen 12 mg/dl (6-23); Calcium 8.2 mg/dl (8.5-10.1); Carbon Dioxide 26 mmol/L (21-32); Chloride 102 mmol/L (98-107); Creatinine Clr Calc Pharmacy 184.5 ml/min; Est GFR (African American) 123.6 ml/min; Est GFR (Non-African American) 106.6 ml/min; Globulin 6.4 gm/dl (2.5-4.0); Glucose 129 mg/dl (70-99(Fasting)); Magnesium 1.9 mg/dl (1.7-2.4); Potassium 4.1 mmol/L (3.5-5.1); Sodium 137 mmol/L (136-145); Total Protein 9.4 gm/dl (6.0-8.3)
--- NOTE | 2021-06-20 01:52 | Emergency Department Note ---
History of Present Illness General Chief complaint: Shortness of Breath/Dyspnea Stated complaint: SOB PAST WK Time Seen by Provider: 06/20/21 00:43 History of Present Illness Maximum Pain Intensity: 5 This 50 yo w/ SLE presents to the ER complaining of worsening shortness of breath for the past week who has asthma Location: Chest Quality: Hard to breathe Severity: Moderate Duration: 1 week Timing: Started a week ago Context: Symptoms got worse and patient came in Modifying factors: better with rest; worse with activity Patient denies chest pain, abdominal pain, vomiting, diarrhea, flulike illness. She states this feels different than her asthma. No history of blood clots. She does not smoke. Doppler ultrasound this week was negative per patient. She follows with the wound clinic for her chronic wound ulcer. Home Medications Medication Instructions Recorded Confirmed Type epinephrine 0.3 mg/0.3 mL 0.3 mg IM DIRECTED PRN #0 09/22/17 06/20/21 History injection, auto-injector (EpiPen 2-David) loratadine 10 mg tablet 10 mg PO DAILY PRN #0 tab 09/22/17 06/20/21 History albuterol sulfate 90 mcg/actuation 2 puff INHALATION Q4H PRN 04/27/18 06/20/21 History aerosol inhaler mometasone-formoterol HFA 200 2 puff INHALATION BID 04/27/18 06/20/21 History mcg-5 mcg/actuation aerosol inhaler valacyclovir 1 gram tablet 1,000 mg PO Q12H PRN 04/27/18 06/20/21 History omeprazole 20 mg tablet,delayed 20 mg PO QAM 03/05/19 06/20/21 History release CPAP Machine #1 ea 03/12/19 06/14/21 History gabapentin 300 mg capsule 300 mg PO TID 07/05/19 06/20/21 History levothyroxine 75 mcg tablet 75 mcg PO QAM 01/25/21 06/20/21 History trazodone 50 mg tablet 50 - 100 mg PO HS 01/25/21 06/20/21 History Oxygen Home #1 ea 06/01/21 06/14/21 History mycophenolate mofetil 500 mg 1,500 mg PO BID tab 06/01/21 06/14/21 History tablet (CellCept) bupropion HCl 150 mg 24 hr tablet, 150 mg PO QAM 06/20/21 06/20/21 History extended release duloxetine 60 mg capsule,delayed 120 mg PO DAILY 06/20/21 06/20/21 History release fluticasone propionate 50 2 spray INTRANASAL BID 06/20/21 06/20/21 History mcg/actuation nasal spray,suspension hydroxyzine HCl 10 mg tablet 10 mg PO TID PRN 06/20/21 06/20/21 History prednisone 20 mg tablet 40 mg PO DAILY 06/20/21 06/20/21 History Allergies Allergy/AdvReac Type Severity Reaction Status Date / Time hydroxychloroquine Allergy Severe Swelling Verified 06/14/21 10:11 [From Plaquenil] of Lip/Tongue/Throat nickel Allergy Mild Rash Verified 06/14/21 10:11 Past Med/Surg History Medical History Anemia, chronic disease Anxiety Asthma stable, using rescue inhaler with exertion Bronchiolitis JUNE 2019> RESOLVED Depression GERD (gastroesophageal reflux disease) controlled Hypothyroidism Lupus stable on Cellcept; follows w/[facility] Lymphedema Lower extremities Morbid obesity with BMI of 60.0-69.9, adult On home oxygen therapy ON O2 AT 2L WITH CPAP DEVICE AT HS Osteoarthritis Pneumonia ~ 2 weeks ago, seen by PCP, tx with ABX and prednisone Psoriasis Shingles RESOLVED Sleep apnea CPAP Urticarial vasculitis Venous insufficiency of both lower extremities Surgical History History of appendectomy History of bilateral tubal ligation History of cataract surgery R & L History of section History of colonoscopy History of D&C X2 History of esophagogastroduodenoscopy (EGD) History of wisdom tooth extraction Family History Father Diabetes Mother Asthma Hypertension Brother Stroke Grandfather (Paternal) Diabetes Sister Hay fever Denies family history of Ovarian cancer Breast cancer Colorectal cancer Social History Smoking Status: Never smoker Second Hand Exposure: No; Hx Alcohol Use: Yes Alcohol type: wine Alcohol Intake Frequency: Monthly or Less Hx Substance Use: No Preferred Language: Tamazight Communication Ability: Effective Visual Impairment: Limited Hearing Ability: Normal Transformer Builder Required: No Beliefs That Will Affect Care: None Current Living Situation: Family and Significant Other Current Living Situation Comment: Grandson and SO current occupational status: disabled Feels Safe at Home: Yes caffeine: Yes Physical Activity Frequency: Does not Exercise Do you think of yourself as: straight/heterosexual Gender Identity: Female Assistive Devices: CPAP, Glasses, Oxygen - at Night and Walker Review of Systems A total of 10 systems reviewed and were otherwise negative Physical Exam Vital Signs Vital Signs - 24 hr 06/20/21 00:42 06/20/21 01:06 06/20/21 03:00 Temperature 36.6 C Temperature Source Oral Pulse Rate 78 105 H Pulse Rate [Left Radial] 105 H 63 Pulse Rhythm Regular Pulse Rhythm [Left Radial] Regular Pulse Strength [Left Radial] Normal Respiratory Rate 22 28 H 22 Respiratory Effort / Characteristics Accessory Muscle Use Grunting Labored Respiratory Depth Normal Normal Normal Respiratory Pattern Regular Blood Pressure 138/67 Blood Pressure [Right Arm] 112/76 Blood Pressure Mean 90 Blood Pressure Mean [Right Arm] 88 Pulse Oximetry 95 92 91 Oxygen Delivery Method Room Air Room Air Room Air Oxygen Flow Rate Sepsis Recent Fever Within 48 Hours No Sepsis New/Unexplained Change in Mental Status N/A Sepsis Action Taken by Nursing No Action Required Oxygen Flow Rate - Titration Pulse Oximetry Post Tiitration 06/20/21 03:43 Temperature Temperature Source Pulse Rate Pulse Rate [Left Radial] Pulse Rhythm Pulse Rhythm [Left Radial] Pulse Strength [Left Radial] Respiratory Rate Respiratory Effort / Characteristics Respiratory Depth Respiratory Pattern Blood Pressure Blood Pressure [Right Arm] Blood Pressure Mean Blood Pressure Mean [Right Arm] Pulse Oximetry 88 L Oxygen Delivery Method Nasal Cannula Oxygen Flow Rate 0 Sepsis Recent Fever Within 48 Hours Sepsis New/Unexplained Change in Mental Status Sepsis Action Taken by Nursing Oxygen Flow Rate - Titration 2 Pulse Oximetry Post Tiitration 97 VITALS: Vitals are noted on the nurse's note and reviewed by myself. Vital signs stable. GENERAL: Pleasant female with an elevated BMI, in no acute distress, nondiaphoretic, well-developed well-nourished. SKIN: The skin was without rashes or bruising. There is no tenting of the skin. Capillary reflex less than 2 seconds. HEAD: Normocephalic atraumatic. EARS: External auditory canals clear, EYES: Pupils equal round and reactive to light and accommodation. Conjunctivae without injection, sclerae without icterus. Extraocular movements intact. NOSE: Patent, turbinates without inflammation or discharge. MOUTH: Mucous membranes moist. Pharynx without erythema or exudate. Uvula midline. Airway patent. Tongue does not deviate. NECK: Supple without nuchal rigidity. No lymphadenopathy. No thyromegaly. Cervical spine is nontender. No JVD. HEART: Regular rate and rhythm LUNGS: Mild diffuse end expiratory wheezes, without rales or rhonchi. No retractions or accessory muscle use. ABDOMEN: Positive bowel sounds x 4. Normal tympanic percussion. Soft, nontender, without masses or organomegaly. Reardon sign negative. No guarding or rebound tenderness. No CVA tenderness MUSCULOSKELETAL: No muscle atrophy noted. NEURO: Patient was alert and oriented to person place and time. Normal sensation to light and sharp touch. No focal neurological deficits. Course Administered Medications Magnesium Sulfate/Dextrose (Magnesium Sulfate / D5w) 1 gm in 100 mls @ 50 mls/hr IV ONE ONE Stop: 06/20/21 05:20 Last Admin: 06/20/21 03:32 Dose: 50 mls/hr Documented by: [id number] Discontinued Medications Albuterol (Albut/Ipratrop 3mg/0.5mg Neb 3 Ml Vial) 3 ml INH NOW STA Stop: 06/20/21 00:57 Last Admin: 06/20/21 01:18 Dose: 3 ml Documented by: [id number] Ioversol (Optiray 320 125ml) 120 ml IV ONCE ONE Stop: 06/20/21 02:02 Last Admin: 06/20/21 02:03 Dose: 120 ml Documented by: [id number] Methylprednisolone (Methylprednisolone 125 Mg/2 Ml Vial) 125 mg IV NOW STA Stop: 06/20/21 03:23 Last Admin: 06/20/21 03:32 Dose: 125 mg Documented by: [id number] Medical Decision Making Medical Records Attestation: I reviewed the patient's medical records. Home Medications Current Medication List: was personally reviewed by me Laboratory Data Attestation: I reviewed the patient's lab results. Result diagrams: 06/20/21 01:05 06/20/21 01:05 Lab Results 06/20/21 06/20/21 06/20/21 Range/Units 01:05 01:05 01:05 WBC 6.73 (4.8-10.8) K/uL RBC 3.51 L (4.2-5.4) M/uL Hgb 9.3 L (12.0-16.0) g/dL Hct 30.3 L (37-47) % MCV 86.3 (80-100) fL MCH 26.5 (25-34) pg MCHC 30.7 L (32-36) g/dL RDW Std Deviation 52.7 H (36.4-46.3) fL RDW Coeff of Anastacia 16.7 H (11.5-14.5) % Plt Count 320 (130-400) K/uL MPV 8.3 (7.4-10.4) fL Immature Gran % (Auto) 1.9 % Neut % (Auto) 85.9 % Lymph % (Auto) 8.3 % Tillman % (Auto) 1.9 % Eos % (Auto) 1.9 % Baso % (Auto) 0.1 % Neut # (Auto) 5.77 (1.4-6.5) K/uL Lymph # (Auto) 0.56 L (1.2-3.4) K/uL Tillman # (Auto) 0.13 (0.11-0.59) K/uL Eos # (Auto) 0.13 (0-0.5) K/uL Baso # (Auto) 0.01 (0-0.2) K/uL Immature Gran # (Auto) 0.13 H (0.00-0.02) K/uL Sodium 137 (136-145) mmol/L Potassium 4.1 (3.5-5.1) mmol/L Chloride 102 (98-107) mmol/L Carbon Dioxide 26 (21-32) mmol/L Anion Gap 9 (3-11) BUN 12 (6-23) mg/dl Creatinine 0.62 (0.6-1.2) mg/dl Est Cr Clr Drug Dosing 184.5 ml/min Est GFR ( Amer) 123.6 ml/min Est GFR (Non-Af Amer) 106.6 ml/min BUN/Creatinine Ratio 19.4 (10-20) Glucose 129 H (70-99(Fasting)) mg/dl Calcium 8.2 L (8.5-10.1) mg/dl Magnesium 1.9 (1.7-2.4) mg/dl Total Bilirubin 0.7 (0.2-1.0) mg/dl AST 29 (13-39) U/L ALT 10 (7-52) U/L Alkaline Phosphatase 64 (34-104) U/L Troponin I < 0.03 (0-0.04) ng/ml Total Protein 9.4 H (6.0-8.3) gm/dl Albumin 3.0 L (3.4-5.0) gm/dl Globulin 6.4 H (2.5-4.0) gm/dl Albumin/Globulin Ratio 0.5 L (0.9-2) HCG, Qual Negative (Negative) Urine Color Urine Appearance (Clear) Urine pH (4.5-7.5) Ur Specific [place] (1.000-1.030) Urine Protein (Negative) Urine Glucose (UA) (Negative) Urine Ketones (Negative) Urine Blood (Negative) Urine Nitrite (Negative) Urine Bilirubin (Negative) Urine Urobilinogen (Negative) Ur Leukocyte Esterase (Negative) Adenovirus (PCR) (NotDetected) B. pertussis DNA (PCR) (NotDetected) B.parapertussis DNA PCR (NotDetected) C. pneumoniae DNA (PCR) (NotDetected) Coronavirus OC43 (PCR) (NotDetected) Coronavirus HKU1 (PCR) (NotDetected) Coronavirus 229E (PCR) (NotDetected) SARS-CoV-2 (PCR) (NotDetected) Coronavirus NL63 (PCR) (NotDetected) Human Metapneumovir PCR (NotDetected) Influenza Type A (PCR) (NotDetected) Influenza Type B (PCR) (NotDetected) M. pneumoniae (PCR) (NotDetected) Parainfluenza 1 (PCR) (NotDetected) Parainfluenza 2 (PCR) (NotDetected) Parainfluenza 3 (PCR) (NotDetected) Parainfluenza 4 (PCR) (NotDetected) RSV (PCR) (NotDetected) Entero/Rhino (PCR) (NotDetected) 06/20/21 06/20/21 Range/Units 01:10 01:32 WBC (4.8-10.8) K/uL RBC (4.2-5.4) M/uL Hgb (12.0-16.0) g/dL Hct (37-47) % MCV (80-100) fL MCH (25-34) pg MCHC (32-36) g/dL RDW Std Deviation (36.4-46.3) fL RDW Coeff of Anastacia (11.5-14.5) % Plt Count (130-400) K/uL MPV (7.4-10.4) fL Immature Gran % (Auto) % Neut % (Auto) % Lymph % (Auto) % Tillman % (Auto) % Eos % (Auto) % Baso % (Auto) % Neut # (Auto) (1.4-6.5) K/uL Lymph # (Auto) (1.2-3.4) K/uL Tillman # (Auto) (0.11-0.59) K/uL Eos # (Auto) (0-0.5) K/uL Baso # (Auto) (0-0.2) K/uL Immature Gran # (Auto) (0.00-0.02) K/uL Sodium (136-145) mmol/L Potassium (3.5-5.1) mmol/L Chloride (98-107) mmol/L Carbon Dioxide (21-32) mmol/L Anion Gap (3-11) BUN (6-23) mg/dl Creatinine (0.6-1.2) mg/dl Est Cr Clr Drug Dosing ml/min Est GFR ( Amer) ml/min Est GFR (Non-Af Amer) ml/min BUN/Creatinine Ratio (10-20) Glucose (70-99(Fasting)) mg/dl Calcium (8.5-10.1) mg/dl Magnesium (1.7-2.4) mg/dl Total Bilirubin (0.2-1.0) mg/dl AST (13-39) U/L ALT (7-52) U/L Alkaline Phosphatase (34-104) U/L Troponin I (0-0.04) ng/ml Total Protein (6.0-8.3) gm/dl Albumin (3.4-5.0) gm/dl Globulin (2.5-4.0) gm/dl Albumin/Globulin Ratio (0.9-2) HCG, Qual (Negative) Urine Color Yellow Urine Appearance Clear (Clear) Urine pH 6.5 (4.5-7.5) Ur Specific [place] 1.009 (1.000-1.030) Urine Protein Negative (Negative) Urine Glucose (UA) Negative (Negative) Urine Ketones Negative (Negative) Urine Blood Negative (Negative) Urine Nitrite Negative (Negative) Urine Bilirubin Negative (Negative) Urine Urobilinogen Negative (Negative) Ur Leukocyte Esterase Negative (Negative) Adenovirus (PCR) DETECTED A* (NotDetected) B. pertussis DNA (PCR) Not Detected (NotDetected) B.parapertussis DNA PCR Not Detected (NotDetected) C. pneumoniae DNA (PCR) Not Detected (NotDetected) Coronavirus OC43 (PCR) Not Detected (NotDetected) Coronavirus HKU1 (PCR) Not Detected (NotDetected) Coronavirus 229E (PCR) Not Detected (NotDetected) SARS-CoV-2 (PCR) Not Detected (NotDetected) Coronavirus NL63 (PCR) Not Detected (NotDetected) Human Metapneumovir PCR Not Detected (NotDetected) Influenza Type A (PCR) Not Detected (NotDetected) Influenza Type B (PCR) Not Detected (NotDetected) M. pneumoniae (PCR) Not Detected (NotDetected) Parainfluenza 1 (PCR) Not Detected (NotDetected) Parainfluenza 2 (PCR) Not Detected (NotDetected) Parainfluenza 3 (PCR) Not Detected (NotDetected) Parainfluenza 4 (PCR) Not Detected (NotDetected) RSV (PCR) Not Detected (NotDetected) Entero/Rhino (PCR) Not Detected (NotDetected) Imaging Data Attestation: I personally reviewed and interpreted this imaging study as follows: MDM Narrative Prior records/ancillary studies reviewed. Triage Nursing notes reviewed. Additional history obtained from nursing The patient's history was concerning for respiratory difficulties. Differential diagnosis: Etiologies such as infections, reactive airway disease, pneumonia, pneumot horax, COPD, CHF, cardiac ischemia, pulmonary embolism, musculoskeletal, gastrointestinal, as well as others were entertained. Physical examination: As above. ER treatment provided: An order was placed for continuous cardiac monitoring. The monitor shows a rate of 60-1 20 with a sinus rhythm. Nebulizer, steroids Patient accidentally slid out of the wheelchair. Nursing and myself helped lift the patient up and walked her to the bed. Patient states she had no complaints from falling out of the wheelchair. She was able to ambulate to the bathroom without difficulties per patient. On reassessment the patient felt better. Diagnostic interpretation by me: The electrocardiogram was ordered for dyspnea EKG: Normal sinus, occasional sinus arrhythmia, incomplete left bundle, no acute ST-T wave changes, rate of 70. Impression incomplete left bundle with sinus rhythm interpreted by myself I think arrhythmia is unlikely. EKG shows normal sinus rhythm with no interval abnormalities such as QT prolongation or WPW. There are no findings to suggest Brugada syndrome. Cardiac monitoring in the emergency department reveals no tachycardic or bradycardic dysrhythmia. Hypertrophic cardiomyopathy was considered but there are no clear historical elements pointing toward this. EKG is not suggestive. The QRS voltage is not extremely large and there are no suggestive Q waves. The labs revealed positive adenovirus Negative troponin Imaging studies: Preliminary Findings Only See Final Report For Complete Findings CTA CHEST: Mildly limited evaluation due to bolus timing and respiratory motion artifact. No evidence of pulmonary emboli within the pulmonary outflow tract. Dilated pulmonary outflow tract with mild cardiomegaly which may relate to sequela of pulmonary arterial hypertension and heart failure. Groundglass opacification within the lungs with interlobular septal thickening which may be due to pulmonary edema. Enlarged mediastinal lymph nodes which are nonspecific and may be infectious or inflammatory in nature. Partially visualized splenomegaly with the spleen measuring 17.0 cm. Radiologist: Uli Reed MD Phone:f [phone] Study ready at 02:18 and initial results transmitted at 03:01 Consultation: A consultation was placed with the hospitalist. The case was discussed and diagnostics were reviewed. The patient was evaluated in the ER for further treatment. This appears to be consistent with shortness of breath with adenovirus and pulmonary congestion. Patient's walking pulse ox was 88%. She is short of breath. Medicine was consulted. She will be evaluated for admission. By the evaluation outlined above emergent etiologies such as cardiac ischemia, pulmonary embolism, reactive airway disease, pneumothorax, musculoskeletal, serious bacterial infections, as well as others were deemed relatively unlikely. The pt informed about the findings as listed above. All questions were answered and pleased with the treatment. The chart was completed utilizing [employer] Speech voice recognition software. Grammatical errors, random word insertions, pronoun errors, and incomplete sentences are an occassional consequence of this system due to software limitations, ambient noise, and hardware issues. Any formal questions or concerns about the content, text, or information contained within the body of this dictation should be directly addressed to the physician dietary assistant for clarification. Impression & Plan Adenovirus infection, Hypoxemia, Acute dyspnea Discharge Plan Visit Data Chief Complaint: Shortness of Breath/Dyspnea Stated Complaint: SOB PAST [facility] ED Provider: Tricia Carlos ED Midlevel Provider: Samantha Zuluaga Discharge Problem: Adenovirus infection, Hypoxemia, Acute dyspnea Patient Disposition: Admitted As Inpatient Condition: Good Forms Stand Alone Forms: [employer] Prescriptions Prescriptions: No Action mycophenolate mofetil [CellCept] 500 mg tablet 1,500 mg PO BID RF: 0 loratadine 10 mg Tablet 10 mg PO DAILY PRN (Reason: Allergy Symptoms) Qty: 0 RF: 0 epinephrine [EpiPen 2-David] 0.3 mg/0.3 mL Auto-Injector 0.3 mg IM DIRECTED PRN (Reason: Allergic Reaction) Qty: 0 RF: 0 (DME) CPAP Machine Misc See Rx Instructions .ROUTE .MEDSUPPLY Qty: 1 RF: 0 (DME) Oxygen Home Liters Per Minute See Rx Instructions .ROUTE .MEDSUPPLY Qty: 1 RF: 0 albuterol sulfate 90 mcg/actuation HFA aerosol inhaler 2 puff Inhalation Q4H PRN (Reason: Cough/Wheezing) RF: 0 mometasone-formoterol 200-5 mcg/actuation HFA aerosol inhaler 2 puff Inhalation BID RF: 0 valacyclovir 1 gram Tablet 1,000 mg PO Q12H PRN (Reason: Cold Sores) RF: 0 omeprazole 20 mg Tablet,Delayed Release (Dr/Ec) 20 mg PO QAM RF: 0 gabapentin 300 mg Capsule 300 mg PO TID RF: 0 duloxetine 60 mg capsule,delayed release(DR/EC) 120 mg PO DAILY RF: 0 prednisone 20 mg tablet 40 mg PO DAILY RF: 0 hydroxyzine HCl 10 mg tablet 10 mg PO TID PRN (Reason: Itching) RF: 0 bupropion HCl 150 mg tablet extended release 24 hr 150 mg PO QAM RF: 0 fluticasone propionate 50 mcg/actuation spray,suspension 2 spray INTRANASAL BID RF: 0 trazodone 50 mg tablet 50 - 100 mg PO HS RF: 0 levothyroxine 75 mcg tablet 75 mcg PO QAM RF: 0 Referrals Referrals: Ary Bravo, [Primary Care Provider] -
[2021-06-20] MEDS ORDERED: OPTIRAY 320 125ml IV ONE (02:01)
[2021-06-20 02:03] LABS: Pregnancy Test, Serum Negative (Negative)
[2021-06-20 02:11] LABS: Troponin I < 0.03 ng/ml (0-0.04)
[2021-06-20 02:52] LABS: Bordetella parapertussis PCR Not Detected (NotDetected); Bordetella pertussis PCR Not Detected (NotDetected); Chlamydia pneumoniae PCR Not Detected (NotDetected); Coronavirus 229E PCR Not Detected (NotDetected); Coronavirus CoV-2 (COVID19)PCR Not Detected (NotDetected); Coronavirus HKU1 PCR Not Detected (NotDetected); Coronavirus NL63 PCR Not Detected (NotDetected); Coronavirus OC43PCR Not Detected (NotDetected); Human Metapneumovirus PCR Not Detected (NotDetected); Influenza A PCR Not Detected (NotDetected); Influenza B PCR Not Detected (NotDetected); Mycoplasma pneumoniae PCR Not Detected (NotDetected); Parainfluenza Virus 1 PCR Not Detected (NotDetected); Parainfluenza Virus 2 PCR Not Detected (NotDetected); Parainfluenza Virus 3 PCR Not Detected (NotDetected); Parainfluenza Virus 4 PCR Not Detected (NotDetected); Respiratory Syncytial VirusPCR Not Detected (NotDetected); Rhinovirus/Enterovirus PCR Not Detected (NotDetected)
[2021-06-20 02:58] LABS: Adenovirus PCR DETECTED (NotDetected)
[2021-06-20] MEDS ORDERED: MAGNESIUM SULFATE / D5W 1 GM/100 ML BAG IV ONE (03:21)
[2021-06-20] MEDS ORDERED: methylPREDNISolone 125 MG/2 ML VIAL IV STA (03:22)
--- NOTE | 2021-06-20 03:29 | History & Physical Report ---
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 hypothyroidism, euthyroid as of today's TSH chronic lymphedema/RLE wound, leg wound not any worse as per patient, patient scheduled for outpatient follow-up evaluation by vocational rehabilitation specialist this week chronic anemia, hemoglobin at baseline Hyperglycemia likely prediabetes, hemoglobin A1c of 6 from March 2021 PCU Supplemental O2 Baseline ABG Diuretic Rx Strict I/Os, daily weights, CHF education, fluid restriction TTE, Cardiology consult Re: CHF Prednisone course and nebs RTC for asthma exacerbation Pulmonary consult if without improvement Wound care nurse follow-up evaluation for RLE wound DVT prophylaxis per Lovenox subcu Full code Text document was generated using Rise voice recognition software. It may contain grammatical or spelling errors. Kindly contact undersigned for clarification of any documentation item in question. History of Present Illness Chief Complaint: Worsening shortness of breath Primary Care Provider: Ary Bravo, History obtained from patient and records. 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 Last confinement March 2021 for RLE cellulitis secondary to cat scratch. Patient discharged on doxycycline course. Last follow-up with [facility] wound care center last week. Patient instructed to finish Augmentin course for open wound on right medial thigh. Ascetic acid dressing for Pseudomonas growth on CS. Outpatient lower extremity Dopplers negative for DVT. Patient to return after 1 week for evaluation of wound as per note. Possible wound VAC placement depending on progress. Last week, patient noted dry cough symptoms with shortness of breath mostly on exertion. Chest/abdominal pain from coughing as per patient. No known recent COVID-19 contacts. Patient completed COVID-19 vaccination. Significant fluid retention possible weight gain since discharge from the hospital despite compliance with home diuretic regimen. Not able to weigh herself at home. Prednisone course prescribed for asthma exacerbation by outpatient provider. O2 sats noted to be 88 on room air at some point at the ER. Patient given Solu-Medrol and neb treatment for asthma exacerbation. Medical History as above Surgical History : Lymph node biopsy, section, BTL, appendectomy, cataract surgeries Family History : Asthma, DM, heart disease, stroke Personal/Social history : Non-smoker, no EtOH intake, disabled Allergies Allergy/AdvReac Type Severity Reaction Status Date / Time hydroxychloroquine Allergy Severe Swelling Verified 06/14/21 10:11 [From Plaquenil] of Lip/Tongue/Throat nickel Allergy Mild Rash Verified 06/14/21 10:11 Home Medications Medication Instructions Recorded Confirmed Type epinephrine 0.3 mg/0.3 mL 0.3 mg IM DIRECTED PRN #0 09/22/17 06/20/21 History injection, auto-injector (EpiPen 2-David) loratadine 10 mg tablet 10 mg PO DAILY PRN #0 tab 09/22/17 06/20/21 History albuterol sulfate 90 mcg/actuation 2 puff INHALATION Q4H PRN 04/27/18 06/20/21 History aerosol inhaler mometasone-formoterol HFA 200 2 puff INHALATION BID 04/27/18 06/20/21 History mcg-5 mcg/actuation aerosol inhaler valacyclovir 1 gram tablet 1,000 mg PO Q12H PRN 04/27/18 06/20/21 History omeprazole 20 mg tablet,delayed 20 mg PO QAM 03/05/19 06/20/21 History release CPAP Machine #1 ea 03/12/19 06/14/21 History gabapentin 300 mg capsule 300 mg PO TID 07/05/19 06/20/21 History levothyroxine 75 mcg tablet 75 mcg PO QAM 01/25/21 06/20/21 History trazodone 50 mg tablet 50 - 100 mg PO HS 01/25/21 06/20/21 History Oxygen Home #1 ea 06/01/21 06/14/21 History mycophenolate mofetil 500 mg 1,500 mg PO BID tab 06/01/21 06/14/21 History tablet (CellCept) bupropion HCl 150 mg 24 hr tablet, 150 mg PO QAM 06/20/21 06/20/21 History extended release duloxetine 60 mg capsule,delayed 120 mg PO DAILY 06/20/21 06/20/21 History release fluticasone propionate 50 2 spray INTRANASAL BID 06/20/21 06/20/21 History mcg/actuation nasal spray,suspension hydroxyzine HCl 10 mg tablet 10 mg PO TID PRN 06/20/21 06/20/21 History prednisone 20 mg tablet 40 mg PO DAILY 06/20/21 06/20/21 History Past Med/Surg History Medical History Anemia, chronic disease Anxiety Asthma stable, using rescue inhaler with exertion Bronchiolitis JUNE 2019> RESOLVED Depression GERD (gastroesophageal reflux disease) controlled Hypothyroidism Lupus stable on Cellcept; follows w/[facility] Lymphedema Lower extremities Morbid obesity with BMI of 60.0-69.9, adult On home oxygen therapy ON O2 AT 2L WITH CPAP DEVICE AT HS Osteoarthritis Pneumonia ~ 2 weeks ago, seen by PCP, tx with ABX and prednisone Psoriasis Shingles RESOLVED Sleep apnea CPAP Urticarial vasculitis Venous insufficiency of both lower extremities Surgical History History of appendectomy History of bilateral tubal ligation History of cataract surgery R & L History of section History of colonoscopy History of D&C X2 History of esophagogastroduodenoscopy (EGD) History of wisdom tooth extraction Family History Father Diabetes Mother Asthma Hypertension Brother Stroke Grandfather (Paternal) Diabetes Sister Hay fever Denies family history of Ovarian cancer Breast cancer Colorectal cancer Social History Smoking Status: Never smoker Second Hand Exposure: No; Hx Alcohol Use: No Hx Substance Use: No Preferred Language: Malay Communication Ability: Effective Visual Impairment: Limited Hearing Ability: Normal 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 Beliefs That Will Affect Care: None Current Living Situation: Family Current Living Situation Comment: Grandson and SO current occupational status: disabled Feels Safe at Home: Yes Safety Concerns: Feels Safe At This Time caffeine: Yes Physical Activity Frequency: Does not Exercise Do you think of yourself as: straight/heterosexual Gender Identity: Female Assistive Devices: Glasses Review of Systems Review of Systems: As per HPI, all 10 systems reviewed, all other ROS negative Physical Exam Physical Exam: GENERAL: Slightly uncomfortable, morbidly obese, looks older than stated age, no respiratory distress SKIN: Pallor , warm HEENT: Bespectacled, pale palpebral conjunctivae, no ptosis, dry buccal mucosa, nasal cannula in place NECK : Supple, short neck, no tenderness CHEST : Decreased breath sounds, no tenderness HEART : RRR, no obvious murmurs ABDOMEN: distention, nontender EXTREMITIES : Bilateral LE swelling with minimal erythema, no LE tenderness, dressing over right leg, no other conspicuous deformities noted NEUROLOGIC : Coherent, no facial asymmetry, no other gross focality Results & Data Results & Data ([facility]) Vital Signs (Past 12 Hours) Vital Signs Temp Pulse Pulse Resp BP BP Pulse Ox 06/20/21 03:00 63 22 112/76 91 06/20/21 01:06 105 H 105 H 28 H 92 06/20/21 00:42 36.6 C 78 22 138/67 95 Laboratory Results Laboratory Results WBC 6.73 K/uL (4.8-10.8) 06/20/21 01:05 RBC 3.51 M/uL (4.2-5.4) L 06/20/21 01:05 Hgb 9.3 g/dL (12.0-16.0) L 06/20/21 01:05 Hct 30.3 % (37-47) L 06/20/21 01:05 MCV 86.3 fL (80-100) 06/20/21 01:05 MCH 26.5 pg (25-34) 06/20/21 01:05 MCHC 30.7 g/dL (32-36) L 06/20/21 01:05 RDW Std Deviation 52.7 fL (36.4-46.3) H 06/20/21 01:05 RDW Coeff of Anastacia 16.7 % (11.5-14.5) H 06/20/21 01:05 Plt Count 320 K/uL (130-400) 06/20/21 01:05 MPV 8.3 fL (7.4-10.4) 06/20/21 01:05 Immature Gran % (Auto) 1.9 % 06/20/21 01:05 Neut % (Auto) 85.9 % 06/20/21 01:05 Lymph % (Auto) 8.3 % 06/20/21 01:05 [place] % (Auto) 1.9 % 06/20/21 01:05 Eos % (Auto) 1.9 % 06/20/21 01:05 Baso % (Auto) 0.1 % 06/20/21 01:05 Neut # (Auto) 5.77 K/uL (1.4-6.5) 06/20/21 01:05 Lymph # (Auto) 0.56 K/uL (1.2-3.4) L 06/20/21 01:05 [place] # (Auto) 0.13 K/uL (0.11-0.59) 06/20/21 01:05 Eos # (Auto) 0.13 K/uL (0-0.5) 06/20/21 01:05 Baso # (Auto) 0.01 K/uL (0-0.2) 06/20/21 01:05 Immature Gran # (Auto) 0.13 K/uL (0.00-0.02) H 06/20/21 01:05 Sodium 137 mmol/L (136-145) 06/20/21 01:05 Potassium 4.1 mmol/L (3.5-5.1) 06/20/21 01:05 Chloride 102 mmol/L (98-107) 06/20/21 01:05 Carbon Dioxide 26 mmol/L (21-32) 06/20/21 01:05 Anion Gap 9 (3-11) 06/20/21 01:05 BUN 12 mg/dl (6-23) 06/20/21 01:05 Creatinine 0.62 mg/dl (0.6-1.2) 06/20/21 01:05 Est Cr Clr Drug Dosing 184.5 ml/min 06/20/21 01:05 Est GFR ( Amer) 123.6 ml/min 06/20/21 01:05 Est GFR (Non-Af Amer) 106.6 ml/min 06/20/21 01:05 BUN/Creatinine Ratio 19.4 (10-20) 06/20/21 01:05 Glucose 129 mg/dl (70-99(Fasting)) H 06/20/21 01:05 Calcium 8.2 mg/dl (8.5-10.1) L 06/20/21 01:05 Magnesium 1.9 mg/dl (1.7-2.4) 06/20/21 01:05 Total Bilirubin 0.7 mg/dl (0.2-1.0) 06/20/21 01:05 AST 29 U/L (13-39) 06/20/21 01:05 ALT 10 U/L (7-52) 06/20/21 01:05 Alkaline Phosphatase 64 U/L (34-104) 06/20/21 01:05 Troponin I < 0.03 ng/ml (0-0.04) 06/20/21 01:05 Total Protein 9.4 gm/dl (6.0-8.3) H 06/20/21 01:05 Albumin 3.0 gm/dl (3.4-5.0) L 06/20/21 01:05 Globulin 6.4 gm/dl (2.5-4.0) H 06/20/21 01:05 Albumin/Globulin Ratio 0.5 (0.9-2) L 06/20/21 01:05 HCG, Qual Negative (Negative) 06/20/21 01:05 Urine Color Yellow 06/20/21 01:10 Urine Appearance Clear (Clear) 06/20/21 01:10 Urine pH 6.5 (4.5-7.5) 06/20/21 01:10 Ur Specific [place] 1.009 (1.000-1.030) 06/20/21 01:10 Urine Protein Negative (Negative) 06/20/21 01:10 Urine Glucose (UA) Negative (Negative) 06/20/21 01:10 Urine Ketones Negative (Negative) 06/20/21 01:10 Urine Blood Negative (Negative) 06/20/21 01:10 Urine Nitrite Negative (Negative) 06/20/21 01:10 Urine Bilirubin Negative (Negative) 06/20/21 01:10 Urine Urobilinogen Negative (Negative) 06/20/21 01:10 Ur Leukocyte Esterase Negative (Negative) 06/20/21 01:10 Adenovirus (PCR) DETECTED (NotDetected) A* 06/20/21 01:32 B. pertussis DNA (PCR) Not Detected (NotDetected) 06/20/21 01:32 B.parapertussis DNA PCR Not Detected (NotDetected) 06/20/21 01:32 C. pneumoniae DNA (PCR) Not Detected (NotDetected) 06/20/21 01:32 Coronavirus OC43 (PCR) Not Detected (NotDetected) 06/20/21 01:32 Coronavirus HKU1 (PCR) Not Detected (NotDetected) 06/20/21 01:32 Coronavirus 229E (PCR) Not Detected (NotDetected) 06/20/21 01:32 SARS-CoV-2 (PCR) Not Detected (NotDetected) 06/20/21 01:32 Coronavirus NL63 (PCR) Not Detected (NotDetected) 06/20/21 01:32 Human Metapneumovir PCR Not Detected (NotDetected) 06/20/21 01:32 Influenza Type A (PCR) Not Detected (NotDetected) 06/20/21 01:32 Influenza Type B (PCR) Not Detected (NotDetected) 06/20/21 01:32 M. pneumoniae (PCR) Not Detected (NotDetected) 06/20/21 01:32 Parainfluenza 1 (PCR) Not Detected (NotDetected) 06/20/21 01:32 Parainfluenza 2 (PCR) Not Detected (NotDetected) 06/20/21 01:32 Parainfluenza 3 (PCR) Not Detected (NotDetected) 06/20/21 01:32 Parainfluenza 4 (PCR) Not Detected (NotDetected) 06/20/21 01:32 RSV (PCR) Not Detected (NotDetected) 06/20/21 01:32 Entero/Rhino (PCR) Not Detected (NotDetected) 06/20/21 01:[address] chest abdomen pelvis initial read: Mildlylimited evaluation due to bolus timing and respiratorymotion artifact. No evidence of pulmonary emboli within the pulmonaryoutflowtract. Dilated pulmonaryoutflowtract with mild cardiomegalywhich mayrelate to sequela of pulmonary arterial hypertension and heart failure. Groundglass opacification within the lungswith interlobular septal thickening which maybe due to pulmonaryedema. Enlarged mediastinal lymph nodeswhich are nonspecific and maybe infectious or inflammatoryin nature. Partiallyvisualized splenomegalywith the spleen measuring 17.0 cm EKG as per my interpretation: Rate 70, NSR, normal axis, T wave abnormality septal leads
[2021-06-20] MEDS ORDERED: FUROSEMIDE 40 MG/4 ML VIAL IV ONE (03:48)
[2021-06-20 04:25] LABS: Base Excess ABG 6.1 mEq/L (-9-1.8); HCO3 ABG 30 mmol/L (19-24); Oxygen Saturation ABG 98.6 % (90-95); PCO2 ABG 43 mmHg (35-46); PO2 ABG 118 mmHg (80-95); pH ABG 7.47 (7.35-7.45)
[2021-06-20 04:35] LABS: Allen Test POS (Pos)
[2021-06-20] MEDS ORDERED: traMADol HCL 50 MG TABLET PO PRN (05:27)
[2021-06-20] MEDS ORDERED: ACETAMINOPHEN 325 MG TAB PO PRN (05:27)
[2021-06-20] MEDS ORDERED: PROMETHAZINE HCL 12.5 MG in SODIUM CHLORIDE 0.9% 50 ML IV PRN (05:27)
[2021-06-20] MEDS: LEVOTHYROXINE SODIUM 75 MCG TABLET PO SCH (06:31)
[2021-06-20] MEDS ORDERED: XOPENEX/ATROVENT 1.25mg/0.5MG NEB COMBO NEB SCH (07:00)
[2021-06-20] MEDS: LEVALBUTEROL 1.25MG/0.5ML NEB INH SCH ×2 (07:17→11:54)
[2021-06-20] MEDS: IPRATROPIUM BROMIDE NEB SOLN 0.02% 2.5 ML VIAL INH SCH ×2 (07:18→11:54)
[2021-06-20] MEDS: FLUTICASONE/VILANTEROL 200/25MCG 14 PUFFS/INHALER INH SCH (07:58)
[2021-06-20] MEDS: FLUTICASONE PROPIONATE NA SPR 16 GM BTL SCH ×2 (07:59→20:07)
[2021-06-20] MEDS: ENOXAPARIN INJ 40 MG/0.4 ML SYR SQ SCH (08:00)
[2021-06-20] MEDS: guaiFENesin 600 MG TABCR PO SCH ×2 (08:01→20:11)
[2021-06-20] MEDS: hydrOXYzine HCl 10 MG TAB PO PRN (08:01)
[2021-06-20] MEDS: GABAPENTIN 300 MG CAP PO SCH ×3 (08:01→20:12)
[2021-06-20] MEDS: PANTOprazole 40 MG TAB PO SCH (08:03)
[2021-06-20] MEDS: POTASSIUM CHLORIDE CRTAB 20 MEQ TABCR PO SCH ×2 (08:03→20:12)
[2021-06-20] MEDS: DULoxetine HCL 60 MG CAP PO SCH (08:04)
[2021-06-20] MEDS: buPROPion XL 150 MG TABCR PO SCH (08:04)
--- NOTE | 2021-06-20 08:34 | CT Scan Report ---
CT ANGIOGRAPHY OF THE CHEST, PULMONARY EMBOLUS PROTOCOL CLINICAL HISTORY: Dyspnea. COMPARISON STUDY: Chest CT June 30, 2019. Chest radiograph June 20, 2021. TECHNIQUE: Following IV administration of 120 mL of Optiray, helical axial images of the chest were o btained utilizing the pulmonary embolus protocol. Maximal intensity projections and sagittal and cor onal reformats were viewed on an independent 3D workstation. IV contrast was administered without co mplication. Automated exposure control was utilized for the study. A dose lowering technique was ut ilized adhering to the principles of ALARA. CT DOSE: 840.75 mGy.cm FINDINGS: No pulmonary emboli are identified. Dilatation of the central pulmonary arteries is simila r to CT of June 2019. Main pulmonary artery measures 4.2 cm in caliber. Cardiomegaly is unchanged. T here is no pericardial effusion. Prominent mediastinal and bilateral hilar lymph nodes remain unchang ed. No pneumothorax or pleural effusion is noted. Interlobular septal thickening within the lungs is noted. There are groundglass opacities with mosaic attenuation within the lungs. No consolidation is identified. Central airways are patent. No acute fracture or suspicious lesion is identified within v isualized portions of the bony thorax. The spleen is partially visualized. Splenomegaly appears uncha nged. Mildly enlarged gastrohepatic ligament lymph nodes are unchanged since prior CT. IMPRESSION: 1. No pulmonary emboli identified. 2. Interlobular septal thickening which favors interstitial pulmonary edema. 3. Mosaic attenuation and groundglass opacities within the lungs which may reflect air trapping. 4. Stable cardiomegaly and dilatation of the central pulmonary arteries which suggests pulmonary ford rial hypertension. 5. Stable splenomegaly. ACT 112: Negative or not required by law. Electronically signed by: Michel Siu M.D. 06/20/2021 8:33 AM
--- NOTE | 2021-06-20 08:41 | XRay Report ---
XR chest 1V portable CLINICAL HISTORY: Dyspnea COMPARISON STUDY: Chest CT June 30, 2019. Chest radiograph March 18, 2021. FINDINGS: There is no pneumothorax or pleural effusion. Cardiomegaly is unchanged. Interstitial thick ening is noted. There are possible patchy bilateral airspace opacities. IMPRESSION: 1. Cardiomegaly. Interstitial thickening suggestive of pulmonary edema. 2. Patchy bilateral airspace opacities. These favor atelectasis or pulmonary edema. An infectious pro cess is within the differential. ACT 112: Negative or not required by law. Electronically signed by: Michel Siu M.D. 06/20/2021 8:40 AM
[2021-06-20] MEDS: MYCOPHENOLATE MOFETIL 250 MG CAP PO SCH ×3 (08:50→20:09)
[2021-06-20] MEDS ORDERED: predniSONE 20 MG TAB PO SCH (09:00)
[2021-06-20] MEDS ORDERED: MOMETASONE FORMOTEROL INH SCH (09:00)
[2021-06-20] MEDS ORDERED: [UNRECOGNIZED DRUG - OTHER] INH SCH (09:00)
[2021-06-20] MEDS ORDERED: LORATADINE 10 MG TAB PO PRN (11:04)
[2021-06-20] MEDS: AMOXICILLIN/CLAVULANATE 875 MG TAB PO SCH ×2 (11:50→16:36)
[2021-06-20] MEDS: oxyCODONE/ACETAMINOPHEN 5mg/325mg TAB PO PRN ×2 (12:31→20:13)
--- NOTE | 2021-06-20 12:55 | Electrocardiogram Report ---
Test Reason : Blood Pressure : / mmHG Vent. Rate : 070 BPM Atrial Rate : 070 BPM P-R Int : 166 ms QRS Dur : 110 ms QT Int : 418 ms P-R-T Axes : 066 060 072 degrees QTc Int : 451 ms Sinus rhythm with occasional Premature atrial complexes Borderline ECG When compared with ECG of 18-MAR-2021 17:44, No significant change was found Confirmed by Jose Lee ([id number]) on 06/20/2021 12:55:33 PM Referred By: REFERRED SELF Confirmed By:Jose Lee
--- NOTE | 2021-06-20 12:57 | Electrocardiogram Report ---
Test Reason : Blood Pressure : / mmHG Vent. Rate : 053 BPM Atrial Rate : 053 BPM P-R Int : 180 ms QRS Dur : 112 ms QT Int : 470 ms P-R-T Axes : 025 052 070 degrees QTc Int : 441 ms Sinus bradycardia with Premature atrial complexes Borderline ECG When compared with ECG of 20-JUN-2021 01:06, (unconfirmed) Premature atrial complexes are now Present Confirmed by Jose Lee ([id number]) on 06/20/2021 12:57:01 PM Referred By: REFERRED SELF Confirmed By:Jose Lee
--- NOTE | 2021-06-20 13:45 | Hospitalist Progress Note ---
Date of Service June 20, 2021 Assessment & Plan (1) Acute hypoxemic respiratory failure: Plan: Acute diastolic heart failure Acute on chronic respiratory failure with hypoxia Adeno Virus Infection Chronic oxygen dependency: On 2 L as needed at baseline H/O OBI on CPAP HS Suspected Pulmonary Hypertension --CTA:The groundglass opacities on this exam are nonspecific and could reflect pulmonary edema. However, an infectious process or other etiologies such as hypersensitivity pneumonitis are within the differential. No PE. Stable cardiomegaly and dilatation of the central pulmonary arteries which suggests pulmonary arterial hypertension. Stable splenomegaly. 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 Hypothyroidism Normal TSH Continue levothyroxine Chronic lymphedema Chronic anemia Hb at baseline Prediabetes HbA1c 6.0 in March 2021 DVT Px: Lovenox SQ Code Status Full code Admission and Anticipated Discharge Date Admission Date: June 20, 2021 Subjective Patient is seen and examined at bedside Reports dyspnea slightly better when compared to yesterday Reports dry cough Also states leg swelling improving Denies any chest pain, dizziness, nausea Review of Systems Review of Systems: All systems reviewed & are unremarkable except as noted in Subjective Physical Exam Physical Exam: Physical Exam: Vitals signs as noted above General Appearance:Morbidly Obese, no apparent distress Head: normocephalic, Atraumatic Eyes: normal inspection, EOMI Neck: supple, Trachea midline Respiratory/Chest: Decreased breath sounds, + basal crackles Cardiovascular: S1, S2, No murmur Abdomen/GI:Soft, Non tender, Bowel sounds present Extremities/Musculoskeletal:normal inspection, B/L LE edema, RLE wound in dressing Neurologic/Psych:AAOX3, grossly no focal neurological deficits Skin: normal color, warm Results & Data Results & Data ([facility]) Vital Signs (Past 12 Hours) Vital Signs Temp Pulse Pulse Resp BP BP Pulse Ox 06/20/21 11:55 86 26 H 93 06/20/21 11:12 36.5 C 59 L 20 166/89 H 93 06/20/21 07:33 58 L 06/20/21 07:18 57 L 20 92 06/20/21 05:32 36.3 C L 55 L 24 138/82 94 06/20/21 04:41 58 L 22 137/73 96 06/20/21 04:00 56 L 16 141/79 H 97 06/20/21 03:43 88 L 06/20/21 03:00 63 22 112/76 91 Laboratory Results Short CBC 06/20/21 Range/Units 01:05 WBC 6.73 (4.8-10.8) K/uL Hgb 9.3 L (12.0-16.0) g/dL Hct 30.3 L (37-47) % Plt Count 320 (130-400) K/uL BMP 06/20/21 01:05 Sodium 137 Potassium 4.1 Chloride 102 Carbon Dioxide 26 BUN 12 Creatinine 0.62 Glucose 129 H Calcium 8.2 L Cardiac Enzymes 06/20/21 Range/Units 01:05 Troponin I < 0.03 (0-0.04) ng/ml Liver Function 06/20/21 Range/Units 01:05 Total Bilirubin 0.7 (0.2-1.0) mg/dl AST 29 (13-39) U/L ALT 10 (7-52) U/L Alkaline Phosphatase 64 (34-104) U/L Albumin 3.0 L (3.4-5.0) gm/dl Urine 06/20/21 Range/Units 01:10 Urine Color Yellow Urine Appearance Clear (Clear) Urine pH 6.5 (4.5-7.5) Ur Specific [place] 1.009 (1.000-1.030) Urine Protein Negative (Negative) Urine Glucose (UA) Negative (Negative)
--- NOTE | 2021-06-20 13:57 | Cardiology Consultation ---
Date of Consultation June 20, 2021 Assessment & Plan (1) Heart failure with preserved ejection fraction: (2) Acute hypoxemic respiratory failure: (3) Sleep apnea: (4) Morbid obesity with BMI of 60.0-69.9, adult: Patient is a complex 50-year-old female with medical problems as noted in cluding morbid obesity with obstructive sleep apnea and elevated pulmonary pressures, asthmatic lung disease, SLE admitted with 2-week history of increasing dyspnea and exertional shortness of breath initially treated for asthmatic exacerbation but ultimately presenting with findings of heart failure with preserved ejection fraction on admission. Patient responded to IV diuretics would continue Treat underlying sleep apnea Additional medical therapies depending on clinical course but expect patient to benefit from long-term diuretics and likely spironolactone High risk obesity clinic intervention History of Present Illness Requesting Physician: Dr Carranza Attending Physician: Maikol Carranza MD History of Present Illness Patient is a 50-year-old female with complex history which includes 1. 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 Morbid obesity, BMI greater than 60 3. Obstructive sleep apnea on CPAP and oxygen nocturnally 4. Asthmatic lung disease with multifactorial pulmonary hypertension 5. Pressor ulceration right thigh 6. Chronic anemia Patient presents this admission noting approximately 2 weeks history of worsening dyspnea and wheezing, increased shortness of breath with exertion activity. Patient treated via telemedicine with prednisone but no clinical improvement other than slight decrease in wheezing. Patient ultimately noted worsening shortness of breath and presented to the ER for further evaluation. Chest x-ray consistent with increased interstitial edema She denies fevers chills or productive cough. Notes no bleeding difficulty. Notes no chest pains. No prior history of cardiac disease rheumatic fever scarlet fever heart murmur. No history of tachypalpitations syncope or near syncope no history of TIA or stroke. No recent bleeding difficulties. Chronic anemia is present Activity level is curtailed by multiple underlying morbidities as noted but patient specifically aware of increasing dyspnea especially with modest activity. Patient has demonstrated some improvement since hospitalization and IV diuretics. Allergies Allergy/AdvReac Type Severity Reaction Status Date / Time hydroxychloroquine Allergy Severe Swelling Verified 06/14/21 10:11 [From Plaquenil] of Lip/Tongue/Throat nickel Allergy Mild Rash Verified 06/14/21 10:11 Home Medications Medication Instructions Recorded Confirmed Type epinephrine 0.3 mg/0.3 mL 0.3 mg IM DIRECTED PRN #0 09/22/17 06/20/21 History injection, auto-injector (EpiPen 2-David) loratadine 10 mg tablet 10 mg PO DAILY PRN #0 tab 09/22/17 06/20/21 History albuterol sulfate 90 mcg/actuation 2 puff INHALATION Q4H PRN 04/27/18 06/20/21 History aerosol inhaler mometasone-formoterol HFA 200 2 puff INHALATION BID 04/27/18 06/20/21 History mcg-5 mcg/actuation aerosol inhaler valacyclovir 1 gram tablet 1,000 mg PO Q12H PRN 04/27/18 06/20/21 History omeprazole 20 mg tablet,delayed 20 mg PO QAM 03/05/19 06/20/21 History release CPAP Machine #1 ea 03/12/19 06/14/21 History gabapentin 300 mg capsule 300 mg PO TID 07/05/19 06/20/21 History levothyroxine 75 mcg tablet 75 mcg PO QAM 01/25/21 06/20/21 History trazodone 50 mg tablet 50 - 100 mg PO HS 01/25/21 06/20/21 History Oxygen Home #1 ea 06/01/21 06/14/21 History mycophenolate mofetil 500 mg 1,500 mg PO BID tab 06/01/21 06/14/21 History tablet (CellCept) bupropion HCl 150 mg 24 hr tablet, 150 mg PO QAM 06/20/21 06/20/21 History extended release duloxetine 60 mg capsule,delayed 120 mg PO DAILY 06/20/21 06/20/21 History release fluticasone propionate 50 2 spray INTRANASAL BID 06/20/21 06/20/21 History mcg/actuation nasal spray,suspension hydroxyzine HCl 10 mg tablet 10 mg PO TID PRN 06/20/21 06/20/21 History prednisone 20 mg tablet 40 mg PO DAILY 06/20/21 06/20/21 History Patient History Medical History Anemia, chronic disease Anxiety Asthma stable, using rescue inhaler with exertion Bronchiolitis JUNE 2019> RESOLVED Depression GERD (gastroesophageal reflux disease) controlled Hypothyroidism Lupus stable on Cellcept; follows w/[facility] Lymphedema Lower extremities Morbid obesity with BMI of 60.0-69.9, adult On home oxygen therapy ON O2 AT 2L WITH CPAP DEVICE AT HS Osteoarthritis Pneumonia ~ 2 weeks ago, seen by PCP, tx with ABX and prednisone Psoriasis Shingles RESOLVED Sleep apnea CPAP Urticarial vasculitis Venous insufficiency of both lower extremities Surgical History History of appendectomy History of bilateral tubal ligation History of cataract surgery R & L History of section History of colonoscopy History of D&C X2 History of esophagogastroduodenoscopy (EGD) History of wisdom tooth extraction Family History Father Diabetes Mother Asthma Hypertension Brother Stroke Grandfather (Paternal) Diabetes Sister Hay fever Denies family history of Ovarian cancer Breast cancer Colorectal cancer Social History Smoking Status: Never smoker Second Hand Exposure: No; Hx Alcohol Use: No Hx Substance Use: No Preferred Language: Greek Communication Ability: Effective Visual Impairment: Limited Hearing Ability: Normal Crystal Report Developer Required: No Beliefs That Will Affect Care: None Current Living Situation: Family Current Living Situation Comment: Grandson and SO current occupational status: disabled Feels Safe at Home: Yes Safety Concerns: Feels Safe At This Time caffeine: Yes Physical Activity Frequency: Does not Exercise Do you think of yourself as: straight/heterosexual Gender Identity: Female Assistive Devices: Glasses Review of Systems Review of Systems: All systems reviewed & are unremarkable except as noted in HPI & below Physical Exam Constitutional: + morbidly obese; no acute distress Eyes: PERRL, conjunctivae normal, anicteric sclerae ENMT: Mouth: + dentition abnormality Mallampati Class: IV Neck: trachea midline, no thyromegaly Respiratory: Auscultation: + diminished lung sounds Cardiovascular: Rate/Rhythm: regular rate and regular rhythm Heart Sounds: normal S1 and normal S2; no murmur Vessels: no JVD Extremities: + edema Gastrointestinal (Abdomen): Increased abdominal girth with large panniculus Neurologic: PERRL, EOMI, accommodation nl, no face palsy, no dysarthria Psychiatric: A+Ox3, euthymic affect Results & Data ([facility]) Vital Signs (Past 12 Hours) Vital Signs Temp Pulse Pulse Resp BP BP Pulse Ox 02/27/22 11:55 86 26 H 93 06/20/21 11:12 36.5 C 59 L 20 166/89 H 93 06/20/21 07:33 58 L 06/20/21 07:18 57 L 20 92 06/20/21 05:32 36.3 C L 55 L 24 138/82 94 06/20/21 04:41 58 L 22 137/73 96 06/20/21 04:00 56 L 16 141/79 H 97 06/20/21 03:43 88 L 06/20/21 03:00 63 22 112/76 91 Laboratory Results Laboratory Results - last 24 hr 06/20/21 06/20/21 06/20/21 01:05 01:05 01:05 WBC 6.73 RBC 3.51 L Hgb 9.3 L Hct 30.3 L MCV 86.3 MCH 26.5 MCHC 30.7 L RDW Std Deviation 52.7 H RDW Coeff of Anastacia 16.7 H Plt Count 320 MPV 8.3 Immature Gran % (Auto) 1.9 Neut % (Auto) 85.9 Lymph % (Auto) 8.3 [place] % (Auto) 1.9 Eos % (Auto) 1.9 Baso % (Auto) 0.1 Neut # (Auto) 5.77 Lymph # (Auto) 0.56 L [place] # (Auto) 0.13 Eos # (Auto) 0.13 Baso # (Auto) 0.01 Immature Gran # (Auto) 0.13 H ABG pH ABG pCO2 ABG pO2 ABG HCO3 ABG O2 Saturation ABG Base Excess Jose Alfredo Test Barometric Pressure Oxygen Given Sodium 137 Potassium 4.1 Chloride 102 Carbon Dioxide 26 Anion Gap 9 BUN 12 Creatinine 0.62 Est Cr Clr Drug Dosing 184.5 Est GFR ( Amer) 123.6 Est GFR (Non-Af Amer) 106.6 BUN/Creatinine Ratio 19.4 Glucose 129 H Calcium 8.2 L Magnesium 1.9 Total Bilirubin 0.7 AST 29 ALT 10 Alkaline Phosphatase 64 Troponin I < 0.03 B-Natriuretic Peptide Total Protein 9.4 H Albumin 3.0 L Globulin 6.4 H Albumin/Globulin Ratio 0.5 L TSH HCG, Qual Negative Urine Color Urine Appearance Urine pH Ur Specific [place] Urine Protein Urine Glucose (UA) Urine Ketones Urine Blood Urine Nitrite Urine Bilirubin Urine Urobilinogen Ur Leukocyte Esterase Adenovirus (PCR) B. pertussis DNA (PCR) B.parapertussis DNA PCR C. pneumoniae DNA (PCR) Coronavirus OC43 (PCR) Coronavirus HKU1 (PCR) Coronavirus 229E (PCR) SARS-CoV-2 (PCR) Coronavirus NL63 (PCR) Human Metapneumovir PCR Influenza Type A (PCR) Influenza Type B (PCR) M. pneumoniae (PCR) Parainfluenza 1 (PCR) Parainfluenza 2 (PCR) Parainfluenza 3 (PCR) Parainfluenza 4 (PCR) RSV (PCR) Entero/Rhino (PCR) 06/20/21 06/20/21 06/20/21 01:10 01:32 04:00 WBC RBC Hgb Hct MCV MCH MCHC RDW Std Deviation RDW Coeff of Anastacia Plt Count MPV Immature Gran % (Auto) Neut % (Auto) Lymph % (Auto) [place] % (Auto) Eos % (Auto) Baso % (Auto) Neut # (Auto) Lymph # (Auto) [place] # (Auto) Eos # (Auto) Baso # (Auto) Immature Gran # (Auto) ABG pH ABG pCO2 ABG pO2 ABG HCO3 ABG O2 Saturation ABG Base Excess Jose Alfredo Test Barometric Pressure Oxygen Given Sodium Potassium Chloride Carbon Dioxide Anion Gap BUN Creatinine Est Cr Clr Drug Dosing Est GFR ( Amer) Est GFR (Non-Af Amer) BUN/Creatinine Ratio Glucose Calcium Magnesium Total Bilirubin AST ALT Alkaline Phosphatase Troponin I B-Natriuretic Peptide 135 H Total Protein Albumin Globulin Albumin/Globulin Ratio TSH HCG, Qual Urine Color Yellow Urine Appearance Clear Urine pH 6.5 Ur Specific [place] 1.009 Urine Protein Negative Urine Glucose (UA) Negative Urine Ketones Negative Urine Blood Negative Urine Nitrite Negative Urine Bilirubin Negative Urine Urobilinogen Negative Ur Leukocyte Esterase Negative Adenovirus (PCR) DETECTED A* B. pertussis DNA (PCR) Not Detected B.parapertussis DNA PCR Not Detected C. pneumoniae DNA (PCR) Not Detected Coronavirus OC43 (PCR) Not Detected Coronavirus HKU1 (PCR) Not Detected Coronavirus 229E (PCR) Not Detected SARS-CoV-2 (PCR) Not Detected Coronavirus NL63 (PCR) Not Detected Human Metapneumovir PCR Not Detected Influenza Type A (PCR) Not Detected Influenza Type B (PCR) Not Detected M. pneumoniae (PCR) Not Detected Parainfluenza 1 (PCR) Not Detected Parainfluenza 2 (PCR) Not Detected Parainfluenza 3 (PCR) Not Detected Parainfluenza 4 (PCR) Not Detected RSV (PCR) Not Detected Entero/Rhino (PCR) Not Detected 06/20/21 06/20/21 04:00 04:00 WBC RBC Hgb Hct MCV MCH MCHC RDW Std Deviation RDW Coeff of Anastacia Plt Count MPV Immature Gran % (Auto) Neut % (Auto) Lymph % (Auto) [place] % (Auto) Eos % (Auto) Baso % (Auto) Neut # (Auto) Lymph # (Auto) [place] # (Auto) Eos # (Auto) Baso # (Auto) Immature Gran # (Auto) ABG pH 7.47 H ABG pCO2 43 ABG pO2 118 H ABG HCO3 30 H ABG O2 Saturation 98.6 H ABG Base Excess 6.1 H Jose Alfredo Test POS Barometric Pressure 735.4 Oxygen Given OL Sodium Potassium Chloride Carbon Dioxide Anion Gap BUN Creatinine Est Cr Clr Drug Dosing Est GFR ( Amer) Est GFR (Non-Af Amer) BUN/Creatinine Ratio Glucose Calcium Magnesium Total Bilirubin AST ALT Alkaline Phosphatase Troponin I B-Natriuretic Peptide Total Protein Albumin Globulin Albumin/Globulin Ratio TSH 1.693 HCG, Qual Urine Color Urine Appearance Urine pH Ur Specific [place] Urine Protein Urine Glucose (UA) Urine Ketones Urine Blood Urine Nitrite Urine Bilirubin Urine Urobilinogen Ur Leukocyte Esterase Adenovirus (PCR) B. pertussis DNA (PCR) B.parapertussis DNA PCR C. pneumoniae DNA (PCR) Coronavirus OC43 (PCR) Coronavirus HKU1 (PCR) Coronavirus 229E (PCR) SARS-CoV-2 (PCR) Coronavirus NL63 (PCR) Human Metapneumovir PCR Influenza Type A (PCR) Influenza Type B (PCR) M. pneumoniae (PCR) Parainfluenza 1 (PCR) Parainfluenza 2 (PCR) Parainfluenza 3 (PCR) Parainfluenza 4 (PCR) RSV (PCR) Entero/Rhino (PCR) ECG Additional Comments: EKG sinus rhythm with premature atrial beats, rightward axis no ischemia or
[2021-06-20] MEDS: FUROSEMIDE 40 MG/4 ML VIAL IV SCH (16:36)
[2021-06-20] MEDS: traZODone HCL 50 MG TAB PO SCH (20:10)
[2021-06-21] MEDS: LEVOTHYROXINE SODIUM 75 MCG TABLET PO SCH (06:19)
[2021-06-21 07:11] LABS: Hematocrit (blood only) 28.8 % (37-47); Hemoglobin 8.8 g/dL (12.0-16.0); Mean Corpuscular Hemoglobin 26.7 pg (25-34); Mean Corpuscular Hgb Conc 30.6 g/dL (32-36); Mean Corpuscular Volume 87.3 fL (80-100); Mean Platelet Volume 8.4 fL (7.4-10.4); Nucleated RBC # (auto) 0.02 K/uL (0-0); Nucleated RBC % (auto) 0.3 %; Platelet Count 301 K/uL (130-400); RDW Coefficient of Variation 16.9 % (11.5-14.5); RDW Standard Deviation 53.8 fL (36.4-46.3)
[2021-06-21 07:37] LABS: BUN Creatinine Ratio 31.3 (10-20); Calcium 7.8 mg/dl (8.5-10.1); Creatinine Clr Calc Pharmacy 174.5 ml/min; Est GFR (African American) 122.3 ml/min; Est GFR (Non-African American) 105.5 ml/min; Potassium 3.9 mmol/L (3.5-5.1)
[2021-06-21] MEDS: AMOXICILLIN/CLAVULANATE 875 MG TAB PO SCH ×2 (08:33→17:31)
[2021-06-21] MEDS: GABAPENTIN 300 MG CAP PO SCH ×3 (08:33→21:11)
[2021-06-21] MEDS: FLUTICASONE PROPIONATE NA SPR 16 GM BTL SCH ×2 (08:33→21:11)
[2021-06-21] MEDS: POTASSIUM CHLORIDE CRTAB 20 MEQ TABCR PO SCH (08:34)
[2021-06-21] MEDS: guaiFENesin 600 MG TABCR PO SCH ×2 (08:34→21:11)
[2021-06-21] MEDS: FUROSEMIDE 40 MG/4 ML VIAL IV SCH ×2 (08:34→17:27)
[2021-06-21] MEDS: predniSONE 20 MG TAB PO SCH (08:34)
[2021-06-21] MEDS: PANTOprazole 40 MG TAB PO SCH (08:34)
[2021-06-21] MEDS: ENOXAPARIN INJ 40 MG/0.4 ML SYR SQ SCH (08:35)
[2021-06-21] MEDS: MYCOPHENOLATE MOFETIL 250 MG CAP PO SCH ×2 (08:35→21:11)
[2021-06-21] MEDS: DULoxetine HCL 60 MG CAP PO SCH (08:35)
[2021-06-21] MEDS: buPROPion XL 150 MG TABCR PO SCH (08:35)
[2021-06-21] MEDS: hydrOXYzine HCl 10 MG TAB PO PRN (08:35)
[2021-06-21] MEDS: FLUTICASONE/VILANTEROL 200/25MCG 14 PUFFS/INHALER INH SCH (08:36)
[2021-06-21] MEDS: oxyCODONE/ACETAMINOPHEN 5mg/325mg TAB PO PRN (08:58)
[2021-06-21] MEDS: ACETIC ACID 0.25% IRRIG SOLN 1000 ML PLCT IR SCH (10:02)
[2021-06-21] MEDS: LEVALBUTEROL 1.25MG/0.5ML NEB INH PRN ×2 (12:05→21:16)
[2021-06-21] MEDS: IPRATROPIUM BROMIDE NEB SOLN 0.02% 2.5 ML VIAL INH PRN ×2 (12:05→21:16)
--- NOTE | 2021-06-21 13:48 | Cardiology Progress Note ---
Date of Service June 21, 2021 Assessment & Plan (1) Heart failure with preserved ejection fraction: (2) Acute hypoxemic respiratory failure: (3) Sleep apnea: (4) Morbid obesity with BMI of 60.0-69.9, adult: Plan: Patient is a complex 50-year-old female with medical problems as noted including morbid obesity with obstructive sleep apnea and elevated pulmonary pressures, asthmatic lung disease, SLE admitted with 2-week history of increasing dyspnea and exertional shortness of breath initially treated for asthmatic exacerbation but ultimately presenting with findings of heart failure with preserved ejection fraction on admission. Patient responded to IV diuretics would continue Treat underlying sleep apnea High risk obesity clinic intervention 06/21/2021: Patient more dyspneic despite diuresis today occluding diffuse wheezing. We will repeat chest x-ray continue diuretics as ordered adding spironolactone 12.5 mg/day. Blood pressures are trending higher we will add topical nitrates 1/2 inch every 6 hours for blood pressure management reduction in preload may be held removed for any drop in blood pressure Possible ongoing infectious source being investigated Admission and Anticipated Discharge Date Admission Date: June 20, 2021 Subjective Patient seen and examined chart, medications, telemetry reviewed. Patient more dyspneic today with diffuse wheezing despite diuresis. No productive cough. No fevers chills or unexplained infections. Oxygen saturations are trending lower however blood pressure increasing. Review of Systems Review of Systems: All systems reviewed & are unremarkable except as noted in Subjective Physical Exam Constitutional: + morbidly obese; no acute distress Eyes: PERRL, conjunctivae normal, anicteric sclerae ENMT: Mouth: + dentition abnormality Mallampati Class: IV Neck: trachea midline, no thyromegaly Respiratory: Auscultation: + diminished lung sounds and + wheezes Cardiovascular: Rate/Rhythm: regular rate and regular rhythm Heart Sounds: normal S1 and normal S2; no murmur Vessels: no JVD Extremities: + edema Neurologic: PERRL, EOMI, accommodation nl, no face palsy, no dysarthria Psychiatric: A+Ox3, euthymic affect Results & Data ([facility]) Vital Signs (Past 12 Hours) Vital Signs Temp Pulse Pulse Pulse Pulse Pulse Resp 06/21/21 12:07 70 20 06/21/21 11:20 36.7 C 72 20 06/21/21 07:30 36.6 C 66 18 06/21/21 05:01 36.3 C L 63 20 06/21/21 02:50 65 20 BP BP Pulse Ox 06/21/21 12:07 88 L 06/21/21 11:20 149/88 H 92 06/21/21 07:30 137/86 96 06/21/21 05:01 113/70 92 06/21/21 02:50 92 Laboratory Results Laboratory Results - last 24 hr 06/21/21 06/21/21 06/21/21 06:46 06:46 06:46 WBC 7.40 RBC 3.30 L Hgb 8.8 L Hct 28.8 L MCV 87.3 MCH 26.7 MCHC 30.6 L RDW Std Deviation 53.8 H RDW Coeff of Anastacia 16.9 H Plt Count 301 MPV 8.4 Absolute Nucleated RBC 0.02 H Nucleated RBC % (auto) 0.3 Sodium 138 Potassium 3.9 Chloride 99 Carbon Dioxide 34 H Anion Gap 5 BUN 20 Creatinine 0.64 Est Cr Clr Drug Dosing 174.5 Est GFR ( Amer) 122.3 Est GFR (Non-Af Amer) 105.5 BUN/Creatinine Ratio 31.3 H Glucose 88 Calcium 7.8 L Procalcitonin < 0.05
[2021-06-21] MEDS: NITROGLYCERIN 2% OINTMENT 30GM TUBE EXT SCH ×3 (14:26→23:16)
--- NOTE | 2021-06-21 14:28 | XRay Report ---
XR chest 1V portable CLINICAL HISTORY: dyspnea , wheezing TECHNIQUE: Single frontal radiograph of the chest was obtained. Comparison: None available at the time of this dictation. FINDINGS: No lines and tubes are seen. Cardiomegaly is noted. There is prominence and cephalization of the vasc ulature with Beth B lines seen. Diffuse airspace opacities are seen. No evidence of pleural effusio n or pneumothorax. IMPRESSION: Moderate pulmonary edema. Diffuse airspace opacities may represent alveolar edema or multifocal pneum onia. ACT 112: Negative or not required by law. Electronically signed by: Nitin Gonzalez M.D. 06/21/2021 2:27 PM
[2021-06-21] MEDS: SPIRONOLACTONE 12.5 MG TAB PO SCH (14:40)
--- NOTE | 2021-06-21 17:29 | Hospitalist Progress Note ---
Date of Service June 21, 2021 Assessment & Plan (1) Acute hypoxemic respiratory failure: Plan: Acute diastolic heart failure Acute on chronic respiratory failure with hypoxia Adeno Virus Infection Chronic oxygen dependency: On 2 L as needed at baseline H/O OBI on CPAP HS Suspected Pulmonary Hypertension --CTA:The groundglass opacities on this exam are nonspecific and could reflect pulmonary edema. However, an infectious process or other etiologies such as hypersensitivity pneumonitis are within the differential. No PE. Stable cardiomegaly and dilatation of the central pulmonary arteries which suggests pulmonary arterial hypertension. Stable splenomegaly. --Biofire:Adeno Virus Continue IV diuretics Monitor I's and O's, daily weight, electrolytes Appreciate cardiology input Continue CPAP at bedtime Started on spironolactone Asthma exacerbation Supplemental oxygen as needed Continue prednisone Nebs as needed RLE wound Follows with wound clinic as outpatient Currently on 2-week course of Augmentin Continue wound care 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 Hypothyroidism Normal TSH Continue levothyroxine Chronic lymphedema Chronic anemia Hb at baseline Prediabetes HbA1c 6.0 in March 2021 DVT Px: Lovenox SQ Code Status Full code Admission and Anticipated Discharge Date Admission Date: June 20, 2021 Subjective Patient is seen and examined at bedside Still has persistent dyspnea, wheezing Also reports having cough with brownish expectoration Discussed with cardiology today Denies any chest pain, dizziness, nausea, abd pain Review of Systems Review of Systems: All systems reviewed & are unremarkable except as noted in Subjective Physical Exam Physical Exam: Physical Exam: Vitals signs as noted above General Appearance:Morbidly Obese, no apparent distress Head: normocephalic, Atraumatic Eyes: normal inspection, EOMI Neck: supple, Trachea midline Respiratory/Chest: Decreased breath sounds, + basal crackles, wheezing Cardiovascular: S1, S2, No murmur Abdomen/GI:Soft, Non tender, Bowel sounds present Extremities/Musculoskeletal:normal inspection, B/L LE edema, RLE wound in dr perez Neurologic/Psych:AAOX3, grossly no focal neurological deficits Skin: normal color, warm Results & Data Results & Data ([facility]) Vital Signs (Past 12 Hours) Vital Signs Temp Pulse Pulse Pulse Resp BP BP 06/21/21 14:48 36.5 C 65 16 152/103 H 06/21/21 12:07 70 20 06/21/21 11:20 36.7 C 72 20 149/88 H 06/21/21 07:30 36.6 C 66 18 137/86 Pulse Ox 06/21/21 14:48 96 06/21/21 12:07 88 L 06/21/21 11:20 92 06/21/21 07:30 96 Laboratory Results Short CBC 06/21/21 Range/Units 06:46 WBC 7.40 (4.8-10.8) K/uL Hgb 8.8 L (12.0-16.0) g/dL Hct 28.8 L (37-47) % Plt Count 301 (130-400) K/uL BMP 06/21/21 06:46 Sodium 138 Potassium 3.9 Chloride 99 Carbon Dioxide 34 H BUN 20 Creatinine 0.64 Glucose 88 Calcium 7.8 L
[2021-06-21] MEDS: traZODone HCL 50 MG TAB PO SCH (21:11)
[2021-06-22] MEDS: NITROGLYCERIN 2% OINTMENT 30GM TUBE EXT SCH ×4 (06:10→23:59)
[2021-06-22] MEDS: LEVOTHYROXINE SODIUM 75 MCG TABLET PO SCH (06:10)
[2021-06-22] MEDS: LEVALBUTEROL 1.25MG/0.5ML NEB INH PRN ×2 (06:38→18:01)
[2021-06-22] MEDS: FLUTICASONE/VILANTEROL 200/25MCG 14 PUFFS/INHALER INH SCH (07:35)
[2021-06-22] MEDS: FLUTICASONE PROPIONATE NA SPR 16 GM BTL SCH ×2 (07:35→19:43)
[2021-06-22] MEDS: guaiFENesin 600 MG TABCR PO SCH ×2 (07:36→19:48)
[2021-06-22] MEDS: ACETIC ACID 0.25% IRRIG SOLN 1000 ML PLCT IR SCH (07:36)
[2021-06-22] MEDS: MYCOPHENOLATE MOFETIL 250 MG CAP PO SCH ×2 (07:36→19:49)
[2021-06-22] MEDS: predniSONE 20 MG TAB PO SCH (07:36)
[2021-06-22] MEDS: POTASSIUM CHLORIDE CRTAB 20 MEQ TABCR PO SCH (07:37)
[2021-06-22] MEDS: buPROPion XL 150 MG TABCR PO SCH (07:37)
[2021-06-22] MEDS: AMOXICILLIN/CLAVULANATE 875 MG TAB PO SCH ×2 (07:37→17:42)
[2021-06-22] MEDS: GABAPENTIN 300 MG CAP PO SCH ×3 (07:37→19:47)
[2021-06-22] MEDS: SPIRONOLACTONE 12.5 MG TAB PO SCH (07:38)
[2021-06-22] MEDS: PANTOprazole 40 MG TAB PO SCH (07:38)
[2021-06-22] MEDS: ENOXAPARIN INJ 40 MG/0.4 ML SYR SQ SCH (07:38)
[2021-06-22] MEDS: FUROSEMIDE 40 MG/4 ML VIAL IV SCH (07:39)
[2021-06-22] MEDS: DULoxetine HCL 60 MG CAP PO SCH (07:39)
[2021-06-22 07:49] LABS: BUN Creatinine Ratio 39.4 (10-20); Calcium 7.8 mg/dl (8.5-10.1); Creatinine Clr Calc Pharmacy 154.1 ml/min; Est GFR (African American) 116.7 ml/min; Est GFR (Non-African American) 100.7 ml/min; Potassium 3.7 mmol/L (3.5-5.1)
--- NOTE | 2021-06-22 10:38 | Cardiology Progress Note ---
Date of Service June 22, 2021 Assessment & Plan (1) Heart failure with preserved ejection fraction: (2) Acute hypoxemic respiratory failure: (3) Sleep apnea: (4) Morbid obesity with BMI of 60.0-69.9, adult: Plan: Patient is a complex 50-year-old female with medical problems as noted including morbid obesity with obstructive sleep apnea and elevated pulmonary pressures, asthmatic lung disease, SLE admitted with 2-week history of increasing dyspnea and exertional shortness of breath initially treated for asthmatic exacerbation but ultimately presenting with findings of heart failure with preserved ejection fraction on admission. Patient responded to IV diuretics would continue Treat underlying sleep apnea/asthma High risk obesity clinic intervention 06/22/2021: Patient has responded to treatment for diastolic heart failure with brisk diuresis. Spironolactone added will increase dosing to 25 mg/day. Hold IV Lasix after dose this morning. We will continue topical nitrates for now Admission and Anticipated Discharge Date Admission Date: June 20, 2021 Subjective Patient was seen and examined, chart, medications, telemetry reviewed. Has had brisk diuresis since admission now down 9 kg with volumes reflected in urinary outputs. Dyspnea substantially improved, no longer wheezing. No chest pains or dizzine ss. Still with oxygen requirements. Blood pressure trending higher question unmasked by current admission and steroid Review of Systems Review of Systems: All systems reviewed & are unremarkable except as noted in Subjective Physical Exam Constitutional: + morbidly obese; no acute distress Eyes: PERRL, conjunctivae normal, anicteric sclerae ENMT: Mouth: + dentition abnormality Mallampati Class: IV Neck: trachea midline, no thyromegaly Respiratory: Auscultation: + bronchovesicular breath sounds; no wheezes Cardiovascular: Rate/Rhythm: regular rate and regular rhythm Heart Sounds: normal S1 and normal S2; no murmur Vessels: no JVD Extremities: + edema Neurologic: PERRL, EOMI, accommodation nl, no face palsy, no dysarthria Psychiatric: A+Ox3, euthymic affect Results & Data ([facility]) Vital Signs (Past 12 Hours) Vital Signs Temp Pulse Pulse Resp BP Pulse Ox 06/22/21 07:51 37.1 C 68 18 154/86 H 97 06/22/21 04:45 68 22 93 06/22/21 03:53 36.6 C 62 20 148/86 H 94 06/22/21 01:18 63 21 94 06/21/21 23:11 73 06/21/21 23:05 36.8 C 66 18 135/79 97
--- NOTE | 2021-06-22 10:57 | Cardioversion ---
Date of Service June 22, 2021 Electrical Cardioversion Rpt Electrical Cardioversion Report Patient seen and examined. Procedure synchronized electrical cardioversion explained in detail, informed consent obtained . Patient sedated via anesthesia consult, synchronized biphasic shocks ad ministered 200, 300J with conversion to sinus rhythm Patient aroused having tolerated well.
[2021-06-22] MEDS ORDERED: SPIRONOLACTONE 12.5 MG TAB PO ONE (11:00)
--- NOTE | 2021-06-22 17:02 | Hospitalist Progress Note ---
Date of Service June 22, 2021 Assessment & Plan (1) Acute hypoxemic respiratory failure: Plan: Acute diastolic heart failure Acute on chronic respiratory failure with hypoxia Adeno Virus Infection Chronic oxygen dependency: On 2 L as needed at baseline H/O OBI on CPAP HS Suspected Pulmonary Hypertension --CTA:The groundglass opacities on this exam are nonspecific and could reflect pulmonary edema. However, an infectious process or other etiologies such as hypersensitivity pneumonitis are within the differential. No PE. Stable cardiomegaly and dilatation of the central pulmonary arteries which suggests pulmonary arterial hypertension. Stable splenomegaly. --Biofire:Adeno Virus Monitor I's and O's, daily weight, electrolytes Appreciate cardiology input Continue CPAP at bedtime Continue spironolactone IV Lasix on hold Continue topical nitrates as per cardiology Asthma exacerbation Supplemental oxygen as needed Continue prednisone Nebs as needed Slowly improving Wean off of supplemental oxygen as able RLE wound Follows with wound clinic as outpatient Currently on 2-week course of Augmentin Continue wound care 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 Hypothyroidism Normal TSH Continue levothyroxine Chronic lymphedema Chronic anemia Hb at baseline Prediabetes HbA1c 6.0 in March 2021 DVT Px: Lovenox SQ Code Status Full code Admission and Anticipated Discharge Date Admission Date: June 20, 2021 Subjective Patient is seen and examined at bedside States feeling better today Less cough, dyspnea today No new complaints Denies any chest pain, dizziness, nausea, abd pain Review of Systems Review of Systems: All systems reviewed & are unremarkable except as noted in Subjective Physical Exam Physical Exam: Physical Exam: Vitals signs as noted above General Appearance:Morbidly Obese, no apparent distress Head: normocephalic, Atraumatic Eyes: normal inspection, EOMI Neck: supple, Trachea midline Respiratory/Chest: Decreased breath sounds, CTA Cardiovascular: S1, S2, No murmur Abdomen/GI:Soft, Non tender, Bowel sounds present Extremities/Musculoskeletal:normal inspection, B/L LE edema, RLE wound in dressing Neurologic/Psych:AAOX3, grossly no focal neurological deficits Skin: normal color, warm Results & Data Results & Data ([facility]) Vital Signs (Past 12 Hours) Vital Signs Temp Pulse Pulse Pulse Resp BP Pulse Ox 06/22/21 15:32 36.7 C 68 18 161/89 H 96 06/22/21 15:11 68 06/22/21 11:28 36.6 C 73 17 130/82 97 06/22/21 07:51 37.1 C 68 18 154/86 H 97 Laboratory Results [facility] 06/22/21 07:02 Sodium 135 L Potassium 3.7 Chloride 95 L Carbon Dioxide 38 H BUN 28 H Creatinine 0.71 Glucose 83 Calcium 7.8 L
[2021-06-22] MEDS: IPRATROPIUM BROMIDE NEB SOLN 0.02% 2.5 ML VIAL INH PRN (18:01)
[2021-06-22] MEDS: oxyCODONE/ACETAMINOPHEN 5mg/325mg TAB PO PRN (18:41)
[2021-06-22] MEDS: traZODone HCL 50 MG TAB PO SCH (19:54)
[2021-06-23] MEDS: NITROGLYCERIN 2% OINTMENT 30GM TUBE EXT SCH ×2 (06:01→11:40)
[2021-06-23] MEDS: LEVOTHYROXINE SODIUM 75 MCG TABLET PO SCH (06:02)
[2021-06-23 07:43] LABS: Hematocrit (blood only) 32.5 % (37-47); Hemoglobin 9.7 g/dL (12.0-16.0); Mean Corpuscular Hemoglobin 26.1 pg (25-34); Mean Corpuscular Hgb Conc 29.8 g/dL (32-36); Mean Corpuscular Volume 87.6 fL (80-100); Mean Platelet Volume 8.4 fL (7.4-10.4); Platelet Count 350 K/uL (130-400); RDW Coefficient of Variation 17.1 % (11.5-14.5); RDW Standard Deviation 53.8 fL (36.4-46.3); Red Blood Count 3.71 M/uL (4.2-5.4); White Blood Count 8.84 K/uL (4.8-10.8)
[2021-06-23] MEDS: AMOXICILLIN/CLAVULANATE 875 MG TAB PO SCH ×2 (08:10→17:33)
[2021-06-23 08:18] LABS: BUN Creatinine Ratio 36.7 (10-20); Calcium 8.8 mg/dl (8.5-10.1); Creatinine Clr Calc Pharmacy 131.8 ml/min; Est GFR (African American) 102.6 ml/min; Est GFR (Non-African American) 88.5 ml/min; Potassium 3.9 mmol/L (3.5-5.1)
[2021-06-23] MEDS: buPROPion XL 150 MG TABCR PO SCH (09:59)
[2021-06-23] MEDS: GABAPENTIN 300 MG CAP PO SCH ×3 (10:01→20:29)
[2021-06-23] MEDS: DULoxetine HCL 60 MG CAP PO SCH (10:01)
[2021-06-23] MEDS: guaiFENesin 600 MG TABCR PO SCH ×2 (10:02→20:30)
[2021-06-23] MEDS: MYCOPHENOLATE MOFETIL 250 MG CAP PO SCH ×2 (10:03→20:30)
[2021-06-23] MEDS: PANTOprazole 40 MG TAB PO SCH (10:04)
[2021-06-23] MEDS: predniSONE 20 MG TAB PO SCH (10:06)
[2021-06-23] MEDS: POTASSIUM CHLORIDE CRTAB 20 MEQ TABCR PO SCH (10:06)
[2021-06-23] MEDS: SPIRONOLACTONE 25 MG TAB PO SCH (10:07)
[2021-06-23] MEDS: FLUTICASONE/VILANTEROL 200/25MCG 14 PUFFS/INHALER INH SCH (10:09)
--- NOTE | 2021-06-23 10:09 | Hospitalist Progress Note ---
Date of Service June 23, 2021 Assessment & Plan (1) Acute hypoxemic respiratory failure: Plan: per Dr. Carranza's notes with addendum: Acute on chronic respiratory failure with hypoxia Acute diastolic heart failure Adeno Virus Infection Chronic oxygen dependency: On 2 L as needed at baseline H/O OBI on CPAP HS Suspected Pulmonary Hypertension --CTA:The groundglass opacities on this exam are nonspecific and could reflect pulmonary edema. However, an infectious process or other etiologies such as hypersensitivity pneumonitis are within the differential. No PE. Stable cardiomegaly and dilatation of the central pulmonary arteries which suggests pulmonary arterial hypertension. Stable splenomegaly. 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 Hypothyroidism Normal TSH Continue levothyroxine Chronic lymphedema Chronic anemia Hb at baseline Prediabetes HbA1c 6.0 in March 2021 DVT Px: Lovenox SQ Code Status Full code plan of care discussed with patient in detail and at length all questions answered she is understanding, agreeable, comfortable with the plan of care Admission and Anticipated Discharge Date Admission Date: June 20, 2021 Subjective ff up for acute CHF, Asthma exacerbation, etc seen resting in bed, on 3 L NC comfortable states breathing is improving gradually no cough, fever/chills, chest pain reports R upper thigh still has tenderness no other symptoms Review of Systems Review of Systems: all noted and negative except for above Physical Exam Physical Exam: General- oriented x 3, not in distress, speaks in sentences with no effort or accessory muscle use Eyes- anicteric Neck- no JVD Lungs- mild rales at the bases faint intermittent wheeze bilaterally Heart- normal rate, regular rhythm; no murmurs Abdomen- normal bowel sounds, nondistended, soft, nontender Extremities- R upper thigh: small wound, scant serous drainage (+) moderate edema, warmth, tenderness Neuro- alert, oriented x 3; no gross focal neurologic deficits Skin- warm & dry Results & Data Results & Data ([facility]) Vital Signs (Past 12 Hours) Vital Signs Temp Pulse Pulse Resp BP Pulse Ox 06/23/21 03:45 29 H 94 06/23/21 03:00 36.4 C L 67 20 146/81 H 96 06/23/21 01:05 78 06/23/21 00:55 21 95 06/22/21 22:39 36.7 C 82 18 145/76 H 96 all noted and reviewed including below
[2021-06-23] MEDS: FLUTICASONE PROPIONATE NA SPR 16 GM BTL SCH ×2 (10:11→20:28)
[2021-06-23] MEDS: ENOXAPARIN INJ 40 MG/0.4 ML SYR SQ SCH (10:11)
[2021-06-23] MEDS: CIPROFLOXACIN 500 MG TAB PO SCH ×2 (11:38→20:28)
[2021-06-23] MEDS: ACETIC ACID 0.25% IRRIG SOLN 1000 ML PLCT IR SCH (11:42)
--- NOTE | 2021-06-23 13:00 | Cardiology Progress Note ---
Date of Service June 23, 2021 Assessment & Plan (1) Heart failure with preserved ejection fraction: (2) Acute hypoxemic respiratory failure: (3) Sleep apnea: (4) Morbid obesity with BMI of 60.0-69.9, adult: Plan: Patient is a complex 50-year-old female with medical problems as noted including morbid obesity with obstructive sleep apnea and elevated pulmonary pressures, asthmatic lung disease, SLE admitted with 2-week history of increasing dyspnea and exertional shortness of breath initially treated for asthmatic exacerbation but ultimately presenting with findings of heart failure with preserved ejection fraction on admission. Treat underlying sleep apnea/asthma High risk obesity clinic intervention Acute diastolic heart failure has responded to IV diuretics, bedrest, oxygen supplementation. Weight down greater than 10 kg. Will change furosemide to oral dosing this today, continue spironolactone. Blood pressures persistently elevated possibly due to corticosteroids but suspect patient will need treatment we will add low-dose losartan, discontinue topical nitrate Consider reduction in gabapentin dosing to aid future fluid retention Admission and Anticipated Discharge Date Admission Date: June 20, 2021 Subjective Patient seen and examined, chart, medications telemetry reviewed Mildly lethargic this morning but no acute complaints Physical Exam Constitutional: + morbidly obese; no acute distress Eyes: PERRL, conjunctivae normal, anicteric sclerae ENMT: Mouth: + dentition abnormality Mallampati Class: IV Neck: trachea midline, no thyromegaly Respiratory: Auscultation: + bronchovesicular breath sounds; no wheezes Cardiovascular: Rate/Rhythm: regular rate and regular rhythm Heart Sounds: normal S1 and normal S2; no murmur Vessels: no JVD Extremities: + edema Neurologic: PERRL, EOMI, accommodation nl, no face palsy, no dysarthria Psychiatric: A+Ox3, euthymic affect Results & Data ([facility]) Vital Signs (Past 12 Hours) Vital Signs Temp Pulse Pulse Resp BP Pulse Ox 06/23/21 10:59 79 06/23/21 03:45 29 H 94 06/23/21 03:00 36.4 C L 67 20 146/81 H 96 06/23/21 01:05 78
[2021-06-23] MEDS: LOSARTAN POTASSIUM 25 MG TAB PO SCH (15:00)
[2021-06-23] MEDS: FUROSEMIDE 20 MG TAB PO SCH (15:25)
[2021-06-23] MEDS: IPRATROPIUM BROMIDE NEB SOLN 0.02% 2.5 ML VIAL INH PRN (20:14)
[2021-06-23] MEDS: LEVALBUTEROL 1.25MG/0.5ML NEB INH PRN (20:14)
[2021-06-23] MEDS: DOCUSATE SODIUM/SENNA 50/8.6MG TAB PO SCH (20:27)
[2021-06-23] MEDS: traZODone HCL 50 MG TAB PO SCH (20:31)
[2021-06-24] MEDS: LEVOTHYROXINE SODIUM 75 MCG TABLET PO SCH (04:57)
[2021-06-24] MEDS: DOCUSATE SODIUM/SENNA 50/8.6MG TAB PO SCH (08:30)
[2021-06-24] MEDS: GABAPENTIN 300 MG CAP PO SCH ×3 (08:30→20:23)
[2021-06-24] MEDS: POTASSIUM CHLORIDE CRTAB 20 MEQ TABCR PO SCH (08:31)
[2021-06-24] MEDS: MYCOPHENOLATE MOFETIL 250 MG CAP PO SCH ×2 (08:31→20:22)
[2021-06-24] MEDS: LOSARTAN POTASSIUM 25 MG TAB PO SCH (08:31)
[2021-06-24] MEDS: SPIRONOLACTONE 25 MG TAB PO SCH (08:31)
[2021-06-24] MEDS: guaiFENesin 600 MG TABCR PO SCH ×2 (08:32→20:24)
[2021-06-24] MEDS: PANTOprazole 40 MG TAB PO SCH (08:32)
[2021-06-24] MEDS: DULoxetine HCL 60 MG CAP PO SCH (08:32)
[2021-06-24] MEDS: FUROSEMIDE 20 MG TAB PO SCH (08:32)
[2021-06-24] MEDS: CIPROFLOXACIN 500 MG TAB PO SCH ×2 (08:33→20:24)
[2021-06-24] MEDS: buPROPion XL 150 MG TABCR PO SCH (08:33)
[2021-06-24] MEDS: AMOXICILLIN/CLAVULANATE 875 MG TAB PO SCH ×2 (08:33→16:46)
[2021-06-24] MEDS: ENOXAPARIN INJ 40 MG/0.4 ML SYR SQ SCH (08:34)
[2021-06-24] MEDS: FLUTICASONE PROPIONATE NA SPR 16 GM BTL SCH ×2 (08:34→20:25)
[2021-06-24] MEDS: FLUTICASONE/VILANTEROL 200/25MCG 14 PUFFS/INHALER INH SCH (08:35)
--- NOTE | 2021-06-24 08:44 | XRay Report ---
XR chest 1V portable CLINICAL HISTORY: Follow-up congestive heart failure. COMPARISON STUDY: Chest CT June 20, 2021. Chest radiograph June 21, 2021. FINDINGS: There is no pneumothorax or pleural effusion. Interstitial thickening and bilateral opaciti es have improved. Cardiomegaly is unchanged. IMPRESSION: Interval improvement in interstitial thickening and bilateral opacities. The findings fa vor improving pulmonary edema. ACT 112: Negative or not required by law. Electronically signed by: Michel Siu M.D. 06/24/2021 8:43 AM
[2021-06-24] MEDS ORDERED: predniSONE 10 MG TABLET PO SCH (09:00)
[2021-06-24] MEDS: ACETIC ACID 0.25% IRRIG SOLN 1000 ML PLCT IR SCH (09:57)
[2021-06-24 10:21] LABS: BUN Creatinine Ratio 37.8 (10-20); Creatinine Clr Calc Pharmacy 137.2 ml/min; Est GFR (Non-African American) 95.8 ml/min
--- NOTE | 2021-06-24 10:47 | Surgery Consultation ---
Date of Consultation June 24, 2021 Assessment & Plan (1) Open wound of right thigh: 42-year-old woman with chronic wound of her right upper thigh. I repacked the wound with the quarter percent acetic acid solution. I discussed the case with the wound care nurse. We will plan for exploration of the wound in the operating room under sedation tomorrow. History of Present Illness Reason for Consultation: Chronic right thigh wound Requesting Physician: Jesus Marroquin MD Attending Physician: Jesus Marroquin MD History of Present Illness 50-year-old woman admitted to the hospital for respiratory issues is also noted to have a longstanding chronic wound on her right upper thigh. This is followed by the wound clinic as an outpatient. Based on wound care notes, there is a track leading down into a slightly larger cavity approximately 3 cm down. There is a pseudomonal infection and there is some tannish drainage. This has been packed with gauze soaked in 1/4% acetic acid solution as per wound care. Since she has been in the hospital, the opening to the outside has decreased in size from approximately 3cm to 2 mm. We are being consulted to consider reopening the wound with a surgical wound exploration. She denies pain or tenderness at the level of the wound. She denies fevers or chills. Allergies Allergy/AdvReac Type Severity Reaction Status Date / Time hydroxychloroquine Allergy Severe Swelling Verified 06/14/21 10:11 [From Plaquenil] of Lip/Tongue/Throat nickel Allergy Mild Rash Verified 06/14/21 10:11 Home Medications Medication Instructions Recorded Confirmed Type epinephrine 0.3 mg/0.3 mL 0.3 mg IM DIRECTED PRN #0 09/22/17 06/20/21 History injection, auto-injector (EpiPen 2-David) loratadine 10 mg tablet 10 mg PO DAILY PRN #0 tab 09/22/17 06/20/21 History albuterol sulfate 90 mcg/actuation 2 puff INHALATION Q4H PRN 04/27/18 06/20/21 History aerosol inhaler mometasone-formoterol HFA 200 2 puff INHALATION BID 04/27/18 06/20/21 History mcg-5 mcg/actuation aerosol inhaler valacyclovir 1 gram tablet 1,000 mg PO Q12H PRN 04/27/18 06/20/21 History omeprazole 20 mg tablet,delayed 20 mg PO QAM 03/05/19 06/20/21 History release CPAP Machine #1 ea 03/12/19 06/14/21 History gabapentin 300 mg capsule 300 mg PO TID 07/05/19 06/20/21 History levothyroxine 75 mcg tablet 75 mcg PO QAM 01/25/21 06/20/21 History trazodone 50 mg tablet 50 - 100 mg PO HS 01/25/21 06/20/21 History Oxygen Home #1 ea 06/01/21 06/14/21 History mycophenolate mofetil 500 mg 1,500 mg PO BID tab 06/01/21 06/14/21 History tablet (CellCept) bupropion HCl 150 mg 24 hr tablet, 150 mg PO QAM 06/20/21 06/20/21 History extended release duloxetine 60 mg capsule,delayed 120 mg PO DAILY 06/20/21 06/20/21 History release fluticasone propionate 50 2 spray INTRANASAL BID 06/20/21 06/20/21 History mcg/actuation nasal spray,suspension hydroxyzine HCl 10 mg tablet 10 mg PO TID PRN 06/20/21 06/20/21 History prednisone 20 mg tablet 40 mg PO DAILY 06/20/21 06/20/21 History Patient History Medical History Anemia, chronic disease Anxiety Asthma stable, using rescue inhaler with exertion Bronchiolitis JUNE 2019> RESOLVED Depression GERD (gastroesophageal reflux disease) controlled Hypothyroidism Lupus stable on Cellcept; follows w/[facility] Lymphedema Lower extremities Morbid obesity with BMI of 60.0-69.9, adult On home oxygen therapy ON O2 AT 2L WITH CPAP DEVICE AT HS Osteoarthritis Pneumonia ~ 2 weeks ago, seen by PCP, tx with ABX and prednisone Psoriasis Shingles RESOLVED Sleep apnea CPAP Urticarial vasculitis Venous insufficiency of both lower extremities Surgical History History of appendectomy History of bilateral tubal ligation History of cataract surgery R & L History of section History of colonoscopy History of D&C X2 History of esophagogastroduodenoscopy (EGD) History of wisdom tooth extraction Family History Father Diabetes Mother Asthma Hypertension Brother Stroke Grandfather (Paternal) Diabetes Sister Hay fever Denies family history of Ovarian cancer Breast cancer Colorectal cancer Social History Smoking Status: Never smoker Second Hand Exposure: No; Hx Alcohol Use: No Hx Substance Use: No Preferred Language: Vietnamese Communication Ability: Effective Visual Impairment: Limited Hearing Ability: Normal [employer] Analyst Required: No Beliefs That Will Affect Care: None Current Living Situation: Family Current Living Situation Comment: Grandson and SO current occupational status: disabled Feels Safe at Home: Yes Safety Concerns: Feels Safe At This Time caffeine: Yes Physical Activity Frequency: Does not Exercise Do you think of yourself as: straight/heterosexual Gender Identity: Female Assistive Devices: CPAP and Oxygen - at Night Review of Systems Review of Systems: All systems reviewed & are unremarkable except as noted in HPI & below Physical Exam Constitutional: WD/WN, vitals as above Neck: trachea midline, no thyromegaly Respiratory: normal respiratory effort; no respiratory distress and no labored breathing Cardiovascular: Rate/Rhythm: regular rate and regular rhythm Gastrointestinal (Abdomen): Percussion/Palpation: abdomen soft; abdomen nontender Musculoskeletal: Extremities: no cyanosis and no clubbing Skin: no rashes, warm and dry + wound (Right upper thigh; 2 mm opening tracks to larger cavity approximately 5 cm) Psychiatric: A+Ox3, euthymic affect Results & Data ([facility]) Vital Signs (Past 12 Hours) Vital Signs Temp Pulse Pulse Resp BP Pulse Ox 06/24/21 07:39 37.0 C 76 18 146/93 H 96 06/24/21 07:26 70 06/24/21 04:09 36.9 C 78 22 144/79 H 96 06/23/21 23:41 76
--- NOTE | 2021-06-24 12:50 | Hospitalist Progress Note ---
Date of Service June 24, 2021 Assessment & Plan (1) Acute hypoxemic respiratory failure: Plan: per Dr. Carranza's notes with addendum: Acute on chronic respiratory failure with hypoxia Acute diastolic heart failure Adeno Virus Infection Chronic oxygen dependency: On 2 L as needed at baseline H/O OBI on CPAP HS Suspected Pulmonary Hypertension --CTA:The groundglass opacities on this exam are nonspecific and could reflect pulmonary edema. However, an infectious process or other etiologies such as hypersensitivity pneumonitis are within the differential. No PE. Stable cardiomegaly and dilatation of the central pulmonary arteries which suggests pulmonary arterial hypertension. Stable splenomegaly. --Biofire:Adeno Virus 06/24/21 diuresing well Continue PO Lasix and spironolactone Losartan started as well wean off O2 accordingly continue CPAP Asthma exacerbation Supplemental oxygen as needed taper prednisone slowly, 20mg po daily tomorrow, then 10mg then stop Nebs as needed also improving Wean off of supplemental oxygen as able RLE wound, cellulitis Immunocompromised, on Cellcept Wound culture 06/01/21: (+) Proteus, Pseudomonas started Cipro 500mg BID for Pseudomonal coverage day 2 Currently on 2-week course of Augmentin discussed with Wound Care team, recommended Gen Surg consult Dr. 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 Hypothyroidism Normal TSH Continue levothyroxine Chronic lymphedema Chronic anemia Hb at baseline Prediabetes HbA1c 6.0 in March 2021 DVT Px: Lovenox SQ Code Status Full code plan of care discussed with patient in detail and at length all questions answered she is understanding, agreeable, comfortable with the plan of care Admission and Anticipated Discharge Date Admission Date: June 20, 2021 Subjective ff up for CHF, respiratory failure, etc seen resting in bed, comfortable on 2 L NC states she feels improved today breathing is better less cough no chest pain, dyspnea, palpitations, dizziness no fever/chills mild R Leg discomfort no other symptoms Review of Systems Review of Systems: all noted and negative except for above Physical Exam Physical Exam: General- oriented x 3, not in distress, speaks in sentences with no effort or accessory muscle use Eyes- anicteric Neck- no JVD Lungs- very mild rales at the bases, no wheezing good air entry bilaterally Heart- normal rate, regular rhythm; no murmurs Abdomen- normal bowel sounds, nondistended, soft, nontender Extremities- R thigh: less erythema, warmth, tenderness still has significant edema,induration no pretibial edema, no calf tenderness Neuro- alert, oriented x 3; no gross focal neurologic deficits Skin- warm & dry Results & Data Results & Data ([facility]) Vital Signs (Past 12 Hours) Vital Signs Temp Pulse Pulse Resp BP Pulse Ox 06/24/21 12:22 36.4 C L 76 19 118/67 95 06/24/21 07:39 37.0 C 76 18 146/93 H 96 06/24/21 07:26 70 06/24/21 04:09 36.9 C 78 22 144/79 H 96 all noted and reviewed including below
[2021-06-24] MEDS: NYSTATIN POWDER 15GM BTL EXT PRN (14:25)
--- NOTE | 2021-06-24 16:10 | Anesthesiology Consultation ---
Date of Service June 24, 2021 Assessment & Plan (1) Encounter for pre-operative examination: Chart Review Chart Review: Pending: Refer to Additional Notes / Consult section and Patient NOT seen in Pre Admission Testing Patient admitted for preserved EF heart failure and acute on chronic respiratory failure. She has diuresed 10mg this admission. Per hospitalist note: seen resting in bed, comfortable on 2 L NC states she feels improved today breathing is better less cough no chest pain, dyspnea, palpitations, dizziness no fever/chills mild R Leg discomfort no other symptoms Will need to assess patient DOS to ensure she continues to improve from a respir atory standpoint as she would be high risk of prolonged intubation unless she is appropriately optimized. Consults Requested none History Surgery Operation Date: 06/25/21 10:00 Proposed Procedures p Right Thigh Wound Exploration - Scotty Torres MD Height/Weight Height: 5 ft 4 in Weight: 151.6 kg Allergies Allergy/AdvReac Type Severity Reaction Status Date / Time hydroxychloroquine Allergy Severe Swelling Verified 06/14/21 10:11 [From Plaquenil] of Lip/Tongue/Throat nickel Allergy Mild Rash Verified 06/14/21 10:11 Medications Home Medications Medication Instructions Recorded Confirmed Last Taken epinephrine 0.3 mg/0.3 mL 0.3 mg IM DIRECTED PRN #0 09/22/17 06/20/21 Unknown injection, auto-injector (EpiPen 2-David) loratadine 10 mg tablet 10 mg PO DAILY PRN #0 tab 09/22/17 06/20/21 01/24/21 albuterol sulfate 90 mcg/actuation 2 puff INHALATION Q4H PRN 04/27/18 06/20/21 03/18/21 aerosol inhaler mometasone-formoterol HFA 200 2 puff INHALATION BID 04/27/18 06/20/21 03/18/21 mcg-5 mcg/actuation aerosol inhaler valacyclovir 1 gram tablet 1,000 mg PO Q12H PRN 04/27/18 06/20/21 03/18/21 omeprazole 20 mg tablet,delayed 20 mg PO QAM 03/05/19 06/20/21 03/17/21 release CPAP Machine #1 ea 03/12/19 06/14/21 Unknown gabapentin 300 mg capsule 300 mg PO TID 07/05/19 06/20/2103/18/21 levothyroxine 75 mcg tablet 75 mcg PO QAM 01/25/21 06/20/21 03/18/21 trazodone 50 mg tablet 50 - 100 mg PO HS 01/25/21 06/20/21 03/17/21 Oxygen Home #1 ea 06/01/21 06/14/21 Unknown mycophenolate mofetil 500 mg 1,500 mg PO BID tab 06/01/21 06/14/21 Unknown tablet (CellCept) bupropion HCl 150 mg 24 hr tablet, 150 mg PO QAM 06/20/21 06/20/21 Unknown extended release duloxetine 60 mg capsule,delayed 120 mg PO DAILY 06/20/21 06/20/21 Unknown release fluticasone propionate 50 2 spray INTRANASAL BID 06/20/21 06/20/21 Unknown mcg/actuation nasal spray,suspension hydroxyzine HCl 10 mg tablet 10 mg PO TID PRN 06/20/21 06/20/21 Unknown prednisone 20 mg tablet 40 mg PO DAILY 06/20/21 06/20/21 Unknown Active Medications Generic Name Dose Route Start Last Admin Trade Name Freq PRN Reason Stop Dose Admin Acetic Acid 1 appln 06/21/21 10:00 06/24/21 09:57 Acetic Acid 0.25% Irrig Soln 1000 Ml Plct IR 07/21/21 09:59 1 appln DAILY SAVANNAH Administration Amoxicillin/Clavulanate Potassium 1 tab 06/20/21 11:15 06/24/21 08:33 Amoxicillin/Clavulanate 875 Mg Tab PO 06/27/21 11:14 1 tab BIDM SAVANNAH Administration Bupropion HCl 150 mg 06/20/21 09:00 06/24/21 08:33 Bupropion Xl 150 Mg Tabcr PO 07/20/21 08:59 150 mg QAM SAVANNAH Administration Ciprofloxacin 500 mg 06/23/21 10:30 06/24/21 08:33 Ciprofloxacin 500 Mg Tab PO 06/30/21 10:29 500 mg BID SAVANNAH Administration Protocol Duloxetine HCl 120 mg 06/20/21 09:00 06/24/21 08:32 Duloxetine Hcl 60 Mg Cap PO 07/20/21 08:59 120 mg DAILY SAVANNAH Administration Enoxaparin Sodium 40 mg 06/20/21 09:00 06/24/21 08:34 Enoxaparin Inj 40 Mg/0.4 Ml Syr SQ 07/20/21 08:59 40 mg QAM SAVANNAH Administration Fluticasone Propionate 2 sprays 06/20/21 09:00 06/24/21 08:34 Fluticasone Propionate Na Spr 16 Gm Btl NA 07/20/21 08:59 2 sprays BID SAVANNAH Administration Fluticasone/Vilanterol 1 puffs 06/20/21 09:00 06/24/21 08:35 Fluticasone/Vilanterol 200/25mcg 14 Puffs/Inhaler INH 07/20/21 08:59 1 puf fs DAILY SAVANNAH Administration Furosemide 40 mg 06/22/21 09:00 06/22/21 07:39 Furosemide 40 Mg/4 Ml Vial IV 07/22/21 08:59 40 mg DAILY SAVANNAH Administration Furosemide 20 mg 06/23/21 13:15 06/24/21 08:32 Furosemide 20 Mg Tab PO 07/23/21 13:14 20 mg QAM SAVANNAH Administration Gabapentin 300 mg 06/20/21 09:00 06/24/21 14:23 Gabapentin 300 Mg Cap PO 07/20/21 08:59 300 mg TID SAVANNAH Administration Guaifenesin 600 mg 06/20/21 09:00 06/24/21 08:32 Guaifenesin 600 Mg Tabcr PO 07/20/21 08:59 600 mg Q12 SAVANNAH Administration Hydroxyzine HCl 10 mg 06/20/21 05:27 06/21/21 08:35 Hydroxyzine Hcl 10 Mg Tab PO 07/20/21 05:26 10 mg TID PRN Administration Itching Ipratropium [place] 0.5 mg 06/20/21 13:07 06/23/21 20:14 Ipratropium [place] Neb Soln 0.02% 2.5 Ml Vial INH 07/20/21 06:59 0.5 mg Q6R PRN Administration Shortness Of Breath Or Wheezing Levalbuterol HCl 1.25 mg 06/20/21 13:07 06/23/21 20:14 Levalbuterol 1.25mg/0.5ml Neb INH 07/20/21 06:59 1.25 mg Q6R PRN Administration Shortness Of Breath Or Wheezing Levothyroxine Sodium 75 mcg 06/20/21 06:30 06/24/21 04:57 Levothyroxine Sodium 75 Mcg Tablet PO 07/20/21 06:29 75 mcg DAILYBB SAVANNAH Administration Losartan Potassium 25 mg 06/23/21 14:00 06/24/21 08:31 Losartan Potassium 25 Mg Tab PO 07/23/21 13:59 25 mg QAM SAVANNAH Administration Mycophenolate Mofetil 1,500 mg 06/20/21 09:00 06/24/21 08:31 Mycophenolate Mofetil 250 Mg Cap PO 07/20/21 08:59 1,500 mg BID SAVANNAH Administration Nystatin 1 appln 06/24/21 12:49 06/24/21 14:25 Nystatin Powder 15gm Btl EXT 07/24/21 12:48 1 appln BID PRN Administration Affected Skin Folds Oxycodone/Acetaminophen 1 tab 06/20/21 12:02 06/22/21 18:41 Oxycodone/Acetaminophen 5mg/325mg Tab PO 07/04/21 12:01 1 tab Q6H PRN Administration Pain Pantoprazole Sodium 40 mg 06/20/21 09:00 06/24/21 08:32 Pantoprazole 40 Mg Tab PO 07/20/21 08:59 40 mg QAM SAVANNAH Administration Potassium Chloride 20 meq 06/22/21 09:00 06/24/21 08:31 Potassium Chloride Crtab 20 Meq Tabcr PO 07/22/21 08:59 20 meq DAILY SAVANNAH Administration Senna/Docusate Sodium 1 tab 06/23/21 18:15 06/24/21 08:30 Docusate Sodium/Senna 50/8.6mg Tab PO 07/23/21 18:14 Not Given QAM SAVANNAH Spironolactone 25 mg 06/23/21 09:00 06/24/21 08:31 Spironolactone 25 Mg Tab PO 07/23/21 08:59 25 mg DAILY SAVANNAH Administration Trazodone HCl 50 mg 06/20/21 21:00 06/23/21 20:31 Trazodone Hcl 50 Mg Tab PO 07/20/21 20:59 50 mg HS SAVANNAH Administration Past Medical History Medical History (Updated 06/24/21 @ 16:08 by Isma Melo MD) Acute hypoxemic respiratory failure Anemia, chronic disease Anxiety Asthma stable, using rescue inhaler with exertion Bronchiolitis JUNE 2019> RESOLVED Depression GERD (gastroesophageal reflux disease) controlled Heart failure with preserved ejection fraction Hypothyroidism Lupus stable on Cellcept; follows w/[facility] Lymphedema Lower extremities Morbid obesity with BMI of 60.0-69.9, adult On home oxygen therapy ON O2 AT 2L WITH CPAP DEVICE AT HS Open wound of right thigh Osteoarthritis Pneumonia ~ 2 weeks ago, seen by PCP, tx with ABX and prednisone Psoriasis Shingles RESOLVED Sleep apnea CPAP Urticarial vasculitis Venous insufficiency of both lower extremities Past Family History Family History Father Diabetes Mother Asthma Hypertension Brother Stroke Grandfather (Paternal) Diabetes Sister Hay fever Denies family history of Ovarian cancer Breast cancer Colorectal cancer Past Surgical History Surgical History History of appendectomy History of bilateral tubal ligation History of cataract surgery R & L History of section History of colonoscopy History of D&C X2 History of esophagogastroduodenoscopy (EGD) History of wisdom tooth extraction Social History Smoking Status: Never smoker Hx Alcohol Use: No Alcohol type: wine alcohol intake frequency: other Hx Substance Use: No substance use type: does not use Physical Exam Vital Signs Last Vital Signs Temp 37.0 C 06/24/21 15:02 Pulse 73 06/24/21 15:17 Resp 19 06/24/21 15:02 BP 131/78 06/24/21 15:02 Pulse Ox 92 06/24/21 15:02 Testing Laboratory Results 06/23/21 07:30 06/24/21 09:48 Urine Color Yellow 06/20/21 01:10 Urine Appearance Clear (Clear) 06/20/21 01:10 Urine pH 6.5 (4.5-7.5) 06/20/21 01:10 Ur Specific [place] 1.009 (1.000-1.030) 06/20/21 01:10 Urine Protein Negative (Negative) 06/20/21 01:10 Urine Glucose (UA) Negative (Negative) 06/20/21 01:10 Urine Ketones Negative (Negative) 06/20/21 01:10 Urine Nitrite Negative (Negative) 06/20/21 01:10 Ur Leukocyte Esterase Negative (Negative) 06/20/21 01:10 Electrocardiogram Date: 06/24/21 Findings: + NSR @ (78) Normal sinus rhythm Nonspecific T wave abnormality Abnormal ECG When compared with ECG of 20-JUN-2021 05:52, Premature atrial complexes are no longer Present Incomplete left bundle block is no longer Present Nonspecific T wave abnormality now evident in Lateral leads Chest X-Ray Date: 06/24/21 XR chest 1V portable CLINICAL HISTORY: Follow-up congestive heart failure. COMPARISON STUDY: Chest CT June 20, 2021. Chest radiograph June 21, 2021. FINDINGS: There is no pneumothorax or pleural effusion. Interstitial thickening and bilateral opacities have improved. Cardiomegaly is unchanged. IMPRESSION: Interval improvement in interstitial thickening and bilateral opacities. The findings favor improving pulmonary edema. Echocardiogram Date: 06/20/21 LV is borderline dilated. Mild LVH LV wall motion is normal. EF 55-60% Mild to moderate MR Mild to moderate TR RV systolic pressure is elevated at 30-40mmHg.
[2021-06-24] MEDS: traZODone HCL 50 MG TAB PO SCH (20:21)
[2021-06-25] MEDS: LEVOTHYROXINE SODIUM 75 MCG TABLET PO SCH (05:25)
--- NOTE | 2021-06-25 06:06 | Electrocardiogram Report ---
Test Reason : Blood Pressure : / mmHG Vent. Rate : 078 BPM Atrial Rate : 078 BPM P-R Int : 164 ms QRS Dur : 108 ms QT Int : 388 ms P-R-T Axes : 053 028 084 degrees QTc Int : 442 ms Normal sinus rhythm Nonspecific T wave abnormality Abnormal ECG When compared with ECG of 20-JUN-2021 05:52, Premature atrial complexes are no longer Present Confirmed by Salbador Sapp ([id number]) on 06/25/2021 6:05:45 AM Referred By: REFERRED SELF Confirmed By:Salbador Sapp
[2021-06-25 08:08] LABS: BUN Creatinine Ratio 37.8 (10-20); Calcium 8.2 mg/dl (8.5-10.1); Creatinine Clr Calc Pharmacy 122.3 ml/min; Est GFR (African American) 98.1 ml/min; Est GFR (Non-African American) 84.6 ml/min; Potassium 4.1 mmol/L (3.5-5.1)
[2021-06-25] MEDS ORDERED: MIDAZOLAM HCL 1 MG/ML 2ML VIAL ONE (09:38)
[2021-06-25] MEDS ORDERED: ONDANSETRON INJ 2 MG/ML 2 ML VIAL ONE (09:39)
[2021-06-25] MEDS ORDERED: fentaNYL citrate 100 MCG/2 ML VIAL ONE (09:39)
[2021-06-25] MEDS ORDERED: PROPOFOL IV EMULSION 10 MG/ML 20 ML VIAL IV ONE ×2 (09:39→11:02)
--- NOTE | 2021-06-25 10:11 | History & Physical Bridge Note ---
Date of Service June 25, 2021 History & Physical Bridge Note I have examined the patient, reviewed the History & Physical and in the interval since the performance of the History & Physical I have noted the following changes of clinical significance: no changes noted
[2021-06-25] MEDS ORDERED: ONDANSETRON INJ 2 MG/ML 2 ML VIAL IV PRN (10:26)
[2021-06-25] MEDS ORDERED: NALOXONE HCL 0.4 MG/1 ML VIAL/CARP IV PRN (10:26)
[2021-06-25] MEDS ORDERED: FLUMAZENIL 0.1 MG/1 ML 10 ML VIAL IV PRN (10:26)
[2021-06-25] MEDS ORDERED: ePHEDrine sulfate 50 MG/ML AMP IV PRN (10:26)
[2021-06-25] MEDS ORDERED: fentaNYL citrate 100 MCG/2 ML VIAL IV PRN (10:26)
[2021-06-25] MEDS ORDERED: LABETALOL HCL IV 5 MG/ML 20ML IV PRN (10:26)
[2021-06-25] MEDS ORDERED: PROMETHAZINE HCL 12.5 MG in SODIUM CHLORIDE 0.9% 50 ML IV PRN (10:26)
[2021-06-25] MEDS ORDERED: ATROPINE SULFATE 0.1 MG/ML 10ML SYR IV PRN (10:26)
[2021-06-25] MEDS ORDERED: LIDOCAINE 1% LOCAL 20 ML VIAL ONE (10:32)
[2021-06-25] MEDS ORDERED: KETAMINE 50 MG/5 ML SYRINGE ONE (10:41)
[2021-06-25] MEDS ORDERED: GLYCOPYRROLATE 0.2 MG/ML VIAL ONE (11:02)
--- NOTE | 2021-06-25 11:10 | Post Operative Brief Note ---
Immediate Post Op Note v1 Date of Surgery June 25, 2021 Pre & Post Diagnosis Operation Date: 06/25/21 10:00 Chronic wound, right upper leg I identified the patient and participated in the time-out.: Yes Procedure Operation Date: 06/25/21 10:00 Incision and drainage of right upper leg chronic wound Surgeon Scotty Torres MD [employer] None Estimated Blood Loss 2 Findings Consistent with Post-Op Diagnosis
--- NOTE | 2021-06-25 11:12 | Operative Report ---
Post Operative Report Pre & Post Diagnosis Operation Date: 06/25/21 10:00 <No data on this case meets the specified criteria> I identified the patient and participated in the time-out.: Yes Procedure Operation Date: 06/25/21 10:00 <No data on this case meets the specified criteria> Surgeon Scotty Torres MD [employer] None Estimated Blood Loss 2 Findings Consistent with Post-Op Diagnosis Specimens Culture for aerobic and anaerobic bacteria Anesthesia Type MAC Complications No immediate complications Description of Procedure Patient was taken to the operating room, placed supine on the operating table. A timeout was performed. She was on antibiotics. SCD boots were placed. After adequate anesthesia and analgesia was obtained, the area of the right upper thigh was prepped and draped in the normal sterile fashion. The existing wound was probed. The opening was only 2 mm in diameter. This led to a larger cavity of about 3 cm underneath. A 15 blade scalpel was used to enlarge the opening on the skin. This was enlarged to approximately 2 cm to 2.5 cm in diameter. Cultures were taken from the wound base. The wound was explored and copiously irrigated and suctioned free. Hemostasis was excellent. The wound was packed wet-to-dry with Kerlix. A dressing was applied. She tolerated the procedure without complication, was transferred in stable condition to the PACU. All instrument, needle, and sponge counts were correct at the end of the case. I attest to the content of the Intraoperative Record and any orders documented therein. Any exceptions are noted below.
[2021-06-25] MEDS: AMOXICILLIN/CLAVULANATE 875 MG TAB PO SCH ×2 (11:37→17:54)
[2021-06-25] MEDS: ACETIC ACID 0.25% IRRIG SOLN 1000 ML PLCT IR SCH (11:37)
[2021-06-25] MEDS: GABAPENTIN 300 MG CAP PO SCH ×3 (11:38→20:05)
[2021-06-25] MEDS: MYCOPHENOLATE MOFETIL 250 MG CAP PO SCH ×2 (11:38→20:04)
[2021-06-25] MEDS: guaiFENesin 600 MG TABCR PO SCH ×2 (11:38→20:05)
[2021-06-25] MEDS: FLUTICASONE PROPIONATE NA SPR 16 GM BTL SCH ×2 (11:38→20:04)
[2021-06-25] MEDS: CIPROFLOXACIN 500 MG TAB PO SCH ×2 (11:38→20:04)
--- NOTE | 2021-06-25 11:59 | Anesthesiology Progress Note ---
Date of Service June 25, 2021 Anesthesia Post Procedure Vital Signs Vital Signs: Temp Pulse Pulse Pulse Resp BP Pulse Ox 06/25/21 11:50 36.3 C L 76 14 125/89 90 06/25/21 11:40 75 22 116/80 92 06/25/21 11:30 74 13 115/64 95 06/25/21 11:20 74 22 113/68 92 06/25/21 11:13 36 C L 77 17 125/66 89 L 06/25/21 10:01 36.7 C 73 18 125/79 97 06/25/21 08:07 36.8 C 69 18 130/72 95 06/25/21 03:45 75 19 96 06/25/21 03:43 36.7 C 2 L 20 137/78 99 06/24/21 23:07 65 06/24/21 23:00 36.3 C L 68 20 144/83 H 99 06/24/21 22:00 70 20 100 06/24/21 19:23 36.5 C 81 20 131/74 95 06/24/21 15:17 73 06/24/21 15:02 37.0 C 75 19 131/78 92 06/24/21 12:22 36.4 C L 76 19 118/67 95 Pain Intensity Right Lower Back: Pain Intensity: 3 Transfer of Care Handoff Completed per policy Notes Mental Status: alert / awake / arousable Patient Amnestic to Procedure: Yes Nausea / Vomiting: adequately controlled Pain: adequately controlled Airway Patency, RR, SpO2: stable & adequate BP & HR: stable & adequate Hydration State: stable & adequate Anesthetic Complications: no major complications apparent
[2021-06-25] MEDS: DULoxetine HCL 60 MG CAP PO SCH (13:06)
[2021-06-25] MEDS: DOCUSATE SODIUM/SENNA 50/8.6MG TAB PO SCH (13:06)
[2021-06-25] MEDS: FUROSEMIDE 20 MG TAB PO SCH (13:06)
[2021-06-25] MEDS: ENOXAPARIN INJ 40 MG/0.4 ML SYR SQ SCH (13:06)
[2021-06-25] MEDS: FLUTICASONE/VILANTEROL 200/25MCG 14 PUFFS/INHALER INH SCH (13:06)
[2021-06-25] MEDS: buPROPion XL 150 MG TABCR PO SCH (13:06)
[2021-06-25] MEDS: POTASSIUM CHLORIDE CRTAB 20 MEQ TABCR PO SCH (13:07)
[2021-06-25] MEDS: SPIRONOLACTONE 25 MG TAB PO SCH (13:07)
[2021-06-25] MEDS: LOSARTAN POTASSIUM 25 MG TAB PO SCH (13:07)
[2021-06-25] MEDS: PANTOprazole 40 MG TAB PO SCH (13:07)
[2021-06-25] MEDS: predniSONE 20 MG TAB PO SCH (13:07)
[2021-06-25] MEDS: oxyCODONE/ACETAMINOPHEN 5mg/325mg TAB PO PRN (13:08)
--- NOTE | 2021-06-25 16:10 | Hospitalist Progress Note ---
Date of Service June 25, 2021 Assessment & Plan (1) Acute hypoxemic respiratory failure: Plan: per Dr. Carranza's notes with addendum: Acute on chronic respiratory failure with hypoxia Acute diastolic heart failure Adeno Virus Infection Chronic oxygen dependency: On 2 L as needed at baseline H/O OBI on CPAP HS Suspected Pulmonary Hypertension --CTA:The groundglass opacities on this exam are nonspecific and could reflect pulmonary edema. However, an infectious process or other etiologies such as hypersensitivity pneumonitis are within the differential. No PE. Stable cardiomegaly and dilatation of the central pulmonary arteries which suggests pulmonary arterial hypertension. Stable splenomegaly. --Biofire:Adeno Virus 06/25/2021 Continues to diurese well Continue PO Lasix and spironolactone, Losartan Losartan started as well On 2 L of oxygen, wean off O2 accordingly continue CPAP Asthma exacerbation Supplemental oxygen as needed taper prednisone slowly, 20mg po daily tomorrow, then 10mg then stop Nebs as needed Wheezing has resolved Wean off of supplemental oxygen as able RLE wound, cellulitis Immunocompromised, on Cellcept Wound culture 06/01/21: (+) Proteus, Pseudomonas started Cipro 500mg BID for Pseudomonal coverage day 3 Currently on 2-week course of Augmentin discussed with Wound Care team, recommended Gen Surg consult 06/25/2021: Status post 1 exploration Wound drainage culture: Pending Cellulitis seems to be improving Continue Augmentin, Cipro Continue daily wound care 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 Status post wound exploration on this morning Resting in bed, sleeping, comfortable, easily awakened States she feels tired, but denies chest pain or shortness of breath Right upper thigh wound feels sore No other new symptoms Review of Systems Review of Systems: all noted and negative except for above Physical Exam Physical Exam: General- oriented x 3, not in distress, speaks in sentences with no effort or accessory muscle use Eyes- anicteric Neck- no JVD Lungs-diminished but clear breath sounds bilaterally, no wheezing Heart- normal rate, regular rhythm; no murmurs Abdomen- normal bowel sounds, nondistended, soft, nontender Extremities- no pretibial edema, no calf tenderness Right thigh medial aspect: Heavy dressing in place, no bleeding or discharge Less erythema, warmth, tenderness Still has induration Neuro- alert, oriented x 3; no gross focal neurologic deficits Skin- warm & dry Results & Data Results & Data ([facility]) Vital Signs (Past 12 Hours) Vital Signs Temp Pulse Pulse Pulse Resp BP Pulse Ox 06/25/21 15:36 36.8 C 78 16 98/58 L 97 06/25/21 15:27 89 06/25/21 12:48 36.6 C 78 18 127/71 96 06/25/21 12:27 36.7 C 73 16 105/74 91 06/25/21 12:26 71 06/25/21 11:50 36.3 C L 76 14 125/89 90 06/25/21 11:40 75 22 116/80 92 06/25/21 11:30 74 13 115/64 95 06/25/21 11:20 74 22 113/68 92 06/25/21 11:13 36 C L 77 17 125/66 89 L 06/25/21 10:01 36.7 C 73 18 125/79 97 06/25/21 08:07 36.8 C 69 18 130/72 95 all noted and reviewed including below
[2021-06-25] MEDS: ADVANCED PROBIOTIC 1250 MG CAPSULE PO SCH (17:54)
[2021-06-25] MEDS: traZODone HCL 50 MG TAB PO SCH (20:09)
[2021-06-26] MEDS: LEVOTHYROXINE SODIUM 75 MCG TABLET PO SCH (05:53)
[2021-06-26 06:54] LABS: BUN Creatinine Ratio 44.6 (10-20); Calcium 8.3 mg/dl (8.5-10.1); Creatinine Clr Calc Pharmacy 120.8 ml/min; Est GFR (African American) 96.6 ml/min; Est GFR (Non-African American) 83.4 ml/min; Potassium 4.9 mmol/L (3.5-5.1)
--- NOTE | 2021-06-26 08:17 | Surgery Progress Note ---
Date of Service June 26, 2021 Assessment & Plan (1) Cellulitis: Plan: POD 1 I&D right thigh packing changed, continue daily changes can shower when packing removed ok for d/c with home health/wound clinic once medically stable Admission and Anticipated Discharge Date Admission Date: June 20, 2021 Subjective minimal post op pain Physical Exam Skin: right thigh wound, minimal drainage, erythema resolved, some induration remains Results & Data ([facility]) Vital Signs (Past 12 Hours) Vital Signs Temp Pulse Pulse Resp BP Pulse Ox 06/26/21 06:55 36.6 C 65 16 99/62 L 96 06/26/21 01:25 72 21 93 06/25/21 22:43 94 06/25/21 21:30 36.7 C 71 18 146/86 H 94 PG Care Time/CCT Total # of Minutes Spent Total Time Spent with Patient: Total time spent is greater than 50% in coordination of care (as documented) at patient's floor/unit and/or counseling patient: Coding Level of Care Code 64026 Subseq Hosp Care Lvl 1 Diagnoses Cellulitis L03.115 Laterality: right Site of cellulitis: extremity Site of cellulitis of extremity: lower extremity (1) Cellulitis Laterality: right Site of cellulitis: extremity Site of cellulitis of extremity: lower extremity Qualified Code(s): L03.115 - Cellulitis of right lower limb
[2021-06-26] MEDS: NYSTATIN POWDER 15GM BTL EXT PRN (08:49)
[2021-06-26] MEDS: FLUTICASONE/VILANTEROL 200/25MCG 14 PUFFS/INHALER INH SCH (08:49)
[2021-06-26] MEDS: FLUTICASONE PROPIONATE NA SPR 16 GM BTL SCH ×2 (08:49→21:16)
[2021-06-26] MEDS: ENOXAPARIN INJ 40 MG/0.4 ML SYR SQ SCH (08:49)
[2021-06-26] MEDS: ADVANCED PROBIOTIC 1250 MG CAPSULE PO SCH (08:50)
[2021-06-26] MEDS: FUROSEMIDE 40 MG/4 ML VIAL IV SCH ×2 (08:50→09:17)
[2021-06-26] MEDS: POTASSIUM CHLORIDE CRTAB 20 MEQ TABCR PO SCH (08:50)
[2021-06-26] MEDS: DOCUSATE SODIUM/SENNA 50/8.6MG TAB PO SCH (08:51)
[2021-06-26] MEDS: AMOXICILLIN/CLAVULANATE 875 MG TAB PO SCH ×2 (08:51→17:46)
[2021-06-26] MEDS: guaiFENesin 600 MG TABCR PO SCH ×2 (09:07→21:17)
[2021-06-26] MEDS: LOSARTAN POTASSIUM 25 MG TAB PO SCH (09:08)
[2021-06-26] MEDS: CIPROFLOXACIN 500 MG TAB PO SCH ×2 (09:08→21:17)
[2021-06-26] MEDS: MYCOPHENOLATE MOFETIL 250 MG CAP PO SCH ×2 (09:08→21:17)
[2021-06-26] MEDS: DULoxetine HCL 60 MG CAP PO SCH (09:08)
[2021-06-26] MEDS: FUROSEMIDE 20 MG TAB PO SCH (09:09)
[2021-06-26] MEDS: PANTOprazole 40 MG TAB PO SCH (09:09)
[2021-06-26] MEDS: buPROPion XL 150 MG TABCR PO SCH (09:09)
[2021-06-26] MEDS: GABAPENTIN 300 MG CAP PO SCH ×3 (09:09→21:17)
[2021-06-26] MEDS: SPIRONOLACTONE 25 MG TAB PO SCH (09:09)
[2021-06-26] MEDS: predniSONE 20 MG TAB PO SCH (09:09)
[2021-06-26] MEDS: ACETIC ACID 0.25% IRRIG SOLN 1000 ML PLCT IR SCH (09:09)
[2021-06-26] MEDS: hydrOXYzine HCl 10 MG TAB PO PRN (11:13)
--- NOTE | 2021-06-26 13:57 | Hospitalist Progress Note ---
Date of Service June 26, 2021 Assessment & Plan (1) Acute hypoxemic respiratory failure: Plan: per Dr. Carranza's notes with addendum: Acute on chronic respiratory failure with hypoxia Acute diastolic heart failure Adeno Virus Infection Chronic oxygen dependency: On 2 L as needed at baseline H/O OBI on CPAP HS Suspected Pulmonary Hypertension --CTA:The groundglass opacities on this exam are nonspecific and could reflect pulmonary edema. However, an infectious process or other etiologies such as hypersensitivity pneumonitis are within the differential. No PE. Stable cardiomegaly and dilatation of the central pulmonary arteries which suggests pulmonary arterial hypertension. Stable splenomegaly. --Biofire:Adeno Virus 06/26/2021 Continues to diurese well Continue PO Lasix and spironolactone, Losartan On 2 L of oxygen, wean off O2 accordingly continue CPAP Asthma exacerbation Supplemental oxygen as needed taper prednisone slowly, 20mg po daily tomorrow, then 10mg then stop Nebs as needed Wheezing has resolved Wean off of supplemental oxygen as able RLE wound, cellulitis Immunocompromised, on Cellcept Wound culture 06/01/21: (+) Proteus, Pseudomonas started Cipro 500mg BID for Pseudomonal coverage day 3 Currently on 2-week course of Augmentin discussed with Wound Care team, recommended Gen Surg consult 06/26/2021: Status post 1 exploration Wound drainage culture: Pending Cellulitis improving since addition of Cipro, wound exploration Continue Augmentin, Cipro Continue daily wound care 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 Hypothyroidism Normal TSH Continue levothyroxine Chronic lymphedema Chronic anemia Hb at baseline Prediabetes HbA1c 6.0 in March 2021 DVT Px: Lovenox SQ Code Status Full code plan of care discussed with patient in detail and at length all questions answered she is understanding, agreeable, comfortable with the plan of care Admission and Anticipated Discharge Date Admission Date: June 20, 2021 Subjective ff up for acute CHF, etc seen resting in bed, comfortable on 2 L nasal cannula states she feels improved today overall breathing continues to improve less cough no chest pain no fever/chills R thigh pain improving no other symptoms Review of Systems Review of Systems: all noted and negative except for above Physical Exam Physical Exam: General- oriented x 3, not in distress, speaks in sentences with no effort or accessory muscle use Eyes- anicteric Neck- no JVD Lungs- very mild rales at the bases no wheezing clear breath sounds Heart- normal rate, regular rhythm; no murmurs Abdomen- normal bowel sounds, nondistended, soft, nontender Extremities- R thigh, medial aspect: small open wound, no active discharge less surrounding erythema, warmth, tenderness, edema grade 1 lower leg edema Neuro- alert, oriented x 3; no gross focal neurologic deficits Skin- warm & dry Results & Data Results & Data ([facility]) Vital Signs (Past 12 Hours) Vital Signs Temp Pulse Resp BP Pulse Ox 06/26/21 11:00 18 110/69 96 06/26/21 10:55 36.5 C 89 18 138/75 90 06/26/21 06:55 36.6 C 65 16 99/62 L 96 all noted and reviewed including below
[2021-06-26] MEDS: traZODone HCL 50 MG TAB PO SCH (21:22)
[2021-06-27] MEDS: oxyCODONE/ACETAMINOPHEN 5mg/325mg TAB PO PRN (03:11)
[2021-06-27 05:30] LABS: BUN Creatinine Ratio 39.8 (10-20); Calcium 9.2 mg/dl (8.5-10.1); Creatinine Clr Calc Pharmacy 120.8 ml/min; Est GFR (African American) 96.6 ml/min; Est GFR (Non-African American) 83.4 ml/min; Potassium 4.8 mmol/L (3.5-5.1)
[2021-06-27] MEDS: LEVOTHYROXINE SODIUM 75 MCG TABLET PO SCH (06:11)
[2021-06-27] MEDS: ENOXAPARIN INJ 40 MG/0.4 ML SYR SQ SCH (08:54)
[2021-06-27] MEDS: MYCOPHENOLATE MOFETIL 250 MG CAP PO SCH ×2 (08:54→20:31)
[2021-06-27] MEDS: FLUTICASONE PROPIONATE NA SPR 16 GM BTL SCH ×2 (08:54→20:31)
[2021-06-27] MEDS: FLUTICASONE/VILANTEROL 200/25MCG 14 PUFFS/INHALER INH SCH (08:54)
[2021-06-27] MEDS: AMOXICILLIN/CLAVULANATE 875 MG TAB PO SCH (08:55)
[2021-06-27] MEDS: POTASSIUM CHLORIDE CRTAB 20 MEQ TABCR PO SCH (08:55)
[2021-06-27] MEDS: buPROPion XL 150 MG TABCR PO SCH (08:55)
[2021-06-27] MEDS: DOCUSATE SODIUM/SENNA 50/8.6MG TAB PO SCH (08:55)
[2021-06-27] MEDS: hydrOXYzine HCl 10 MG TAB PO PRN (08:55)
[2021-06-27] MEDS: SPIRONOLACTONE 25 MG TAB PO SCH (08:56)
[2021-06-27] MEDS: PANTOprazole 40 MG TAB PO SCH (08:56)
[2021-06-27] MEDS: CIPROFLOXACIN 500 MG TAB PO SCH ×2 (08:56→20:32)
[2021-06-27] MEDS: FUROSEMIDE 20 MG TAB PO SCH (08:56)
[2021-06-27] MEDS: GABAPENTIN 300 MG CAP PO SCH ×3 (08:56→20:33)
[2021-06-27] MEDS: DULoxetine HCL 60 MG CAP PO SCH (08:56)
[2021-06-27] MEDS: LOSARTAN POTASSIUM 25 MG TAB PO SCH (08:56)
[2021-06-27] MEDS: guaiFENesin 600 MG TABCR PO SCH ×2 (08:57→20:32)
[2021-06-27] MEDS: ADVANCED PROBIOTIC 1250 MG CAPSULE PO SCH (08:57)
[2021-06-27] MEDS: ACETIC ACID 0.25% IRRIG SOLN 1000 ML PLCT IR SCH (09:15)
[2021-06-27] MEDS: predniSONE 10 MG TABLET PO SCH (10:21)
--- NOTE | 2021-06-27 14:41 | Hospitalist Progress Note ---
Date of Service June 27, 2021 Assessment & Plan (1) Acute hypoxemic respiratory failure: Plan: per Dr. Carranza's notes with addendum: Acute on chronic respiratory failure with hypoxia Acute diastolic heart failure Adeno Virus Infection Chronic oxygen dependency: On 2 L as needed at baseline H/O OBI on CPAP HS Suspected Pulmonary Hypertension --CTA:The groundglass opacities on this exam are nonspecific and could reflect pulmonary edema. However, an infectious process or other etiologies such as hypersensitivity pneumonitis are within the differential. No PE. Stable cardiomegaly and dilatation of the central pulmonary arteries which suggests pulmonary arterial hypertension. Stable splenomegaly. --Biofire:Adeno Virus 06/27/2021 Continues to diurese well BP on the lower side hold PO Lasix and spironolactone, Losartan On 2 L of oxygen, wean off O2 accordingly continue CPAP Asthma exacerbation Supplemental oxygen as needed taper prednisone slowly, 20mg po daily tomorrow, then 10mg then stop Nebs as needed Wheezing has resolved Wean off of supplemental oxygen as able RLE wound, cellulitis Immunocompromised, on Cellcept Wound culture 06/01/21: (+) Proteus, Pseudomonas started Cipro 500mg BID for Pseudomonal coverage day 3 Currently on 2-week course of Augmentin discussed with Wound Care team, recommended Gen Surg consult 06/26/2021: Status post 1 exploration Wound drainage culture: negative so far Cellulitis improving since addition of Cipro, wound exploration Continue Cipro completed 2 week course of Augmentin Continue daily wound care 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 Hypothyroidism Normal TSH Continue levothyroxine Chronic lymphedema Chronic anemia Hb at baseline Prediabetes HbA1c 6.0 in March 2021 DVT Px: Lovenox SQ Code Status Full code plan of care discussed with patient in detail and at length all questions answered she is understanding, agreeable, comfortable with the plan of care Admission and Anticipated Discharge Date Admission Date: June 20, 2021 Subjective ff up for CHF exacerbation, asthma exacerbation, r thigh wound, cellulitis, etc seen resting in bed, comfortable states she feels fine overall on 2 L NC breathing is ok leg pain improving no other symptoms Review of Systems Review of Systems: all noted and negative except for above Physical Exam Physical Exam: General- oriented x 2, not in distress, speaks in sentences with no effort or accessory muscle use Eyes- anicteric Neck- no JVD Lungs- clear breath sounds BL no wheezing, no rales Heart- normal rate, regular rhythm; no murmurs Abdomen- normal bowel sounds, nondistended, soft, nontender Extremities- mild lower leg edema R thigh, medial aspect: no erythema, warmth, tenderness no active drainage from the wound Neuro- alert, oriented x 3; no gross focal neurologic deficits Skin- warm & dry Results & Data Results & Data ([facility]) Vital Signs (Past 12 Hours) Vital Signs Temp Pulse Resp BP Pulse Ox 06/27/21 06:59 36.6 C 72 16 101/64 95 all noted and reviewed including below
[2021-06-27] MEDS: traZODone HCL 50 MG TAB PO SCH (20:33)
[2021-06-28] MEDS: LEVOTHYROXINE SODIUM 75 MCG TABLET PO SCH (06:10)
[2021-06-28 08:07] LABS: BUN Creatinine Ratio 43.2 (10-20); Calcium 8.4 mg/dl (8.5-10.1); Creatinine Clr Calc Pharmacy 107.9 ml/min; Est GFR (African American) 82.1 ml/min; Est GFR (Non-African American) 70.8 ml/min; Potassium 4.4 mmol/L (3.5-5.1)
[2021-06-28] MEDS: ACETIC ACID 0.25% IRRIG SOLN 1000 ML PLCT IR SCH (09:19)
[2021-06-28] MEDS: GABAPENTIN 300 MG CAP PO SCH ×3 (09:24→21:09)
[2021-06-28] MEDS: ENOXAPARIN INJ 40 MG/0.4 ML SYR SQ SCH (09:24)
[2021-06-28] MEDS: POTASSIUM CHLORIDE CRTAB 20 MEQ TABCR PO SCH (09:24)
[2021-06-28] MEDS: MYCOPHENOLATE MOFETIL 250 MG CAP PO SCH ×2 (09:24→21:09)
[2021-06-28] MEDS: PANTOprazole 40 MG TAB PO SCH (09:25)
[2021-06-28] MEDS: predniSONE 10 MG TABLET PO SCH (09:25)
[2021-06-28] MEDS: guaiFENesin 600 MG TABCR PO SCH ×2 (09:25→21:10)
[2021-06-28] MEDS: ADVANCED PROBIOTIC 1250 MG CAPSULE PO SCH (09:25)
[2021-06-28] MEDS: DOCUSATE SODIUM/SENNA 50/8.6MG TAB PO SCH (09:25)
[2021-06-28] MEDS: LOSARTAN POTASSIUM 25 MG TAB PO SCH (09:25)
[2021-06-28] MEDS: DULoxetine HCL 60 MG CAP PO SCH (09:25)
[2021-06-28] MEDS: FLUTICASONE PROPIONATE NA SPR 16 GM BTL SCH ×2 (09:26→21:09)
[2021-06-28] MEDS: FLUTICASONE/VILANTEROL 200/25MCG 14 PUFFS/INHALER INH SCH (09:26)
[2021-06-28] MEDS: buPROPion XL 150 MG TABCR PO SCH (09:26)
[2021-06-28] MEDS: CIPROFLOXACIN 500 MG TAB PO SCH ×2 (09:26→21:09)
--- NOTE | 2021-06-28 16:53 | Hospitalist Progress Note ---
Date of Service June 28, 2021 Assessment & Plan (1) Acute hypoxemic respiratory failure: Plan: per Dr. Carranza's notes with addendum: Acute on chronic respiratory failure with hypoxia Acute diastolic heart failure Adeno Virus Infection Chronic oxygen dependency: On 2 L as needed at baseline H/O OBI on CPAP HS Suspected Pulmonary Hypertension --CTA:The groundglass opacities on this exam are nonspecific and could reflect pulmonary edema. However, an infectious process or other etiologies such as hypersensitivity pneumonitis are within the differential. No PE. Stable cardiomegaly and dilatation of the central pulmonary arteries which suggests pulmonary arterial hypertension. Stable splenomegaly. --Biofire:Adeno Virus 06/28/2021 Continues to diurese well BP improving resume PO Lasix and spironolactone tomorrow continue Losartan weaned off oxygen will order 2 step exercise test tomorrow continue CPAP Asthma exacerbation Supplemental oxygen as needed taper prednisone slowly, 20mg po daily tomorrow, then 10mg then stop Nebs as needed Wheezing has resolved Wean off of supplemental oxygen as able RLE wound, cellulitis Immunocompromised, on Cellcept Wound culture 06/01/21: (+) Proteus, Pseudomonas started Cipro 500mg BID for Pseudomonal coverage day 3 Currently on 2-week course of Augmentin discussed with Wound Care team, recommended Gen Surg consult 06/26/2021: Status post 1 exploration Wound drainage culture: negative so far Cellulitis improving since addition of Cipro, wound exploration Continue Cipro completed 2 week course of Augmentin Continue daily wound care 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 Seen resting in bed, comfortable, sleeping but easily awakened States she feels that she is continue to feel improved Breathing also improved, no coughing, fevers or chills Right thigh wound area also improving No other symptoms Review of Systems 2 Review of Systems: all noted and negative except for above Physical Exam Physical Exam: General- oriented x 3, not in distress, speaks in sentences with no effort or accessory muscle use Eyes- anicteric Neck- no JVD Lungs- clear breath sounds bilaterally, no crackles, no wheezing Heart- normal rate, regular rhythm; no murmurs Abdomen- normal bowel sounds, nondistended, soft, nontender Extremities-right lower extremity, thigh: No erythema/warmth/tenderness, small wound opening noted with packing, no bleeding or discharge noted Mild lower extremity edema Neuro- alert, oriented x 3; no gross focal neurologic deficits Skin- warm & dry Results & Data Results & Data ([facility]) Vital Signs (Past 12 Hours) Vital Signs Temp Pulse Resp BP Pulse Ox 06/28/21 15:13 36.7 C 85 16 129/73 93 06/28/21 09:31 95 06/28/21 07:31 36.9 C 77 16 103/68 96 all noted and reviewed including below
[2021-06-28] MEDS: traZODone HCL 50 MG TAB PO SCH (21:15)
[2021-06-29] MEDS: LEVOTHYROXINE SODIUM 75 MCG TABLET PO SCH (05:53)
[2021-06-29] MEDS: ACETIC ACID 0.25% IRRIG SOLN 1000 ML PLCT IR SCH (08:14)
[2021-06-29] MEDS: MYCOPHENOLATE MOFETIL 250 MG CAP PO SCH (08:17)
[2021-06-29] MEDS: SPIRONOLACTONE 25 MG TAB PO SCH (08:17)
[2021-06-29] MEDS: PANTOprazole 40 MG TAB PO SCH (08:17)
[2021-06-29] MEDS: LOSARTAN POTASSIUM 25 MG TAB PO SCH (08:18)
[2021-06-29] MEDS: FLUTICASONE/VILANTEROL 200/25MCG 14 PUFFS/INHALER INH SCH (08:18)
[2021-06-29] MEDS: FUROSEMIDE 20 MG TAB PO SCH (08:18)
[2021-06-29] MEDS: ADVANCED PROBIOTIC 1250 MG CAPSULE PO SCH (08:18)
[2021-06-29] MEDS: CIPROFLOXACIN 500 MG TAB PO SCH (08:18)
[2021-06-29] MEDS: GABAPENTIN 300 MG CAP PO SCH (08:18)
[2021-06-29] MEDS: guaiFENesin 600 MG TABCR PO SCH (08:18)
[2021-06-29] MEDS: buPROPion XL 150 MG TABCR PO SCH (08:18)
[2021-06-29] MEDS: DULoxetine HCL 60 MG CAP PO SCH (08:18)
[2021-06-29] MEDS: ENOXAPARIN INJ 40 MG/0.4 ML SYR SQ SCH (08:19)
[2021-06-29] MEDS: FLUTICASONE PROPIONATE NA SPR 16 GM BTL SCH (08:19)
[2021-06-29] MEDS: POTASSIUM CHLORIDE CRTAB 20 MEQ TABCR PO SCH (08:21)
[2021-06-29] MEDS: DOCUSATE SODIUM/SENNA 50/8.6MG TAB PO SCH (08:21)
--- NOTE | 2021-06-29 11:19 | Hospitalist Progress Note ---
Date of Service June 29, 2021 Assessment & Plan (1) Acute hypoxemic respiratory failure: Plan: per Dr. Carranza's notes with addendum: Acute on chronic respiratory failure with hypoxia Acute diastolic heart failure Adeno Virus Infection Chronic oxygen dependency: On 2 L as needed at baseline H/O OBI on CPAP HS Suspected Pulmonary Hypertension --CTA:The groundglass opacities on this exam are nonspecific and could reflect pulmonary edema. However, an infectious process or other etiologies such as hypersensitivity pneumonitis are within the differential. No PE. Stable cardiomegaly and dilatation of the central pulmonary arteries which suggests pulmonary arterial hypertension. Stable splenomegaly. --Biofire:Adeno Virus 06/29/2021 [employer] consulted Given IV Lasix then transition to oral Lasix and Aldactone Diuresed well BP improving -34 L of fluid balance on discharge day Weaned off oxygen, now on room air, no supplemental oxygen needed for two-step exercise Discharge plan per cardiology recommendations: Lasix 20 mg p.o. daily Aldactone 12.5 mg p.o. 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 Seen resting in bed, sitting up, on room air In good spirits States she feels much better overall Denies shortness of breath, chest pain, palpitations, dizziness Right thigh wound area improving, not much pain No other symptoms States that she is ready and would like to be discharged today Review of Systems Review of Systems: all noted and negative except for above Physical Exam Physical Exam: General- oriented x 3, not in distress, speaks in sentences with no effort or accessory muscle use Eyes- anicteric Neck- no JVD Lungs- clear breath sounds bilaterally, no wheezing, no crackles Heart- normal rate, regular rhythm; no murmurs Abdomen- normal bowel sounds, nondistended, soft, nontender Extremities-trace lower extremity edema Right thigh: Small wound healing well, no erythema/warmth/tenderness Still with induration Neuro- alert, oriented x 3; no gross focal neurologic deficits Skin- warm & dry Results & Data Results & Data ([facility]) Vital Signs (Past 12 Hours) Vital Signs Temp Pulse Pulse Pulse Pulse Resp Resp 06/29/21 09:48 104 H 101 H 87 22 06/29/21 07:57 36.7 C 78 16 Resp Resp BP Pulse Ox Pulse Ox Pulse Ox Pulse Ox 06/29/21 09:48 22 18 92 96 94 06/29/21 07:57 131/75 93 all noted and reviewed including below
--- NOTE | 2021-06-29 11:31 | Discharge Summary ---
Date of Service June 29, 2021 Admission HPI Per Admitting Provider Chief Complaint: Worsening shortness of breath Primary Care Provider: Ary Bravo DO History obtained from patient and records. 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 Last confinement March 2021 for RLE cellulitis secondary to cat scratch. Patient discharged on doxycycline course. Last follow-up with [facility] wound care center last week. Patient instructed to finish Augmentin course for open wound on right medial thigh. Ascetic acid dressing for Pseudomonas growth on CS. Outpatient lower extremity Dopplers negative for DVT. Patient to return after 1 week for evaluation of wound as per note. Possible wound VAC placement depending on progress. Last week, patient noted dry cough symptoms with shortness of breath mostly on exertion. Chest/abdominal pain from coughing as per patient. No known recent COVID-19 contacts. Patient completed COVID-19 vaccination. Significant fluid retention possible weight gain since discharge from the hospital despite compliance with home diuretic regimen. Not able to weigh herself at home. Prednisone course prescribed for asthma exacerbation by outpatient provider. O2 sats noted to be 88 on room air at some point at the ER. Patient given Solu-Medrol and neb treatment for asthma exacerbation. Admission Exam (Per Admitting) Constitutional GENERAL: Slightly uncomfortable, morbidly obese, looks older than stated age, no respiratory distress SKIN: Pallor , warm HEENT: Bespectacled, pale palpebral conjunctivae, no ptosis, dry buccal mucosa, nasal cannula in place NECK : Supple, short neck, no tenderness CHEST : Decreased breath sounds, no tenderness HEART : RRR, no obvious murmurs ABDOMEN: distention, nontender EXTREMITIES : Bilateral LE swelling with minimal erythema, no LE tenderness, dressing over right leg, no other conspicuous deformities noted NEUROLOGIC : Coherent, no facial asymmetry, no other gross focality Discharge Data Consultations 06/20/21 03:22 ED Decision to Admit Stat 06/20/21 05:27 Consult Cardiology Routine 06/24/21 08:33 Consult General Surgery Routine Procedures Performed Operation Date: 06/25/21 10:00 Actual Procedures p Right Thigh Wound Exploration(Right) - Scotty Torres MD CT ANGIOGRAPHY OF THE CHEST, PULMONARY EMBOLUS PROTOCOL CLINICAL HISTORY: Dyspnea. COMPARISON STUDY: Chest CT June 30, 2019. Chest radiograph June 20, 2021. TECHNIQUE: Following IV administration of 120 mL of Optiray, helical axial images of the chest were obtained utilizing the pulmonary embolus protocol. Maximal intensity projections and sagittal and coronal reformats were viewed on an independent 3D workstation. IV contrast was administered without c omplication. Automated exposure control was utilized for the study. A dose lowering technique was utilized adhering to the principles of ALARA. CT DOSE: 840.75 mGy.cm FINDINGS: No pulmonary emboli are identified. Dilatation of the central pulmonary arteries is similar to CT of June 2019. Main pulmonary artery measures 4.2 cm in caliber. Cardiomegaly is unchanged. There is no pericardial effusion. Prominent mediastinal and bilateral hilar lymph nodes remain unchanged. No pneumothorax or pleural effusion is noted. Interlobular septal thickening within the lungs is noted. There are groundglass opacities with mosaic attenuation within the lungs. No consolidation is identified. Central airways are patent. No acute fracture or suspicious lesion is identified within visualized portions of the bony thorax. The spleen is partially visualized. Splenomegaly appears unchanged. Mildly enlarged gastrohepatic ligament lymph nodes are unchanged since prior CT. IMPRESSION: 1. No pulmonary emboli identified. 2. Interlobular septal thickening which favors interstitial pulmonary edema. 3. Mosaic attenuation and groundglass opacities within the lungs which may reflect air trapping. 4. Stable cardiomegaly and dilatation of the central pulmonary arteries which suggests pulmonary arterial hypertension. 5. Stable splenomegaly. ADDENDUM Addendum: The groundglass opacities on this exam are nonspecific and could reflect pulmonary edema. However, an infectious process or other etiologies such as hypersensitivity pneumonitis are within the differential. Electronically signed by: Michel Siu M.D. 06/20/2021 8:41 AM ADDENDUM END ACT 112: Negative or not required by law. Electronically signed by: Michel Siu M.D. 06/20/2021 8:33 AM Hospital Course (1) Acute hypoxemic respiratory failure: per Dr. Carranza's notes with addendum: Acute on chronic respiratory failure with hypoxia Acute diastolic heart failure Adeno Virus Infection Chronic oxygen dependency: On 2 L as needed at baseline H/O OBI on CPAP HS Suspected Pulmonary Hypertension --CTA:The groundglass opacities on this exam are nonspecific and could reflect pulmonary edema. However, an infectious process or other etiologies such as hypersensitivity pneumonitis are within the differential. No PE. Stable cardiomegaly and dilatation of the central pulmonary arteries which suggests pulmonary arterial hypertension. Stable splenomegaly. Prominent mediastinal and bilateral hilar lymph nodes remain unchanged. No pneumothorax or pleural effusion is noted. Interlobular septal thickening within the lungs is noted. There are groundglass opacities with mosaic attenuation within the lungs. --Biofire:Adeno Virus 06/29/2021 Desktop Support Consultant consulted Given IV Lasix then transition to oral Lasix and Aldactone Diuresed well BP improving -34 L of fluid balance on discharge day Weaned off oxygen, now on room air, no supplemental oxygen needed for two-step exercise Discharge plan: Lasix 20 mg p.o. daily Aldactone 12.5 mg p.o. daily Fluid restriction, low sodium diet Discharge to home with home services Follow-up with PCP in 1 week Follow with biztalk administrator in [address] chest to ff up resolution of above CT chest findings Asthma exacerbation Given prednisone taper Wheezing resolved RLE wound, cellulitis Immunocompromised, on Cellcept Wound culture 06/01/21: (+) Proteus, Pseudomonas 06/26/2021: Status post wound exploration by general surgeon Dr. 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
--- NOTE | 2021-06-29 15:23 | Electrocardiogram Report ---
Test Reason : Blood Pressure : / mmHG Vent. Rate : 077 BPM Atrial Rate : 077 BPM P-R Int : 160 ms QRS Dur : 114 ms QT Int : 402 ms P-R-T Axes : 065 029 076 degrees QTc Int : 454 ms Normal sinus rhythm Incomplete left bundle block Borderline ECG When compared with ECG of 24-JUN-2021 09:33, QRS duration has increased Confirmed by Marcelo Salgado ([id number]) on 06/29/2021 3:22:35 PM Referred By: REFERRED SELF Confirmed By:Marcelo Salgado
== END 2021-06-29 13:35 | disposition home health service (06) | DRG 291 ==
LOC: ED 00:38 → 2S 03:52 → SUATTDRO 03:52 → 2S 04:41 → 3E 06-25 18:51 → 2E 06-28 06:34

== ENCOUNTER 2024-02-18 11:12 | Inpatient (IN) ==
--- NOTE | 2024-02-18 11:50 | Emergency Department Note ---
History of Present Illness General Chief complaint: Infection, Wound Stated complaint: FEVER/102, LOOPIS FLAIR, CHILLS, RT LEG PAIN/WOUND Time Seen by Provider: 02/18/24 11:41 Source: patient, family ( who is at the bedside), RN notes reviewed and old records reviewed (02/08/24-wound care visit for right thigh wound) Mode of arrival: ambulatory Limitations: no limitations History of Present Illness Maximum Pain Intensity: 4 This patient a 53-year-old female history of lupus as well as a wound in her right thigh, comes in after having a lupus flareup she had a fever and chills at home her temperature was 22.5 last evening she is seen by wound care on Monday they did put a packing in her wound on her thigh and said it was looking better the patient feels like it is more swollen and tender. She had 1 episode of vomiting this week but is not really been keeping up with her fluids she had diarrhea today decreased appetite she has been sleepy no cough or shortness of breath or respiratory symptoms .denies dysuria or hematuria. Her says when she gets flares like this she requires IV antibiotics Home Medications Medication Instructions Recorded Confirmed Type epinephrine 0.3 mg/0.3 mL 0.3 mg IM DIRECTED PRN Allergic 09/22/17 02/18/24 History injection, auto-injector (EpiPen Reaction ##0 2-David) albuterol sulfate 90 mcg/actuation 2 puff inhalation Q4H PRN 04/27/18 02/18/24 History aerosol inhaler Cough/Wheezing mometasone-formoterol HFA 200 2 puff inhalation BID 04/27/18 02/18/24 History mcg-5 mcg/actuation aerosol inhaler valacyclovir 1 gram tablet 1,000 mg PO Q12H PRN Cold Sores 04/27/18 02/18/24 History omeprazole 20 mg tablet,delayed 20 mg PO QAM 03/05/19 02/18/24 History release CPAP Machine #1 ea 03/12/19 02/08/24 History Oxygen Home #1 ea 06/01/21 02/08/24 History fluticasone propionate 50 2 spray intranasal BID 06/20/21 02/18/24 History mcg/actuation nasal spray,suspension losartan 25 mg tablet 25 mg PO QAM 30 days #30 tabs 06/29/21 02/18/24 Rx diclofenac sodium 1 % topical gel 2 g topical TID PRN Pain 12/30/21 02/18/24 History baclofen 10 mg tablet 10 mg PO BID 01/19/22 02/18/24 History torsemide 20 mg tablet 60 mg PO QAM 03/30/22 02/18/24 History levocetirizine 5 mg tablet 2.5 mg PO HS 04/29/22 02/18/24 History levothyroxine 100 mcg tablet 100 mcg PO DAILYBB 04/29/22 02/18/24 History spironolactone 25 mg tablet 25 mg PO DAILY 04/29/22 02/18/24 History sucralfate 1 gram tablet (Carafate) 1 g PO ACHS 04/29/22 02/18/24 History betamethasone dipropionate 0.05 % 1 applic topical HS PRN RASH ON 07/17/22 02/18/24 History topical cream LIMBS ipratropium 0.5 mg-albuterol 3 mg 3 ml inhalation Q6H PRN 07/17/22 02/18/24 History (2.5 mg base)/3 mL nebulization COUGH/SOB/WHEEZING soln ondansetron 8 mg disintegrating 8 mg translingual Q8H PRN 07/17/22 02/18/24 History tablet NAUSEA/VOMITING polyvinyl alcohol-povidone (PF) 1 drp OPR BID 07/17/22 02/18/24 History 1.4 %-0.6 % eye drops in a dropperette (Refresh Classic (PF)) mycophenolate mofetil 500 mg 1,500 mg PO BID 02/13/23 02/18/24 History tablet (CellCept) oxybutynin chloride 5 mg tablet 5 mg PO DAILY 07/14/23 02/18/24 History cholecalciferol (vitamin D3) 1,250 50,000 unit PO .Weekly 11/09/23 02/18/24 History mcg (50,000 unit) capsule acyclovir 400 mg tablet 400 mg PO UD 02/18/24 02/18/24 History lorazepam 0.5 mg tablet 0.5 mg PO BID 02/18/24 02/18/24 History nystatin 100,000 unit/gram topical 1 applic topical BID PRN Other 02/18/24 02/18/24 History powder Allergies Allergy/AdvReac Type Severity Reaction Status Date / Time hydroxychloroquine Allergy Severe Swelling Verified 02/08/24 13:04 [From Plaquenil] of Lip/Tongue/Throat nickel Allergy Mild Rash Verified 02/08/24 13:04 Past Med/Surg History Problem List (Updated 02/18/24 @ 17:23 by Taco Suarez MD) Sepsis (Acute) Venous ulcer of left leg (Acute) Rash and nonspecific skin eruption (Acute) Excoriated eczema Pseudomonas infection Open wound of right thigh (Acute) Surgical wound, non healing (Acute) Encounter for pre-operative examination Morbid obesity with BMI of 60.0-69.9, adult (Chronic) Adenovirus infection (Acute) Hypoxemia (Acute) Acute dyspnea (Acute) Pain in left lower leg Chronic acquired lymphedema (Chronic) Chronic hyponatremia Pain of right leg (Acute) Cellulitis (Acute) Tachycardia (Acute) Immunocompromised (Acute) Surgical wound, non healing (Acute) History of cholecystectomy (Acute) Postoperative seroma (Acute) Sleep apnea Depression Asthma, mild persistent Obesity Bipolar disorder pt denies History of appendectomy Multifocal pneumonia Asthma exacerbation DVT prophylaxis Irregular menses Encounter for pre-operative examination HPV test positive High risk HPV infection Urticarial vasculitis Anemia, chronic disease Anxiety Lupus (Acute) stable on Cellcept; follows w/[facility] GERD (gastroesophageal reflux disease) controlled Lymphedema (Chronic) Lower extremities Venous insufficiency of both lower extremities (Chronic) Medical History Heart failure with preserved ejection fraction Acute hypoxemic respiratory failure Pneumonia ~ 2 weeks ago, seen by PCP, tx with ABX and prednisone Bronchiolitis JUNE 2019> RESOLVED Shingles RESOLVED On home oxygen therapy ON O2 AT 2L WITH CPAP DEVICE AT HS Psoriasis Morbid obesity with BMI of 60.0-69.9, adult Depression Osteoarthritis Hypothyroidism Sleep apnea CPAP Asthma stable, using rescue inhaler with exertion Surgical History History of D&C X2 History of wisdom tooth extraction History of esophagogastroduodenoscopy (EGD) History of colonoscopy History of cataract surgery R & L History of appendectomy History of section History of bilateral tubal ligation Family History Father Diabetes Mother Asthma Hypertension Brother Stroke Grandfather (Paternal) Diabetes Sister Hay fever Denies family history of Ovarian cancer Breast cancer Colorectal cancer Social History Smoking Status: Never smoker Second Hand Exposure: Yes; Do You Dip or Chew Tobacco: No; Hx Alcohol Use: No Hx Substance Use: No Preferred Language: Pashto Communication Ability: Effective Visual Impairment: Limited Hearing Ability: Normal Manager Gas Required: No Beliefs That Will Affect Care: None Current Living Situation: Significant Other and Other Current Living Situation Comment: Grandson current occupational status: disabled Other Information That Helps Us Care for You: No Feels Safe at Home: Yes Safety Concerns: Feels Safe At This Time Diet: low salt caffeine: Yes Physical Activity Frequency: Does not Exercise Do you think of yourself as: straight/heterosexual Gender Identity: Female Assistive Devices: Glasses and Oxygen - at Night Review of Systems A total of 10 systems reviewed and were otherwise negative Physical Exam Vital Signs Vital Signs - 24 hr 02/18/24 11:17 02/18/24 13:21 02/18/24 14:28 Temperature 37.2 C 37.8 C H 37.4 C Temperature Source Oral Oral Oral Pulse Rate 83 Pulse Rate [Left Finger] 72 73 Pulse Rhythm Regular Pulse Strength Normal Respiratory Rate 20 18 16 Respiratory Effort / Characteristics Non-Labored Spontaneous Non-Labored Spontaneous Non-Labored Spontaneous Respiratory Depth Normal Normal Normal Respiratory Pattern Regular Regular Blood Pressure 128/76 Blood Pressure [Left Arm] 107/60 112/56 L Blood Pressure Mean 93 Blood Pressure Mean [Left Arm] 75 74 Blood Pressure Position Sitting Blood Pressure Position [Left Arm] Lying Lying Pulse Oximetry 92 100 94 Oxygen Delivery Method Room Air Room Air Room Air Sepsis Recent Fever Within 48 Hours No Sepsis New/Unexplained Change in Mental Status No Sepsis Action Taken by Nursing No Action Required General: Well developed well nourished middle-age female who appears in no acute distress, breathing comfortably on room air. Normal speech HEENT: Normal cephalic atraumatic. Pupils are equal round and reactive to light. Extraocular movements are intact. Oropharynx is pink with moist mucous membranes. No swelling of the mouth lips or tongue. Neck: Supple with a midline trachea. No meningeal signs or stiffness, no JVD or bruits. No Stridor. Chest: Clear to auscultation bilaterally. No wheezes or rhonchi. No increased work of breathing. Heart: Regular rate and rhythm without murmurs or gallops. Abdomen: Soft nontender, nondistended without rebound guarding or rigidity. Extremities: Significant lymphedema and swelling in both legs. In her right thigh she has indurated area slightly red there is a packing. There is no crepitus. There is no overt drainage. Tenderness or assymetry Spine/Back. Non tender to palpation. No CVA tenderness Skin: Good turgor without rashes. Neurologic exam: Cranial nerves two through 12 are intact. Motor and sensation are intact and symmetrical throughout. Course Administered Medications Discontinued Medications Acetaminophen (Acetaminophen 325 Mg Tab) 650 mg PO NOW STA Stop: 02/18/24 13:25 Last Admin: 02/18/24 13:33 Dose: 650 mg Documented By: ANA Furosemide (Furosemide 40 Mg/4 Ml Vial) 40 mg IV ONE ONE Stop: 02/18/24 15:03 Last Admin: 02/18/24 16:05 Dose: 40 mg Documented By: SHEREE Sodium Chloride (Nss) 1,000 mls @ 999 mls/hr IV .Q1H1M SAVANNAH Stop: 02/18/24 13:00 Last Infusion: 02/18/24 13:18 Dose: Infused Documented By: Admin: 02/18/24 12:14 Dose: 999 mls/hr Documented By: ANA Piperacillin Sod/Tazobactam Sod (Zosyn) 4.5 gm in 100 mls @ 200 mls/hr IV NOW ONE; Protocol Stop: 02/18/24 13:14 Last Infusion: 02/18/24 13:41 Dose: Infused Documented By: Admin: 02/18/24 13:05 Dose: 200 mls/hr Documented By: ANA Daptomycin 550 mg/ Syringe 11 mls @ 5.5 mls/min IV NOW STA; Protocol Stop: 02/18/24 12:54 Last Admin: 02/18/24 14:27 Dose: 5.5 mls/min Documented By: ANA Medical Decision Making Differential Diagnosis Sepsis, cellulitis, complication related to lupus, abscess, electrolyte or metabolic abnormality Medical Records Attestation: I reviewed the patient's medical records. Home Medications Current Medication List: was personally reviewed by me Laboratory Data Attestation: I reviewed the patient's lab results. 10/27/24 11:32 02/18/24 11:32 Lab Results 02/18/24 02/18/24 02/18/24 Range/Units 11:32 12:04 12:39 WBC 10.53 (4.8-10.8) K/ul RBC 4.11 L (4.20-5.40) M/uL Hgb 11.3 L (12.0-16.0) g/dl Hct 35.1 L (37.0-47.0) % MCV 85.4 (80.0-100.0) fL MCH 27.5 (25.0-34.0) pg MCHC 32.2 (32.0-36.0) g/dL RDW Std Deviation 42.9 (36.4-46.3) fL RDW Coeff of Anastacia 13.7 (11.5-14.5) % Plt Count 237 (130-400) K/uL MPV 10.0 (9.4-12.4) fL Immature Gran % (Auto) 0.8 % Neut % (Auto) 78.2 % Lymph % (Auto) 6.8 % [place] % (Auto) 10.9 % Eos % (Auto) 2.8 % Baso % (Auto) 0.5 % Neut # (Auto) 8.24 H (1.40-6.50) K/uL Lymph # (Auto) 0.72 L (1.20-3.40) K/uL [place] # (Auto) 1.15 H (0.11-0.59) K/uL Eos # (Auto) 0.29 (0.00-0.50) K/uL Baso # (Auto) 0.05 (0.00-0.20) K/uL Immature Gran # (Auto) 0.08 (0.01-0.20) K/uL Sodium 134 L (136-145) mmol/L Potassium 3.5 (3.5-5.1) mmol/L Chloride 101 (98-107) mmol/L Carbon Dioxide 25 (21-32) mmol/L Anion Gap 8 (3-11) BUN 9 (6-23) mg/dl Creatinine 0.67 (0.6-1.2) mg/dl Est Cr Clr Drug Dosing 143.9 ml/min eGFR 105.76 BUN/Creatinine Ratio 13.4 (10-20) Glucose 118 H (70-99(Fasting)) mg/dl Lactate 0.8 (0.4-2.0) mmol/L Calcium 8.4 L (8.6-10.3) mg/dl Magnesium 2.0 (1.7-2.4) mg/dl Total Bilirubin 1.2 H (0.2-1.0) mg/dl Direct Bilirubin 0.4 H (0-0.2) mg/dl AST 17 (13-39) U/L ALT 10 (7-52) U/L Alkaline Phosphatase 81 (34-104) U/L Troponin I High Sens 9.0 (0-14) pg/ml B-Natriuretic Peptide (0-100) pg/ml Total Protein 7.6 (6.0-8.3) gm/dl Albumin 3.4 (3.4-5.0) gm/dl Procalcitonin Cancelled Adenovirus (PCR) Not Detected (NotDetected) B. pertussis DNA (PCR) Not Detected (NotDetected) B.parapertussis DNA PCR Not Detected (NotDetected) C. pneumoniae DNA (PCR) Not Detected (NotDetected) Coronavirus OC43 (PCR) Not Detected (NotDetected) Coronavirus HKU1 (PCR) Not Detected (NotDetected) Coronavirus 229E (PCR) Not Detected (NotDetected) SARS-CoV-2 (PCR) Not Detected (NotDetected) Coronavirus NL63 (PCR) Not Detected (NotDetected) Human Metapneumovir PCR Not Detected (NotDetected) Influenza Type A (PCR) Not Detected (NotDetected) Influenza Type B (PCR) Not Detected (NotDetected) M. pneumoniae (PCR) Not Detected (NotDetected) Parainfluenza 1 (PCR) Not Detected (NotDetected) Parainfluenza 2 (PCR) Not Detected (NotDetected) Parainfluenza 3 (PCR) Not Detected (NotDetected) Parainfluenza 4 (PCR) Not Detected (NotDetected) RSV (PCR) Not Detected (NotDetected) Entero/Rhino (PCR) Not Detected (NotDetected) 10/27/24 Range/Units 14:23 WBC (4.8-10.8) K/ul RBC (4.20-5.40) M/uL Hgb (12.0-16.0) g/dl Hct (37.0-47.0) % MCV (80.0-100.0) fL MCH (25.0-34.0) pg MCHC (32.0-36.0) g/dL RDW Std Deviation (36.4-46.3) fL RDW Coeff of Anastacia (11.5-14.5) % Plt Count (130-400) K/uL MPV (9.4-12.4) fL Immature Gran % (Auto) % Neut % (Auto) % Lymph % (Auto) % [place] % (Auto) % Eos % (Auto) % Baso % (Auto) % Neut # (Auto) (1.40-6.50) K/uL Lymph # (Auto) (1.20-3.40) K/uL [place] # (Auto) (0.11-0.59) K/uL Eos # (Auto) (0.00-0.50) K/uL Baso # (Auto) (0.00-0.20) K/uL Immature Gran # (Auto) (0.01-0.20) K/uL Sodium (136-145) mmol/L Potassium (3.5-5.1) mmol/L Chloride (98-107) mmol/L Carbon Dioxide (21-32) mmol/L Anion Gap (3-11) BUN (6-23) mg/dl Creatinine (0.6-1.2) mg/dl Est Cr Clr Drug Dosing ml/min eGFR BUN/Creatinine Ratio (10-20) Glucose (70-99(Fasting)) mg/dl Lactate (0.4-2.0) mmol/L Calcium (8.6-10.3) mg/dl Magnesium (1.7-2.4) mg/dl Total Bilirubin (0.2-1.0) mg/dl Direct Bilirubin (0-0.2) mg/dl AST (13-39) U/L ALT (7-52) U/L Alkaline Phosphatase (34-104) U/L Troponin I High Sens (0-14) pg/ml B-Natriuretic Peptide 89 (0-100) pg/ml Total Protein (6.0-8.3) gm/dl Albumin (3.4-5.0) gm/dl Procalcitonin Adenovirus (PCR) (NotDetected) B. pertussis DNA (PCR) (NotDetected) B.parapertussis DNA PCR (NotDetected) C. pneumoniae DNA (PCR) (NotDetected) Coronavirus OC43 (PCR) (NotDetected) Coronavirus HKU1 (PCR) (NotDetected) Coronavirus 229E (PCR) (NotDetected) SARS-CoV-2 (PCR) (NotDetected) Coronavirus NL63 (PCR) (NotDetected) Human Metapneumovir PCR (NotDetected) Influenza Type A (PCR) (NotDetected) Influenza Type B (PCR) (NotDetected) M. pneumoniae (PCR) (NotDetected) Parainfluenza 1 (PCR) (NotDetected) Parainfluenza 2 (PCR) (NotDetected) Parainfluenza 3 (PCR) (NotDetected) Parainfluenza 4 (PCR) (NotDetected) RSV (PCR) (NotDetected) Entero/Rhino (PCR) (NotDetected) Imaging Data Attestation: I personally reviewed and interpreted this imaging study as follows: My Impression: Chest x-rayincreased interstitial markings. May be related to large body habitus but CHF could be involved as well Radiologist's Impression: Chest X-Ray 02/18/24 11:47 SINGLE VIEW CHEST CLINICAL HISTORY: Sepsis FINDINGS: An AP, portable, upright chest radiograph is compared to study dated 07/17/2022 and correlated with chest CT dated 06/20/2021. The heart is enlarged. There is pulmonary vascular congestion. Scarring/atelectasis is noted at the lung bases. No airspace consolidation or large pleural effusion is identified. No pneumothorax is seen. The skeletal structures are osteopenic. The bony thorax is grossly intact. IMPRESSION: Cardiomegaly with evidence of congestive failure. Radiographic follow-up to resolution is recommended. ACT 112: Negative or not required by law. Electronically signed by: Heber Kumar M.D. 02/18/2024 12:00 PM ECG Data Attestation: I personally reviewed and interpreted this ECG as follows: Indication: + weakness Rate (beats per minute): 72 Rhythm: + normal sinus ECG Intervals/blocks: + Normal QRS, + Normal QT and + Normal MS ECG [place]: + Normal ECG ST segments: + Normal ST segments ECG Findings: + PVCs; no PACs Comparison ECG Date: from (07/17/22) Change: no significant change MDM Narrative This patient comes in described above she does have a complex medical history. He has a history of lupus and infection she has a thigh abscess. She is afebrile here and stable vital signs. she has not been keeping up with her fluids. she was given 1 L IV normal saline bolus. a full sepsis type workup was obtained she was placed on a nuclear monitoring technician. She was reassessed. I did review and discuss her antibiotic choices and consultation with Susan, our ED pharmacist ,and given the need to cover both Pseudomonas and MRSA we have ordered Zosyn IV as well as daptomycin IV. The patient's white blood count and lactic acid are within normal limits and her labs look reassuring otherwise her chest x-ray may show some mild congestive changes however she has no shortness of breath or crackles. I do think she needs to be admitted/observed for further antibiotics given the fact that she has a wound and of concern for sepsis. I have discussed case at length with [facility] in consultation the patient will be admitted/observed for further inpatient treatment and evaluation. The patient was given 1 L IV normal saline while she was here but concern for potential fluid overload/CHF she was not given 30 cc/kg additionally she had a normal lactic acid and was normotensive so was felt further IV fluids were not necessary at that point Continuous nuclear monitoring technician: Orders placed in EMR for continuous nuclear monitoring technician: Upon my evaluation, the patient noted to be normal sinus rhythm rate of 93 Impression & Plan Sepsis, Venous ulcer of left leg, Lupus, Lymphedema Discharge Plan Visit Data Chief Complaint: Infection, Wound Stated Complaint: FEVER/102, LOOPIS FLAIR, CHILLS, RT LEG PAIN/WOUND ED Provider: Taco Suarez Discharge Problem: Sepsis, Venous ulcer of left leg, Lupus, Lymphedema Patient Disposition: Admitted As Inpatient Discharge Instructions Interventions: ED Discharge Assessment Last Done: 02/18/24 15:17 Discharge Problem: Sepsis Qualifiers: Sepsis type: sepsis due to unspecified organism Sepsis acute organ dysfunction status: unspecified Qualified Code(s): A41.9 - Sepsis, unspecified organism Lupus Qualifiers: Lupus erythematosus form: unspecified Qualified Code(s): L93.0 - Discoid lupus erythematosus
[2024-02-18 11:58] LABS: Basophils # (auto) 0.05 K/uL (0.00-0.20); Basophils % (auto) 0.5 %; Eosinophils # (auto) 0.29 K/uL (0.00-0.50); Eosinophils % (auto) 2.8 %; Hematocrit (blood only) 35.1 % (37.0-47.0); Hemoglobin 11.3 g/dl (12.0-16.0); Immature Granulocytes # (auto) 0.08 K/uL (0.01-0.20); Immature Granulocytes % (auto) 0.8 %; Lymphocytes # (auto) 0.72 K/uL (1.20-3.40); Lymphocytes % (auto) 6.8 %; Mean Corpuscular Hemoglobin 27.5 pg (25.0-34.0); Mean Corpuscular Hgb Conc 32.2 g/dL (32.0-36.0); Mean Corpuscular Volume 85.4 fL (80.0-100.0); Monocytes # (auto) 1.15 K/uL (0.11-0.59); Monocytes % (auto) 10.9 %; Neutrophils # (auto) 8.24 K/uL (1.40-6.50); Neutrophils % (auto) 78.2 %; Platelet Count 237 K/uL (130-400); RDW Coefficient of Variation 13.7 % (11.5-14.5); RDW Standard Deviation 42.9 fL (36.4-46.3); Red Blood Count 4.11 M/uL (4.20-5.40); White Blood Count 10.53 K/ul (4.8-10.8)
[2024-02-18 12:00] LABS: Albumin Level 3.4 gm/dl (3.4-5.0); Bilirubin Direct 0.4 mg/dl (0-0.2); Bilirubin,Total 1.2 mg/dl (0.2-1.0); Calcium 8.4 mg/dl (8.6-10.3); Potassium 3.5 mmol/L (3.5-5.1)
--- NOTE | 2024-02-18 12:01 | XRay Report ---
SINGLE VIEW CHEST CLINICAL HISTORY: Sepsis FINDINGS: An AP, portable, upright chest radiograph is compared to study dated 07/17/2022 and correlat ed with chest CT dated 06/20/2021. The heart is enlarged. There is pulmonary vascular congestion. Scar ring/atelectasis is noted at the lung bases. No airspace consolidation or large pleural effusion is i dentified. No pneumothorax is seen. The skeletal structures are osteopenic. The bony thorax is grossl y intact. IMPRESSION: Cardiomegaly with evidence of congestive failure. Radiographic follow-up to resolution is recommended. ACT 112: Negative or not required by law. Electronically signed by: Heber Kumar M.D. 02/18/2024 12:00 PM
[2024-02-18 12:06] LABS: BUN Creatinine Ratio 13.4 (10-20); Creatinine Clr Calc Pharmacy 143.9 ml/min; Total Protein 7.6 gm/dl (6.0-8.3)
[2024-02-18] MEDS: SODIUM CHLORIDE 0.9% 1,000 ML IV SCH (12:14)
[2024-02-18] MEDS ORDERED: DAPTOmycin 325 MG in SYRINGE 0 ML IV SCH (12:45)
[2024-02-18 13:00] LABS: Adenovirus PCR Not Detected (NotDetected); Bordetella parapertussis PCR Not Detected (NotDetected); Bordetella pertussis PCR Not Detected (NotDetected); Chlamydia pneumoniae PCR Not Detected (NotDetected); Coronavirus 229E PCR Not Detected (NotDetected); Coronavirus CoV-2 (COVID19)PCR Not Detected (NotDetected); Coronavirus HKU1 PCR Not Detected (NotDetected); Coronavirus NL63 PCR Not Detected (NotDetected); Coronavirus OC43PCR Not Detected (NotDetected); Human Metapneumovirus PCR Not Detected (NotDetected); Influenza A PCR Not Detected (NotDetected); Influenza B PCR Not Detected (NotDetected); Mycoplasma pneumoniae PCR Not Detected (NotDetected); Parainfluenza Virus 1 PCR Not Detected (NotDetected); Parainfluenza Virus 2 PCR Not Detected (NotDetected); Parainfluenza Virus 3 PCR Not Detected (NotDetected); Parainfluenza Virus 4 PCR Not Detected (NotDetected); Respiratory Syncytial VirusPCR Not Detected (NotDetected); Rhinovirus/Enterovirus PCR Not Detected (NotDetected)
[2024-02-18] MEDS: PIPERACILLIN/TAZOBACTAM 4.5 GM/100 ML BAG IV ONE (13:05)
[2024-02-18] MEDS: ACETAMINOPHEN 325 MG TAB PO STA (13:33)
[2024-02-18] MEDS: DAPTOmycin 550 MG in SYRINGE 0 ML IV STA (14:27)
[2024-02-18] MEDS ORDERED: NYSTATIN POWDER 15GM BTL EXT PRN (14:37)
[2024-02-18] MEDS ORDERED: ALBUTEROL HFA 8 GM INHALER INH PRN (14:37)
--- NOTE | 2024-02-18 14:50 | History & Physical Report ---
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: (12) GERD (gastroesophageal reflux disease): (13) Lupus: Plan Assessment and plan Right thigh cellulitis: Hx chronic BLE lymphedema Follows with [facility] [place] Wound cultures 02/14+ MRSA/Pseudomonas Blood cultures ordered and pending, Tmax 100.2 No leukocytosis, continue IV Dapto/Zosyn -Wound care nursing consulted Acute on chronic CHF with preserved EF: Chest x-ray shows fluid overload IV Lasix x 1 40 mg given in ER, BNP within normal limits, no hypoxia Continue home torsemide/AldactoneDaily weights/strict I&O Hx 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 chronically, hold CellCept with acute infection Follows with [facility] rheumatology Hx OBI on CPAP: Hx asthma: At bedtime CPAP ordered, wears 2 L at at bedtime as needed Continue home inhalers for asthma Hx anxiety: Continue home dose of Ativan Hx HTN: Hold losartan, BP soft Hx hypothyroidism: Continue levothyroxine A total of 60 minutes was spent on chart review/reviewingdiagnostic testing/facilitating plan of care/discussion with consultants Full code DVT prophylaxis: Lovenox History of Present Illness Chief Complaint: Fatigue, fevers Primary Care Provider: Ary Bravo, The patient is a 53-year-old female with a past medical history of lupus, chronic wound in her right thigh, bilateral lower extremity lymphedema, asthma, HTN, obesity, anemia, anxiety, depression, GERD, pulmonary hypertension, OBI on CPAP, hypothyroidism who presents to the ED on 02/18/2024 with complaints of fatigue, not feeling well, fever/chills over the past 3 days. Patient follows with the wound care center outpatient for chronic right upper thigh wound. She reports earlier this week she was mowing the lawn and her leg scraped up against a lawnmower. She had cultures drawn at [facility] wound [facility] [place] earlier this week 02/13 that are positive for Staph aureus MRSA, Pseudomonas, she reports her highest fever at home was 100.2 last night on 02/16. She also reports some chills. Denies any shortness of breath or chest pain. Denies any abdominal pain/nausea/vomiting/diarrhea. Reports that her CellCept has been on hold since 02/13 by her casting chipper for concerns of active infection. On arrival to the ED, labs are remarkable for hemoglobin 11.3, NA 134, glucose 118, total bili 1.2, respiratory panel was negative Chest x-ray showed cardiomegaly with evidence of CHF EKG showed sinus rhythm with PVCs in the 70s The patient was given IV Dapto/Zosyn in ED and will be admitted for further workup of right thigh cellulitis Allergies Allergy/AdvReac Type Severity Reaction Status Date / Time hydroxychloroquine Allergy Severe Swelling Verified 02/08/24 13:04 [From Plaquenil] of Lip/Tongue/Throat nickel Allergy Mild Rash Verified 02/08/24 13:04 Home Medications Medication Instructions Recorded Confirmed Type epinephrine 0.3 mg/0.3 mL 0.3 mg IM DIRECTED PRN Allergic 09/22/17 02/18/24 History injection, auto-injector (EpiPen Reaction ##0 2-David) albuterol sulfate 90 mcg/actuation 2 puff inhalation Q4H PRN 04/27/18 02/18/24 History aerosol inhaler Cough/Wheezing mometasone-formoterol HFA 200 2 puff inhalation BID 04/27/18 02/18/24 History mcg-5 mcg/actuation aerosol inhaler valacyclovir 1 gram tablet 1,000 mg PO Q12H PRN Cold Sores 04/27/18 02/18/24 History omeprazole 20 mg tablet,delayed 20 mg PO QAM 03/05/19 02/18/24 History release CPAP Machine #1 ea 03/12/19 02/08/24 History Oxygen Home #1 ea 06/01/21 02/08/24 History fluticasone propionate 50 2 spray intranasal BID 06/20/21 02/18/24 History mcg/actuation nasal spray,suspension losartan 25 mg tablet 25 mg PO QAM 30 days #30 tabs 06/29/21 02/18/24 Rx diclofenac sodium 1 % topical gel 2 g topical TID PRN Pain 12/30/21 02/18/24 History baclofen 10 mg tablet 10 mg PO BID 01/19/22 02/18/24 History torsemide 20 mg tablet 60 mg PO QAM 03/30/22 02/18/24 History levocetirizine 5 mg tablet 2.5 mg PO HS 04/29/22 02/18/24 History levothyroxine 100 mcg tablet 100 mcg PO DAILYBB 04/29/22 02/18/24 History spironolactone 25 mg tablet 25 mg PO DAILY 04/29/22 02/18/24 History sucralfate 1 gram tablet (Carafate) 1 g PO ACHS 04/29/22 02/18/24 History betamethasone dipropionate 0.05 % 1 applic topical HS PRN RASH ON 07/17/22 02/18/24 History topical cream LIMBS ipratropium 0.5 mg-albuterol 3 mg 3 ml inhalation Q6H PRN 07/17/22 02/18/24 History (2.5 mg base)/3 mL nebulization COUGH/SOB/WHEEZING soln ondansetron 8 mg disintegrating 8 mg translingual Q8H PRN 07/17/22 02/18/24 History tablet NAUSEA/VOMITING polyvinyl alcohol-povidone (PF) 1 drp OPR BID 07/17/22 02/18/24 History 1.4 %-0.6 % eye drops in a dropperette (Refresh Classic (PF)) mycophenolate mofetil 500 mg 1,500 mg PO BID 02/13/23 02/18/24 History tablet (CellCept) oxybutynin chloride 5 mg tablet 5 mg PO DAILY 07/14/23 02/18/24 History cholecalciferol (vitamin D3) 1,250 50,000 unit PO .Weekly 11/09/23 02/18/24 History mcg (50,000 unit) capsule acyclovir 400 mg tablet 400 mg PO UD 02/18/24 02/18/24 History lorazepam 0.5 mg tablet 0.5 mg PO BID 02/18/24 02/18/24 History nystatin 100,000 unit/gram topical 1 applic topical BID PRN Other 02/18/24 02/18/24 History powder Past Med/Surg History Problem List Venous ulcer of left leg Rash and nonspecific skin eruption (Acute) Excoriated eczema Pseudomonas infection Open wound of right thigh (Acute) Surgical wound, non healing (Acute) Encounter for pre-operative examination Morbid obesity with BMI of 60.0-69.9, adult (Chronic) Adenovirus infection (Acute) Hypoxemia (Acute) Acute dyspnea (Acute) Pain in left lower leg Chronic acquired lymphedema (Chronic) Chronic hyponatremia Pain of right leg (Acute) Cellulitis (Acute) Tachycardia (Acute) Immunocompromised (Acute) Surgical wound, non healing (Acute) History of cholecystectomy (Acute) Postoperative seroma (Acute) Sleep apnea Depression Asthma, mild persistent Obesity Bipolar disorder pt denies History of appendectomy Multifocal pneumonia Asthma exacerbation DVT prophylaxis Irregular menses Encounter for pre-operative examination HPV test positive High risk HPV infection Urticarial vasculitis Anemia, chronic disease Anxiety Lupus stable on Cellcept; follows w/[facility] GERD (gastroesophageal reflux disease) controlled Lymphedema (Chronic) Lower extremities Venous insufficiency of both lower extremities (Chronic) Medical History Heart failure with preserved ejection fraction Acute hypoxemic respiratory failure Pneumonia ~ 2 weeks ago, seen by PCP, tx with ABX and prednisone Bronchiolitis JUNE 2019> RESOLVED Shingles RESOLVED On home oxygen therapy ON O2 AT 2L WITH CPAP DEVICE AT HS Psoriasis Morbid obesity with BMI of 60.0-69.9, adult Depression Osteoarthritis Hypothyroidism Sleep apnea CPAP Asthma stable, using rescue inhaler with exertion Surgical History History of D&C X2 History of wisdom tooth extraction History of esophagogastroduodenoscopy (EGD) History of colonoscopy History of cataract surgery R & L History of appendectomy History of section History of bilateral tubal ligation Family History Father Diabetes Mother Asthma Hypertension Brother Stroke Grandfather (Paternal) Diabetes Sister Hay fever Denies family history of Ovarian cancer Breast cancer Colorectal cancer Social History Smoking Status: Never smoker Second Hand Exposure: No; Do You Dip or Chew Tobacco: No; Hx Alcohol Use: No Hx Substance Use: No Preferred Language: Brazilian Communication Ability: Effective Visual Impairment: Limited Hearing Ability: Normal Leather Sponger Required: No Beliefs That Will Affect Care: None Current Living Situation: Family Current Living Situation Comment: Grandson and SO current occupational status: disabled Feels Safe at Home: Yes Diet: low salt caffeine: Yes Physical Activity Frequency: Does not Exercise Do you think of yourself as: straight/heterosexual Gender Identity: Female Assistive Devices: None Review of Systems Review of Systems: All systems reviewed & are unremarkable except as noted in HPI & below Physical Exam Constitutional: WD/WN, vitals as above well developed and + morbidly obese; no acute distress Eyes: PERRL, conjunctivae normal, anicteric sclerae ENMT: external ear and nose normal, oropharynx normal Neck: trachea midline, no thyromegaly Respiratory: normal respiratory effort, lungs clear to auscultation Cardiovascular: RRR, no murmur, no edema Gastrointestinal (Abdomen): normal bowel sounds, soft, nontender, no hepatosplenomegaly Percussion/Palpation: abdomen nontender and no guarding Musculoskeletal: no cyanosis or clubbing, extremities motor strength 5/5 Skin: no rashes, warm and dry ( right thigh cellulitis, red reddened skin with yeast-like odor) Neurologic: PERRL, EOMI, accommodation nl, no face palsy, no dysarthria Psychiatric: A+Ox3, euthymic affect Lymphatic: no cervical or axillary lymphadenopathy Results & Data Results & Data Vital Signs (Past 12 Hours) Vital Signs Temp Pulse Pulse Resp BP BP Pulse Ox 02/18/24 14:28 37.4 C 73 16 112/56 L 94 02/18/24 13:21 37.8 C H 72 18 107/60 100 02/18/24 11:17 37.2 C 83 20 128/76 92 O2 Del Method 02/18/24 14:28 Room Air 02/18/24 13:21 Room Air 02/18/24 11:17 Room Air Diagnostic Findings Laboratory Results WBC 10.53 K/ul (4.8-10.8) 02/18/24 11:32 RBC 4.11 M/uL (4.20-5.40) L 02/18/24 11:32 Hgb 11.3 g/dl (12.0-16.0) L 02/18/24 11:32 Hct 35.1 % (37.0-47.0) L 02/18/24 11: MCV 85.4 fL (80.0-100.0) 02/18/24 11: MCH 27.5 pg (25.0-34.0) 02/18/24 11: MCHC 32.2 g/dL (32.0-36.0) 02/18/24 11: RDW Std Deviation 42.9 fL (36.4-46.3) 02/18/24 11: RDW Coeff of Anastacia 13.7 % (11.5-14.5) 02/18/24 11: Plt Count 237 K/uL (130-400) 02/18/24 11: MPV 10.0 fL (9.4-12.4) 02/18/24 11: Immature Gran % (Auto) 0.8 % 02/18/24 11: Neut % (Auto) 78.2 % 02/18/24 11:32 Lymph % (Auto) 6.8 % 02/18/24 11:32 [place] % (Auto) 10.9 % 02/18/24 11:32 Eos % (Auto) 2.8 % 02/18/24 11:32 Baso % (Auto) 0.5 % 02/18/24 11:32 Neut # (Auto) 8.24 K/uL (1.40-6.50) H 02/18/24 11:32 Lymph # (Auto) 0.72 K/uL (1.20-3.40) L 02/18/24 11:32 [place] # (Auto) 1.15 K/uL (0.11-0.59) H 02/18/24 11:32 Eos # (Auto) 0.29 K/uL (0.00-0.50) 02/18/24 11:32 Baso # (Auto) 0.05 K/uL (0.00-0.20) 02/18/24 11:32 Immature Gran # (Auto) 0.08 K/uL (0.01-0.20) 02/18/24 11:32 Sodium 134 mmol/L (136-145) L 02/18/24 11:32 Potassium 3.5 mmol/L (3.5-5.1) 02/18/24 11:32 Chloride 101 mmol/L (98-107) 02/18/24 11:32 Carbon Dioxide 25 mmol/L (21-32) 02/18/24 11:32 Anion Gap 8 (3-11) 02/18/24 11:32 BUN 9 mg/dl (6-23) 02/18/24 11:32 Creatinine 0.67 mg/dl (0.6-1.2) 02/18/24 11:32 Est Cr Clr Drug Dosing 143.9 ml/min 02/18/24 11:32 eGFR 105.76 02/18/24 11:32 BUN/Creatinine Ratio 13.4 (10-20) 02/18/24 11:32 Glucose 118 mg/dl (70-99(Fasting)) H 02/18/24 11:32 Lactate 0.8 mmol/L (0.4-2.0) 02/18/24 12:39 Calcium 8.4 mg/dl (8.6-10.3) L 02/18/24 11:32 Magnesium 2.0 mg/dl (1.7-2.4) 02/18/24 11:32 Total Bilirubin 1.2 mg/dl (0.2-1.0) H 02/18/24 11:32 Direct Bilirubin 0.4 mg/dl (0-0.2) H 02/18/24 11:32 AST 17 U/L (13-39) 02/18/24 11:32 ALT 10 U/L (7-52) 02/18/24 11:32 Alkaline Phosphatase 81 U/L (34-104) 02/18/24 11:32 Troponin I High Sens 9.0 pg/ml (0-14) 02/18/24 11:32 B-Natriuretic Peptide 89 pg/ml (0-100) 02/18/24 14:23 Total Protein 7.6 gm/dl (6.0-8.3) 02/18/24 11:32 Albumin 3.4 gm/dl (3.4-5.0) 02/18/24 11:32 Procalcitonin Cancelled 02/18/24 11:32 Adenovirus (PCR) Not Detected (NotDetected) 02/18/24 12:04 B. pertussis DNA (PCR) Not Detected (NotDetected) 02/18/24 12:04 B.parapertussis DNA PCR Not Detected (NotDetected) 02/18/24 12:04 C. pneumoniae DNA (PCR) Not Detected (NotDetected) 02/18/24 12:04 Coronavirus OC43 (PCR) Not Detected (NotDetected) 02/18/24 12:04 Coronavirus HKU1 (PCR) Not Detected (NotDetected) 02/18/24 12:04 Coronavirus 229E (PCR) Not Detected (NotDetected) 02/18/24 12:04 SARS-CoV-2 (PCR) Not Detected (NotDetected) 02/18/24 12:04 Coronavirus NL63 (PCR) Not Detected (NotDetected) 02/18/24 12:04 Human Metapneumovir PCR Not Detected (NotDetected) 02/18/24 12:04 Influenza Type A (PCR) Not Detected (NotDetected) 02/18/24 12:04 Influenza Type B (PCR) Not Detected (NotDetected) 02/18/24 12:04 M. pneumoniae (PCR) Not Detected (NotDetected) 02/18/24 12:04 Parainfluenza 1 (PCR) Not Detected (NotDetected) 02/18/24 12:04 Parainfluenza 2 (PCR) Not Detected (NotDetected) 02/18/24 12:04 Parainfluenza 3 (PCR) Not Detected (NotDetected) 02/18/24 12:04 Parainfluenza 4 (PCR) Not Detected (NotDetected) 02/18/24 12:04 RSV (PCR) Not Detected (NotDetected) 02/18/24 12:04 Entero/Rhino (PCR) Not Detected (NotDetected) 02/18/24 12:04 Impressions Chest X-Ray 02/18/24 11:47 SINGLE VIEW CHEST CLINICAL HISTORY: Sepsis FINDINGS: An AP, portable, upright chest radiograph is compared to study dated 07/17/2022 and correlated with chest CT dated 06/20/2021. The heart is enlarged. There is pulmonary vascular congestion. Scarring/atelectasis is noted at the lung bases. No airspace consolidation or large pleural effusion is identified. No pneumothorax is seen. The skeletal structures are osteopenic. The bony thorax is grossly intact. IMPRESSION: Cardiomegaly with evidence of congestive failure. Radiographic follow-up to resolution is recommended. ACT 112: Negative or not required by law. Electronically signed by: Heber Kumar M.D. 02/18/2024 12:00 PM Code Status & VTE Plan VTE Prophylaxis Plan VTE Prophylaxis will be ordered: Yes Supervising Physician Co-Signing Physician Notes Attending addendum: The patient was seen and examined in emergency room She has been complaining of shaking chills and increasing pain, redness and discharge from right upper thigh wound for the last 3 or 4 days Denies any fever, any nausea and/or vomiting She feels that her shaking chills seems to be from flareup of her lupus as she has had this kind of symptoms before On examination Morbidly obese female gastrointestinal morbidly obese definitely ,lying in bed with some discomfort due to right thigh pain Remains hemodynamically stable and is afebrile Chestdecreased breath sounds bilaterally HeartS1, S2 regular Abdomendistended, nontender bowel sound present Extremitieschronic edema involving both the legs, use pannus formation both the thighs, open wound on the surface of the right thigh pannus with adjoining redness, swelling and tenderness with increasing warmth CNSalert, awake and oriented x 3. No focal sensory or motor deficit appreciated Her admission labs, EKG and imaging studies reviewed Worsening wound involving the right thigh with recent culture showed MRSA and Pseudomonas infection-started on intravenous daptomycin and Zosyn Wound care will be consulted and she follows wound care as an outpatient to She has venous ulcers on the left leg as well which seems to be stable SLE does not look like any flareup Probably has mild congestive change and will give additional dose of Lasix IV today Agree with assessment and plan as outlined above by the SHARYN Huddleston and take the full responsibility of the care Dr Prieto Huerta (2) Open wound of right thigh Encounter type: subsequent encounter Qualified Code(s): S71.101D - U nspecified open wound, right thigh, subsequent encounter
[2024-02-18] MEDS: FUROSEMIDE 40 MG/4 ML VIAL IV ONE (16:05)
[2024-02-18] MEDS: ACETAMINOPHEN 1,000 MG/100 ML VIAL IV PRN (17:47)
[2024-02-18] MEDS: PIPERACILLIN/TAZOBACTAM 4.5 GM/100 ML BAG IV SCH (19:24)
[2024-02-18] MEDS: LORazepam 0.5 MG TAB PO SCH (20:49)
[2024-02-18] MEDS: ACYCLOVIR 400 MG TAB PO SCH (20:49)
[2024-02-18] MEDS: BACLOFEN 10 MG TAB PO SCH (20:49)
[2024-02-18] MEDS: oxyCODONE HCL IR 5 MG TAB (IMMEDIATE RELEASE) PO PRN (22:23)
[2024-02-18 23:45] LABS: Appearance Urine Clear (Clear); Bacteria Urine Automated 1+ (None Seen); Bilirubin Urine Negative (Negative); Blood Urine Negative (Negative); Cast Urine Automated 0-2 /lpf (0-2); Color Urine Dark Yellow; Glucose Urine UA Negative (Negative); Ketones Urine Trace (Negative); Leukocyte Esterase Urine Trace (Negative); Nitrite Urine Negative (Negative); Protein Urine Trace (Negative); Urobilinogen Urine Negative (Negative); WBC Urine Automated 0-5 /hpf (0-5)
[2024-02-19] MEDS: LEVOTHYROXINE SODIUM 100 MCG TABLET PO SCH (05:59)
[2024-02-19 07:37] LABS: Basophils # (auto) 0.04 K/uL (0.00-0.20); Basophils % (auto) 0.4 %; Eosinophils # (auto) 0.24 K/uL (0.00-0.50); Eosinophils % (auto) 2.4 %; Hematocrit (blood only) 31.9 % (37.0-47.0); Hemoglobin 10.5 g/dl (12.0-16.0); Immature Granulocytes # (auto) 0.11 K/uL (0.01-0.20); Immature Granulocytes % (auto) 1.1 %; Lymphocytes # (auto) 0.58 K/uL (1.20-3.40); Lymphocytes % (auto) 5.9 %; Mean Corpuscular Hemoglobin 27.6 pg (25.0-34.0); Mean Corpuscular Hgb Conc 32.9 g/dL (32.0-36.0); Mean Corpuscular Volume 83.9 fL (80.0-100.0); Mean Platelet Volume 10.1 fL (9.4-12.4); Monocytes # (auto) 1.08 K/uL (0.11-0.59); Monocytes % (auto) 10.9 %; Neutrophils # (auto) 7.84 K/uL (1.40-6.50); Neutrophils % (auto) 79.3 %; Platelet Count 178 K/uL (130-400); RDW Coefficient of Variation 13.9 % (11.5-14.5); RDW Standard Deviation 42.7 fL (36.4-46.3); White Blood Count 9.89 K/ul (4.8-10.8)
[2024-02-19 07:47] LABS: Albumin Globulin Ratio 0.9 (0.9-2); BUN Creatinine Ratio 12.1 (10-20); Bilirubin,Total 1.4 mg/dl (0.2-1.0); Calcium 7.9 mg/dl (8.6-10.3); Creatinine Clr Calc Pharmacy 159.9 ml/min; Globulin 3.5 gm/dl (2.5-4.0); Total Protein 6.5 gm/dl (6.0-8.3)
--- NOTE | 2024-02-19 08:40 | Hospitalist Progress Note ---
Date of Service February 19, 2024 Assessment & Plan (1) Pseudomonas infection: (2) Open wound of right thigh: (3) Chronic acquired lymphedema: (4) Heart failure with preserved ejection fraction: (5) Acute hypoxemic respiratory failure: (6) Depression: (7) Hypothyroidism: (8) History of cholecystectomy: (9) Urticarial vasculitis: (10) GERD (gastroesophageal reflux disease): (11) Lupus: Plan Ms. Storm is a 53 yo female with PMH chronic lymphedema, Lupus, hypoxemia, o besity, immunocompromised, depression, bipolar, Venous insufficiency bilateral LE, that presented to the [facility] ER due to fever and pain in chronic right open thigh wound. Patient with recent debridement at wound center and since patient noted increase in foul odor and pain. CT leg revealed associated small rim enhancing subcutaneous 2.8 x 2.5 cm fluid and gas containing collection of the medial right thigh likely reflects a portion of the wound although a small abscess could appear similar. Surgery evaluated with some expression of purulent fluid. #Fevers #Open Right thigh wound with cellulitis #Fluid collection suspicius for abscess collection #Hx chronic BLE lymphedema Follows with [facility] wound care center Wound cultures 02/14+ MRSA/Pseudomonas Blood cultures ordered and pending, Tmax 39.2 No leukocytosis, continue IV Dapto/Zosyn - CT leg ordered with fluid collection -Surgery consulted, s/p bedside wound cleaning/expression of purulent fluid -Continue local wound care, no surgical intervention indicated at this time ID for abx recommendations given habitus/chronicity/organism #Acute on chronic CHF with preserved EF: resolved Chest x-ray shows fluid overload IV Lasix x 1 40 mg given in ER, BNP within normal limits, no hypoxia Continue home torsemide/AldactoneDaily weights/strict I&O #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 chronically, hold CellCept with acute infection Follows with [facility] rheumatology #OBI on CPAP: #asthma: At bedtime CPAP ordered, wears 2 L at at bedtime as needed Continue home inhalers for asthma # anxiety: Continue home dose of Ativan # HTN: Hold losartan, BP soft #hypothyroidism: Continue levothyroxine Full code DVT prophylaxis: Lovenox Admission and Anticipated Discharge Date Admission Date: February 18, 2024 Subjective Patient reports feeling tired and discomfort on right thigh Denies any subjective improvement, but no chest pain, dizziness, nausea, vomiting,or other acute concerns Physical Exam Constitutional: WD/WN, vitals as above Respiratory: normal respiratory effort, lungs clear to auscultation Cardiovascular: RRR, no murmur, no edema Skin: large skin fold with erythema and large dressing in place, notable foul odor Results & Data Results & Data Vital Signs (Past 12 Hours) Vital Signs Temp Pulse Pulse Resp BP Pulse Ox O2 Del Method 02/19/24 07:29 37.6 C H 77 16 106/66 91 Room Air 02/19/24 06:30 37.7 C H 02/19/24 02:22 37.0 C 72 18 92/60 L 95 Room Air 02/19/24 02:07 37.1 C 98/59 L 02/19/24 01:28 37.7 C H 02/19/24 01:17 38.2 C H 02/19/24 00:00 37.8 C H 02/18/24 23:35 CPAP 02/18/24 22:52 75 21 97 02/18/24 22:20 78 02/18/24 22:12 37.1 C 77 18 96/60 L 97 Room Air O2 Flow Rate 02/19/24 07:29 02/19/24 06:30 02/19/24 02:22 02/19/24 02:07 02/19/24 01:28 02/19/24 01:17 02/19/24 00:00 02/18/24 23:35 02/18/24 22:52 2 02/18/24 22:20 02/18/24 22:12 Laboratory Results Short CBC 02/19/24 Range/Units 07:06 WBC 9.89 (4.8-10.8) K/ul Hgb 10.5 L (12.0-16.0) g/dl Hct 31.9 L (37.0-47.0) % Plt Count 178 (130-400) K/uL BMP 02/19/24 07:06 Sodium 135 L Potassium 3.0 L Chloride 99 Carbon Dioxide 28 BUN 8 Creatinine 0.66 Glucose 119 H Calcium 7.9 L Liver Function 02/19/24 Range/Units 07:06 Total Bilirubin 1.4 H (0.2-1.0) mg/dl AST 15 (13-39) U/L ALT 8 (7-52) U/L Alkaline Phosphatase 73 (34-104) U/L Albumin 3.0 L (3.4-5.0) gm/dl Urine 02/18/24 Range/Units 22:30 Urine Color Dark Yellow Urine Appearance Clear (Clear) Urine pH 5.0 (4.5-7.5) Ur Specific [place] 1.020 (1.000-1.030) Urine Protein Trace H (Negative) Urine Glucose (UA) Negative (Negative) Medications Administered Home Medications Medication Instructions Recorded Confirmed Last Taken epinephrine 0.3 mg/0.3 mL 0.3 mg IM DIRECTED PRN Allergic 09/22/17 02/18/24 Unknown injection, auto-injector (EpiPen Reaction ##0 2-David) albuterol sulfate 90 mcg/actuation 2 puff inhalation Q4H PRN 04/27/18 02/18/24 03/18/21 aerosol inhaler Cough/Wheezing mometasone-formoterol HFA 200 2 puff inhalation BID 04/27/18 02/18/24 07/17/22 08:00 mcg-5 mcg/actuation aerosol inhaler valacyclovir 1 gram tablet 1,000 mg PO Q12H PRN Cold Sores 04/27/18 02/18/24 03/18/21 omeprazole 20 mg tablet,delayed 20 mg PO QAM 03/05/19 02/18/24 07/17/22 release CPAP Machine #1 ea 03/12/19 02/08/24 Unknown Oxygen Home #1 ea 06/01/21 02/08/24 Unknown fluticasone propionate 50 2 spray intranasal BID 06/20/21 02/18/24 07/17/22 08:00 mcg/actuation nasal spray,suspension losartan 25 mg tablet 25 mg PO QAM 30 days #30 tabs 06/29/21 02/18/24 07/17/22 diclofenac sodium 1 % topical gel 2 g topical TID PRN Pain 12/30/21 02/18/24 Unknown baclofen 10 mg tablet 10 mg PO BID 01/19/22 02/18/24 07/17/22 08:00 torsemide 20 mg tablet 60 mg PO QAM 03/30/22 02/18/24 07/17/22 levocetirizine 5 mg tablet 2.5 mg PO HS 04/29/22 02/18/2423 levothyroxine 100 mcg tablet 100 mcg PO DAILYBB 04/29/22 02/18/24 07/17/22 spironolactone 25 mg tablet 25 mg PO DAILY 04/29/22 02/18/24 07/17/22 sucralfate 1 gram tablet (Carafate) 1 g PO ACHS 04/29/22 02/18/24 07/17/22 18:00 betamethasone dipropionate 0.05 % 1 applic topical HS PRN RASH ON 07/17/22 02/18/24 Unknown topical cream LIMBS ipratropium 0.5 mg-albuterol 3 mg 3 ml inhalation Q6H PRN 07/17/22 02/18/24 Unknown (2.5 mg base)/3 mL nebulization COUGH/SOB/WHEEZING soln ondansetron 8 mg disintegrating 8 mg translingual Q8H PRN 07/17/22 02/18/24 Unknown tablet NAUSEA/VOMITING polyvinyl alcohol-povidone (PF) 1 drp OPR BID 07/17/22 02/18/24 07/17/22 08:00 1.4 %-0.6 % eye drops in a dropperette (Refresh Classic (PF)) mycophenolate mofetil 500 mg 1,500 mg PO BID 02/13/23 02/18/24 Unknown tablet (CellCept) oxybutynin chloride 5 mg tablet 5 mg PO DAILY 07/14/23 02/18/24 Unknown cholecalciferol (vitamin D3) 1,250 50,000 unit PO .Weekly 11/09/23 02/18/24 Unknown mcg (50,000 unit) capsule acyclovir 400 mg tablet 400 mg PO UD 02/18/24 02/18/24 Unknown lorazepam 0.5 mg tablet 0.5 mg PO BID 02/18/24 02/18/24 Unknown nystatin 100,000 unit/gram topical 1 applic topical BID PRN Other 02/18/24 02/18/24 Unknown powder Active Medications Generic Name Dose Route Start Last Admin Trade Name Freq PRN Reason Stop Dose Admin Acetaminophen 1,000 mg 02/19/24 16:00 02/19/24 17:14 Acetaminophen 500 Mg Tab PO 03/20/24 15:59 1,000 mg Q8H SAVANNAH Administration Acyclovir 400 mg 02/18/24 21:00 02/19/24 09:31 Acyclovir 400 Mg Tab PO 03/19/24 20:59 400 mg BID SAVANNAH Administration Baclofen 10 mg 02/18/24 21:00 02/19/24 09:30 Baclofen 10 Mg Tab PO 03/19/24 20:59 10 mg BID SAVANNAH Administration Enoxaparin Sodium 40 mg 02/19/24 09:00 02/19/24 09:25 Enoxaparin Inj 40 Mg/0.4 Ml Syr SQ 03/20/24 08:59 40 mg QAM SAVANNAH Administration Fluticasone/Vilanterol 1 puffs 02/19/24 09:00 02/19/24 09:31 Fluticasone/Vilanterol 100/25mcg 14 Puffs/Inhaler INH 03/20/24 08:59 1 puffs DAILY SAVANNAH Administration Daptomycin 500 mg/ Syringe 10 mls @ 5 mls/min 02/19/24 14:00 02/19/24 14:22 IV 02/26/24 13:59 5 mls/min DAILY@1400 SAVANNAH Administration Protocol Piperacillin Sod/Tazobactam Sod 4.5 gm in 100 mls @ 25 mls/hr 02/18/24 18:00 02/19/24 17:14 Zosyn IV 02/25/24 17:59 25 mls/hr Q8H SAVANNAH Administration Protocol Levothyroxine Sodium 100 mcg 02/19/24 06:30 02/19/24 05:59 Levothyroxine Sodium 100 Mcg Tablet PO 03/20/24 06:29 100 mcg DAILYBB SAVANNAH Administration Lorazepam 0.5 mg 02/18/24 21:00 02/19/24 09:31 Lorazepam 0.5 Mg Tab PO 03/19/24 20:59 0.5 mg BID SAVANNAH Administration Ondansetron HCl 8 mg 02/19/24 13:34 02/19/24 15:37 Ondansetron 4 Mg Od Tab PO 03/20/24 13:33 8 mg Q8H PRN Administration NAUSEA/VOMITING Oxycodone HCl 5 mg 02/18/24 22:02 02/19/24 14:22 Oxycodone Hcl Ir 5 Mg Tab (Immediate Release) PO 03/03/24 22:01 5 mg Q6H PRN Administration Severe Pain (Scale 7, 8, 9,10) Pantoprazole Sodium 40 mg 02/19/24 09:00 02/19/24 09:31 Pantoprazole 40 Mg Tab PO 03/20/24 08:59 40 mg QAM SAVANNAH Administration Spironolactone 25 mg 02/19/24 09:00 02/19/24 09:31 Spironolactone 25 Mg Tab PO 03/20/24 08:59 25 mg DAILY SAVANNAH Administration Sucralfate 1 gm 02/19/24 16:30 02/19/24 17:14 Sucralfate 1 Gm Tab PO 03/20/24 16:29 1 gm ACHS SAVANNAH Administration Torsemide 60 mg 02/19/24 09:00 02/19/24 09:30 Torsemide 20 Mg Tab PO 03/20/24 08:59 60 mg QAM SAVANNAH Administration (2) Open wound of right thigh Encounter type: subsequent encounter Qualified Code(s): S71.101D - Unspecified open wound, right thigh, subsequent encounter (11) Lupus Lupus erythematosus form: unspecified Qualified Code(s): L93.0 - Discoid lupus erythematosus
[2024-02-19] MEDS: ENOXAPARIN INJ 40 MG/0.4 ML SYR SQ SCH (09:25)
[2024-02-19] MEDS: TORSEMIDE 20 MG TAB PO SCH (09:30)
[2024-02-19] MEDS: PANTOprazole 40 MG TAB PO SCH (09:31)
[2024-02-19] MEDS: FLUTICASONE/VILANTEROL 100/25MCG 14 PUFFS/INHALER INH SCH (09:31)
[2024-02-19] MEDS: SPIRONOLACTONE 25 MG TAB PO SCH (09:31)
[2024-02-19] MEDS: OPTIRAY 320 125ml IV ONE (10:08)
--- NOTE | 2024-02-19 11:17 | CT Scan Report ---
RIGHT FEMUR AND THIGH CT WITH CONTRAST CLINICAL HISTORY: Large unhealing wound, r/o underlying abscess COMPARISON STUDY: Right femur and thigh CT August 31, 2021. TECHNIQUE: Axial images of the right thigh and femur were obtained following intravenous injection of 120 cc of Optiray 320 IV. Sagittal and coronal reconstructions were viewed. Automated exposure contr ol was utilized for the study. A dose lowering technique was utilized adhering to the principles of ALARA. FINDINGS: Multiple enlarged bilateral iliac chain and inguinal lymph nodes are similar to CT of August 222021. A left pelvic sidewall lymph node on image 35 of 457 measures 7.2 x 2.8 cm. A right inguinal lymph node on image 60 measures 3.3 x 1.8 cm. There are no fractures within the right femur. There i s no evidence for acute osteomyelitis. Marked subcutaneous edema within the posterior medial aspect o f the right thigh is similar in appearance to CT of August 31, 2021. There is a small rim-enhancing subc utaneous pocket of fluid and gas measuring 2.8 x 2.5 cm. This likely reflects a portion of the wound. No additional rim-enhancing fluid collections are present. A small focus of fat necrosis is noted. T here are no additional sites of soft tissue gas. No intramuscular fluid collection is present. Muscul ature of the right thigh is unremarkable. The subcutaneous edema extends to the fascia. No interfasci al fluid is present. IMPRESSION: 1. No significant change in marked subcutaneous edema within the posterior medial right thigh since C T of August 31, 2021. This is suggestive of cellulitis. Associated small rim enhancing subcutaneous 2.8 x 2.5 cm fluid and gas containing collection of the medial right thigh likely reflects a portion of t he wound although a small abscess could appear similar. No additional fluid collections. No additiona l foci soft tissue gas. 2. No evidence for osteomyelitis within the right femur. 3. Pelvic and inguinal lymphadenopathy, as described above. Although nonspecific, this is similar to CT of August 31, 2021 and likely reactive. ACT 112: Negative or not required by law. Electronically signed by: Michel Siu M.D. 02/19/2024 11:16 AM
--- NOTE | 2024-02-19 12:45 | Electrocardiogram Report ---
Test Reason : Blood Pressure : */* mmHG Vent. Rate : 72 BPM Atrial Rate : 72 BPM P-R Int : 172 ms QRS Dur : 108 ms QT Int : 384 ms P-R-T Axes : 64 49 26 degrees QTcB Int : 420 ms Sinus rhythm with occasional Premature ventricular complexes Borderline ECG When compared with ECG of 17-Jul-2022 20:05, Premature ventricular complexes are now Present Nonspecific T wave abnormality no longer evident in Lateral leads Confirmed by Rogelio Alex ([id number]) on 02/19/2024 12:44:55 PM Referred By: Confirmed By: Rogelio Alex
--- NOTE | 2024-02-19 12:50 | Electrocardiogram Report ---
Test Reason : Blood Pressure : */* mmHG Vent. Rate : 83 BPM Atrial Rate : 83 BPM P-R Int : 174 ms QRS Dur : 110 ms QT Int : 388 ms P-R-T Axes : 68 62 30 degrees QTcB Int : 455 ms Sinus rhythm with frequent Premature ventricular complexes Otherwise normal ECG When compared with ECG of 18-Feb-2024 12:02, (unconfirmed) No significant change was found Confirmed by Rogelio Alex ([id number]) on 02/19/2024 12:50:04 PM Referred By: REFERRED SELF Confirmed By: Rogelio Alex
[2024-02-19] MEDS: DAPTOmycin 500 MG in SYRINGE 0 ML IV SCH (14:22)
--- NOTE | 2024-02-19 15:12 | Surgery Consultation ---
<Statement entered by Jaylyn Dumont, - 02/19/24 17:11> I have seen and examined this patient. We will follow up in the am Date of Consultation February 19, 2024 Assessment & Plan (1) Open wound of right thigh: Chronic right thigh wound No WBC elevation On exam right inner thigh with two small open areas in crease of leg, surrounding cellulitis and tissue edema, 1/4 inch packing removed and tissue palpated, was able to express some yellowish clear fluid at first then the remainder of fluids expressed appeared bloody purulent in color. Both open areas were probed with a sterile Dacron, possibly they communicate under the surface , however was not able to confirm this. Wound repacked, gauze 4x4 and abd pads, applied medipore tape. Continue local wound care, no surgical intervention indicated at this time, will see patient tomorrow and attempt to irrigate open areas/ change dressing. Patient seen and examined with Dr. Dumont History of Present Illness Reason for Consultation: right leg wound Requesting Physician: Dr. Holloway Attending Physician: Latisha Holloway MD History of Present Illness Patient is a pleasant 53 yo female with PMH chronic lymphedema, Lupus, hypoxemia, obesity, immunocompromised, depression, bipolar, Venous insufficiency bilateral LE, that presented to the [facility] ER with c/o a possible lupus flare and right chronic leg wound pain, fever. The patient follow with [facility] wound care for chronic RLE wound. Looking back dated to have started in April/2020. She has been seeing the wound care monthly and has home nursing come to her house three times weekly for wound care and packing of RLE. She states it was last packed on Monday02/16/24. A CT scan of the femur Allergies Allergy/AdvReac Type Severity Reaction Status Date / Time hydroxychloroquine Allergy Severe Swelling Verified 02/08/24 13:04 [From Plaquenil] of Lip/Tongue/Throat nickel Allergy Mild Rash Verified 02/08/24 13:04 Home Medications Medication Instructions Recorded Confirmed Type epinephrine 0.3 mg/0.3 mL 0.3 mg IM DIRECTED PRN Allergic 09/22/17 02/18/24 History injection, auto-injector (EpiPen Reaction ##0 2-David) albuterol sulfate 90 mcg/actuation 2 puff inhalation Q4H PRN 04/27/18 02/18/24 History aerosol inhaler Cough/Wheezing mometasone-formoterol HFA 200 2 puff inhalation BID 04/27/18 02/18/24 History mcg-5 mcg/actuation aerosol inhaler valacyclovir 1 gram tablet 1,000 mg PO Q12H PRN Cold Sores 04/27/18 02/18/24 History omeprazole 20 mg tablet,delayed 20 mg PO QAM 03/05/19 02/18/24 History release CPAP Machine #1 ea 03/12/19 02/08/24 History Oxygen Home #1 ea 06/01/21 02/08/24 History fluticasone propionate 50 2 spray intranasal BID 06/20/21 02/18/24 History mcg/actuation nasal spray,suspension losartan 25 mg tablet 25 mg PO QAM 30 days #30 tabs 06/29/21 02/18/24 Rx diclofenac sodium 1 % topical gel 2 g topical TID PRN Pain 12/30/21 02/18/24 History baclofen 10 mg tablet 10 mg PO BID 01/19/22 02/18/24 History torsemide 20 mg tablet 60 mg PO QAM 03/30/22 02/18/24 History levocetirizine 5 mg tablet 2.5 mg PO HS 04/29/22 02/18/24 History levothyroxine 100 mcg tablet 100 mcg PO DAILYBB 04/29/22 02/18/24 History spironolactone 25 mg tablet 25 mg PO DAILY 04/29/22 02/18/24 History sucralfate 1 gram tablet (Carafate) 1 g PO ACHS 04/29/22 02/18/24 History betamethasone dipropionate 0.05 % 1 applic topical HS PRN RASH ON 07/17/22 02/18/24 History topical cream LIMBS ipratropium 0.5 mg-albuterol 3 mg 3 ml inhalation Q6H PRN 07/17/22 02/18/24 History (2.5 mg base)/3 mL nebulization COUGH/SOB/WHEEZING soln ondansetron 8 mg disintegrating 8 mg translingual Q8H PRN 07/17/22 02/18/24 History tablet NAUSEA/VOMITING polyvinyl alcohol-povidone (PF) 1 drp OPR BID 07/17/22 02/18/24 History 1.4 %-0.6 % eye drops in a dropperette (Refresh Classic (PF)) mycophenolate mofetil 500 mg 1,500 mg PO BID 02/13/23 02/18/24 History tablet (CellCept) oxybutynin chloride 5 mg tablet 5 mg PO DAILY 07/14/23 02/18/24 History cholecalciferol (vitamin D3) 1,250 50,000 unit PO .Weekly 11/09/23 02/18/24 History mcg (50,000 unit) capsule acyclovir 400 mg tablet 400 mg PO UD 02/18/24 02/18/24 History lorazepam 0.5 mg tablet 0.5 mg PO BID 02/18/24 02/18/24 History nystatin 100,000 unit/gram topical 1 applic topical BID PRN Other 02/18/24 02/18/24 History powder Patient History Medical History Heart failure with preserved ejection fraction Acute hypoxemic respiratory failure Pneumonia ~ 2 weeks ago, seen by PCP, tx with ABX and prednisone Bronchiolitis JUNE 2019> RESOLVED Shingles RESOLVED On home oxygen therapy ON O2 AT 2L WITH CPAP DEVICE AT HS Psoriasis Morbid obesity with BMI of 60.0-69.9, adult Depression Osteoarthritis Hypothyroidism Sleep apnea CPAP Asthma stable, using rescue inhaler with exertion Surgical History History of D&C X2 History of wisdom tooth extraction History of esophagogastroduodenoscopy (EGD) History of colonoscopy History of cataract surgery R & L History of appendectomy History of section History of bilateral tubal ligation Family History Father Diabetes Mother Asthma Hypertension Brother Stroke Grandfather (Paternal) Diabetes Sister Hay fever Denies family history of Ovarian cancer Breast cancer Colorectal cancer Social History Smoking Status: Never smoker Second Hand Exposure: Yes; Do You Dip or Chew Tobacco: No; Hx Alcohol Use: No Hx Substance Use: No Preferred Language: [place]araguan Communication Ability: Effective Visual Impairment: Limited Hearing Ability: Normal Compo Caster Required: No Beliefs That Will Affect Care: None Current Living Situation: Significant Other and Other Current Living Situation Comment: Grandson current occupational status: disabled Other Information That Helps Us Care for You: No Feels Safe at Home: Yes Safety Concerns: Feels Safe At This Time Diet: low salt caffeine: Yes Physical Activity Frequency: Does not Exercise Do you think of yourself as: straight/heterosexual Gender Identity: Female Assistive Devices: CPAP and Oxygen - at Night Review of Systems Integumentary: + wounds Physical Exam Constitutional: cooperative and comfortable; no acute distress Skin: + wound Results & Data Vital Signs (Past 12 Hours) Vital Signs Temp Pulse Resp BP Pulse Ox O2 Del Method 02/19/24 10:31 98.8 F 73 20 97/64 L 94 Room Air 02/19/24 07:29 99.7 F H 77 16 106/66 91 Room Air 02/19/24 06:30 99.9 F H Diagnostic Findings [place], [place] [phone] CT Scan Report Patient: FLEX CARR Admit Date: 02/18/24 MR#: [id number] Address1: [address] [place] [address] Acct ID:[id number] Address2: Date: 1970 [facility] Zip: [place] [address] Age: 53 Location: Sex: F Room/Bed: [facility] Att Phy: Latisha Holloway MD Diagnosis: R THIGH CELLULITIS, FEVER Reina Phy: Ary Bravo DO Service Date: 02/19/24 Fam Phy: Interpreting Phy: Michel Siu [facility] Phy: Bruce Huerta MD Ordering Phy: Latisha Holloway MD cc: ~ RIGHT FEMUR AND THIGH CT WITH CONTRAST CLINICAL HISTORY: Large unhealing wound, r/o underlying abscess COMPARISON STUDY: Right femur and thigh CT August 31, 2021. TECHNIQUE: Axial images of the right thigh and femur were obtained following intravenous injection of 120 cc of Optiray 320 IV. Sagittal and coronal reconstructions were viewed. Automated exposure control was utilized for the study. A dose lowering technique was utilized adhering to the principles of ALARA. FINDINGS: Multiple enlarged bilateral iliac chain and inguinal lymph nodes are similar to CT of August 31, 2021. A left pelvic sidewall lymph node on image 35 of 457 measures 7.2 x 2.8 cm. A right inguinal lymph node on image 60 measures 3.3 x 1.8 cm. There are no fractures within the right femur. There is no evidence for acute osteomyelitis. Marked subcutaneous edema within the posterior medial aspect of the right thigh is similar in appearance to CT of August 31, 2021. There is a small rim-enhancing subcutaneous pocket of fluid and gas measuring 2.8 x 2.5 cm. This likely reflects a portion of the wound. No additional rim-enhancing fluid collections are present. A small focus of fat necrosis is noted. There are no additional sites of soft tissue gas. No intramuscular fluid collection is present. Musculature of the right thigh is unremarkable. The subcutaneous edema extends to the fascia. No interfascial fluid is present. IMPRESSION: 1. No significant change in marked subcutaneous edema within the posterior medial right thigh since CT of August 31, 2021. This is suggestive of cellulitis. Associated small rim enhancing subcutaneous 2.8 x 2.5 cm fluid and gas containing collection of the medial right thigh likely reflects a portion of the wound although a small abscess could appear similar. No additional fluid collections. No additional foci soft tissue gas. 2. No evidence for osteomyelitis within the right femur. 3. Pelvic and inguinal lymphadenopathy, as described above. Although nonspecific, this is similar to CT of August 31, 2021 and likely reactive. ACT 112: Negative or not required by law. Electronically signed by: Michel Siu M.D. 02/19/2024 11:16 AM Dictated: 02/19/24 1105 Transcribed: 02/19/24 1106 Results CBC w Diff Results: RBC 3.80 M/uL (4.20-5.40) L 02/19/24 WBC 9.89 K/ul (4.8-10.8) 02/19/24 Hgb 10.5 g/dl (12.0-16.0) L 02/19/24 Hct 31.9 % (37.0-47.0) L 02/19/24 MCV 83.9 fL (80.0-100.0) 02/19/24 MCH 27.6 pg (25.0-34.0) 02/19/24 MCHC 32.9 g/dL (32.0-36.0) 02/19/24 RDW Standard Deviation 42.7 fL (36.4-46.3) 02/19/24 RDW Coefficient of Variation 13.9 % (11.5-14.5) 02/19/24 Plt Count 178 K/uL (130-400) 02/19/24 MPV 10.1 fL (9.4-12.4) 02/19/24 Nucleated Red Blood Cells % (auto) 0.3 % 06/21 Nucleated RBC Absolute Count (auto) 0.02 K/uL (0-0) H 05/26 12/13 Neutrophils (%) (Auto) 79.3 % 02/19/24 Lymphocytes (%) (Auto) 5.9 % 02/19/24 Monocytes # (Auto) 1.08 K/uL (0.11-0.59) H 02/19/24 Eosinophils # (Auto) 0.24 K/uL (0.00-0.50) 02/19/24 Immature Granulocyte % (Auto) 1.1 % 02/19/24 Neutrophils # (Auto) 7.84 K/uL (1.40-6.50) H 02/19/24 Lymphocytes # (Auto) 0.58 K/uL (1.20-3.40) L 02/19/24 Monocytes # (Auto) 1.08 K/uL (0.11-0.59) H 02/19/24 Eosinophils # (Auto) 0.24 K/uL (0.00-0.50) 02/19/24 Basophils # (Auto) 0.04 K/uL (0.00-0.20) 02/19/24 Immature Granulocyte # (Auto) 0.11 K/uL (0.01-0.20) 4 PG Care Time/CCT Total # of Minutes Spent Total Time Spent with Patient: Total time spent is greater than 50% in coordination of care (as documented) at patient's floor/unit and/or counseling patient: Coding Level of Care Code 74600 INT INP/OBS CARE 1/40MIN Diagnoses Open wound of right thigh, subsequent encounter S71.101D Encounter type: subsequent encounter (1) Open wound of right thigh Encounter type: subsequent encounter Qualified Code(s): S71.101D - Unspecified open wound, right thigh, subsequent encounter
[2024-02-19] MEDS: ONDANSETRON 4 MG OD TAB PO PRN (15:37)
[2024-02-19] MEDS: ACETAMINOPHEN 500 MG TAB PO SCH (17:14)
[2024-02-19] MEDS: SUCRALFATE 1 GM TAB PO SCH (17:14)
[2024-02-19] MEDS: FLUTICASONE PROPIONATE NA SPR 16 GM BTL NAE SCH (20:04)
[2024-02-19] MEDS: CETIRIZINE HCL 10 MG TABLET PO SCH (20:04)
[2024-02-20 08:45] LABS: Hematocrit (blood only) 34.7 % (37.0-47.0); Hemoglobin 11.3 g/dl (12.0-16.0); Mean Corpuscular Hemoglobin 27.2 pg (25.0-34.0); Mean Corpuscular Hgb Conc 32.6 g/dL (32.0-36.0); Mean Corpuscular Volume 83.6 fL (80.0-100.0); Mean Platelet Volume 10.2 fL (9.4-12.4); Platelet Count 212 K/uL (130-400); RDW Coefficient of Variation 14.2 % (11.5-14.5); RDW Standard Deviation 43.3 fL (36.4-46.3); Red Blood Count 4.15 M/uL (4.20-5.40); White Blood Count 10.52 K/ul (4.8-10.8)
[2024-02-20 09:15] LABS: Folate (Folic Acid),Ser orPlas 14.95 ng/ml (>5.38)
--- NOTE | 2024-02-20 09:23 | Surgery Progress Note ---
Date of Service February 20, 2024 Assessment & Plan (1) Open wound of right thigh: Plan: Pt here w/ chronic RLE wound of medial thigh WBC 10 Continue QD dressing changes with 10cc saline irrigation, pack two openings with 1/4" plain nu-gauze, cover with dry 4x4 gauze/abd and medipore tape Wound care consulted for their evaluation, will see what they think of wounds for any additional recommendations Continue IV abx no plans for surgical intervention at this time RNs can take over dressing changes tomorrow Will need ongoing f/u in wound center once medically stable for discharge Admission and Anticipated Discharge Date Admission Date: February 18, 2024 Subjective Patient feeling okay, no obvious complaints. Does have pain of her R thigh wounds when dressing changed. Physical Exam Physical Exam: awake/alert, no distress Skin: R medial thigh wound with some surrounding erythema and induration. two small q- tip sized holes noted and communicated with eachother, serosang drainage expressed, no purulence. Small wound superior to this superficial and leaking some serous fluid. Inferior to pinhole wounds she has and a larger open wound with some granulation tissue seeping some serous fluid. Results & Data Vital Signs (Past 12 Hours) Vital Signs Temp Pulse Pulse Resp BP Pulse Ox O2 Del Method 02/20/24 07:19 98.2 F 71 20 102/57 L 93 Room Air 02/20/24 05:57 98.4 F 02/20/24 03:15 100.2 F H 80 20 95/59 L 99 CPAP 02/20/24 02:42 80 27 H 98 02/19/24 23:10 98.8 F 72 22 101/65 99 CPAP 02/19/24 22:52 78 25 H 99 02/19/24 22:45 70 O2 Flow Rate 02/20/24 07:19 02/20/24 05:57 02/20/24 03:15 02/20/24 02:42 2 02/19/24 23:10 02/19/24 22:52 2 02/19/24 22:45 PG Care Time/CCT Total # of Minutes Spent Total Time Spent with Patient: Total time spent is greater than 50% in coordination of care (as documented) at patient's floor/unit and/or counseling patient: Coding Level of Care Code 54436 SUB INP/OBS CARE 25MIN Diagnoses Open wound of right thigh, subsequent encounter S71.101D Encounter type: subsequent encounter (1) Open wound of right thigh Encounter type: subsequent encounter Qualified Code(s): S71.101D - Unspecified open wound, right thigh, subsequent encounter
[2024-02-20 09:26] LABS: BUN Creatinine Ratio 10.6 (10-20); Calcium 8.1 mg/dl (8.6-10.3); Creatinine Clr Calc Pharmacy 101.2 ml/min; Ferritin 173.4 ng/ml (8-388); Potassium 2.8 mmol/L (3.5-5.1)
--- NOTE | 2024-02-20 11:23 | Electrocardiogram Report ---
Test Reason : Blood Pressure : */* mmHG Vent. Rate : 71 BPM Atrial Rate : 71 BPM P-R Int : 182 ms QRS Dur : 116 ms QT Int : 440 ms P-R-T Axes : 49 44 34 degrees QTcB Int : 478 ms Normal sinus rhythm Borderline ECG When compared with ECG of 19-Feb-2024 06:01, Premature ventricular complexes are no longer Present Confirmed by Rogelio Alex ([id number]) on 02/20/2024 11:23:42 AM Referred By: REFERRED SELF Confirmed By: Rogelio Alex
--- NOTE | 2024-02-20 14:03 | Hospitalist Progress Note ---
Date of Service February 20, 2024 Assessment & Plan (1) Pseudomonas infection: (2) Open wound of right thigh: (3) Chronic acquired lymphedema: (4) Heart failure with preserved ejection fraction: (5) Acute hypoxemic respiratory failure: (6) Depression: (7) Hypothyroidism: (8) History of cholecystectomy: (9) Urticarial vasculitis: (10) GERD (gastroesophageal reflux disease): (11) Lupus: Plan Ms. Storm is a 53 yo female with PMH chronic lymphedema, Lupus, hypoxemia, o besity, immunocompromised, depression, bipolar, Venous insufficiency bilateral LE, that presented to the [facility] ER due to fever and pain in chronic right open thigh wound. Patient with recent debridement at wound center and since patient noted increase in foul odor and pain. CT leg revealed associated small rim enhancing subcutaneous 2.8 x 2.5 cm fluid and gas containing collection of the medial right thigh likely reflects a portion of the wound although a small abscess could appear similar. Surgery evaluated with some expression of purulent fluid. Patient afebrile for over 24 hours and feeling much improved. Patient adamant to discharge tomorrow. Wound care evaluated and noted that it is much more edematous than baseline. Continue IV abx for now and reeval tomorrow. #Fevers #Open Right thigh wound with cellulitis #Fluid collection suspicius for abscess collection #Hx chronic BLE lymphedema Follows with [facility] wound care center Wound cultures 02/14+ MRSA/Pseudomonas Blood cultures ordered and pending, Tmax 39.2 No leukocytosis, continue IV Dapto/Zosyn -Transition to Cipro/linezolid for 10days total with IV abx upon discharge -Continue with dapto 2/2 habitus - CT leg ordered with fluid collection -Surgery consulted, s/p bedside wound cleaning/expression of purulent fluid -Continue local wound care, no surgical intervention indicated at this time ID for abx recommendations given habitus/chronicity/organism #Acute on chronic CHF with preserved EF: resolved Chest x-ray shows fluid overload IV Lasix x 1 40 mg given in ER, BNP within normal limits, no hypoxia Continue home torsemide/AldactoneDaily weights/strict I&O #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 chronically, hold CellCept with acute infection, resume when abx complete Follows with [facility] rheumatology #OBI on CPAP: #asthma: At bedtime CPAP ordered, wears 2 L at at bedtime as needed Continue home inhalers for asthma # anxiety: Continue home dose of Ativan # HTN: Hold losartan, BP soft #hypothyroidism: Continue levothyroxine Full code DVT prophylaxis: Lovenox Admission and Anticipated Discharge Date Admission Date: February 18, 2024 Subjective Reports feeling much improved than day prior States she will be leaving tomorrow Notes swelling and firmness feels much improved since day prior as well after surgery washout Physical Exam Constitutional: WD/WN, vitals as above Respiratory: normal respiratory effort, lungs clear to auscultation Cardiovascular: RRR, no murmur, no edema Skin: around around wound much improved in firmness and swelling as well as erythema Results & Data Results & Data Vital Signs (Past 12 Hours) Vital Signs Temp Pulse Pulse Resp BP Pulse Ox O2 Del Method 02/20/24 11:32 37.1 C 75 20 107/67 95 Room Air 02/20/24 07:19 36.8 C 71 20 102/57 L 93 Room Air 02/20/24 05:57 36.9 C 02/20/24 03:15 37.9 C H 80 20 95/59 L 99 CPAP 02/20/24 02:42 80 27 H 98 O2 Flow Rate 02/20/24 11:32 02/20/24 07:19 02/20/24 05:57 02/20/24 03:15 02/20/24 02:42 2 Laboratory Results Short CBC 02/20/24 Range/Units 08:05 WBC 10.52 (4.8-10.8) K/ul Hgb 11.3 L (12.0-16.0) g/dl Hct 34.7 L (37.0-47.0) % Plt Count 212 (130-400) K/uL BMP 02/20/24 08:05 Sodium 135 L Potassium 2.8 L Chloride 95 L Carbon Dioxide 31 BUN 11 Creatinine 1.04 D Glucose 137 H Calcium 8.1 L Medications Administered Home Medications Medication Instructions Recorded Confirmed Last Taken epinephrine 0.3 mg/0.3 mL 0.3 mg IM DIRECTED PRN Allergic 09/22/17 02/18/24 Unknown injection, auto-injector (EpiPen Reaction ##0 2-David) albuterol sulfate 90 mcg/actuation 2 puff inhalation Q4H PRN 04/27/18 02/18/24 03/18/21 aerosol inhaler Cough/Wheezing mometasone-formoterol HFA 200 2 puff inhalation BID 04/27/18 02/18/24 07/17/22 08:00 mcg-5 mcg/actuation aerosol inhaler valacyclovir 1 gram tablet 1,000 mg PO Q12H PRN Cold Sores 04/27/18 02/18/24 03/18/21 omeprazole 20 mg tablet,delayed 20 mg PO QAM 03/05/19 02/18/24 07/17/22 release CPAP Machine #1 ea 03/12/19 02/08/24 Unknown Oxygen Home #1 ea 06/01/21 02/08/24 Unknown fluticasone propionate 50 2 spray intranasal BID 06/20/21 02/18/24 07/17/22 08:00 mcg/actuation nasal spray,suspension losartan 25 mg tablet 25 mg PO QAM 30 days #30 tabs 06/29/21 02/18/24 07/17/22 diclofenac sodium 1 % topical gel 2 g topical TID PRN Pain 12/30/21 02/18/24 Unknown baclofen 10 mg tablet 10 mg PO BID 01/19/22 02/18/24 07/17/22 08:00 torsemide 20 mg tablet 60 mg PO QAM 03/30/22 02/18/24 07/17/22 levocetirizine 5 mg tablet 2.5 mg PO HS 04/29/22 02/18/24 07/16/22 levothyroxine 100 mcg tablet 100 mcg PO DAILYBB 04/29/22 02/18/24 07/17/22 spironolactone 25 mg tablet 25 mg PO DAILY 04/29/22 02/18/24 07/17/22 sucralfate 1 gram tablet (Carafate) 1 g PO ACHS 04/29/22 02/18/24 07/17/22 18:00 betamethasone dipropionate 0.05 % 1 applic topical HS PRN RASH ON 07/17/22 02/18/24 Unknown topical cream LIMBS ipratropium 0.5 mg-albuterol 3 mg 3 ml inhalation Q6H PRN 07/17/22 02/18/24 Unknown (2.5 mg base)/3 mL nebulization COUGH/SOB/WHEEZING soln ondansetron 8 mg disintegrating 8 mg translingual Q8H PRN 07/17/22 02/18/24 Unknown tablet NAUSEA/VOMITING polyvinyl alcohol-povidone (PF) 1 drp OPR BID 07/17/22 02/18/24 07/17/22 08:00 1.4 %-0.6 % eye drops in a dropperette (Refresh Classic (PF)) mycophenolate mofetil 500 mg 1,500 mg PO BID 02/13/23 02/18/24 Unknown tablet (CellCept) oxybutynin chloride 5 mg tablet 5 mg PO DAILY 07/14/23 02/18/24 Unknown cholecalciferol (vitamin D3) 1,250 50,000 unit PO .Weekly 11/09/23 02/18/24 Unknown mcg (50,000 unit) capsule acyclovir 400 mg tablet 400 mg PO UD 02/18/24 02/18/24 Unknown lorazepam 0.5 mg tablet 0.5 mg PO BID 02/18/24 02/18/24 Unknown nystatin 100,000 unit/gram topical 1 applic topical BID PRN Other 02/18/24 02/18/24 Unknown powder Active Medications Generic Name Dose Route Start Last Admin Trade Name Freq PRN Reason Stop Dose Admin Acetaminophen 1,000 mg 02/19/24 16:00 02/20/24 15:48 Acetaminophen 500 Mg Tab PO 03/20/24 15:59 1,000 mg Q8H SAVANNAH Administration Acyclovir 400 mg 02/18/24 21:00 02/20/24 08:33 Acyclovir 400 Mg Tab PO 03/19/24 20:59 400 mg BID SAVANNAH Administration Baclofen 10 mg 02/18/24 21:00 02/20/24 08:33 Baclofen 10 Mg Tab PO 03/19/24 20:59 10 mg BID SAVANNAH Administration Cetirizine HCl 5 mg 02/19/24 21:00 02/19/24 20:04 Cetirizine Hcl 10 Mg Tablet PO 03/20/24 20:59 5 mg HS SAVNANAH Administration Enoxaparin Sodium 40 mg 02/19/24 09:00 02/20/24 08:33 Enoxaparin Inj 40 Mg/0.4 Ml Syr SQ 03/20/24 08:59 40 mg QAM SAVANNAH Administration Fluticasone Propionate 2 sprays 02/19/24 21:00 02/20/24 08:33 Fluticasone Propionate Na Spr 16 Gm Btl MARK 03/20/24 20:59 2 sprays BID SAVANNAH Administration Fluticasone/Vilanterol 1 puffs 02/19/24 09:00 02/20/24 08:33 Fluticasone/Vilanterol 100/25mcg 14 Puffs/Inhaler INH 03/20/24 08:59 1 puffs DAILY SAVANNAH Administration Piperacillin Sod/Tazobactam Sod 4.5 gm in 100 mls @ 25 mls/hr 02/18/24 18:00 02/20/24 17:55 Zosyn IV 02/21/24 05:00 25 mls/hr Q8H SAVANNAH Administration Protocol Levothyroxine Sodium 100 mcg 02/19/24 06:30 02/20/24 05:47 Levothyroxine Sodium 100 Mcg Tablet PO 03/20/24 06:29 100 mcg DAILYBB SAVANNAH Administration Lorazepam 0.5 mg 02/18/24 21:00 02/20/24 08:33 Lorazepam 0.5 Mg Tab PO 03/19/24 20:59 0.5 mg BID SAVANNAH Administration Ondansetron HCl 8 mg 02/19/24 13:34 02/19/24 15:37 Ondansetron 4 Mg Od Tab PO 03/20/24 13:33 8 mg Q8H PRN Administration NAUSEA/VOMITING Oxycodone HCl 5 mg 02/18/24 22:02 02/19/24 20:04 Oxycodone Hcl Ir 5 Mg Tab (Immediate Release) PO 03/03/24 22:01 5 mg Q6H PRN Administration Severe Pain (Scale 7, 8, 9,10) Pantoprazole Sodium 40 mg 02/19/24 09:00 02/20/24 08:33 Pantoprazole 40 Mg Tab PO 03/20/24 08:59 40 mg QAM SAVANNAH Administration Spironolactone 25 mg 02/19/24 09:00 02/20/24 08:34 Spironolactone 25 Mg Tab PO 03/20/24 08:59 25 mg DAILY SAVANNAH Administration Sucralfate 1 gm 02/19/24 16:30 02/20/24 15:48 Sucralfate 1 Gm Tab PO 03/20/24 16:29 1 gm ACHS SAVANNAH Administration Torsemide 60 mg 02/19/24 09:00 02/20/24 08:34 Torsemide 20 Mg Tab PO 03/20/24 08:59 60 mg QAM SAVANNAH Administration (2) Open wound of right thigh Encounter type: subsequent encounter Qualified Code(s): S71.101D - Unspecified open wound, right thigh, subsequent encounter (11) Lupus Lupus erythematosus form: unspecified Qualified Code(s): L93.0 - Discoid lupus erythematosus
--- NOTE | 2024-02-20 16:05 | Infectious Disease Consult ---
Date of Service February 20, 2024 Telehealth Information I performed this visit using a real-time telehealth connection between my location and the patients location ([facility]). After connecting through interactive tele-video, patient was identified by name and date of and/or wristband check.Patient (or authorized healthcare billing customer service representative) was informed that this was a telemedicine visit and it was being conducted confidentially over secure lines. My office door was closed and no one else was present in the room with me.Patient (or authorized healthcare billing customer service representative) provided consent to proceed with the visit, expressed an understanding of privacy and security of the telemedicine visit, and gave permission to have a hospital billing customer service representative in the room in order to assist with the visit and to conduct portions of the visit, as needed. I informed the patient (or authorized healthcare billing customer service representative) that I reviewed their record and presented the opportunity for them to ask any questions regarding the visit today. The patient agreed to participate. Assessment & Plan (1) Cellulitis of right thigh: (2) Chronic acquired lymphedema: (3) Morbid obesity with BMI of 60.0-69.9, adult: Plan Can continue on IV piperacillin tazobactam to treat Pseudomonas aeruginosa. If there is no contraindication for vanco, please switch IV Dapto to IV vancomycin while inpatient. Whenever stable and the cellulitic area improves, can step-down IV antibiotics to oral Cipro 500 mg twice daily and oral linezolid 600 mg twice daily to complete a course of 10 days including inpatient antibiotic days. Thank you for consulting Infectious Disease. We will sign off for now. History of Present Illness History of Present Illness Ms. Storm is a 53-year-old woman with medical history of systemic lupus, morbid obesity, bilateral lower extremity lymphedema with a chronic right thigh wound, HTN, OBI on CPAP at home and generalized anxiety disorder/major depressive disorder who was admitted to [facility] on 02/17 because of feeling fatigued as well as subjective fever and chills for 3 days prior to presentation. She mentioned that she did sustain a wound on her right leg after scraping it while mowing her lawn 1 week prior to presentation. She has a chronic right upper thigh wound and has been following up with Wound Care regularly and had a superficial wound culture obtained from the new leg wound on 02/07 which grew MRSA and Pseudomonas. On this presentation, she was afebrile and the rest of the vitals were within normal limits. Initial blood workup showed no leukocytosis and was not that impressive. CT of the right lower ext remity showed chronic subcutaneous edema within the posterior medial thigh suggestive of cellulitis and associated with a small rim enhancing subcutaneous fluid around 2.8 x 2.5 cm and gas containing collection of the medial right thigh which reflects a portion of the wound though a small abscess can not be ruled out. She was seen by the surgical team who examined the wound and recommended no surgical intervention. ID team was consulted for further recommendations and to help guide antibiotic treatment. Allergies Allergy/AdvReac Type Severity Reaction Status Date / Time hydroxychloroquine Allergy Severe Swelling Verified 02/08/24 13:04 [From Plaquenil] of Lip/Tongue/Throat nickel Allergy Mild Rash Verified 02/08/24 13:04 Home Medications Medication Instructions Recorded Confirmed Type epinephrine 0.3 mg/0.3 mL 0.3 mg IM DIRECTED PRN Allergic 09/22/17 02/18/24 History injection, auto-injector (EpiPen Reaction ##0 2-David) albuterol sulfate 90 mcg/actuation 2 puff inhalation Q4H PRN 04/27/18 02/18/24 History aerosol inhaler Cough/Wheezing mometasone-formoterol HFA 200 2 puff inhalation BID 04/27/18 02/18/24 History mcg-5 mcg/actuation aerosol inhaler valacyclovir 1 gram tablet 1,000 mg PO Q12H PRN Cold Sores 04/27/18 02/18/24 History omeprazole 20 mg tablet,delayed 20 mg PO QAM 03/05/19 02/18/24 History release CPAP Machine #1 ea 03/12/19 02/08/24 History Oxygen Home #1 ea 06/01/21 02/08/24 History fluticasone propionate 50 2 spray intranasal BID 06/20/21 02/18/24 History mcg/actuation nasal spray,suspension losartan 25 mg tablet 25 mg PO QAM 30 days #30 tabs 06/29/21 02/18/24 Rx diclofenac sodium 1 % topical gel 2 g topical TID PRN Pain 12/30/21 02/18/24 History baclofen 10 mg tablet 10 mg PO BID 01/19/22 02/18/24 History torsemide 20 mg tablet 60 mg PO QAM 03/30/22 02/18/24 History levocetirizine 5 mg tablet 2.5 mg PO HS 04/29/22 02/18/24 History levothyroxine 100 mcg tablet 100 mcg PO DAILYBB 04/29/22 02/18/24 History spironolactone 25 mg tablet 25 mg PO DAILY 04/29/22 02/18/24 History sucralfate 1 gram tablet (Carafate) 1 g PO ACHS 04/29/22 02/18/24 History betamethasone dipropionate 0.05 % 1 applic topical HS PRN RASH ON 07/17/22 02/18/24 History topical cream LIMBS ipratropium 0.5 mg-albuterol 3 mg 3 ml inhalation Q6H PRN 07/17/22 02/18/24 History (2.5 mg base)/3 mL nebulization COUGH/SOB/WHEEZING soln ondansetron 8 mg disintegrating 8 mg translingual Q8H PRN 07/17/22 02/18/24 History tablet NAUSEA/VOMITING polyvinyl alcohol-povidone (PF) 1 drp OPR BID 07/17/22 02/18/24 History 1.4 %-0.6 % eye drops in a dropperette (Refresh Classic (PF)) mycophenolate mofetil 500 mg 1,500 mg PO BID 02/13/23 02/18/24 History tablet (CellCept) oxybutynin chloride 5 mg tablet 5 mg PO DAILY 07/14/23 02/18/24 History cholecalciferol (vitamin D3) 1,250 50,000 unit PO .Weekly 11/09/23 02/18/24 History mcg (50,000 unit) capsule acyclovir 400 mg tablet 400 mg PO UD 02/18/24 02/18/24 History lorazepam 0.5 mg tablet 0.5 mg PO BID 02/18/24 02/18/24 History nystatin 100,000 unit/gram topical 1 applic topical BID PRN Other 02/18/24 02/18/24 History powder Patient History Medical History Heart failure with preserved ejection fraction Acute hypoxemic respiratory failure Pneumonia ~ 2 weeks ago, seen by PCP, tx with ABX and prednisone Bronchiolitis JUNE 2019> RESOLVED Shingles RESOLVED On home oxygen therapy ON O2 AT 2L WITH CPAP DEVICE AT HS Psoriasis Morbid obesity with BMI of 60.0-69.9, adult Depression Osteoarthritis Hypothyroidism Sleep apnea CPAP Asthma stable, using rescue inhaler with exertion Surgical History History of D&C X2 History of wisdom tooth extraction History of esophagogastroduodenoscopy (EGD) History of colonoscopy History of cataract surgery R & L History of appendectomy History of section History of bilateral tubal ligation Family History Father Diabetes Mother Asthma Hypertension Brother Stroke Grandfather (Paternal) Diabetes Sister Hay fever Denies family history of Ovarian cancer Breast cancer Colorectal cancer Social History Smoking Status: Never smoker Second Hand Exposure: Yes; Do You Dip or Chew Tobacco: No; Hx Alcohol Use: No Hx Substance Use: No Preferred Language: Vietnamese Communication Ability: Effective Visual Impairment: Limited Hearing Ability: Normal Toe Former Stitchdowns Required: No Beliefs That Will Affect Care: None Current Living Situation: Significant Other and Other Current Living Situation Comment: Grandson current occupational status: disabled Other Information That Helps Us Care for You: No Feels Safe at Home: Yes Safety Concerns: Feels Safe At This Time Diet: low salt caffeine: Yes Physical Activity Frequency: Does not Exercise Do you think of yourself as: straight/heterosexual Gender Identity: Female Assistive Devices: CPAP and Oxygen - at Night Review of Systems Neg except for what was mentioned in H&P. Physical Exam Couldn't be performed as the encounter was conducted via telemed. Results & Data Vital Signs (Past 12 Hours) Vital Signs Temp Pulse Resp BP Pulse Ox O2 Del Method 02/20/24 15:03 37.0 C 84 20 116/66 91 Room Air 02/20/24 11:32 37.1 C 75 20 107/67 95 Room Air 02/20/24 07:19 36.8 C 71 20 102/57 L 93 Room Air 02/20/24 05:57 36.9 C Laboratory Results Microbiology: 02/13: Superficial wound culture growing MRSA and Pseudomonas 02/17: 2 sets of blood culture negative to date 02/17: Urine culture with no growth Diagnostic Findings CT scan of t he femur obtained on 02/18: 1. No significant change in marked subcutaneous edema within the posterior medi al right thigh since CT of August 31, 2021. This is suggestive of cellulitis. Associated small rim enhancing subcutaneous 2.8 x 2.5 cm fluid and gas containing collection of the medial right thigh likely reflects a portion of the wound although a small abscess could appear similar. No additional fluid collections. No additional foci soft tissue gas. 2. No evidence for osteomyelitis within the right femur. 3. Pelvic and inguinal lymphadenopathy, as described above. Although nonspecific, this is similar to CT of August 31, 2021 and likely reactive.
[2024-02-21] MEDS ORDERED: CIPROFLOXACIN 500 MG TAB PO SCH (09:00)
[2024-02-21] MEDS ORDERED: LINEZOLID 600 MG TAB PO SCH (09:00)
[2024-02-21] MEDS: POTASSIUM CHLORIDE CRTAB 20 MEQ TABCR PO SCH (09:58)
[2024-02-21 10:18] LABS: Hematocrit (blood only) 31.1 % (37.0-47.0); Hemoglobin 10.1 g/dl (12.0-16.0); Mean Corpuscular Hemoglobin 27.2 pg (25.0-34.0); Mean Corpuscular Hgb Conc 32.5 g/dL (32.0-36.0); Mean Corpuscular Volume 83.8 fL (80.0-100.0); Mean Platelet Volume 10.2 fL (9.4-12.4); Platelet Count 234 K/uL (130-400); RDW Standard Deviation 42.9 fL (36.4-46.3); Red Blood Count 3.71 M/uL (4.20-5.40); White Blood Count 9.72 K/ul (4.8-10.8)
--- NOTE | 2024-02-21 10:25 | Surgery Progress Note ---
<Statement entered by Jaylyn Dumont DO - 02/21/24 12:32> I have seen and examined this patient with surgical PA Date of Service February 21, 2024 Assessment & Plan (1) Open wound of right thigh: Plan: Pt here w/ chronic RLE wound of medial thigh WBC 9.7 On exam there is some evolution to the proximal part of her wound with bogginess noted over an area of bruising and blistering draining some serous fluid, we will attempt bedside I&D later this morning. In addition we recommend to continue to pack the two holes communicating with each other with iodoform gauze, and we will likely clean up and debride the inferior open wound superficially with a curette Appreciate wound care following along Continue abx no plans for operative intervention in the OR, will plan on performing this at the bedside Will need ongoing f/u in wound center once medically stable for discharge Admission and Anticipated Discharge Date Admission Date: February 18, 2024 Subjective Patient feeling okay. No obvious complaints Physical Exam Physical Exam: awake/no distress Skin: R medial thigh wound with some surrounding erythema and induration (improved since yesterday). two small q-tip sized holes noted and communicated with each other, serosang drainage expressed, no purulence. Small wound superior to this superficial and leaking some serous fluid with an area of bruising and bogginess over this area, some blistering noted with seroud fluid. Inferior to pinhole wounds she has and a larger open wound with some granulation tissue with slough seeping some serous fluid. Results & Data Vital Signs (Past 12 Hours) Vital Signs Temp Pulse Pulse Resp BP Pulse Ox O2 Del Method 02/21/24 07:32 98.8 F 73 91/63 L 94 Room Air 02/21/24 03:03 98.1 F 76 18 93/60 L 94 Room Air 02/21/24 00:13 83 19 95 02/20/24 23:41 99.0 F 83 16 105/71 93 Room Air O2 Flow Rate 02/21/24 07:32 02/21/24 03:03 02/21/24 00:13 2 02/20/24 23:41 PG Care Time/CCT Total # of Minutes Spent Total Time Spent with Patient: Total time spent is greater than 50% in coordination of care (as documented) at patient's floor/unit and/or counseling patient: Coding Level of Care Code 25549 SUB INP/OBS CARE 05/18MIN Diagnoses Open wound of right thigh, subsequent encounter S71.101D Encounter type: subsequent encounter (1) Open wound of right thigh Encounter type: subsequent encounter Qualified Code(s): S71.101D - Unspecified open wound, right thigh, subsequent encounter
[2024-02-21 10:36] LABS: BUN Creatinine Ratio 14.3 (10-20); Calcium 8.1 mg/dl (8.6-10.3); Creatinine Clr Calc Pharmacy 115.6 ml/min; Magnesium 1.6 mg/dl (1.7-2.4); Phosphorus 3.5 mg/dl (2.5-4.9)
[2024-02-21] MEDS: LIDOCAINE 1%/EPINEPHRINE 1:100,000 50 ML VIAL INFIL ONE (10:43)
[2024-02-21] MEDS: DAPTOmycin 400 MG in SYRINGE 0 ML IV SCH (12:30)
--- NOTE | 2024-02-21 12:37 | Procedure Note ---
Procedure Note Date of Service February 21, 2024 Consent was obtained Timeout was conducted Bedside procedure included incision and drainage of right lower extremity abscess and debridement of right lower extremity excoriated chronic wound. The area was prepped with Betadine A timeout was conducted Local anesthetic was injected into the skin and subcutaneous tissue at the site anticipated for I&D 2 incisions were made over to soft/fluctuant areas ingests inferior to the posterior knee. Copious amounts of thick purulent fluid was expelled from the more posterior area. This area was irrigated with saline and packed with iodoform packing Packing was removed from the two use the open areas just inferior to this. This area was also irrigated and repacked. Just superior to this area at the site of chronically excoriated wound that has been treated with a silver, this was cleared of a degenerative slough using a curette. This was redressed with silver. The entire area was covered with a gauze, ABD secured in place with Medipore tape. [facility] [place] Procedure Codes (Charges) Indication for Procedure Indication for procedure: Right lower extremity abscess formation and slough development over chronic the excoriated wound Coding Additional Codes Date of Service ([email or web address])
--- NOTE | 2024-02-21 16:03 | Hospitalist Progress Note ---
Date of Service February 21, 2024 Assessment & Plan (1) Pseudomonas infection: (2) Open wound of right thigh: (3) Chronic acquired lymphedema: (4) Heart failure with preserved ejection fraction: (5) Acute hypoxemic respiratory failure: (6) Depression: (7) Hypothyroidism: (8) History of cholecystectomy: (9) Urticarial vasculitis: (10) GERD (gastroesophageal reflux disease): (11) Lupus: Plan Ms. Storm is a 53 yo female with PMH chronic lymphedema, Lupus, hypoxemia, o besity, immunocompromised, depression, bipolar, Venous insufficiency bilateral LE, that presented to the [facility] ER due to fever and pain in chronic right open thigh wound. Patient with recent debridement at wound center and since patient noted increase in foul odor and pain. Open Right thigh wound with cellulitis Abscess--POA H/O chronic bilateral lymphedema --S/P right lower extremity wound I&D --Femur CT:No significant change in marked subcutaneous edema within the posterior medial right thigh since CT of August 31, 2021. This is suggestive of cellulitis. Associated small rim enhancing subcutaneous 2.8 x 2.5 cm fluid and gas containing collection of the medial right thigh likely reflects a portion of the wound although a small abscess could appear similar. No additional fluid collections. No additional foci soft tissue gas. No evidence for osteomyelitis within the right femur. Pelvic and inguinal lymphadenopathy, as described above. Although nonspecific, this is similar to CT of August 31, 2021 and likely reactive. -- Blood culture negative to date --Wound cultures from 02/14/2024 grew MRSA, Pseudomonas --Patient follows with [facility] [place] --Appreciate surgery, ID input Plan to transition to oral ciprofloxacin, Zyvox on discharge to complete 10-day course per ID Needs follow-up with wound clinic on discharge Acute on chronic CHF with preserved EF: resolved Chest x-ray shows fluid overload IV Lasix x 1 40 mg given in ER, BNP within normal limits, no hypoxia Continue home torsemide/AldactoneDaily weights/strict I&O Hypokalemia Hypomagnesemia Replace and monitor electrolytes 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 chronically, hold CellCept with acute infection, resume when abx complete Follows with [facility] rheumatology OBI on CPAP: Asthma: At bedtime CPAP ordered, wears 2 L at at bedtime as needed Continue home inhalers for asthma Anxiety: Continue home dose of Ativan HTN: Hold losartan as blood pressure low Monitor Hypothyroidism: Continue levothyroxine Morbid obesity BMI 63 DVT Px: Lovenox SQ CODE STATUS Full code Admission and Anticipated Discharge Date Admission Date: February 18, 2024 Subjective Patient is seen and examined at bedside States having right leg pain on intermittently otherwise no complaints Denies any chest pain, dyspnea, nausea, vomiting, abdominal pain Review of Systems Review of Systems: All systems reviewed & are unremarkable except as noted in Subjective Physical Exam Physical Exam: Physical Exam: Vitals signs as noted above General Appearance:Morbidly Obese, no apparent distress Head: normocephalic, Atraumatic Eyes: normal inspection, EOMI Neck: supple, Trachea midline Respiratory/Chest: Normal breath sounds, CTA, No accessory muscle use Cardiovascular: S1, S2, + murmur Abdomen/GI:Soft, Non tender, Bowel sounds present Extremities/Musculoskeletal:normal inspection, right lower extremity + wound in dressing, lymphedema Neurologic/Psych:AAOX3, grossly no focal neurological deficits Skin: normal color, warm Results & Data Results & Data Vital Signs (Past 12 Hours) Vital Signs Temp Pulse Resp BP Pulse Ox O2 Del Method 02/21/24 15:16 Room Air 02/21/24 10:47 37 C 76 16 96/62 L Room Air 02/21/24 07:32 37.1 C 73 91/63 L 94 Room Air Laboratory Results Short CBC 02/21/24 Range/Units 10:00 WBC 9.72 (4.8-10.8) K/ul Hgb 10.1 L (12.0-16.0) g/dl Hct 31.1 L (37.0-47.0) % Plt Count 234 (130-400) K/uL BMP 02/21/24 10:00 Sodium 135 L Potassium 3.0 L Chloride 92 L Carbon Dioxide 35 H BUN 13 Creatinine 0.91 Glucose 130 H Calcium 8.1 L (2) Open wound of right thigh Encounter type: subsequent encounter Qualified Code(s): S71.101D - Unspecified open wound, right thigh, subsequent encounter (11) Lupus Lupus erythematosus form: unspecified Qualified Code(s): L93.0 - Discoid lupus erythematosus
[2024-02-21] MEDS: MAGNESIUM CHLORIDE W/CALCIUM 64MG DELAYED REL TAB PO SCH (20:21)
[2024-02-22 07:13] VITALS: BP 116/74; RESP 20; TEMP 98.2; O2SAT 93
[2024-02-22 08:24] LABS: BUN Creatinine Ratio 18.1 (10-20); Calcium 8.4 mg/dl (8.6-10.3); Magnesium 1.7 mg/dl (1.7-2.4); Potassium 3.5 mmol/L (3.5-5.1)
--- NOTE | 2024-02-22 12:13 | Hospitalist Progress Note ---
Date of Service February 22, 2024 Assessment & Plan (1) Pseudomonas infection: (2) Open wound of right thigh: (3) Chronic acquired lymphedema: (4) Heart failure with preserved ejection fraction: (5) Acute hypoxemic respiratory failure: (6) Depression: (7) Hypothyroidism: (8) History of cholecystectomy: (9) Urticarial vasculitis: (10) GERD (gastroesophageal reflux disease): (11) Lupus: Plan Ms. Storm is a 53 yo female with PMH chronic lymphedema, Lupus, hypoxemia, o besity, immunocompromised, depression, bipolar, Venous insufficiency bilateral LE, that presented to the [facility] ER due to fever and pain in chronic right open thigh wound. Patient with recent debridement at wound center and since patient noted increase in foul odor and pain. Open Right thigh wound with cellulitis Abscess--POA H/O chronic bilateral lymphedema --S/P right lower extremity wound I&D --Femur CT:No significant change in marked subcutaneous edema within the posterior medial right thigh since CT of August 31, 2021. This is suggestive of cellulitis. Associated small rim enhancing subcutaneous 2.8 x 2.5 cm fluid and gas containing collection of the medial right thigh likely reflects a portion of the wound although a small abscess could appear similar. No additional fluid collections. No additional foci soft tissue gas. No evidence for osteomyelitis within the right femur. Pelvic and inguinal lymphadenopathy, as described above. Although nonspecific, this is similar to CT of August 31, 2021 and likely reactive. -- Blood culture negative to date --Wound cultures from 02/14/2024 grew MRSA, Pseudomonas --Patient follows with [facility] wound care [place] --Appreciate surgery, ID input Plan to transition to oral ciprofloxacin, Zyvox on discharge to complete 10-day course per ID Needs follow-up with wound clinic on discharge Continue current management Plan to discharge home today Acute on chronic CHF with preserved EF: resolved Chest x-ray shows fluid overload IV Lasix x 1 40 mg given in ER, BNP within normal limits, no hypoxia Continue home torsemide/AldactoneDaily weights/strict I&O Stable Hypokalemia Hypomagnesemia Replace and monitor electrolytes Advised repeat blood work in 1 week as outpatient 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 chronically, hold CellCept with acute infection, resume when abx complete Follows with [facility] rheumatology OBI on CPAP: Asthma: At bedtime CPAP ordered, wears 2 L at at bedtime as needed Continue home inhalers for asthma Anxiety: Continue home dose of Ativan HTN: Hold losartan as blood pressure low Monitor Hypothyroidism: Continue levothyroxine Morbid obesity BMI 63 DVT Px: Lovenox SQ CODE STATUS Full code Disposition Home Admission and Anticipated Discharge Date Admission Date: February 18, 2024 Subjective Patient is seen and examined at bedside Doing well today No new complaints Right leg pain is controlled Eager to get discharged Denies any chest pain, dyspnea, nausea, vomiting, abdominal pain Discussed with surgery today Review of Systems Review of Systems: All systems reviewed & are unremarkable except as noted in Subjective Physical Exam Physical Exam: Physical Exam: Vitals signs as noted above General Appearance:Morbidly Obese, no apparent distress Head: normocephalic, Atraumatic Eyes: normal inspection, EOMI Neck: supple, Trachea midline Respiratory/Chest: Normal breath sounds, CTA, No accessory muscle use Cardiovascular: S1, S2, + murmur Abdomen/GI:Soft, Non tender, Bowel sounds present Extremities/Musculoskeletal:normal inspection, right lower extremity + wound in dressing, lymphedema Neurologic/Psych:AAOX3, grossly no focal neurological deficits Skin: normal color, warm Results & Data Results & Data Vital Signs (Past 12 Hours) Vital Signs Temp Pulse Pulse Resp BP Pulse Ox O2 Del Method 02/22/24 09:45 Room Air 02/22/24 08:00 76 02/22/24 07:12 36.8 C 67 20 116/74 93 Room Air 02/22/24 04:08 36.7 C 78 18 95/65 L 94 Room Air 02/22/24 03:53 77 22 93 O2 Flow Rate 02/22/24 09:45 02/22/24 08:00 02/22/24 07:12 02/22/24 04:08 02/22/24 03:53 2 Laboratory Results BMP 02/22/24 07:39 Sodium 135 L Potassium 3.5 Chloride 91 L Carbon Dioxide 35 H BUN 17 Creatinine 0.94 Glucose 134 H Calcium 8.4 L (2) Open wound of right thigh Encounter type: subsequent encounter Qualified Code(s): S71.101D - Unspecified open wound, right thigh, subsequent encounter (11) Lupus Lupus erythematosus form: unspecified Qualified Code(s): L93.0 - Discoid lupus erythematosus
--- NOTE | 2024-02-22 12:28 | Discharge Summary ---
Date of Service February 22, 2024 Admission HPI Per Admitting Provider The patient is a 53-year-old female with a past medical history of lupus, chronic wound in her right thigh, bilateral lower extremity lymphedema, asthma, HTN, obesity, anemia, anxiety, depression, GERD, pulmonary hypertension, OBI on CPAP, hypothyroidism who presents to the ED on 02/18/2024 with complaints of fatigue, not feeling well, fever/chills over the past 3 days. Patient follows with the wound care center outpatient for chronic right upper thigh wound. She reports earlier this week she was mowing the lawn and her leg scraped up against a lawnmower. She had cultures drawn at [facility] wound care center earlier this week 02/13 that are positive for Staph aureus MRSA, Pseudomonas, she reports her highest fever at home was 100.2 last night on 02/16. She also reports some chills. Denies any shortness of breath or chest pain. Denies any abdominal pain/nausea/vomiting/diarrhea. 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 On arrival to the ED, labs are remarkable for hemoglobin 11.3, NA 134, glucose 118, total bili 1.2, respiratory panel was negative Chest x-ray showed cardiomegaly with evidence of CHF EKG showed sinus rhythm with PVCs in the 70s The patient was given IV Dapto/Zosyn in ED and will be admitted for further workup of right thigh cellulitis Admission Exam Per Admitting Provider Constitutional: WD/WN, vitals as above well developed and + morbidly obese; no acute distress Eyes: PERRL, conjunctivae normal, anicteric sclerae ENMT: external ear and nose normal, oropharynx normal Neck: trachea midline, no thyromegaly Respiratory: normal respiratory effort, lungs clear to auscultation Cardiovascular: RRR, no murmur, no edema Gastrointestinal (Abdomen): normal bowel sounds, soft, nontender, no hepatosplenomegaly Percussion/Palpation: abdomen nontender and no guarding Musculoskeletal: no cyanosis or clubbing, extremities motor strength 5/5 Skin: no rashes, warm and dry ( right thigh cellulitis, red reddened skin with yeast-like odor) Neurologic: PERRL, EOMI, accommodation nl, no face palsy, no dysarthria Psychiatric: A+Ox3, euthymic affect Lymphatic: no cervical or axillary lymphadenopathy Principal Diagnosis Open Right thigh wound with cellulitis Abscess- Acute on chronic CHF with preserved EF Hypokalemia Hypomagnesemia Discharge Data Allergies Allergy/AdvReac Type Severity Reaction Status Date / Time hydroxychloroquine Allergy Severe Swelling Verified 02/08/24 13:04 [From Plaquenil] of Lip/Tongue/Throat nickel Allergy Mild Rash Verified 02/08/24 13:04 Consultations 02/18/24 13:47 ED Decision to Admit Stat 02/19/24 11:51 Consult General Surgery Routine 02/19/24 17:50 Consult Infectious Diseases Routine Procedures Performed Laboratory Results WBC 9.72 K/ul (4.8-10.8) 02/21/24 10:00 RBC 3.71 M/uL (4.20-5.40) L 02/21/24 10:00 Hgb 10.1 g/dl (12.0-16.0) L 02/21/24 10:00 Hct 31.1 % (37.0-47.0) L 02/21/24 10:00 MCV 83.8 fL (80.0-100.0) 02/21/24 10:00 MCH 27.2 pg (25.0-34.0) 02/21/24 10:00 MCHC 32.5 g/dL (32.0-36.0) 02/21/24 10:00 RDW Std Deviation 42.9 fL (36.4-46.3) 02/21/24 10:00 RDW Coeff of Anastacia 14.0 % (11.5-14.5) 02/21/24 10:00 Plt Count 234 K/uL (130-400) 02/21/24 10:00 MPV 10.2 fL (9.4-12.4) 02/21/24 10:00 Immature Gran % (Auto) 1.1 % 02/19/24 07:06 Neut % (Auto) 79.3 % 02/19/24 07:06 Lymph % (Auto) 5.9 % 02/19/24 07:06 [place] % (Auto) 10.9 % 02/19/24 07:06 Eos % (Auto) 2.4 % 02/19/24 07:06 Baso % (Auto) 0.4 % 02/19/24 07:06 Neut # (Auto) 7.84 K/uL (1.40-6.50) H 02/19/24 07:06 Lymph # (Auto) 0.58 K/uL (1.20-3.40) L 02/19/24 07:06 [place] # (Auto) 1.08 K/uL (0.11-0.59) H 02/19/24 07:06 Eos # (Auto) 0.24 K/uL (0.00-0.50) 02/19/24 07:06 Baso # (Auto) 0.04 K/uL (0.00-0.20) 02/19/24 07:06 Immature Gran # (Auto) 0.11 K/uL (0.01-0.20) 02/19/24 07:06 ESR 87 mm/hr (0-30) H 02/19/24 07:06 Sodium 135 mmol/L (136-145) L 02/22/24 07:39 Potassium 3.5 mmol/L (3.5-5.1) 02/22/24 07:39 Chloride 91 mmol/L (98-107) L 02/22/24 07:39 Carbon Dioxide 35 mmol/L (21-32) H 02/22/24 07:39 Anion Gap 9 (3-11) 02/22/24 07:39 BUN 17 mg/dl (6-23) 02/22/24 07:39 Creatinine 0.94 mg/dl (0.6-1.2) 02/22/24 07:39 Est Cr Clr Drug Dosing 112.0 ml/min 02/22/24 07:39 eGFR 73.47 02/22/24 07:39 BUN/Creatinine Ratio 18.1 (10-20) 02/22/24 07:39 Glucose 134 mg/dl (70-99(Fasting)) H 02/22/24 07:39 Lactate 0.8 mmol/L (0.4-2.0) 02/18/24 12:39 Calcium 8.4 mg/dl (8.6-10.3) L 02/22/24 07:39 Phosphorus 3.5 mg/dl (2.5-4.9) 02/21/24 10:00 Magnesium 1.7 mg/dl (1.7-2.4) 02/22/24 07:39 Iron 12 mcg/dl (35-150) L 02/20/24 08:05 TIBC 246 mcg/dl (250-450) L 02/20/24 08:05 Unsaturated IBC 234 mcg/dl (155-355) 02/20/24 08:05 Transferrin % Sat 5 % (15-50) L 02/20/24 08:05 Ferritin 173.4 ng/ml (8-388) 02/20/24 08:05 Total Bilirubin 1.4 mg/dl (0.2-1.0) H 02/19/24 07:06 Direct Bilirubin 0.4 mg/dl (0-0.2) H 02/18/24 11:32 AST 15 U/L (13-39) 02/19/24 07:06 ALT 8 U/L (7-52) 02/19/24 07:06 Alkaline Phosphatase 73 U/L (34-104) 02/19/24 07:06 Troponin I High Sens 9.0 pg/ml (0-14) 02/18/24 11:32 B-Natriuretic Peptide 89 pg/ml (0-100) 02/18/24 14:23 Total Protein 6.5 gm/dl (6.0-8.3) 02/19/24 07:06 Albumin 3.0 gm/dl (3.4-5.0) L 02/19/24 07:06 Globulin 3.5 gm/dl (2.5-4.0) 02/19/24 07:06 Albumin/Globulin Ratio 0.9 (0.9-2) 02/19/24 07:06 Vitamin B12 404 pg/ml (180-914) 02/20/24 08:05 25-OH Vitamin D Total 30.3 ng/ml (30-100) 02/20/24 08:05 Folate 14.95 ng/ml (>5.38) 02/20/24 08:05 Procalcitonin Cancelled 02/18/24 11:32 Urine Color Dark Yellow 02/18/24 22:30 Urine Appearance Clear (Clear) 02/18/24 22:30 Urine pH 5.0 (4.5-7.5) 02/18/24 22:30 Ur Specific [place] 1.020 (1.000-1.030) 02/18/24 22:30 Urine Protein Trace (Negative) H 02/18/24 22:30 Urine Glucose (UA) Negative (Negative) 02/18/24 22:30 Urine Ketones Trace (Negative) H 02/18/24 22:30 Urine Blood Negative (Negative) 02/18/24 22:30 Urine Nitrite Negative (Negative) 02/18/24 22:30 Urine Bilirubin Negative (Negative) 02/18/24 22:30 Urine Urobilinogen Negative (Negative) 02/18/24 22:30 Ur Leukocyte Esterase Trace (Negative) H 02/18/24 22:30 Urine WBC (Auto) 0-5 /hpf (0-5) 02/18/24 22:30 Urine RBC (Auto) 3-5 /hpf (0-2) H 02/18/24 22:30 U Hyaline Cast (Auto) 0-2 /lpf (0-2) 02/18/24 22:30 U Epithel Cells (Auto) 6-10 /hpf (0-2) H 02/18/24 22:30 Urine Bacteria (Auto) 1+ (None Seen) H 02/18/24 22:30 Adenovirus (PCR) Not Detected (NotDetected) 02/18/24 12:04 B. pertussis DNA (PCR) Not Detected (NotDetected) 02/18/24 12:04 B.parapertussis DNA PCR Not Detected (NotDetected) 02/18/24 12:04 C. pneumoniae DNA (PCR) Not Detected (NotDetected) 02/18/24 12:04 Coronavirus OC43 (PCR) Not Detected (NotDetected) 02/18/24 12:04 Coronavirus HKU1 (PCR) Not Detected (NotDetected) 02/18/24 12:04 Coronavirus 229E (PCR) Not Detected (NotDetected) 02/18/24 12:04 SARS-CoV-2 (PCR) Not Detected (NotDetected) 02/18/24 12:04 Coronavirus NL63 (PCR) Not Detected (NotDetected) 02/18/24 12:04 Human Metapneumovir PCR Not Detected (NotDetected) 02/18/24 12:04 Influenza Type A (PCR) Not Detected (NotDetected) 02/18/24 12:04 Influenza Type B (PCR) Not Detected (NotDetected) 02/18/24 12:04 M. pneumoniae (PCR) Not Detected (NotDetected) 02/18/24 12:04 Parainfluenza 1 (PCR) Not Detected (NotDetected) 02/18/24 12:04 Parainfluenza 2 (PCR) Not Detected (NotDetected) 02/18/24 12:04 Parainfluenza 3 (PCR) Not Detected (NotDetected) 02/18/24 12:04 Parainfluenza 4 (PCR) Not Detected (NotDetected) 02/18/24 12:04 RSV (PCR) Not Detected (NotDetected) 02/18/24 12:04 Entero/Rhino (PCR) Not Detected (NotDetected) 02/18/24 12:04 Ref Lab Test Result See Scanned Report 02/18/24 11:32 Impressions Chest X-Ray 02/18/24 11:47 SINGLE VIEW CHEST CLINICAL HISTORY: Sepsis FINDINGS: An AP, portable, upright chest radiograph is compared to study dated 07/17/2022 and correlated with chest CT dated 06/20/2021. The heart is enlarged. There is pulmonary vascular congestion. Scarring/atelectasis is noted at the lung bases. No airspace consolidation or large pleural effusion is identified. No pneumothorax is seen. The skeletal structures are osteopenic. The bony thorax is grossly intact. IMPRESSION: Cardiomegaly with evidence of congestive failure. Radiographic follow-up to resolution is recommended. ACT 112: Negative or not required by law. Electronically signed by: Heber Kumar M.D. 02/18/2024 12:[address] 02/19/24 08:[address] WITH CONTRAST CLINICAL HISTORY: Large unhealing wound, r/o underlying abscess COMPARISON STUDY: Right femur and thigh CT August 31, 2021. TECHNIQUE: Axial images of the right thigh and femur were obtained following intravenous injection of 120 cc of Optiray 320 IV. Sagittal and coronal reconstructions were viewed. Automated exposure control was utilized for the study. A dose lowering technique was utilized adhering to the principles of ALARA. FINDINGS: Multiple enlarged bilateral iliac chain and inguinal lymph nodes are similar to CT of August 31, 2021. A left pelvic sidewall lymph node on image 35 of 457 measures 7.2 x 2.8 cm. A right inguinal lymph node on image 60 measures 3.3 x 1.8 cm. There are no fractures within the right femur. There is no evidence for acute osteomyelitis. Marked subcutaneous edema within the posterior medial aspect of the right thigh is similar in appearance to CT of August 31, 2021. There is a small rim-enhancing subcutaneous pocket of fluid and gas measuring 2.8 x 2.5 cm. This likely reflects a portion of the wound. No additional rim-enhancing fluid collections are present. A small focus of fat necrosis is noted. There are no additional sites of soft tissue gas. No intramuscular fluid collection is present. Musculature of the right thigh is unremarkable. The subcutaneous edema extends to the fascia. No interfascial fluid is present. IMPRESSION: 1. No significant change in marked subcutaneous edema within the posterior medial right thigh since CT of August 31, 2021. This is suggestive of cellulitis. Associated small rim enhancing subcutaneous 2.8 x 2.5 cm fluid and gas containing collection of the medial right thigh likely reflects a portion of the wound although a small abscess could appear similar. No additional fluid collections. No additional foci soft tissue gas. 2. No evidence for osteomyelitis within the right femur. 3. Pelvic and inguinal lymphadenopathy, as described above. Although nonspecific, this is similar to CT of August 31, 2021 and likely reactive. ACT 112: Negative or not required by law. Electronically signed by: Michel Siu M.D. 02/19/2024 11:16 AM Ordered Studies 02/19/24 08:39 CT femur RT w con Routine Hospital Course (1) Pseudomonas infection: (2) Open wound of right thigh: (3) Chronic acquired lymphedema: (4) Heart failure with preserved ejection fraction: (5) Acute hypoxemic respiratory failure: (6) Depression: (7) Hypothyroidism: (8) History of cholecystectomy: (9) Urticarial vasculitis: (10) GERD (gastroesophageal reflux disease): (11) Lupus: Plan Ms. Storm is a 53 yo female with PMH chronic lymphedema, Lupus, hypoxemia, obesity, immunocompromised, depression, bipolar, Venous insufficiency bilateral LE, that presented to the [facility] ER due to fever and pain in chronic right open thigh wound. Patient with recent debridement at wound center and since patient noted increase in foul odor and pain. Open Right thigh wound with cellulitis Abscess--POA H/O chronic bilateral lymphedema --S/P right lower extremity wound I&D --Femur CT:No significant change in marked subcutaneous edema within the posterior medial right thigh since CT of August 31, 2021. This is suggestive of cellulitis. Associated small rim enhancing subcutaneous 2.8 x 2.5 cm fluid and gas containing collection of the medial right thigh likely reflects a portion of the wound although a small abscess could appear similar. No additional fluid collections. No additional foci soft tissue gas. No evidence for osteomyelitis within the right femur. Pelvic and inguinal lymphadenopathy, as described above. Although nonspecific, this is similar to CT of August 31, 2021 and likely reactive. -- Blood culture negative to date --Wound cultures from 02/14/2024 grew MRSA, Pseudomonas --Patient follows with [facility] [place] --Appreciate surgery, ID input Plan to transition to oral ciprofloxacin, Zyvox on discharge to complete 10-day course per ID Needs follow-up with wound clinic on discharge Continue current management Plan to discharge home today Acute on chronic CHF with preserved EF: resolved Chest x-ray shows fluid overload IV Lasix x 1 40 mg given in ER, BNP within normal limits, no hypoxia Continue home torsemide/AldactoneDaily weights/strict I&O Stable Hypokalemia Hypomagnesemia Replace and monitor electrolytes Advised repeat blood work in 1 week as outpatient 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 chronically, hold CellCept with acute infection, resume when abx complete Follows with [facility] rheumatology OBI on CPAP: Asthma: At bedtime CPAP ordered, wears 2 L at at bedtime as needed Continue home inhalers for asthma Anxiety: Continue home dose of Ativan HTN: Hold losartan as blood pressure low Monitor Hypothyroidism: Continue levothyroxine Morbid obesity BMI 63 DVT Px: Lovenox SQ CODE STATUS Full code Disposition Home Total Time Total Time Spent Total Time Spent (In Minutes): 47 minutes Discharge Plan Discharge Items Patient Disposition: Home - Self-Care Reason For Visit: R THIGH CELLULITIS, FEVER Discharge Diagnosis: Open Right thigh wound with cellulitis Abscess- Acute on chronic CHF with preserved EF Hypokalemia Hypomagnesemia Activity: Per Instructions section Exercise/Sports: Gradually increase as tolerated Non-emergency contact: Primary Care Provider and Specialist Call non-emergency contact if: you have any medication questions, your symptoms worsen, your pain is concerning for you and you have a fever Follow-up/Referrals: [facility] [Other] - 02/29/24 1:40 pm Ary Bravo DO [Primary Care Provider] - (Date & Time 02/27/2024 3:00 PM Provider Ary Bravo DO Department [facility] ) Diet: Heart Healthy Addtl Attending Provider Instructions: Follow-up with your primary care physician Dr. Bravo on 02/27/2024 3:00 PM as scheduled Follow-up with wound clinic on 02/29/2024 at 1:40 PM as scheduled -- Complete the antibiotic course ciprofloxacin, Zyvox as prescribed --Your final blood cultures are pending at the time of discharge. Follow-up with your physician for results. --Continue daily wound dressing as recommended. -- Get blood work(basic metabolic panel, magnesium level) in 1 week and follow- up with your physician for further recommendations. -- Continue to hold losartan for now until your blood pressure improves. Monitor your blood pressure regularly. Discuss with your primary care physician for further recommendations. Seek immediate medical attention if your symptoms reoccur or worsen Please take all medications as instructed on discharge list below. Please call if you have any questions or problems. You can reach a [facility] hospitalist on duty at [facility] 24 hours a day by calling [phone] Call your Primary Care doctor if any of the following symptoms or problems start or get worse: * Shortness of breath or difficulty breathing * Wake up at night short of breath * Chest pain * Cough * Swelling of your hands, feet, or legs * More fatigued or tired with your normal activity * Palpitations - sudden fast heart beats WEIGHT * Weigh yourself every morning after using the bathroom. * Use the same scale. * Wear the same amount of clothing. * Write your weight down on a chart. * Call your Primary Care doctor if you gain more than 2-3 pounds in 1-2 days. MEDICATIONS * Use this discharge instruction sheet for medication instructions. * Take your medications at the time your doctor ordered. * Do not skip a dose of your medicines. * If you miss a dose of medicine, take it as soon as possible, but DO NOT DOUBLE A DOSE. * Read your medicine information when you get home. * Know all of the side effects of your medicine. If in doubt, ask your pharmacist * Call your Primary Care doctor's office if you have any side effects. * Be sure all of your doctors know what medicine and herbs you take (including cold, flu, and herbal medicine). Take the following with you to your follow-up doctor appointments: * Weight Chart * Medication List * List of questions Do not drink excessive alcohol, beer or wine. Addtl Real Estate Operations Manager Provider Instructions: Change dressings to right medial thigh wounds daily (3 open areas) pack each one lightly with 1/4" iodoform gauze. Cover each with dry 4x4 gauze/ABD and medipore tape Aquacel dressing to lower abdominal wound per wound care's instructions Please follow up in the wound care center after discharge for ongoing follow up Pending Studies at Discharge: Yes Studies:: Blood cultures Stand-Alone Forms: My [facility] [employer], Smoking Cessation Medications and DC Order Prescriptions: New oxycodone 5 mg Tablet 5 mg PO Q8H PRN (Reason: pain) Qty: 10 0RF magnesium chloride [Mag 64] 64 mg Tablet,Delayed Release (Dr/Ec) 64 mg PO BID Qty: 30 0RF potassium chloride 20 mEq Tablet,Er Particles/Crystals 20 meq PO DAILY Qty: 5 0RF ciprofloxacin HCl 500 mg tablet 500 mg PO BID Qty: 13 0RF linezolid 600 mg tablet 600 mg PO BID Qty: 13 0RF Continued baclofen 10 mg tablet 10 mg PO BID torsemide 20 mg tablet 60 mg PO QAM mycophenolate mofetil [CellCept] 500 mg tablet 1,500 mg PO BID oxybutynin chloride 5 mg tablet 5 mg PO DAILY cholecalciferol (vitamin D3) 1,250 mcg (50,000 unit) capsule 50,000 unit PO .Weekly epinephrine [EpiPen 2-David] 0.3 mg/0.3 mL Auto-Injector 0.3 mg IM DIRECTED PRN (Reason: Allergic Reaction) Qty: 0 (DME) CPAP Machine Misc See Rx Instructions .ROUTE .MEDSUPPLY Qty: 1 Rx Instructions: As directed (DME) Oxygen Home Liters Per Minute See Rx Instructions .ROUTE .MEDSUPPLY Qty: 1 Rx Instructions: 2L HS w/CPAP As directed diclofenac sodium 1 % gel 2 g topical TID PRN (Reason: Pain) albuterol sulfate 90 mcg/actuation HFA aerosol inhaler 2 puff Inhalation Q4H PRN (Reason: Cough/Wheezing) mometasone-formoterol 200-5 mcg/actuation HFA aerosol inhaler 2 puff Inhalation BID valacyclovir 1 gram Tablet 1,000 mg PO Q12H PRN (Reason: Cold Sores) omeprazole 20 mg Tablet,Delayed Release (Dr/Ec) 20 mg PO QAM fluticasone propionate 50 mcg/actuation spray,suspension 2 spray INTRANASAL BID ipratropium-albuterol 0.5 mg-3 mg(2.5 mg base)/3 mL Solution For Nebulization 3 ml INHALATION Q6H PRN (Reason: COUGH/SOB/WHEEZING) ondansetron 8 mg tablet,disintegrating 8 mg translingual Q8H PRN (Reason: NAUSEA/VOMITING) betamethasone dipropionate 0.05 % Cream 1 applic TOPICAL HS PRN (Reason: RASH ON LIMBS) Refresh Classic (PF) 1.4-0.6 % Dropperette 1 drp OPR BID levothyroxine 100 mcg tablet 100 mcg PO DAILYBB spironolactone 25 mg tablet 25 mg PO DAILY sucralfate [Carafate] 1 gram Tablet 1 g PO ACHS levocetirizine 5 mg Tablet 2.5 mg PO HS acyclovir 400 mg tablet 400 mg PO UD Rx Instructions: patient isnt sure of this medication. Filled 60 for 30 day supply on 01/30 lorazepam 0.5 mg tablet 0.5 mg PO BID Rx Instructions: or 2 at night nystatin 100,000 unit/gram powder 1 applic topical BID PRN (Reason: Other) Held losartan 25 mg Tablet 25 mg PO QAM 30 Days Qty: 30 2RF Hold Instructions: Until further recommendations from your primary care physician Discharge Orders: Discharge Order (Routine); Ordered 02/22/24 Ordered By: Maikol Carranza Admission Data Admit Date/Time: 02/18/24 14:37 Attending Provider: Maikol Carranza Admit Provider: Bruce Huerta Primary Care Provider: Ary Bravo Other Providers: Bruce Huerta; Jaylyn Dumont; Luis Pabon; Leticia Stahl; Db Parenll I.; Rick Loya II; Julia Steward; Bubba Padilla; Brayden Layne; Tracee Zamora; [place]
[2024-02-22 13:00] VITALS: PULSE 67
[2024-02-23] MEDS ORDERED: POTASSIUM CHLORIDE CRTAB 20 MEQ TABCR PO SCH (09:00)
== END 2024-02-22 16:01 | disposition home health service (06) | DRG 604 ==
LOC: ED 11:12 → 2S 14:37 → SUATTDRO 14:37 → 2S 15:17